=== PATIENT | female | born 1940 | race Caucasian/White ===

== ENCOUNTER → 2017-06-04 09:38 | Outpatient (CLI) | payer MEDICARE, OTHER, SELFPAY ==
--- NOTE | 2017-06-04 09:40 | VDLE_ITS ---
Reason For Study: LEG PAIN AND SWELLING RIGHT LEFT CFV is compressible, spontaneous, phasic, CFV is compressible, spontaneous, phasic, competent and demonstrates normal competent, and demonstrates normal augmentation. augmentation. FV is compressible, spontaneous, phasic, FV is compressible, small, contracted with competent and demonstrates normal diminshed blood flow signal augmentation. POP V is compressible, spontaneous, phasic POP V is compressible, spontaneous, phasic, and demonstrates INCOMPETENCY with competent and demonstrates normal augmentation. augmentation. T/P trunk is compressible T/P Trunk is compressible. PTV is compressible PTV is compressible. PER V is compressible RT PerV is compressible. SFJ is competent SFJ is competent GSV is competent GSV is competent above knee SSV is INCOMPETENT with reflux greater GSV is INCOMPETENT below knee with reflux than .5 sec and diameter of .44 x .41 cm. greater than .5 sec and diameter of .55 Procedure x .55 cm Exam performed in department. SSV is competent. Interpretation Summary Deep veins of the right lower extremity are patent and compressible segmentally. There is no evidence of right lower extremity deep vein thrombosis. Valvular competence appears intact within the proximal deep venous system on the right . Chronic venous changes are noted in the left femoral vein, which is contracted and demonstrates diminished flow. The remainder of the left lower extremity deep venous system is patent and compressible. The left popliteal vein is incompetent. The greater saphenous veins appear bilaterally patent and compressible segmentally. Sapheno-femoral junctions are bilaterally competent . The right greater saphenous vein appears segmentally competent. The left greater saphenous vein appears competent above the knee. The left greater saphenous vein appears incompetent below the knee. The right small saphenous vein is patent and incompetent. The left small saphenous vein is patent and competent. Ordering Physician: Theron Hurtado Performed By: Robyn Lees RVT
== END ==
PROVIDERS: Family Provider Family Medicine; PCP Family Medicine; Visit Provider Surgery
DX: M79.89 Other specified soft tissue disorders (principal); I87.029 Postthrombotic syndrome with inflammation of unspecified lower extremity; Z86.718 Personal history of other venous thrombosis and embolism
CPT/HCPCS: 93970

== ENCOUNTER → 2018-07-21 05:00 | Outpatient (REF) | payer MEDICARE, OTHER, SELFPAY ==
[2018-07-21 08:22] LABS: International Normalized Ratio 1.6; Prothrombin Time (Protime)PT. 18.5 SECONDS (11.7-14.9)
== END ==
LOC: OLS.ACH 05:00
DX: I48.0 Paroxysmal atrial fibrillation (principal)
CPT/HCPCS: 36415; 85610

== ENCOUNTER → 2018-07-29 05:00 | Outpatient (REF) | payer MEDICARE, OTHER, SELFPAY ==
[2018-07-29 08:11] LABS: Prothrombin Time Fingerstick 16.8 SEC (11.9-14.4)
== END ==
LOC: OLS.ACH 05:00
DX: I48.0 Paroxysmal atrial fibrillation (principal)
CPT/HCPCS: 36416; 85610

== ENCOUNTER → 2018-08-05 05:00 | Outpatient (REF) | payer MEDICARE, SELFPAY ==
[2018-08-05 10:09] LABS: International Normalized Ratio 1.8; Prothrombin Time (Protime)PT. 20.5 SECONDS (11.7-14.9)
== END ==
LOC: OLS.ACH 05:00
DX: I48.0 Paroxysmal atrial fibrillation (principal)
CPT/HCPCS: 36415; 85610

== ENCOUNTER → 2018-08-19 04:00 | Outpatient (REF) | payer MEDICARE, OTHER, SELFPAY ==
[2018-08-19 07:06] LABS: Prothrombin Time Fingerstick 20.9 SEC (11.9-14.4)
== END ==
LOC: OLS.ACH 04:00
DX: I48.0 Paroxysmal atrial fibrillation (principal)
CPT/HCPCS: 36416; 85610

== ENCOUNTER → 2018-08-26 05:00 | Outpatient (REF) | payer MEDICARE, OTHER, SELFPAY ==
[2018-08-26 08:31] LABS: Prothrombin Time Fingerstick 20.3 SEC (11.9-14.4)
== END ==
LOC: OLS.ACH 05:00
DX: I48.0 Paroxysmal atrial fibrillation (principal)
CPT/HCPCS: 36416; 85610

== ENCOUNTER → 2018-09-02 05:00 | Outpatient (REF) | payer MEDICARE, SELFPAY ==
[2018-09-02 09:06] LABS: Prothrombin Time Fingerstick 27.2 SEC (11.9-14.4)
== END ==
LOC: OLS.ACH 05:00
DX: I48.0 Paroxysmal atrial fibrillation (principal)
CPT/HCPCS: 36416; 85610

== ENCOUNTER → 2018-09-16 05:00 | Outpatient (REF) | payer MEDICARE, OTHER, SELFPAY ==
[2018-09-16 08:05] LABS: Prothrombin Time Fingerstick 29.2 SEC (11.9-14.4)
== END ==
LOC: OLS.ACH 05:00
DX: I48.0 Paroxysmal atrial fibrillation (principal)
CPT/HCPCS: 36416; 85610

== ENCOUNTER → 2018-09-30 05:00 | Outpatient (REF) | payer MEDICARE, OTHER, SELFPAY ==
[2018-09-30 08:25] LABS: Prothrombin Time Fingerstick 21.4 SEC (11.9-14.4)
== END ==
LOC: OLS.ACH 05:00
DX: I48.0 Paroxysmal atrial fibrillation (principal)
CPT/HCPCS: 36416; 85610

== ENCOUNTER → 2018-10-14 | Outpatient (REF) | payer MEDICARE, OTHER, SELFPAY ==
[2018-10-14 07:35] LABS: Prothrombin Time Fingerstick 22.3 SEC (11.9-14.4)
== END | disposition home or self-care (01) ==
LOC: OLS.ACH 05:00
DX: I48.0 Paroxysmal atrial fibrillation (principal)
CPT/HCPCS: 36416; 85610

== ENCOUNTER → 2018-10-28 | Outpatient (REF) | payer MEDICARE, OTHER, SELFPAY ==
[2018-10-28 07:01] LABS: Prothrombin Time Fingerstick 25.1 SEC (11.9-14.4)
== END | disposition home or self-care (01) ==
LOC: OLS.ACH 05:00
DX: I48.0 Paroxysmal atrial fibrillation (principal)
CPT/HCPCS: 36416; 85610

== ENCOUNTER → 2018-11-09 05:00 | Outpatient (REF) | payer MEDICARE, OTHER, SELFPAY ==
[2018-11-09 08:20] LABS: Hematocrit 43.4 % (37-47); Hemoglobin 14.8 g/dl (12.0-15.0); Mean Corp Hgb Conc 34.1 g/gl (32-36); Mean Corpuscular Hgb 30.8 pg (27.0-32.0); Mean Corpuscular Volume 90.4 fL (81-99); Mean Platelet Vol. 9.2 fl (6.2-12.0); Platelet Count 305 K/mm3 (150-450); RBC Distribution Width CV 12.7 % (11.6-14.6); RBC Distribution Width SD 41.6 fl (35.1-43.9); White Blood Count 4.5 K/mm3 (4.4-11.0)
[2018-11-09 08:24] LABS: Scan Indicated on CBC? Y/N NO
[2018-11-09 08:34] LABS: AST(SGOT) 21 U/L (15-37); Alanine Aminotransfer ALT/SGPT 20 U/L (13-56); Alkaline Phosphatase 91 U/L (45-117); Anion Gap 6 (5-15); BUN 22 mg/dL (7-18); BUN/Creat Ratio 24.4 RATIO (10-20); Calcium,Total 9.2 mg/dL (8.5-10.1); Chloride 96 mmol/L (98-107); Cholesterol 352 mg/dL (200); EST Glomerular Filtration Rate 64 mL/min (>60); Est Glom Filt Rate - Afr Amer 78 mL/min (>60); Globulin 3.9 g/dL (2.2-4.2); Glucose 83 mg/dL (74-106); High Density Lipoprotein 76 mg/dL; Potassium 3.9 mmol/L (3.5-5.1); Protein, Total 7.9 g/dL (6.4-8.2); Sodium Level 131 mmol/L (136-145); Triglycerides 96 mg/dL; Very Low Density Lipoprotein 19 mg/dL (5-40)
== END ==
LOC: OLS.ACH 05:00
DX: E87.6 Hypokalemia (principal); E87.5 Hyperkalemia
CPT/HCPCS: 36415; 80053; 80061; 85027

== ENCOUNTER → 2018-11-18 05:00 | Outpatient (REF) | payer MEDICARE, OTHER, SELFPAY ==
[2018-11-18 07:06] LABS: Prothrombin Time Fingerstick 22.9 SEC (11.9-14.4)
== END ==
LOC: OLS.ACH 05:00
DX: I48.0 Paroxysmal atrial fibrillation (principal)
CPT/HCPCS: 36416; 85610

== ENCOUNTER → 2018-11-25 | Outpatient (REF) | payer MEDICARE, OTHER, SELFPAY ==
[2018-11-25 07:16] LABS: Prothrombin Time Fingerstick 23.4 SEC (11.9-14.4)
== END | disposition home or self-care (01) ==
LOC: OLS.ACH 05:00
DX: I48.0 Paroxysmal atrial fibrillation (principal)
CPT/HCPCS: 36416; 85610

== ENCOUNTER → 2018-12-23 05:00 | Outpatient (REF) | payer MEDICARE, OTHER, SELFPAY ==
[2018-12-23 08:42] LABS: International Normalized Ratio 2.5; Prothrombin Time (Protime)PT. 27.3 SECONDS (11.7-14.9)
== END ==
LOC: OLS.ACH 05:00
DX: I48.0 Paroxysmal atrial fibrillation (principal)
CPT/HCPCS: 36415; 85610

== ENCOUNTER → 2019-01-08 07:00 | Outpatient (REF) | payer MEDICARE, OTHER, SELFPAY | LOC: OLS.ACH 07:00 | DX: I48.0 Paroxysmal atrial fibrillation (principal) | CPT/HCPCS: 36416; 85610 ==

== ENCOUNTER → 2019-01-10 04:30 | Outpatient (REF) | payer MEDICARE, OTHER, SELFPAY ==
[2019-01-10 08:59] LABS: Prothrombin Time Fingerstick 14.4 SEC (11.9-14.4)
== END ==
LOC: OLS.ACH 04:30
DX: I48.0 Paroxysmal atrial fibrillation (principal)
CPT/HCPCS: 36416; 85610

== ENCOUNTER → 2019-01-12 05:00 | Outpatient (REF) | payer MEDICARE, OTHER, SELFPAY ==
[2019-01-12 09:49] LABS: Prothrombin Time Fingerstick 15.3 SEC (11.9-14.4)
== END ==
LOC: OLS.ACH 05:00
DX: I48.0 Paroxysmal atrial fibrillation (principal)
CPT/HCPCS: 36416; 85610

== ENCOUNTER → 2019-01-14 06:05 | Outpatient (REF) | payer MEDICARE, OTHER, SELFPAY ==
[2019-01-14 07:12] LABS: International Normalized Ratio 1.5; Prothrombin Time (Protime)PT. 17.9 SECONDS (11.7-14.9)
== END ==
LOC: OLS.ACH 06:05
DX: I48.0 Paroxysmal atrial fibrillation (principal)
CPT/HCPCS: 36415; 85610

== ENCOUNTER → 2019-01-16 04:00 | Outpatient (REF) | payer MEDICARE, OTHER, SELFPAY ==
[2019-01-16 08:25] LABS: Prothrombin Time Fingerstick 24.7 SEC (11.9-14.4)
== END ==
LOC: OLS.ACH 04:00
DX: I48.0 Paroxysmal atrial fibrillation (principal)
CPT/HCPCS: 36416; 85610

== ENCOUNTER → 2019-01-18 05:00 | Outpatient (REF) | payer MEDICARE, OTHER, SELFPAY ==
[2019-01-18 09:19] LABS: Prothrombin Time Fingerstick 30.4 SEC (11.9-14.4)
== END ==
LOC: OLS.ACH 05:00
DX: I48.0 Paroxysmal atrial fibrillation (principal)
CPT/HCPCS: 36416; 85610

== ENCOUNTER → 2019-01-20 05:00 | Outpatient (REF) | payer MEDICARE, OTHER, SELFPAY ==
[2019-01-20 10:01] LABS: Prothrombin Time Fingerstick 22.9 SEC (11.9-14.4)
== END ==
LOC: OLS.ACH 05:00
DX: I48.0 Paroxysmal atrial fibrillation (principal)
CPT/HCPCS: 36416; 85610

== ENCOUNTER → 2019-01-27 05:00 | Outpatient (REF) | payer MEDICARE, OTHER, SELFPAY ==
[2019-01-27 09:30] LABS: Prothrombin Time Fingerstick 26.8 SEC (11.9-14.4)
== END ==
LOC: OLS.ACH 05:00
DX: I48.0 Paroxysmal atrial fibrillation (principal)
CPT/HCPCS: 36416; 85610

== ENCOUNTER → 2019-02-03 05:00 | Outpatient (REF) | payer MEDICARE, OTHER, SELFPAY ==
[2019-02-03 10:54] LABS: Prothrombin Time Fingerstick 25.4 SEC (11.9-14.4)
== END ==
LOC: OLS.ACH 05:00
DX: R69 Illness, unspecified (principal)
CPT/HCPCS: 36416; 85610

== ENCOUNTER → 2019-02-17 05:00 | Outpatient (REF) | payer MEDICARE, OTHER, SELFPAY ==
[2019-02-17 07:45] LABS: Prothrombin Time Fingerstick 33.8 SEC (11.9-14.4)
== END ==
LOC: OLS.ACH 05:00
DX: I48.0 Paroxysmal atrial fibrillation (principal)
CPT/HCPCS: 36416; 85610

== ENCOUNTER → 2019-02-22 06:00 | Outpatient (REF) | payer MEDICARE, OTHER, SELFPAY ==
[2019-02-22 08:23] LABS: Absolute Lymphocyte Count 1.38 X10^3/uL (0.83-4.51); Absolute Neutrophil Count 1.5 X10^3/uL (2.0-7.7); Basophil# 0.03 X10^3/uL; Basophil% 0.9 % (0-1); Eosinophils% 2.9 % (0-5); Hematocrit 39.9 % (37-47); Hemoglobin 13.3 g/dL (12.0-15.0); Lymphocyte # 1.38 X10^3/ul (4.0); Lymphocyte % 39.4 % (19-41); Mean Corp Hgb Conc 33.3 g/dL (32-36); Mean Platelet Vol. 8.7 fl (6.2-12.0); Monocyte# 0.44 X10^3/uL; Monocyte% 12.6 % (0-10); NRBC Flagged by Analyzer 0 % (0-5); Neutrophil # 1.54 X10^3/uL (2.7-7.7); Neutrophil % 43.9 % (47-70); Platelet Count 282 K/mm3 (150-450); RBC Distribution Width CV 11.9 % (11.6-14.6); RBC Distribution Width SD 40.6 fl (35.1-43.9); Red Blood Count 4.29 M/mm3 (4.2-5.4); White Blood Count 3.5 K/mm3 (4.4-11.0)
[2019-02-22 08:31] LABS: AST(SGOT) 19 U/L (15-37); Alanine Aminotransfer ALT/SGPT 22 U/L (13-56); Albumin, Serum 3.5 g/dL (3.2-5.0); Alkaline Phosphatase 80 U/L (45-117); Anion Gap 9 (5-15); BUN 18 mg/dL (7-18); BUN/Creat Ratio 20.4 RATIO (10-20); Chloride 93 mmol/L (98-107); Creatinine, Serum 0.88 mg/dL (0.55-1.02); EST Glomerular Filtration Rate 66 mL/min (>60); Est Glom Filt Rate - Afr Amer 80 mL/min (>60); Globulin 3.6 g/dL (2.2-4.2); Glucose 83 mg/dL (74-106); Potassium 4.3 mmol/L (3.5-5.1); Protein, Total 7.1 g/dL (6.4-8.2); Sodium Level 131 mmol/L (136-145)
== END ==
LOC: OLS.ACH 06:00
DX: I10 Essential (primary) hypertension (principal)
CPT/HCPCS: 36415; 80053; 85025

== ENCOUNTER → 2019-03-03 05:00 | Outpatient (REF) | payer MEDICARE, OTHER, SELFPAY ==
[2019-03-03 08:25] LABS: Prothrombin Time Fingerstick 36.6 SEC (11.9-14.4)
== END ==
LOC: OLS.ACH 05:00
DX: I48.0 Paroxysmal atrial fibrillation (principal)
CPT/HCPCS: 36416; 85610

== ENCOUNTER → 2019-03-10 05:00 | Outpatient (REF) | payer MEDICARE, OTHER, SELFPAY ==
[2019-03-10 09:07] LABS: International Normalized Ratio 3.4; Prothrombin Time (Protime)PT. 34.6 SECONDS (11.7-14.9)
[2019-03-10 10:56] LABS: Prothrombin Time Fingerstick 39.4 SEC (11.9-14.4)
== END ==
LOC: OLS.ACH 05:00
DX: I48.0 Paroxysmal atrial fibrillation (principal)
CPT/HCPCS: 36416; 85610

== ENCOUNTER → 2019-03-17 05:00 | Outpatient (REF) | payer MEDICARE, OTHER, SELFPAY ==
[2019-03-17 08:45] LABS: Prothrombin Time Fingerstick 24.8 SEC (11.9-14.4)
== END ==
LOC: OLS.ACH 05:00
DX: I48.0 Paroxysmal atrial fibrillation (principal)
CPT/HCPCS: 36416; 85610

== ENCOUNTER → 2019-04-13 05:00 | Outpatient (REF) | payer MEDICARE, OTHER, SELFPAY ==
[2019-04-13 07:15] LABS: Prothrombin Time Fingerstick 29.2 SEC (11.9-14.4)
== END ==
LOC: OLS.ACH 05:00
DX: I48.0 Paroxysmal atrial fibrillation (principal)
CPT/HCPCS: 36416; 85610

== ENCOUNTER → 2019-04-18 05:00 | Outpatient (REF) | payer MEDICARE, OTHER, SELFPAY ==
[2019-04-18 07:39] LABS: Hematocrit 39.3 % (37-47); Hemoglobin 13.6 g/dL (12.0-15.0); Mean Corp Hgb Conc 34.6 g/dL (32-36); Mean Corpuscular Hgb 31.1 pg (27.0-32.0); Mean Corpuscular Volume 89.9 fL (81-99); Mean Platelet Vol. 8.7 fl (6.2-12.0); Platelet Count 248 K/mm3 (150-450); RBC Distribution Width CV 11.9 % (11.6-14.6); RBC Distribution Width SD 39.7 fl (35.1-43.9); Red Blood Count 4.37 M/mm3 (4.2-5.4); White Blood Count 3.1 K/mm3 (4.4-11.0)
[2019-04-18 07:53] LABS: ALB/GLOB Ratio 1.1 RATIO (0.9-2.4); AST(SGOT) 18 U/L (15-37); Alanine Aminotransfer ALT/SGPT 19 U/L (13-56); Albumin, Serum 3.5 g/dL (3.2-5.0); Alkaline Phosphatase 84 U/L (45-117); Anion Gap 5 (5-15); BUN 17 mg/dL (7-18); Calcium,Total 8.9 mg/dL (8.5-10.1); Chloride 93 mmol/L (98-107); Creatinine, Serum 0.85 mg/dL (0.55-1.02); EST Glomerular Filtration Rate 69 mL/min (>60); Est Glom Filt Rate - Afr Amer 83 mL/min (>60); Globulin 3.3 g/dL (2.2-4.2); Glucose 87 mg/dL (74-106); Potassium 4.1 mmol/L (3.5-5.1); Protein, Total 6.8 g/dL (6.4-8.2); Sodium Level 127 mmol/L (136-145)
== END ==
LOC: OLS.ACH 05:00
PROVIDERS: Visit Provider Family Medicine
DX: I48.0 Paroxysmal atrial fibrillation (principal)
CPT/HCPCS: 36415; 80053; 85027

== ENCOUNTER → 2019-05-11 05:00 | Outpatient (REF) | payer MEDICARE, OTHER, SELFPAY ==
[2019-05-11 09:35] LABS: Prothrombin Time Fingerstick 33.7 SEC (11.9-14.4)
== END ==
LOC: OLS.ACH 05:00
PROVIDERS: Family Provider Family Medicine; PCP Family Medicine
DX: I48.0 Paroxysmal atrial fibrillation (principal)
CPT/HCPCS: 36416; 85610

== ENCOUNTER → 2019-05-18 05:00 | Outpatient (REF) | payer MEDICARE, OTHER, SELFPAY ==
[2019-05-18 07:54] LABS: Hematocrit 40.2 % (37-47); Hemoglobin 13.3 g/dL (12.0-15.0); Mean Corp Hgb Conc 33.1 g/dL (32-36); Mean Corpuscular Hgb 30.6 pg (27.0-32.0); Mean Corpuscular Volume 92.4 fL (81-99); Mean Platelet Vol. 8.7 fl (6.2-12.0); Platelet Count 269 K/mm3 (150-450); RBC Distribution Width CV 12.1 % (11.6-14.6); RBC Distribution Width SD 41.2 fl (35.1-43.9); Red Blood Count 4.35 M/mm3 (4.2-5.4)
[2019-05-18 08:10] LABS: AST(SGOT) 18 U/L (15-37); Alanine Aminotransfer ALT/SGPT 19 U/L (13-56); Albumin, Serum 3.5 g/dL (3.2-5.0); Alkaline Phosphatase 79 U/L (45-117); Anion Gap 5 (5-15); BUN 18 mg/dL (7-18); Chloride 99 mmol/L (98-107); EST Glomerular Filtration Rate 57 mL/min (>60); Est Glom Filt Rate - Afr Amer 69 mL/min (>60); Globulin 3.4 g/dL (2.2-4.2); Glucose 102 mg/dL (74-106); Potassium 3.8 mmol/L (3.5-5.1); Protein, Total 6.9 g/dL (6.4-8.2); Sodium Level 133 mmol/L (136-145)
== END ==
LOC: OLS.ACH 05:00
PROVIDERS: Family Provider Family Medicine; PCP Family Medicine; Visit Provider Family Medicine
DX: I10 Essential (primary) hypertension (principal); K64.8 Other hemorrhoids
CPT/HCPCS: 36415; 80053; 85027

== ENCOUNTER 2020-09-02 09:23 | Emergency (ER) | payer MEDICARE, OTHER, SELFPAY ==
[2020-09-02 09:25] VITALS: BP 163/62; PULSE 57; RESP 14; TEMP 36.5; O2SAT 99; BMI 28.5
--- NOTE | 2020-09-02 10:44 | ED.VIS.GEN ---
History of Present Illness Chief Complaint: Back Informant: Patient Narrative: 80-year-old female presenting with lower back pain. She states that she was moving furniture for her yesterday to try to make room for a bed because he has advanced Parkinson's. She states she tried to move a dresser and a nightstand. She did not feel a pop or crack. She states today she has trouble ambulating. She states when she lays or sits her back is fine but when she tries to stand and walk she gets a spasm. Patient denies any direct trauma. No loss of bladder or bowel control. She took 2 ibuprofen prior to coming. She is on Coumadin Past Medical History - Allergies and Home Meds Allergies/Adverse Reactions: Allergies Sulfa (Sulfonamide Antibiotics) Allergy (Verified 09/02/20 09:27) [place] Primary Care Physician: Dwain Roberson DO [Primary Care Provider] - Prior records reviewed: Yes Surgical History: noncontributory [facility] Smoking Status: Never smoker Review of Systems General: Denies: Chills, Fever, Sweats Eyes: Denies: Visual changes - bilaterally, Diplopia ENT: Denies: Rhinorrhea, Sore throat Cardiovascular: Denies: Chest pain, Palpitations Respiratory: Denies: Dyspnea, Cough, Dyspnea on exertion Gastrointestinal: Denies: Abdominal pain, Nausea, Vomiting, Diarrhea, Melena, Hematochezia Genitourinary: Denies: Dysuria, Hematuria, Frequency Musculoskeletal: Reports: Back pain. Denies: Arthralgias, Neck pain Skin: Denies: Rash, Wounds Neurological: Denies: Headache, Weakness, Numbness Psych: Denies: Depression, Anxiety Physical Exam Vital Signs/Narrative: Vital Signs Temp Pulse Resp BP Pulse Ox 09/02/20 09:25 97.7 F L 57 L 14 163/62 H 99 Inital Vital Signs reviewed: Yes General: Well nourished, No Acute Distress Head: Normocephalic, Atraumatic Eyes: Perrl, EOMI ENT: Moist mucous membranes, Sinus tenderness Neck: Supple, Nontender Cardiovascular: Regular rate, Regular rhythm Respiratory: No distress, CTA bilaterally Abdomen: Soft, Nontender, Nondistended Back: - - No midline spinal tenderness, deformity, step-off. Generalized lower back pain to the right and left of the lumbar spine. No rash, ecchymosis. Neurological: Alert, Oriented x3, Cranial nerves II-XII grossly intact Psychological: Normal affect, Normal Mood Diagnostic/Tx/Re-eval Clinical Impression(s) from Imaging Studies Lumbar Spine X-Ray 09/02/20 11:20 IMPRESSION: Degenerative changes of the spine, as detailed above. Electronically Signed: Miki Ramirez MD at 11:55 EDT , Service support , - Medical Decision Making 80-year-old female presenting with lower back pain. This was nontraumatic in nature. It started to ache after she started moving dressers and a nightstand. She has no signs of cauda equina syndrome. Patient had x-ray of the lumbar spine as interpreted by myself that shows mild degenerative changes. Radiology does agree. Patient was given a Lidoderm patch due to fear that she gets a little confused when she is on narcotic pain medication. Patient felt somewhat improved and was able to ambulate with stable gait. She did have some pain here. She is given a prescription for Lidoderm patches. She is discharged home in stable condition. Impression: 1. Lumbar strain ED Disposition - Plan for ED Patient: Disposition: Home or Assisted Living Instructions: ED Back Sprain/Strain Prescriptions: Lidocaine [Lidoderm Patch] 1 patch TOPICAL DAILY #10 patch Prescription Printed Referrals: Dwain Roberson DO [Primary Care Provider] -
[2020-09-02] MEDS: Lidocaine 5% Patch 1 PATCH TOPICAL (11:09)
[2020-09-02 11:10] VITALS: PULSE 69; RESP 18; O2SAT 95
--- NOTE | 2020-09-02 11:20 | RAD_ITS ---
STUDY: X-RAY - LUMBAR SPINE REASON FOR EXAM: Female, 80 years old. Back pain following injury. TECHNIQUE: 3 view(s) of the lumbar spine were obtained. COMPARISON: None FINDINGS: Normal lumbar lordosis. There is a minimal dextroscoliosis of the lumbar spine. There is a normal alignment of the vertebrae. There is multilevel endplate spondylosis of the lumbar vertebrae. There is multi-level degenerative disc disease with multi-level disc space narrowing. There is no demonstrated fracture. Facet joint osteoarthritis. Minimal anterior listhesis of L4 on L5. Status post left hip replacement. There is atherosclerotic calcification of the abdominal aorta without a demonstrated aneurysm. RAD/Lumbar Spine 2 or 3 Views IMPRESSION: Degenerative changes of the spine, as detailed above. Electronically Signed: Miki Ramirez MD at 11:55 EDT , Service support ,
[2020-09-02 13:23] VITALS: BP 161/65; PULSE 58; RESP 18; O2SAT 98
== END 2020-09-02 13:24 | disposition home or self-care (01) ==
PROVIDERS: Emergency Provider Student in an Organized Health Care Education/Training Program; PCP Family Medicine
DX: S39.012A Strain of muscle, fascia and tendon of lower back, initial encounter (principal); X58.XXXA Exposure to other specified factors, initial encounter; Z79.01 Long term (current) use of anticoagulants
CPT/HCPCS: 72100; 99285

== ENCOUNTER → 2020-12-11 05:00 | Outpatient (REF) | payer MEDICARE, OTHER, SELFPAY ==
[2020-12-11 09:07] LABS: Absolute Neutrophil Count 1.7 X10^3/uL (2.0-7.7); Basophil# 0.02 X10^3/uL; Basophil% 0.5 % (0-1); Eosinophil# 0.02 X10^3/uL; Eosinophils% 0.5 % (0-5); Hematocrit 44.3 % (37-47); Mean Corp Hgb Conc 33.9 g/dL (32-36); Mean Corpuscular Hgb 30.3 pg (27.0-32.0); Mean Corpuscular Volume 89.5 fL (81-99); Mean Platelet Vol. 8.7 fl (6.2-12.0); Monocyte# 0.42 X10^3/uL; Monocyte% 11.5 % (0-10); NRBC Flagged by Analyzer 0 % (0-5); Neutrophil # 1.69 X10^3/uL (2.7-7.7); Neutrophil % 46.2 % (47-70); Platelet Count 288 K/mm3 (150-450); RBC Distribution Width CV 11.9 % (11.6-14.6); RBC Distribution Width SD 38.6 fl (35.1-43.9); Red Blood Count 4.95 M/mm3 (4.2-5.4); White Blood Count 3.7 K/mm3 (4.4-11.0)
[2020-12-11 09:35] LABS: ALB/GLOB Ratio 0.9 RATIO (0.9-2.4); AST(SGOT) 26 U/L (15-37); Alanine Aminotransfer ALT/SGPT 25 U/L (13-56); Albumin, Serum 4.1 g/dL (3.2-5.0); Alkaline Phosphatase 113 U/L (45-117); Anion Gap 5 (5-15); BUN 15 mg/dL (7-18); BUN/Creat Ratio 18.3 RATIO (10-20); Calcium,Total 9.3 mg/dL (8.5-10.1); Chloride 88 mmol/L (98-107); Creatinine, Serum 0.82 mg/dL (0.55-1.02); EST Glomerular Filtration Rate 72 mL/min (>60); Est Glom Filt Rate - Afr Amer 87 mL/min (>60); Globulin 4.4 g/dL (2.2-4.2); Glucose 76 mg/dL (74-106); Potassium 3.8 mmol/L (3.5-5.1); Protein, Total 8.5 g/dL (6.4-8.2); Sodium Level 122 mmol/L (136-145)
== END ==
LOC: OLS.SWAL 05:00
PROVIDERS: PCP Family Medicine; Referring Provider Family Medicine; Visit Provider Family Medicine
DX: I10 Essential (primary) hypertension (principal); I48.91 Unspecified atrial fibrillation
CPT/HCPCS: 36415; 80053; 85025

== ENCOUNTER 2021-02-22 17:46 | Observation (INO) | payer MEDICARE, OTHER, SELFPAY ==
[2021-02-22] VITALS (7 sets, daily range): BP systolic 108–170; BP diastolic 52–79; PULSE 56–77; RESP 15–20; TEMP 36.4–36.8; O2SAT 94–99; BMI 27.5; BMI 25.8
--- NOTE | 2021-02-22 18:22 | EKG12_ITS ---
Test Reason : ALT LOC Blood Pressure : / mmHG Vent. Rate : 077 BPM Atrial Rate : 077 BPM P-R Int : 218 ms QRS Dur : 092 ms QT Int : 390 ms P-R-T Axes : 072 038 071 degrees QTc Int : 441 ms Sinus rhythm with 1st degree A-V block Otherwise normal ECG Confirmed by SILVANO HERNANDEZ, JUSTO ([id number]), state editor RENETTA RUSHING ([id number]) on 02/25/2021 8:52:24 AM Referred By: Valerio Parrish Confirmed By:JUSTO SCHAEFER MD
--- NOTE | 2021-02-22 18:26 | EDS_ITS ---
HPI History of Present Illness Chief Complaint: Alt LOC Informant: patient Narrative Narrative: 80-year-old female presenting after near syncopal episode. Patient states she was sitting down and started to feel flushed and dizzy. She states she had an overwhelming feeling of nausea. She felt generally weak. She felt as though she may pass out. She did not completely pass out. She denies chest pain or chest pressure. She is vaccinated for Covid. Prior similar symptoms: No Recent Illness/Hospitalization: No PFSH PFSH Medical History (Updated 02/22/21 @ 20:[address] Gladis Mckoy MD) Afib Asthma DVT (deep venous thrombosis) HTN (hypertension) Restless leg syndrome Sleep apnea Home Medications acetaminophen 650 mg PO Q4H PRN PRN 09/02/20 [History Last Taken Unknown] amlodipine 5 mg PO DAILY 09/02/20 [History Last Taken Unknown] flecainide 50 mg PO BID 09/02/20 [History Last Taken Unknown] fluticasone propionate 1 spray NS DAILY 09/02/20 [History Last Taken Unknown] hydrochlorothiazide 12.5 mg PO DAILY 09/02/20 [History Last Taken Unknown] lidocaine 1 patch TOPICAL DAILY #10 patch 09/02/20 [Rx Last Taken Unknown] montelukast 10 mg PO DAILY 09/02/20 [History Last Taken Unknown] sodium chloride 3 spray NS Q8H PRN PRN 09/02/20 [History Last Taken Unknown] spironolactone 100 mg PO DAILY 09/02/20 [History Last Taken Unknown] warfarin 7.5 mg PO QHS 09/02/20 [History Last Taken Unknown] Allergy/AdvReac Type Severity Reaction Status Date / Time Sulfa (Sulfonamide Allergy Hives Verified 02/22/21 17:46 Antibiotics) Social History Smoking Status: Never smoker ROS [facility] ED Constitutional Constitutional ED: Denies fever(s) Eyes Eyes: Denies change in vision ENT ENT ED: Denies rhinorrhea or sore throat Cardiovascular Cardiovascular: Denies chest pain or palpitations Respiratory/Chest Respiratory/Chest: Denies cough or dyspnea Gastrointestinal Gastrointestinal: Reports nausea; Denies abdominal pain, diarrhea or vomiting Genitourinary Genitourinary ED: Denies dysuria Musculoskeletal Musculoskeletal: Denies myalgias Integumentary Denies rash Neurologic Neurologic: Denies headache(s) Psychiatric Psychiatric: Denies suicidal thoughts EXAM Physical Exam Const Vital Signs: 02/22/21 17:47 02/22/21 18:46 Temperature 97.5 F L Temperature Source Oral Pulse Rate 77 68 Respiratory Rate 20 H 17 Blood Pressure 170/79 H 145/58 H Blood Pressure Mean 109 87 Pulse Ox 98 99 Oxygen Delivery Method Room Air Room Air Positive well nourished and well developed General Appearance ED: well developed HEENT Reports normocephalic and head/scalp atraumatic Eyes PERRL and EOMs intact bilaterally Neck supple General: Negative for tenderness Chest Wall inspection of chest normal Resp normal respiratory effort and clear to auscultation bilaterally Cardio regular rate and regular rhythm GI non-tender and non-distended Palpation: soft; Negative for guarding or rebound tenderness present no CVA tenderness Extremity normal to inspection Neuro oriented x3, CN's II-XII intact bilaterally and no sensory deficits noted Sensorium / Orientation: alert Motor Exam: strength 5/5 throughout Psych mental status grossly normal Skin no rashes or lesions noted MDM MDM MDM Narrative Medical decision making narrative: Patient was bradycardic in the 40s and was given atropine per EMS prior to arrival. Patient was given IV fluids, Zofran. CBC, chemistries are unremarkable other than sodium of 127. Troponin is negative. Chest x-ray read by myself and radiology shows no acute process. CT head shows mild atrophy and periventricular white matter ischemic change. No acute bleed. On reevaluation, patient remains hemodynamically stable. Discussed with hospitalist for observation. Lab Data Attestation: I reviewed the patient's lab results. Labs: Laboratory Results - last 24 hr 02/22/21 02/22/21 17:50 17:50 WBC 4.0 L RBC 4.28 Hgb 13.5 Hct 39.4 MCV 92.1 MCH 31.5 MCHC 34.3 RDW Std Deviation 41.9 RDW Coeff of Stephanie 12.4 Plt Count 348 MPV 8.5 Immature Gran % (Auto) 0.300 Neut % (Auto) 51.4 Lymph % (Auto) 34.5 [place] % (Auto) 13.0 H Eos % (Auto) 0.3 Baso % (Auto) 0.5 Absolute Neuts (auto) 2.1 Absolute Lymphs (auto) 1.38 Nucleated RBC % 0 Sodium 127 L Potassium 3.8 Chloride 91 L Carbon Dioxide 28.0 Anion Gap 8 BUN 19 H Creatinine 0.71 Estim Creat Clear Calc 36.08 Est GFR (MDRD) Af Amer 101 Est GFR (MDRD) Non-Af 84 BUN/Creatinine Ratio 26.6 H Glucose 107 H Calcium 9.0 Troponin I High Sens 6 Radiography Diagnostic Testing: Clinical Impression(s) from Imaging Studies Brain CT 02/22/21 18:38 IMPRESSION: Mild atrophy and periventricular white matter ischemic change. No acute bleed.. If concern for acute infarct MRI recommended Electronically Signed: Steven London MD at 19:28 EDT , Service support , Chest X-Ray 02/22/21 18:40 IMPRESSION: No acute cardiopulmonary pathology Electronically Signed: Steven London MD at 19:30 EDT , Service support , Discharge Plan Triage Chief Complaint: Alt LOC ED Provider: Gladis Mckoy Dx/Rx/DC Orders Clinical Impression: Near syncope, Bradycardia Prescriptions: No Action warfarin 7.5 MG tablet 7.5 mg PO QHS RF: 0 spironolactone 100 MG tablet 100 mg PO DAILY RF: 0 amlodipine 5 MG tablet 5 mg PO DAILY RF: 0 flecainide 50 MG tablet 50 mg PO BID RF: 0 hydrochlorothiazide 12.5 MG capsule 12.5 mg PO DAILY RF: 0 montelukast 10 MG tablet 10 mg PO DAILY RF: 0 fluticasone propionate 9.9 ML spray,suspension 1 spray NS DAILY RF: 0 sodium chloride 30 ML aerosol,spray 3 spray NS Q8H PRN PRN (Reason: Congestion) RF: 0 acetaminophen 325 MG capsule 650 mg PO Q4H PRN PRN (Reason: pain/fever) RF: 0 lidocaine 1 PATCH patch 1 patch TOPICAL DAILY Qty: 10 RF: 0 Primary Care Provider: Dwain Roberson Referrals: Dwain Roberson, [Primary Care Provider] - Disposition Disposition: Acute Care [facility]
[2021-02-22 18:31] LABS: Absolute Lymphocyte Count 1.38 X10^3/uL (0.83-4.51); Absolute Neutrophil Count 2.1 X10^3/uL (2.0-7.7); Basophil# 0.02 X10^3/uL; Basophil% 0.5 % (0-1); Eosinophil# 0.01 X10^3/uL; Eosinophils% 0.3 % (0-5); Hematocrit 39.4 % (37-47); Hemoglobin 13.5 g/dL (12.0-15.0); Lymphocyte # 1.38 X10^3/ul (0.83-4.51); Lymphocyte % 34.5 % (19-41); Mean Corp Hgb Conc 34.3 g/dL (32-36); Mean Corpuscular Hgb 31.5 pg (27.0-32.0); Mean Corpuscular Volume 92.1 fL (81-99); Mean Platelet Vol. 8.5 fl (6.2-12.0); Monocyte# 0.52 X10^3/uL; NRBC Flagged by Analyzer 0 % (0-5); Neutrophil # 2.06 X10^3/uL (2.7-7.7); Neutrophil % 51.4 % (47-70); Platelet Count 348 K/mm3 (150-450); RBC Distribution Width CV 12.4 % (11.6-14.6); RBC Distribution Width SD 41.9 fl (35.1-43.9); Red Blood Count 4.28 M/mm3 (4.2-5.4)
--- NOTE | 2021-02-22 18:38 | CT_ITS ---
STUDY: CT BRAIN WITHOUT CONTRAST REASON FOR EXAM: Female, 80 years old. dizziness RADIATION DOSAGE (If Supplied By Facility): CTDIvol = ( 44.99 ) mGy, DLP = ( 796.11 ) mGycm TECHNIQUE: Transaxial CT imaging of the brain was performed without administration of intravenous contrast material. Individualized dose optimization techniques were used for this CT. COMPARISON: No relevant priors. FINDINGS: Normal soft tissue structures. Normal calvarium. Mild atrophy and periventricular white matter ischemic changes.. Normal basal ganglia and thalami. Normal brainstem. Normal cerebellum. There is no intracranial hemorrhage. There are no findings of an acute ischemic infarction. Postsurgical changes of the orbits Normal visualized paranasal sinuses. CT/Brain/Head without Contrast IMPRESSION: Mild atrophy and periventricular white matter ischemic change. No acute bleed.. If concern for acute infarct MRI recommended Electronically Signed: Steven London MD at 19:28 EDT , Service support ,
--- NOTE | 2021-02-22 18:40 | RAD_ITS ---
STUDY: X-RAY CHEST REASON FOR EXAM: Female, 80 years old. sob TECHNIQUE: AP portable COMPARISON: None. FINDINGS: The lungs are clear and expanded. There is no demonstrated pleural abnormality. Normal size heart. Normal mediastinum and ana. Normal visualized pulmonary arteries. Normal visualized aortic arch and descending thoracic aorta. Dorsal spine demonstrates mild scoliosis and degenerative change. Normal visualized ribs, clavicles, and shoulders. Postsurgical changes status post cervical fusion There is no demonstrated abnormality of the visualized soft tissue structures of the upper abdomen. RAD/Chest 1 View (Portable) IMPRESSION: No acute cardiopulmonary pathology Electronically Signed: Steven London MD at 19:30 EDT , Service support ,
[2021-02-22] MEDS: Ondansetron 4 MG/2 ML Vial IV (18:49)
[2021-02-22 18:51] LABS: Anion Gap 8 (5-15); BUN 19 mg/dL (7-18); BUN/Creat Ratio 26.6 RATIO (10-20); Chloride 91 mmol/L (98-107); Creatinine, Serum 0.71 mg/dL (0.55-1.02); EST Glomerular Filtration Rate 84 mL/min (>60); Est Glom Filt Rate - Afr Amer 101 mL/min (>60); Estimated Creatinine Clearance 36.08 ml/min; Glucose 107 mg/dL (74-106); Potassium 3.8 mmol/L (3.5-5.1); Sodium Level 127 mmol/L (136-145); Troponin-I HS 6 pg/mL (3.0-54.0)
--- NOTE | 2021-02-22 20:49 | PCM.HP.STD ---
HPI - General General Date of Admission: 02/22/21 HPI Narrative RUBINA YANEZ, is a 80 F who lives at an assisted nursing facility and with a significant history of DVT; CVA; A. fib on flecainide presents to the emergency department with presyncope that occurred while sitting in her couch. Her symptoms occurred a few hours before presentation. Associated with her symptom is nausea; and diaphoresis. Paramedics realized that patient had bradycardia with heart rate of 40 and so she was given atropine. Also she was given IV fluids enroute at the emergency department. She received IV fluids and Zofran at the emergency department. Patient received the flu vaccination about a week ago and Covid booster vaccination a few days thereafter. She is wondering whether her symptoms may be from these vaccinations. She has been on flecainide for 5 years without any symptoms. She reports that with flecainide she has not had any breakthrough A. fib. [facility] Medical History Afib Asthma DVT (deep venous thrombosis) HTN (hypertension) Restless leg syndrome Sleep apnea Home Medications acetaminophen 650 mg PO Q4H PRN PRN 09/02/20 [History Last Taken Unknown] amlodipine 5 mg PO DAILY 09/02/20 [History Last Taken Unknown] flecainide 50 mg PO BID 09/02/20 [History Last Taken Unknown] fluticasone propionate 1 spray NS DAILY 09/02/20 [History Last Taken Unknown] hydrochlorothiazide 12.5 mg PO DAILY 09/02/20 [History Last Taken Unknown] lidocaine 1 patch TOPICAL DAILY #10 patch 09/02/20 [Rx Last Taken Unknown] montelukast 10 mg PO DAILY 09/02/20 [History Last Taken Unknown] sodium chloride 3 spray NS Q8H PRN PRN 09/02/20 [History Last Taken Unknown] spironolactone 100 mg PO DAILY 09/02/20 [History Last Taken Unknown] warfarin 7.5 mg PO QHS 09/02/20 [History Last Taken Unknown] Allergy/AdvReac Type Severity Reaction Status Date / Time Sulfa (Sulfonamide Allergy Hives Verified 02/22/21 17:46 Antibiotics) Family History (Updated 02/22/21 @ 21:[address] Valerio Parrish MD) Other Alzheimer's dementia Surgical History (Updated 02/22/21 @ 21:[address] Valerio Parrish MD) History of hip surgery History of nephrectomy Previous back surgery Social History Smoking Status: Never smoker ROS ROS Narrative Constitutional: Denies fever, chills, fatigue, anorexia and change in weight Eyes: Denies blurry vision, change in eye color, change in vision, discharge from eye(s), double vision, erythema, eye pain, loss of vision or other HEENT: Denies abnormal hearing, dysphagia, ear pain, epistaxis, headache(s), hearing loss, nasal congestion, nasal discharge, post nasal drip, sinus pressure, sore throat or other Cardiovascular: Denies chest pain or palpitations. Denies dyspnea on exertion, orthopnea and paroxysmal nocturnal dyspnea Respiratory/Chest: Denies cough, excessive phlegm production, shortness of breath with exertion and wheezing Gastrointestinal: Reports nausea. Denies abdominal pain, coffee ground emesis, constipation, diarrhea, dyspepsia, hematemesis, hematochezia, loose stools, melena, vomiting or other Genitourinary: Denies burning urination, difficulty urinating, dysuria, hematuria, nocturia, urinary frequency, urinary hesitancy, urinary incontinence, urinary urgency or other Musculoskeletal: Denies arthralgias, back pain, joint pain, joint stiffness, joint swelling, myalgias, neck pain or other Neurologic: Denies abnormal gait, abnormal speech, confusion, disequilibrium, dizziness, focal weakness, headache(s), numbness, paresthesias, seizure-like activity, seizures, tingling, tremor(s) or other Psychiatric: Denies anxiety, depression, homicidal ideation, suicidal ideation or other Endocrinology: Denies change in body appearance, cold intolerance, excessive sweating, heat intolerance, polydipsia, polyuria or other Hematologic/Lymphatic: Denies anemia, easy bleeding, easy bruising, lymphadenopathy or other Integumentary: Denies rashes Allergic/Immunologic: Denies rhinitis, hives, eczema, asthma or other Vital Signs Vital Signs Vital Signs: 02/22/21 17:47 02/22/21 18:46 Temperature 97.5 F L Temperature Source Oral Pulse Rate 77 68 Respiratory Rate 20 H 17 Blood Pressure 170/79 H 145/58 H Blood Pressure Mean 109 87 Pulse Ox 98 99 Oxygen Delivery Method Room Air Room Air Weight Weight: 68.2 kg Body Mass Index (BMI) 27.5 Physical Exam Narrative Physical exam: General: Well-nourished, well-developed. Head: Normocephalic, atraumatic, no tenderness Eyes: PERRLA, EOMI ENT, no trauma, moist mucous membranes, no rhinorrhea Neck: Nontender, full range of motion, no spinal tenderness, deformities, step-off CVS: Regular rate and rhythm. S1-S2 present. No murmur, gallop or rub. Respiratory : clear to auscultation bilaterally, chest wall nontender, no wheezing Abdomen: Soft, nontender, nondistended, normal bowel sounds, no masses : Deferred Back: Nontender, no CVA tenderness, no midline spinal tenderness, deformities, step-offs Extremities: Nontender full range of motion, no trauma Skin: Normal color, no trauma, abrasions Neuro: Alert, oriented, cranial nerves II through XII grossly intact. Psychiatry: Normal mood. Normal affect. Not depressed. Not anxious. Results Lab / Micro Data Result Diagrams: 02/22/21 17:50 02/22/21 17:50 Labs: Laboratory Results - last 24 hr 02/22/21 17:50: WBC 4.0 L, RBC 4.28, Hgb 13.5, Hct 39.4, MCV 92.1, MCH 31.5, MCHC 34.3, RDW Std Deviation 41.9, RDW Coeff of Stephanie 12.4, Plt Count 348, MPV 8.5, Immature Gran % (Auto) 0.300, Neut % (Auto) 51.4, Lymph % (Auto) 34.5, [place] % (Auto) 13.0 H, Eos % (Auto) 0.3, Baso % (Auto) 0.5, Absolute Neuts (auto) 2.1, Absolute Lymphs (auto) 1.38, Nucleated RBC % 0 02/22/21 17:50: Sodium 127 L, Potassium 3.8, Chloride 91 L, Carbon Dioxide 28.0, Anion Gap 8, BUN 19 H, Creatinine 0.71, Estim Creat Clear Calc 36.08, Est GFR (MDRD) Af Amer 101, Est GFR (MDRD) Non-Af 84, BUN/Creatinine Ratio 26.6 H, Glucose 107 H, Calcium 9.0, Troponin I High Sens [address] 02/22/21 18:38 IMPRESSION: Mild atrophy and periventricular white matter ischemic change. No acute bleed.. If concern for acute infarct MRI recommended Electronically Signed: Steven London MD at 19:28 EDT , Service support , Chest X-Ray 02/22/21 18:40 IMPRESSION: No acute cardiopulmonary pathology Electronically Signed: Steven Londno MD at 19:30 EDT , Service support , Assessment & Plan Assessment/Plan (1) Near syncope: (2) Bradycardia: PLAN: Near syncope and bradycardia Brain CT and chest x-ray was independently interpreted and I agree with radiologist interpretation above. EKG reviewed showed first-degree AV block with rate of 77. Rate on telemetry was in the 60s. Cannot rule out Covid vaccination causing the symptoms. Cannot say 100% that is also Covid vaccination causing symptoms. We will observe patient on telemetry. Since she has been on flecainide for about 5 years without any symptoms flecainide will be continued. Potassium is 3.8. Give 20 mEq of potassium chloride. Check magnesium. Check echocardiogram. History of atrial fibrillation Now in sinus degree with first-degree AV block with rates of 77 on EKG. Flecainide continued. Coumadin continued. Trend PT/INR. Hypertension Blood pressure is not within goal Amlodipine; hydrochlorothiazide and Aldactone continued. Trend blood pressure and adjust blood pressure medications. Chronic leukopenia Review of labs showed white count of 4.0 Stable. DVT prophylaxis: On Coumadin will be continued. Charges/Coding Visit Charges OBSV E&M: [id number] Initial observation care L3
--- NOTE | 2021-02-22 21:51 | PCS.PANDOC ---
PANDEMIC DOCUMENTATION INITIATED: Date: 12/23/2020 Time: 190
--- NOTE | 2021-02-22 21:55 | NURSING ---
Per patient report she received both doses of the Pfizer vaccine as well as a booster. Unsure of dates.
[2021-02-22 22:45] LABS: Magnesium 1.9 mg/dL (1.6-2.6)
[2021-02-22] MEDS: Flecainide 100 MG Tablet 50 MG PO (22:49)
[2021-02-22] MEDS: Potassium Chloride Oral Tablet 20 MEQ PO (23:02)
[2021-02-23 03:50] VITALS: PULSE 52
[2021-02-23 03:52] VITALS: BP 111/50; PULSE 51; RESP 16; TEMP 36.8; O2SAT 96
[2021-02-23 06:41] LABS: International Normalized Ratio 1.6; Prothrombin Time (Protime)PT. 18.5 SECONDS (11.7-14.9)
[2021-02-23 06:56] LABS: Anion Gap 6 (5-15); BUN 15 mg/dL (7-18); BUN/Creat Ratio 19.5 RATIO (10-20); Calcium,Total 8.7 mg/dL (8.5-10.1); Chloride 93 mmol/L (98-107); Creatinine, Serum 0.77 mg/dL (0.55-1.02); EST Glomerular Filtration Rate 77 mL/min (>60); Est Glom Filt Rate - Afr Amer 93 mL/min (>60); Estimated Creatinine Clearance 36.08 ml/min; Glucose 85 mg/dL (74-106); Potassium 4.5 mmol/L (3.5-5.1); Sodium Level 127 mmol/L (136-145)
[2021-02-23 07:13] VITALS: PULSE 63
[2021-02-23 07:55] VITALS: O2SAT 98
[2021-02-23 08:26] VITALS: BP 132/54; PULSE 52; RESP 16; TEMP 36.9; O2SAT 98
[2021-02-23] MEDS: Montelukast 10 MG Tablet PO (08:34)
[2021-02-23] MEDS: Fluticasone 0.05% 1 SPRAY NASAL.SRY NASAL (08:36)
[2021-02-23] MEDS: hydroCHLOROthiazide 12.5mg 12.5 MG PO (08:36)
[2021-02-23] MEDS: Spironolactone 50 MG Tablet 100 MG PO (08:37)
[2021-02-23] MEDS: Flecainide 100 MG Tablet 50 MG PO (08:41)
--- NOTE | 2021-02-23 12:01 | PCM.PN.HOSP ---
Documented by User: Crystal Boyd NP-C 02/23/21 12:39 Subjective Subjective Patient seen and examined. Patient sitting in chair no distress noted. Patient states that she is feeling much better than yesterday patient denies syncopal episodes overnight, no lightheadedness reported. Objective Data Objective Data Vital Signs: Vital Signs Temp Pulse Resp BP Pulse Ox 98.4 F 52 L 16 132/54 H 98 02/23/21 08:26 02/23/21 08:26 02/23/21 08:26 02/23/21 08:26 02/23/21 08:26 Oxygen Delivery Method Room Air Weight: 141 lb 1.533 oz Body Mass Index (BMI) 25.8 Intake & Output: Intake and Output for Last 24 Hours 02/21/21 02/22/21 02/23/21 23:59 23:59 23:59 Intake Total 500 / 980 600 / 600 Balance 500 / 980 600 / 600 Lab / Micro Data Result Diagrams: 02/22/21 17:50 02/23/21 05:45 Labs: Laboratory Results - last 24 hr 02/22/21 17:50: WBC 4.0 L, RBC 4.28, Hgb 13.5, Hct 39.4, MCV 92.1, MCH 31.5, MCHC 34.3, RDW Std Deviation 41.9, RDW Coeff of Stephanie 12.4, Plt Count 348, MPV 8.5, Immature Gran % (Auto) 0.300, Neut % (Auto) 51.4, Lymph % (Auto) 34.5, [place] % (Auto) 13.0 H, Eos % (Auto) 0.3, Baso % (Auto) 0.5, Absolute Neuts (auto) 2.1, Absolute Lymphs (auto) 1.38, Nucleated RBC % 0 02/22/21 17:50: Sodium 127 L, Potassium 3.8, Chloride 91 L, Carbon Dioxide 28.0, Anion Gap 8, BUN 19 H, Creatinine 0.71, Estim Creat Clear Calc 36.08, Est GFR (MDRD) Af Amer 101, Est GFR (MDRD) Non-Af 84, BUN/Creatinine Ratio 26.6 H, Glucose 107 H, Calcium 9.0, Troponin I High Sens 6 02/22/21 17:50: Magnesium 1.9 02/23/21 05:45: PT 18.5 H, INR 1.6 02/23/21 05:45: Sodium 127 L, Potassium 4.5, Chloride 93 L, Carbon Dioxide 28.0, Anion Gap 6, BUN 15, Creatinine 0.77, Estim Creat Clear Calc 36.08, Est GFR (MDRD) Af Amer 93, Est GFR (MDRD) Non-Af 77, BUN/Creatinine Ratio 19.5, Glucose 85, Calcium 8.7 Radiography Diagnostic Testing: Radiology Impression Brain CT 02/22/21 18:38 IMPRESSION: Mild atrophy and periventricular white matter ischemic change. No acute bleed.. If concern for acute infarct MRI recommended Electronically Signed: Steven London MD at 19:28 EDT , Service support , Chest X-Ray 02/22/21 18:40 IMPRESSION: No acute cardiopulmonary pathology Electronically Signed: Steven London MD at 19:30 EDT , Service support , Physical Exam Const alert, oriented x3 and no apparent distress HEENT head/scalp atraumatic Head and Scalp: normocephalic Eyes conjunctivae normal and no scleral icterus Neck full ROM and supple General: trachea midline Resp normal respiratory effort, normal air movement, no use of accessory muscles and clear to auscultation bilaterally Cardio regular rate, regular rhythm, S1 normal heart sound, S2 normal heart sound and peripheral pulses 2+ throughout Rate: bradycardia GI normal to inspection, nondistended, normoactive bowel sounds, soft to palpation and non-tender Extremity normal to inspection, full ROM and no clubbing, cyanosis or edema Peripheral Pulses: Yes pulses 2+ throughout Skin no rashes or lesions noted, no wounds and skin turgor normal Neuro oriented x3, moves all extremities, no focal motor deficits and no sensory deficits noted Sensorium / Orientation: awake Speech: speech normal Psych affect normal Assessment & Plan Assessment/Plan (1) Bradycardia: (2) Near syncope: PLAN: 1. Near syncope -Unknown etiology however patient reports receiving flu vaccination 3 days after Covid booster -Patient denies any near-syncope or syncopal episodes overnight -Echocardiogram pending in a.m. -Orthostatic vital signs negative 2. Bradycardia -Patient continues to be bradycardic in the 50s, no ectopy noted -Telemetry shows sinus bradycardia with first-degree AV block. 3. History of atrial fibrillation -Continue Coumadin and flecainide -Daily PT/INR 4. Hyponatremia -Chronic secondary to hydrochlorothiazide and spironolactone use -Patient currently at baseline -Daily BMP ordered DVT prophylaxis-chronically anticoagulated This patient was seen by ROM Cavanaugh under the supervision of [] Documented by User: Dr. Haim Craven MD 02/23/21 13:44 Objective Data Lab / Micro Data Result Diagrams: 02/22/21 17:50 02/23/21 05:45
--- NOTE | 2021-02-23 12:39 | PCM.DC ---
Discharge Instructions Diet Discharge Diet: Low fat / Low cholesterol Activity Discharge Activity: Return to Normal Activity Dressing / Incision Call your doctor if you observe: Shortness of breath, Dizziness, Fainting spells and Chest pain Follow Up Care Test Results: Test results from this visit will be discussed in further detail at your follow-up appointment, if applicable. Discharge Plan Admission Admit Date/Time: 02/22/21 20:41 Primary Reason for Your Visit: Near Syncope Attending Provider: Haim Craven Primary Care Provider: Dwain Roberson Instructions Additional Instructions / Restrictions: Please follow up with your videotape sales representative in 1 week. Discharge Orders/Prescriptions Prescriptions: Continued warfarin 7.5 MG tablet 7 mg PO QHS RF: 0 spironolactone 100 MG tablet 100 mg PO DAILY RF: 0 flecainide 50 MG tablet 50 mg PO BID RF: 0 hydrochlorothiazide 12.5 MG capsule 12.5 mg PO DAILY RF: 0 montelukast 10 MG tablet 10 mg PO DAILY RF: 0 fluticasone propionate 9.9 ML spray,suspension 1 spray NS DAILY RF: 0 sodium chloride 30 ML aerosol,spray 3 spray NS Q8H PRN PRN (Reason: Congestion) RF: 0 acetaminophen 325 MG capsule 650 mg PO Q4H PRN PRN (Reason: pain/fever) RF: 0 lidocaine 1 PATCH patch 1 patch TOPICAL DAILY Qty: 10 RF: 0 Referrals / Follow Up: Dwain Roberson DO [Primary Care Provider] - Disposition Disposition (needs filled in before D/C Order can be placed): Home, Self Care
--- NOTE | 2021-02-23 12:43 | PCM.DC.SUM ---
Documented by User: ROM Cavanaugh 02/23/21 12:45 Providers Date of Admission: 02/22/21 Primary Care Physician: Dr. Dwain Roberson DO Reason For Visit: PRESYNCOPE Diagnosis Discharge Diagnosis (1) Bradycardia: Status: Acute Code(s): R00.1 - Bradycardia, unspecified (2) Near syncope: Status: Acute Code(s): R55 - Syncope and collapse Medications at Discharge Home Medications acetaminophen 650 mg PO Q4H PRN PRN 09/02/20 flecainide 50 mg PO BID 09/02/20 fluticasone propionate 1 spray NS DAILY 09/02/20 hydrochlorothiazide 12.5 mg PO DAILY 09/02/20 lidocaine 1 patch TOPICAL DAILY #10 patch 09/02/20 montelukast 10 mg PO DAILY 09/02/20 sodium chloride 3 spray NS Q8H PRN PRN 09/02/20 spironolactone 100 mg PO DAILY 09/02/20 warfarin 7 mg PO QHS 09/02/20 Hospital Course Operations None Procedures EKG Summary of Care Provided Minutes Spent on Discharge: 30 Hospital Course: Patient is a 80-year-old female who came in on 02/22/2021 with complaints of lightheadedness and near syncope. Orthostatic vital signs negative, vital signs stable. Labs reviewed and within normal limits for patient. Patient asymptomatic throughout hospitalization. Patient will follow up with cardiology outpatient for further work-up. Physical Exam Const alert, oriented x3 and no apparent distress HEENT head/scalp atraumatic Eyes conjunctivae normal and no scleral icterus Neck full ROM and supple General: trachea midline Resp normal respiratory effort, normal air movement, no use of accessory muscles and clear to auscultation bilaterally Cardio regular rate, regular rhythm, S1 normal heart sound, S2 normal heart sound and peripheral pulses 2+ throughout Rate: bradycardia GI normal to inspection, nondistended, normoactive bowel sounds, soft to palpation and non-tender Extremity normal to inspection, full ROM and no clubbing, cyanosis or edema Skin no rashes or lesions noted, no wounds and skin turgor normal Neuro oriented x3, moves all extremities, no focal motor deficits and no sensory deficits noted Sensorium / Orientation: awake Speech: speech normal Psych affect normal Weight / BMI Weight Weight: 141 lb 1.533 oz Body Mass Index (BMI) 25.8 ABG / Lab / Microbiology Data Result Diagrams: 02/22/21 17:50 02/23/21 05:45 Laboratory: Laboratory Results - last 24 hr 02/22/21 17:50: WBC 4.0 L, RBC 4.28, Hgb 13.5, Hct 39.4, MCV 92.1, MCH 31.5, MCHC 34.3, RDW Std Deviation 41.9, RDW Coeff of Stephanie 12.4, Plt Count 348, MPV 8.5, Immature Gran % (Auto) 0.300, Neut % (Auto) 51.4, Lymph % (Auto) 34.5, [place] % (Auto) 13.0 H, Eos % (Auto) 0.3, Baso % (Auto) 0.5, Absolute Neuts (auto) 2.1, Absolute Lymphs (auto) 1.38, Nucleated RBC % 0 02/22/21 17:50: Sodium 127 L, Potassium 3.8, Chloride 91 L, Carbon Dioxide 28.0, Anion Gap 8, BUN 19 H, Creatinine 0.71, Estim Creat Clear Calc 36.08, Est GFR (MDRD) Af Amer 101, Est GFR (MDRD) Non-Af 84, BUN/Creatinine Ratio 26.6 H, Glucose 107 H, Calcium 9.0, Troponin I High Sens 6 02/22/21 17:50: Magnesium 1.9 02/23/21 05:45: PT 18.5 H, INR 1.6 02/23/21 05:45: Sodium 127 L, Potassium 4.5, Chloride 93 L, Carbon Dioxide 28.0, Anion Gap 6, BUN 15, Creatinine 0.77, Estim Creat Clear Calc 36.08, Est GFR (MDRD) Af Amer 93, Est GFR (MDRD) Non-Af 77, BUN/Creatinine Ratio 19.5, Glucose 85, Calcium 8.7 Radiography Diagnostic Testing: Radiology Impression Brain CT 02/22/21 18:38 IMPRESSION: Mild atrophy and periventricular white matter ischemic change. No acute bleed.. If concern for acute infarct MRI recommended Electronically Signed: Steven London MD at 19:28 EDT , Service support , Chest X-Ray 02/22/21 18:40 IMPRESSION: No acute cardiopulmonary pathology Electronically Signed: Steven London MD at 19:30 EDT , Service support , D/C Instructions Discharge Diet: Low fat / Low cholesterol Call your doctor if you observe: Shortness of breath, Dizziness, Fainting spells and Chest pain Meaningful Use Info Meaningful Use Diagnoses (Choose all that apply): None applicable Discharge Plan Admission Admit Date/Time: 02/22/21 20:41 Primary Reason for Your Visit: Near Syncope Attending Provider: Haim Craven Primary Care Provider: Dwain Roberson Instructions Additional Instructions / Restrictions: Please follow up with your body maker machine setter in 1 week. Discharge Orders/Prescriptions Prescriptions: Continued warfarin 7.5 MG tablet 7 mg PO QHS RF: 0 spironolactone 100 MG tablet 100 mg PO DAILY RF: 0 flecainide 50 MG tablet 50 mg PO BID RF: 0 hydrochlorothiazide 12.5 MG capsule 12.5 mg PO DAILY RF: 0 montelukast 10 MG tablet 10 mg PO DAILY RF: 0 fluticasone propionate 9.9 ML spray,suspension 1 spray NS DAILY RF: 0 sodium chloride 30 ML aerosol,spray 3 spray NS Q8H PRN PRN (Reason: Congestion) RF: 0 acetaminophen 325 MG capsule 650 mg PO Q4H PRN PRN (Reason: pain/fever) RF: 0 lidocaine 1 PATCH patch 1 patch TOPICAL DAILY Qty: 10 RF: 0 Referrals / Follow Up: Dwain Roberson DO [Primary Care Provider] - Disposition Disposition (needs filled in before D/C Order can be placed): Home, Self Care Documented by User: Dr. Haim Craven MD 02/23/21 13:47 Providers Date of Admission: 02/22/21 Reason For Visit: PRESYNCOPE Medications at Discharge Home Medications acetaminophen 650 mg PO Q4H PRN PRN 09/02/20 flecainide 50 mg PO BID 09/02/20 fluticasone propionate 1 spray NS DAILY 09/02/20 hydrochlorothiazide 12.5 mg PO DAILY 09/02/20 lidocaine 1 patch TOPICAL DAILY #10 patch 09/02/20 montelukast 10 mg PO DAILY 09/02/20 sodium chloride 3 spray NS Q8H PRN PRN 09/02/20 spironolactone 100 mg PO DAILY 09/02/20 warfarin 7 mg PO QHS 09/02/20 ABG / Lab / Microbiology Data Result Diagrams: 02/22/21 17:50 02/23/21 05:45 Discharge Plan Admission Admit Date/Time: 02/22/21 20:41 Primary Reason for Your Visit: Near Syncope Attending Provider: Haim Craven Primary Care Provider: Dwain Roberson Instructions Additional Instructions / Restrictions: Please follow up with your body maker machine setter in 1 week. Discharge Orders/Prescriptions Prescriptions: Continued warfarin 7.5 MG tablet 7 mg PO QHS RF: 0 spironolactone 100 MG tablet 100 mg PO DAILY RF: 0 flecainide 50 MG tablet 50 mg PO BID RF: 0 hydrochlorothiazide 12.5 MG capsule 12.5 mg PO DAILY RF: 0 montelukast 10 MG tablet 10 mg PO DAILY RF: 0 fluticasone propionate 9.9 ML spray,suspension 1 spray NS DAILY RF: 0 sodium chloride 30 ML aerosol,spray 3 spray NS Q8H PRN PRN (Reason: Congestion) RF: 0 acetaminophen 325 MG capsule 650 mg PO Q4H PRN PRN (Reason: pain/fever) RF: 0 lidocaine 1 PATCH patch 1 patch TOPICAL DAILY Qty: 10 RF: 0 Referrals / Follow Up: Dwain Roberson DO [Primary Care Provider] - Disposition Disposition (needs filled in before D/C Order can be placed): Home, Self Care Charges/Coding Addendum Addendum: Dr. Craven: I personally reviewed the chart and examined the patient, and agree with the above findings. 80-year-old female presents from the assisted living with a presyncopal episode. She states that she was out to eat with her son and had a fairly big lunch and then about an hour later while she was sitting in her recliner she got diaphoretic and dizzy. She was able to get up and walk to the door to call for help and never passed out. She denies any palpitations or chest pain with this episode and has never had an episode like this before. She does have a history of A. fib but she states that she did not notice any palpitations and she is currently on flecainide by [facility] cardiology in [place]. She also has a known slight heart murmur and she is being managed by her body maker machine setter for this as well as for the A. fib. She feels much better today, she has not had any arrhythmia on telemetry overnight, and has not had any further episodes. Given the fact that this is presyncope and not an actual syncopal episode we will plan for discharge today with outpatient follow-up to her body maker machine setter and her PCP. I discussed this plan with her and she expressed understanding of the risk benefits of going home and would like to go home today. Of note her INR was 1.6, will need to follow-up and have her Coumadin adjusted as an outpatient. Visit Charges OBSV E&M: 23207 Observation care discharge
[2021-02-23 13:28] VITALS: BP 121/53; PULSE 57; RESP 16; TEMP 36.9; O2SAT 97
== END 2021-02-23 12:42 | disposition home or self-care (01) ==
LOC: ED 20:46 → PCU 21:05
PROVIDERS: Admitting Provider Hospitalist; Emergency Provider Emergency Medicine; PCP Family Medicine; Referring Provider Hospitalist; Visit Provider Family Medicine
DX: R55 Syncope and collapse (principal); R00.1 Bradycardia, unspecified; I48.91 Unspecified atrial fibrillation; J45.909 Unspecified asthma, uncomplicated; I10 Essential (primary) hypertension; G47.30 Sleep apnea, unspecified; I44.0 Atrioventricular block, first degree; E87.1 Hypo-osmolality and hyponatremia; Z86.718 Personal history of other venous thrombosis and embolism; Z79.899 Other long term (current) drug therapy; Z79.01 Long term (current) use of anticoagulants; Z79.51 Long term (current) use of inhaled steroids
CPT/HCPCS: 36415; 70450; 71045; 80048; 83735; 84484; 85025; 85610; 93005; 96374; 99218; 99285; J7030; G0378; J2405

== ENCOUNTER → 2021-09-22 | Outpatient (CLI) | payer MEDICARE, OTHER, SELFPAY ==
[2021-09-22 16:12] LABS: International Normalized Ratio 1.4; Prothrombin Time (Protime)PT. 16.5 SECONDS (11.7-14.9)
== END | disposition home or self-care (01) ==
LOC: MTLAB 12:01
PROVIDERS: PCP Family Medicine; Referring Provider Specialist; Visit Provider Specialist
DX: I10 Essential (primary) hypertension (principal); Z79.01 Long term (current) use of anticoagulants
CPT/HCPCS: 36415; 85610

== ENCOUNTER → 2022-01-08 | Outpatient (REF) | payer MEDICARE, SELFPAY ==
[2022-01-08 08:55] LABS: Hematocrit 38.8 % (37-47); Mean Corp Hgb Conc 33.5 g/dL (32-36); Mean Corpuscular Hgb 31.3 pg (27.0-32.0); Mean Corpuscular Volume 93.3 fL (81-99); Mean Platelet Vol. 8.6 fl (6.2-12.0); Platelet Count 297 K/mm3 (150-450); RBC Distribution Width CV 12.1 % (11.6-14.6); Red Blood Count 4.16 M/mm3 (4.2-5.4); White Blood Count 3.2 K/mm3 (4.4-11.0)
[2022-01-08 09:07] LABS: AST(SGOT) 17 U/L (15-37); Alanine Aminotransfer ALT/SGPT 22 U/L (13-56); Albumin, Serum 3.8 g/dL (3.2-5.0); Alkaline Phosphatase 90 U/L (45-117); Anion Gap 10 (5-15); BUN 12 mg/dL (7-18); BUN/Creat Ratio 17.1 RATIO (10-20); Calcium,Total 9.3 mg/dL (8.5-10.1); Chloride 92 mmol/L (98-107); EST Glomerular Filtration Rate 85 mL/min (>60); Est Glom Filt Rate - Afr Amer 103 mL/min (>60); Globulin 3.7 g/dL (2.2-4.2); Glucose 95 mg/dL (74-106); Potassium 3.6 mmol/L (3.5-5.1); Protein, Total 7.5 g/dL (6.4-8.2); Sodium Level 129 mmol/L (136-145)
== END ==
LOC: OLS.SWAL 05:00
DX: I10 Essential (primary) hypertension (principal); I48.0 Paroxysmal atrial fibrillation
CPT/HCPCS: 36415; 80053; 85027

== ENCOUNTER 2022-02-06 12:49 | Emergency (ER) | payer MEDICARE, OTHER, SELFPAY ==
[2022-02-06 12:57] VITALS: BP 140/55; PULSE 59; RESP 18; TEMP 36.3; O2SAT 97; BMI 24.7
--- NOTE | 2022-02-06 13:19 | ED.RN ---
Daughter in law called and would like a call when she is seen by Dr. Pollard [phone]
--- NOTE | 2022-02-06 14:11 | EKG12_ITS ---
Test Reason : Blood Pressure : / mmHG Vent. Rate : 063 BPM Atrial Rate : 063 BPM P-R Int : 216 ms QRS Dur : 096 ms QT Int : 412 ms P-R-T Axes : 070 027 072 degrees QTc Int : 421 ms Sinus rhythm with 1st degree A-V block Otherwise normal ECG Confirmed by SILVANO HERNANDEZ, JUSTO ([id number]), editor managing director RENETTA RUSHING ([id number]) on 02/09/2022 10:07:20 AM Referred By: Confirmed By:JUSTO SCHAEFER MD
--- NOTE | 2022-02-06 14:11 | CT_ITS ---
STUDY: CT BRAIN WITHOUT CONTRAST REASON FOR EXAM: Female, 81 years old. Head injury due to a fall. Loss of consciousness. RADIATION DOSAGE (If Supplied By Facility): CTDIvol = ( 44.99 ) mGy, DLP = ( 846.73 ) mGycm TECHNIQUE: Transaxial CT imaging of the brain was performed without administration of intravenous contrast material. Individualized dose optimization techniques were used for this CT. COMPARISON: Comparison is made with prior examination dated 02/22/2021. FINDINGS: Normal soft tissue structures. Normal calvarium. There is mild cerebral atrophy with widening of the extra-axial spaces and ventricular dilatation. There are areas of decreased attenuation within the white matter tracts of the supratentorial brain, consistent with microvascular disease changes. Normal basal ganglia and thalami. Normal brainstem. Normal cerebellum. There is no intracranial hemorrhage. There are no findings of an acute ischemic infarction. Atherosclerotic calcification of the cavernous portions of the internal carotid arteries bilaterally. Normal visualized paranasal sinuses. CT/Brain/Head without Contrast IMPRESSION: Chronic involutional changes of the brain. Electronically Signed: Miki Ramirez MD at 14:54 EDT ,
--- NOTE | 2022-02-06 14:11 | RAD_ITS ---
STUDY: X-RAY - RIGHT KNEE REASON FOR EXAM: Female, 81 years old. Trauma TECHNIQUE: 4 view(s) of the knee. COMPARISON: None. FINDINGS: Normal visualized distal femur. Normal visualized proximal tibia and fibula. Normal proximal tibiofibular articulation. There is mild degenerative arthrosis of the medial femorotibial compartment. There is severe degenerative arthrosis of the lateral femorotibial compartment with severe joint space narrowing. There is severe degenerative arthrosis of the patellofemoral articulation. The soft tissue structures are unremarkable. RAD/Knee 4 or More Views IMPRESSION: Degenerative arthrosis. Electronically Signed: Miki Ramirez MD at 15:23 EDT ,
--- NOTE | 2022-02-06 14:11 | RAD_ITS ---
STUDY: X-RAY - PELVIS AND RIGHT HIP REASON FOR EXAM: Female, 81 years old. Pain following injury. TECHNIQUE: 3 views of the pelvis and hip. COMPARISON: None. FINDINGS: Moderate amount of fecal material is seen in the colon. Normal visualized soft tissue structures. There is narrowing with cortical sclerosis and osteophyte formation of the sacroiliac joint consistent with degenerative osteoarthritic changes. Normal bilateral superior and inferior pubic rami. There is narrowing with sclerosis of the pubic symphysis. Normal bilateral ischial tuberosities. Normal visualized femoral head. There is osteoarthritic spur formation of the acetabular rim. is severe articular joint space narrowing of the hip. The patient is status post left total hip preplacement. Degenerative changes of the lower lumbar spine. RAD/HIP, UNI W/ Pelvis 2-3 Views IMPRESSION: Marked degree of joint space narrowing of the right hip joint. No fracture or dislocation is seen. Electronically Signed: Miki Ramirez MD at 15:22 EDT ,
--- NOTE | 2022-02-06 14:16 | EDS_ITS ---
HPI History of Present Illness Chief Complaint: Lower Extremity Injury Informant: patient and EMS Narrative Narrative: 81-year-old female from assisted living at [facility] presented to the emergency room post trauma day 2 from a fall. She states that in the [place] 2 nights ago she got up to use the bathroom and when she was washing her hands the next thing she remembers she was on the floor. She does not recall any prodrome such as lightheadedness chest pain palpitations etc. She states that she did not remember hitting the ground. She does remember having pain in her right hip and right knee. This is progressively gotten slightly worse. She also notes a bruise on her head today that has appeared. She has been able to ambulate with a walker though painfully. She notes that she is on Coumadin for atrial fibrillation. She states that her primary care provider wrote her for Ultram and she took 1 dose but it did not help her pain. She denies any neck or back pain. She notes skin tearing to the left forearm and right buttock. [facility] Medical History Afib Asthma DVT (deep venous thrombosis) HTN (hypertension) Restless leg syndrome Sleep apnea Stroke/cerebrovascular accident Home Medications acetaminophen 325 mg capsule 650 mg PO Q4H PRN PRN pain/fever 09/02/20 [History Last Taken Unknown] flecainide 50 mg tablet 50 mg PO BID 09/02/20 [History Last Taken Unknown] fluticasone propionate 50 mcg/actuation nasal spray,suspension 1 spray NS DAILY 09/02/20 [History Last Taken Unknown] hydrochlorothiazide 12.5 mg capsule 12.5 mg PO DAILY 09/02/20 [History Last Taken Unknown] lidocaine 5 % topical patch 1 patch topical DAILY #10 patches 09/02/20 [Rx Last Taken Unknown] montelukast 10 mg tablet 10 mg PO DAILY 09/02/20 [History Last Taken Unknown] sodium chloride 0.65 % nasal spray aerosol 3 spray NS Q8H PRN PRN Congestion 09/02/20 [History Last Taken Unknown] spironolactone 100 mg tablet 100 mg PO DAILY 09/02/20 [History Last Taken Unknown] warfarin 7.5 mg tablet 7 mg PO QHS 09/02/20 [History Last Taken Unknown] oxycodone 5 mg capsule 5 mg PO TID PRN pain 3 days #12 caps 02/06/22 [Rx Last Taken Unknown] Allergy/AdvReac Type Severity Reaction Status Date / Time adhesive tape Allergy Rash Verified 02/06/22 12:57 carvedilol [From Coreg] Allergy Shortness Verified 02/06/22 12:56 of breath celecoxib [From Celebrex] Allergy Shortness Verified 02/06/22 12:56 of breath clonidine [From Catapres] Allergy Shortness Verified 02/06/22 12:56 of breath enalaprilat [From Vasotec] Allergy Shortness Verified 02/06/22 12:56 of breath erythromycin base Allergy DIFFICULTY Verified 02/06/22 12:56 BREATHING hydrochlorothiazide Allergy Shortness Verified 02/06/22 12:56 [From Hyzaar] of breath lisinopril Allergy Shortness Verified 02/06/22 12:56 of breath losartan [From Hyzaar] Allergy Shortness Verified 02/06/22 12:56 of breath metoprolol [From Lopressor] Allergy Shortness Verified 02/06/22 12:56 of breath rofecoxib [From Vioxx] Allergy Shortness Verified 02/06/22 12:56 of breath rosuvastatin [From Crestor] Allergy Shortness Verified 02/06/22 12:56 of breath simvastatin [From Zocor] Allergy Shortness Verified 02/06/22 12:56 of breath Sulfa (Sulfonamide Allergy difficulty Verified 02/06/22 12:56 Antibiotics) breathing sulfamethoxazole Allergy Shortness Verified 02/06/22 12:56 of breath warfarin [From Jantoven] Allergy Shortness Verified 02/06/22 12:56 of breath Family History Other Alzheimer's dementia Surgical History History of hip surgery History of nephrectomy Previous back surgery Social History (Updated 02/06/22 @ 14:[address] Luis Bob DO) Smoking Status: Never smoker substance use type: does not use ROS ROS ED Constitutional Constitutional ED: Denies chills or weight loss Eyes Eyes: Denies change in vision or diplopia ENT ENT ED: Denies ear pain, rhinorrhea or sore throat Cardiovascular Cardiovascular: Denies chest pain, orthopnea, palpitations or racing heartbeat Respiratory/Chest Respiratory/Chest: Denies cough, dyspnea or orthopnea Gastrointestinal Gastrointestinal: Denies abdominal pain, diarrhea, nausea or vomiting Genitourinary Genitourinary ED: Denies dysuria, hematuria or urinary frequency Musculoskeletal Musculoskeletal: Reports other Details: See history of present illness ; Denies arthralgias, back pain, myalgias or neck pain Integumentary Reports Abrasions; Denies abscess or rash Neurologic Neurologic: Denies headache(s) or weakness Psychiatric Psychiatric: Denies anxiety, depression, suicidal ideation or suicidal thoughts Endocrine Endocrinology: Denies polydipsia, polyphagia or polyuria Allergic/Immunologic Allergic/Immunologic ED: Denies mouth swelling, tongue swelling or urticaria EXAM Physical Exam Const Vital Signs: 02/06/22 12:57 Temperature 97.4 F L Temperature Source Temporal Pulse Rate 59 L Respiratory Rate 18 Blood Pressure 140/55 H Blood Pressure Mean 83 Pulse Ox 97 Oxygen Delivery Method Room Air Positive well nourished and well developed General Appearance ED: well developed HEENT Reports normocephalic and moist mucous membranes HEENT Narrative: There is a small area of ecchymosis just lateral to the right periorbital region. Nose no bony step-offs. Midface is stable. No malocclusion. No dental trauma noted. Eyes PERRL and EOMs intact bilaterally Neck full ROM, no lymphadenopathy, supple and no JVD Neck Narrative: Painless range of motion Resp normal respiratory effort and clear to auscultation bilaterally Cardio regular rate, regular rhythm and no murmurs GI normal to inspection, nondistended, normoactive bowel sounds and non-tender Palpation: soft Back/Spine no CVA tenderness and normal ROM Extremity Extremity Narrative: Patient reports tenderness over the greater trochanter on the right side as well as tenderness over the inferior lateral knee on the right side. General Extremety ED: Negative for edema General Extremity: Negative for edema Neuro oriented x3 and CN's II-XII intact bilaterally Sensorium / Orientation: alert Motor Exam: strength 5/5 throughout Psych mental status grossly normal Mood & Affect: Negative for depressed or tearful Skin no rashes or lesions noted Skin Narrative: There are superficial skin tears to the left forearm and the right buttock. These do not need suturing or show signs of infection MDM MDM MDM Narrative Medical decision making narrative: CT of the brain was obtained which was negative for hemorrhage or fracture. My interpretation of the plain films of the left hip and the left knee is no acute fracture. Basic blood work was obtained showed a troponin of 9. Supratherapeutic INR at 4.2. Patient was given some oxycodone. I will write for same at home. She is to hold her Coumadin for the next 3 evenings and have it rechecked on Wednesday morning. Lab Data Labs: Laboratory Results - last 24 hr 02/06/22 02/06/22 02/06/22 14:32 14:32 14:32 WBC 4.8 RBC 4.43 Hgb 14.1 Hct 40.9 MCV 92.3 MCH 31.8 MCHC 34.5 RDW Std Deviation 41.5 RDW Coeff of Stephanie 12.1 Plt Count 275 MPV 8.3 Immature Gran % (Auto) 0.200 Neut % (Auto) 76.9 H Lymph % (Auto) 13.0 L Long % (Auto) 9.7 Eos % (Auto) 0.0 Baso % (Auto) 0.2 Absolute Neuts (auto) 3.7 Absolute Lymphs (auto) 0.63 L Nucleated RBC % 0 PT 40.2 H INR 4.2 H* Sodium 129 L Potassium 4.3 Chloride 90 L Carbon Dioxide 29.0 Anion Gap 10 BUN 17 Creatinine 0.71 Estim Creat Clear Calc 37.12 Est GFR (MDRD) Af Amer 101 Est GFR (MDRD) Non-Af 84 BUN/Creatinine Ratio 23.9 H Glucose 99 Calcium 9.4 Total Bilirubin 0.60 AST 35 ALT 28 Alkaline Phosphatase 92 Troponin I High Sens 9 Total Protein 7.9 Albumin 3.7 Globulin 4.2 Albumin/Globulin Ratio 0.9 Radiography Diagnostic Testing: Clinical Impression(s) from Imaging Studies Brain CT 02/06/22 14:11 IMPRESSION: Chronic involutional changes of the brain. Electronically Signed: Miki Ramirez MD at 14:54 EDT , Hip/Pelvis X-Ray 02/06/22 14:11 IMPRESSION: Marked degree of joint space narrowing of the right hip joint. No fracture or dislocation is seen. Electronically Signed: Miki Ramirez MD at 15:22 EDT , Knee X-Ray 02/06/22 14:11 IMPRESSION: Degenerative arthrosis. Electronically Signed: Miki Ramirez MD at 15:23 EDT , Chest X-Ray 02/06/22 14:50 IMPRESSION: No acute abnormality is seen. Stable examination. Electronically Signed: Miki Ramirez MD at 15:20 EDT , EKG Initial EKG: Attestation: I personally reviewed and interpreted this EKG as follows: Comments: Sinus rhythm with first-degree AV block ventricular rate of 63 bpm. Discharge Plan Triage Chief Complaint: Lower Extremity Injury Other Complaint: Fall ED Provider: Luis Bob Dx/Rx/DC Orders Clinical Impression: Contusion of face, Syncope and collapse, Contusion of hip, right, Contusion of knee, right, Multiple skin tears, Supratherapeutic INR Instructions: Causes of Syncope, Bruises (Contusions) Prescriptions: New oxycodone 5 mg capsule 5 mg PO TID PRN (Reason: pain) 3 Days Qty: 12 0RF No Action warfarin 7.5 MG tablet 7 mg PO QHS spironolactone 100 MG tablet 100 mg PO DAILY flecainide 50 MG tablet 50 mg PO BID hydrochlorothiazide 12.5 MG capsule 12.5 mg PO DAILY montelukast 10 MG tablet 10 mg PO DAILY fluticasone propionate 9.9 ML spray,suspension 1 spray NS DAILY sodium chloride 30 ML aerosol,spray 3 spray NS Q8H PRN PRN (Reason: Congestion) acetaminophen 325 MG capsule 650 mg PO Q4H PRN PRN (Reason: pain/fever) lidocaine 1 PATCH patch 1 patch TOPICAL DAILY Qty: 10 0RF Rx Instructions: On 12 hours off 12 hours Primary Care Provider: Dwain Roberson Referrals: Dwain Roberson, DO [Primary Care Provider] - 1 Week Activity Restrictions/Additional Instructions: Your INR today is 4.2. Is recommended that you hold your Coumadin dose Wednesday and Wednesday and have it rechecked on Wednesday. No fractures were identified but you will most likely be sore due to bruising which is exacerbated by your Coumadin use. Disposition Disposition: Home, Self Care
[2022-02-06] MEDS: oxyCODONE 5 MG Tablet PO (14:31)
[2022-02-06 14:39] LABS: Absolute Lymphocyte Count 0.63 X10^3/uL (0.83-4.51); Absolute Neutrophil Count 3.7 X10^3/uL (2.0-7.7); Basophil# 0.01 X10^3/uL; Basophil% 0.2 % (0-1); Hematocrit 40.9 % (37-47); Hemoglobin 14.1 g/dL (12.0-15.0); Lymphocyte # 0.63 X10^3/ul (0.83-4.51); Mean Corp Hgb Conc 34.5 g/dL (32-36); Mean Corpuscular Hgb 31.8 pg (27.0-32.0); Mean Corpuscular Volume 92.3 fL (81-99); Mean Platelet Vol. 8.3 fl (6.2-12.0); Monocyte# 0.47 X10^3/uL; Monocyte% 9.7 % (0-10); NRBC Flagged by Analyzer 0 % (0-5); Neutrophil # 3.72 X10^3/uL (2.7-7.7); Neutrophil % 76.9 % (47-70); Platelet Count 275 K/mm3 (150-450); RBC Distribution Width CV 12.1 % (11.6-14.6); RBC Distribution Width SD 41.5 fl (35.1-43.9); Red Blood Count 4.43 M/mm3 (4.2-5.4); White Blood Count 4.8 K/mm3 (4.4-11.0)
--- NOTE | 2022-02-06 14:50 | RAD_ITS ---
STUDY: X-RAY CHEST REASON FOR EXAM: Female, 81 years old. Fall due to syncopal episode. TECHNIQUE: Single AP portable view of the chest. COMPARISON: Comparison is made with prior study dated 02/22/2021. FINDINGS: EKG electrodes are seen. The lungs are clear and expanded. There is no demonstrated pleural abnormality. Normal size heart. Normal mediastinum and naa. Normal visualized pulmonary arteries. There is atherosclerotic calcification of the aortic arch with tortuosity. There are diffuse degenerative changes of the visualized thoracic spine. Normal visualized ribs, clavicles, and shoulders. There is no demonstrated abnormality of the visualized soft tissue structures of the upper abdomen. RAD/Chest 1 View (Portable) IMPRESSION: No acute abnormality is seen. Stable examination. Electronically Signed: Miki Ramirez MD at 15:20 EDT ,
[2022-02-06 14:52] LABS: International Normalized Ratio 4.2; Prothrombin Time (Protime)PT. 40.2 SECONDS (11.7-14.9)
[2022-02-06 14:59] LABS: ALB/GLOB Ratio 0.9 RATIO (0.9-2.4); AST(SGOT) 35 U/L (15-37); Alanine Aminotransfer ALT/SGPT 28 U/L (13-56); Albumin, Serum 3.7 g/dL (3.2-5.0); Alkaline Phosphatase 92 U/L (45-117); Anion Gap 10 (5-15); BUN 17 mg/dL (7-18); BUN/Creat Ratio 23.9 RATIO (10-20); Calcium,Total 9.4 mg/dL (8.5-10.1); Chloride 90 mmol/L (98-107); Creatinine, Serum 0.71 mg/dL (0.55-1.02); EST Glomerular Filtration Rate 84 mL/min (>60); Est Glom Filt Rate - Afr Amer 101 mL/min (>60); Estimated Creatinine Clearance 37.12 ml/min; Globulin 4.2 g/dL (2.2-4.2); Glucose 99 mg/dL (74-106); Potassium 4.3 mmol/L (3.5-5.1); Protein, Total 7.9 g/dL (6.4-8.2); Sodium Level 129 mmol/L (136-145); Troponin-I HS 9 pg/mL (3.0-54.0)
[2022-02-06 16:17] VITALS: BP 161/60; PULSE 66; RESP 15
== END 2022-02-06 16:18 | disposition home or self-care (01) ==
PROVIDERS: Emergency Provider Emergency Medicine; PCP Family Medicine; Visit Provider Emergency Medicine
DX: S00.83XA Contusion of other part of head, initial encounter (principal); I48.91 Unspecified atrial fibrillation; R55 Syncope and collapse; S70.01XA Contusion of right hip, initial encounter; S80.01XA Contusion of right knee, initial encounter; R79.1 Abnormal coagulation profile; G47.30 Sleep apnea, unspecified; Z79.01 Long term (current) use of anticoagulants; Z86.718 Personal history of other venous thrombosis and embolism; W19.XXXA Unspecified fall, initial encounter
CPT/HCPCS: 70450; 71045; 73502; 73564; 80053; 84484; 85025; 85610; 93005; 99285; A4216

== ENCOUNTER → 2022-02-11 | Outpatient (REF) | payer MEDICARE, OTHER, SELFPAY ==
[2022-02-11 07:20] LABS: INR Fingerstick 1.2; Prothrombin Time Fingerstick 14.8 SEC (11.7-14.9)
== END ==
LOC: OLS.SWAL 05:00
PROVIDERS: PCP Family Medicine
DX: Z79.01 Long term (current) use of anticoagulants (principal)
CPT/HCPCS: 36416; 85610

== ENCOUNTER → 2022-02-13 | Outpatient (REF) | payer MEDICARE, OTHER, SELFPAY ==
[2022-02-13 07:35] LABS: INR Fingerstick 1.7; Prothrombin Time Fingerstick 20.9 SEC (11.7-14.9)
== END ==
LOC: OLS.SWAL 05:00
PROVIDERS: PCP Family Medicine; Visit Provider Family Medicine
DX: I48.91 Unspecified atrial fibrillation (principal)
CPT/HCPCS: 36416; 85610

== ENCOUNTER → 2022-02-23 | Outpatient (REF) | payer MEDICARE, OTHER, SELFPAY ==
[2022-02-23 08:32] LABS: Anion Gap 10 (5-15); BUN 12 mg/dL (7-18); BUN/Creat Ratio 18.8 RATIO (10-20); Calcium,Total 9.1 mg/dL (8.5-10.1); Chloride 92 mmol/L (98-107); Creatinine, Serum 0.64 mg/dL (0.55-1.02); EST Glomerular Filtration Rate 95 mL/min (>60); Est Glom Filt Rate - Afr Amer 115 mL/min (>60); Glucose 85 mg/dL (74-106); Magnesium 1.9 mg/dL (1.6-2.6); Potassium 3.7 mmol/L (3.5-5.1); Sodium Level 129 mmol/L (136-145); Thyroid Stim Hormone (TSH) 0.37 uIU/mL (0.358-3.74)
[2022-02-23 08:39] LABS: Vitamin B12 279 pg/mL (211-911)
[2022-02-23 08:55] LABS: International Normalized Ratio 3.4
== END ==
LOC: OLS.SWAL 05:00
PROVIDERS: Visit Provider Internal Medicine
DX: I10 Essential (primary) hypertension (principal); E55.9 Vitamin D deficiency, unspecified; Z86.718 Personal history of other venous thrombosis and embolism
CPT/HCPCS: 36415; 80048; 82306; 82607; 83735; 84443; 85610

== ENCOUNTER → 2022-02-24 | Outpatient (REF) | payer MEDICARE, OTHER, SELFPAY ==
[2022-02-24 08:40] LABS: INR Fingerstick 2.4; Prothrombin Time Fingerstick 28.3 SEC (11.7-14.9)
== END ==
LOC: OLS.SWAL 05:00
PROVIDERS: PCP Family Medicine; Visit Provider Internal Medicine
DX: I48.91 Unspecified atrial fibrillation (principal)
CPT/HCPCS: 36416; 85610

== ENCOUNTER → 2022-02-27 | Outpatient (REF) | payer MEDICARE, OTHER, SELFPAY ==
[2022-02-27 07:36] LABS: INR Fingerstick 1.5; Prothrombin Time Fingerstick 18.5 SEC (11.7-14.9)
== END ==
LOC: OLS.SWAL 05:00
PROVIDERS: PCP Family Medicine; Visit Provider Internal Medicine
DX: I82.409 Acute embolism and thrombosis of unspecified deep veins of unspecified lower extremity (principal)
CPT/HCPCS: 36416; 85610

== ENCOUNTER → 2022-05-18 | Outpatient (REF) | payer MEDICARE, OTHER, SELFPAY ==
[2022-05-18 10:25] LABS: Absolute Lymphocyte Count 1.28 X10^3/uL (0.83-4.51); Basophil# 0.02 X10^3/uL; Basophil% 0.5 % (0-1); Eosinophil# 0.01 X10^3/uL; Eosinophils% 0.3 % (0-5); Hematocrit 38.1 % (37-47); Hemoglobin 13.6 g/dL (12.0-15.0); Lymphocyte # 1.28 X10^3/ul (0.83-4.51); Lymphocyte % 33.5 % (19-41); Mean Corp Hgb Conc 35.7 g/dL (32-36); Mean Corpuscular Hgb 32.7 pg (27.0-32.0); Mean Corpuscular Volume 91.6 fL (81-99); Mean Platelet Vol. 9.4 fl (6.2-12.0); Monocyte# 0.45 X10^3/uL; Monocyte% 11.8 % (0-10); NRBC Flagged by Analyzer 0 % (0-5); Neutrophil # 1.98 X10^3/uL (2.7-7.7); Neutrophil % 51.8 % (47-70); Platelet Count 246 K/mm3 (150-450); RBC Distribution Width CV 11.9 % (11.6-14.6); RBC Distribution Width SD 40.5 fl (35.1-43.9); Red Blood Count 4.16 M/mm3 (4.2-5.4); White Blood Count 3.8 K/mm3 (4.4-11.0)
[2022-05-18 10:42] LABS: Anion Gap 12 (5-15); BUN 9 mg/dL (7-18); BUN/Creat Ratio 12.4 RATIO (10-20); Calcium,Total 9.3 mg/dL (8.5-10.1); Chloride 91 mmol/L (98-107); Creatinine, Serum 0.73 mg/dL (0.55-1.02); EST Glomerular Filtration Rate 82 mL/min (>60); Est Glom Filt Rate - Afr Amer 99 mL/min (>60); Glucose 96 mg/dL (74-106); Potassium 4.1 mmol/L (3.5-5.1); Sodium Level 125 mmol/L (136-145)
[2022-05-19 11:38] LABS: CRP < 2.90 mg/L (0.0-3.0)
== END ==
LOC: OLS.SWAL 08:55
PROVIDERS: PCP Family Medicine; Visit Provider Internal Medicine
DX: I48.91 Unspecified atrial fibrillation (principal); I10 Essential (primary) hypertension
CPT/HCPCS: 36415; 80048; 85025; 86140

== ENCOUNTER → 2022-05-27 | Outpatient (REF) | payer MEDICARE, OTHER, SELFPAY ==
[2022-05-27 09:13] LABS: Anion Gap 10 (5-15); BUN 18 mg/dL (7-18); BUN/Creat Ratio 22.4 RATIO (10-20); Calcium,Total 9.4 mg/dL (8.5-10.1); Chloride 89 mmol/L (98-107); EST Glomerular Filtration Rate 73 mL/min (>60); Est Glom Filt Rate - Afr Amer 88 mL/min (>60); Glucose 90 mg/dL (74-106); Potassium 4.4 mmol/L (3.5-5.1); Sodium Level 124 mmol/L (136-145)
== END ==
LOC: OLS.SWAL 07:05
PROVIDERS: PCP Family Medicine; Visit Provider Internal Medicine
DX: I10 Essential (primary) hypertension (principal)
CPT/HCPCS: 36415; 80048

== ENCOUNTER → 2022-06-12 | Outpatient (REF) | payer MEDICARE, OTHER, SELFPAY ==
[2022-06-12 09:24] LABS: Anion Gap 6 (5-15); BUN 16 mg/dL (7-18); BUN/Creat Ratio 23.1 RATIO (10-20); Calcium,Total 8.7 mg/dL (8.5-10.1); Chloride 97 mmol/L (98-107); Creatinine, Serum 0.69 mg/dL (0.55-1.02); EST Glomerular Filtration Rate 86 mL/min (>60); Est Glom Filt Rate - Afr Amer 104 mL/min (>60); Glucose 93 mg/dL (74-106); Potassium 4.4 mmol/L (3.5-5.1); Sodium Level 131 mmol/L (136-145)
== END ==
LOC: OLS.SWAL 05:00
PROVIDERS: PCP Family Medicine; Visit Provider Internal Medicine
DX: E87.1 Hypo-osmolality and hyponatremia (principal)
CPT/HCPCS: 36415; 80048

== ENCOUNTER → 2022-07-03 | Outpatient (REF) | payer MEDICARE, OTHER, SELFPAY ==
[2022-07-03 08:52] LABS: Anion Gap 8 (5-15); BUN 16 mg/dL (7-18); BUN/Creat Ratio 22.3 RATIO (10-20); Calcium,Total 9.3 mg/dL (8.5-10.1); Chloride 97 mmol/L (98-107); Creatinine, Serum 0.72 mg/dL (0.55-1.02); EST Glomerular Filtration Rate 83 mL/min (>60); Est Glom Filt Rate - Afr Amer 101 mL/min (>60); Glucose 93 mg/dL (74-106); Potassium 3.9 mmol/L (3.5-5.1); Sodium Level 131 mmol/L (136-145)
== END ==
LOC: OLS.SWAL 05:00
PROVIDERS: PCP Family Medicine; Visit Provider Internal Medicine
DX: I10 Essential (primary) hypertension (principal); E87.1 Hypo-osmolality and hyponatremia
CPT/HCPCS: 36415; 80048

== ENCOUNTER → 2022-07-23 | Outpatient (CLI) | payer MEDICARE, OTHER, SELFPAY ==
--- NOTE | 2022-07-23 12:28 | MRI_ITS ---
EXAM: MR RIGHT UPPER EXTREMITY WITHOUT INTRAVENOUS CONTRAST, WRIST CLINICAL INDICATION: cyst TECHNIQUE: Multiplanar and multisequence MR images of the right wrist without intravenous contrast. This report was created using [employer] report [employer] technology. COMPARISON: 06/15/22 radiography FINDINGS: LIGAMENTS: SCAPHOLUNATE: Abnormal signal involving the volar band of the scapholunate interosseous ligament is concerning for tearing of this portion of the ligament. LUNOTRIQUETRAL: Unremarkable. Intact. TENDONS: FLEXOR COMPARTMENTS: Unremarkable. Intact. No tenosynovitis. EXTENSOR COMPARTMENTS: Mild tenosynovitis involving the second extensor compartment of the wrist. NERVES: MEDIAN: Unremarkable. Median nerve is normal in size and signal intensity. ULNAR: Unremarkable. Ulnar nerve is normal in size and signal intensity. MUSCLES: Unremarkable. FLUID: Unremarkable. No joint effusion. CARTILAGE: Unremarkable. The articular cartilage is preserved. TRIANGULAR FIBROCARTILAGE COMPLEX: Unremarkable. Intact without communicating defect. BONES/JOINTS: Bone marrow edema involving the distal lunate and the proximal capitate at the ulnar aspect. Consider microtrauma or repetitive impaction injury. Moderate osteoarthrosis of the first carpometacarpal joint and triscaphe joint. OTHER SOFT TISSUES: Edema involving the abductor pollicis brevis. Consider low-grade strain injury. Multiple ganglion cysts are identified along the ulnar and radial aspect of the wrist, largest measuring up to 1.4 cm along the volar aspect of the radial styloid and adjacent proximal carpal. OTHER FINDINGS: Neurovascular structures are unremarkable. MRI/Upper Ext Joint Only(Routine) IMPRESSION: 1. Abnormal signal involving the volar band of the scapholunate interosseous ligament is concerning for tearing of this portion of the ligament but not the other portions of the scapholunate interosseous ligament. 2. Bone marrow edema involving the distal lunate and the proximal capitate at the ulnar aspect. Consider microtrauma, impingement or repetitive impaction injury. 3. Edema involving the abductor pollicis brevis. Consider low-grade strain injury. 4. Mild tenosynovitis involving the second extensor compartment of the wrist. 5. Multiple ganglion cysts are identified along the ulnar and radial aspect of the wrist, largest measuring up to 1.4 cm along the volar aspect of the radial styloid and adjacent proximal carpal. Electronically Signed: Sami Mtz MD at 2:06 EDT ,
== END | disposition home or self-care (01) ==
PROVIDERS: PCP Internal Medicine; Referring Provider Orthopaedic Surgery Sports Medicine; Visit Provider Orthopaedic Surgery Sports Medicine
DX: M67.431 Ganglion, right wrist (principal)
CPT/HCPCS: 73221

== ENCOUNTER → 2022-08-03 | Outpatient (REF) | payer MEDICARE, OTHER, SELFPAY ==
[2022-08-03 08:58] LABS: Hematocrit 36.5 % (37-47); Hemoglobin 12.1 g/dL (12.0-15.0); Mean Corp Hgb Conc 33.2 g/dL (32-36); Mean Corpuscular Hgb 31.9 pg (27.0-32.0); Mean Corpuscular Volume 96.3 fL (81-99); Mean Platelet Vol. 8.8 fl (6.2-12.0); Platelet Count 263 K/mm3 (150-450); RBC Distribution Width CV 12.4 % (11.6-14.6); RBC Distribution Width SD 43.3 fl (35.1-43.9); Red Blood Count 3.79 M/mm3 (4.2-5.4)
[2022-08-03 09:29] LABS: Anion Gap 5 (5-15); BUN 14 mg/dL (7-18); BUN/Creat Ratio 17.8 RATIO (10-20); Chloride 98 mmol/L (98-107); Creatinine, Serum 0.78 mg/dL (0.55-1.02); EST Glomerular Filtration Rate 75 mL/min (>60); Est Glom Filt Rate - Afr Amer 90 mL/min (>60); Glucose 86 mg/dL (74-106); Sodium Level 129 mmol/L (136-145)
[2022-08-03 09:46] LABS: AST(SGOT) 18 U/L (15-37); Alanine Aminotransfer ALT/SGPT 17 U/L (13-56); Albumin, Serum 3.2 g/dL (3.2-5.0); Alkaline Phosphatase 83 U/L (45-117); Cholesterol 299 mg/dL (200); Globulin 3.5 g/dL (2.2-4.2); High Density Lipoprotein 67 mg/dL; Protein, Total 6.7 g/dL (6.4-8.2); Triglycerides 48 mg/dL; Very Low Density Lipoprotein 10 mg/dL (5-40)
== END ==
LOC: OLS.SWAL 05:00
PROVIDERS: PCP Internal Medicine; Visit Provider Internal Medicine
DX: E78.2 Mixed hyperlipidemia (principal); I48.0 Paroxysmal atrial fibrillation; I35.0 Nonrheumatic aortic (valve) stenosis; E87.1 Hypo-osmolality and hyponatremia
CPT/HCPCS: 36415; 80048; 80061; 80076; 85027

== ENCOUNTER → 2022-11-02 | Outpatient (REF) | payer MEDICARE, OTHER, SELFPAY ==
[2022-11-02 09:07] LABS: Absolute Lymphocyte Count 1.35 X10^3/uL (0.83-4.51); Absolute Neutrophil Count 1.3 X10^3/uL (2.0-7.7); Basophil# 0.02 X10^3/uL; Basophil% 0.6 % (0-1); Eosinophil# 0.03 X10^3/uL; Hematocrit 36.6 % (37-47); Hemoglobin 12.2 g/dL (12.0-15.0); Lymphocyte # 1.35 X10^3/ul (0.83-4.51); Lymphocyte % 43.7 % (19-41); Mean Corp Hgb Conc 33.3 g/dL (32-36); Mean Corpuscular Hgb 31.9 pg (27.0-32.0); Mean Corpuscular Volume 95.8 fL (81-99); Mean Platelet Vol. 8.6 fl (6.2-12.0); Monocyte# 0.42 X10^3/uL; Monocyte% 13.6 % (0-10); NRBC Flagged by Analyzer 0 % (0-5); Neutrophil # 1.26 X10^3/uL (2.7-7.7); Neutrophil % 40.8 % (47-70); Platelet Count 278 K/mm3 (150-450); RBC Distribution Width CV 12.1 % (11.6-14.6); RBC Distribution Width SD 42.3 fl (35.1-43.9); Red Blood Count 3.82 M/mm3 (4.2-5.4); White Blood Count 3.1 K/mm3 (4.4-11.0)
[2022-11-02 09:09] LABS: Anion Gap 5 (5-15); BUN 18 mg/dL (7-18); BUN/Creat Ratio 21.9 RATIO (10-20); Calcium,Total 8.9 mg/dL (8.5-10.1); Chloride 98 mmol/L (98-107); Creatinine, Serum 0.82 mg/dL (0.55-1.02); EST Glomerular Filtration Rate 71 mL/min (>60); Est Glom Filt Rate - Afr Amer 86 mL/min (>60); Glucose 90 mg/dL (74-106); Potassium 4.2 mmol/L (3.5-5.1); Sodium Level 131 mmol/L (136-145)
== END ==
LOC: OLS.SWAL 05:00
PROVIDERS: PCP Internal Medicine; Visit Provider Internal Medicine
DX: I10 Essential (primary) hypertension (principal)
CPT/HCPCS: 36415; 80048; 85025

== ENCOUNTER → 2022-11-05 | Outpatient (REF) | payer MEDICARE, OTHER, SELFPAY ==
[2022-11-05 10:25] LABS: Anion Gap 4 (5-15); BUN 15 mg/dL (7-18); BUN/Creat Ratio 19.2 RATIO (10-20); Calcium,Total 9.1 mg/dL (8.5-10.1); Chloride 98 mmol/L (98-107); Creatinine, Serum 0.78 mg/dL (0.55-1.02); EST Glomerular Filtration Rate 75 mL/min (>60); Est Glom Filt Rate - Afr Amer 91 mL/min (>60); Glucose 83 mg/dL (74-106); Potassium 4.2 mmol/L (3.5-5.1); Sodium Level 131 mmol/L (136-145)
== END ==
LOC: OLS.SWAL 05:00
PROVIDERS: PCP Internal Medicine; Visit Provider Internal Medicine
DX: I10 Essential (primary) hypertension (principal); E87.1 Hypo-osmolality and hyponatremia
CPT/HCPCS: 36415; 80048

== ENCOUNTER → 2022-11-12 | Outpatient (REF) | payer MEDICARE, OTHER, SELFPAY ==
[2022-11-12 10:10] LABS: Anion Gap 7 (5-15); BUN 28 mg/dL (7-18); BUN/Creat Ratio 34.3 RATIO (10-20); Calcium,Total 8.6 mg/dL (8.5-10.1); Chloride 100 mmol/L (98-107); Creatinine, Serum 0.82 mg/dL (0.55-1.02); EST Glomerular Filtration Rate 71 mL/min (>60); Est Glom Filt Rate - Afr Amer 86 mL/min (>60); Glucose 90 mg/dL (74-106); Potassium 3.8 mmol/L (3.5-5.1); Sodium Level 134 mmol/L (136-145)
== END ==
LOC: OLS.SWAL 05:00
PROVIDERS: Visit Provider Internal Medicine
DX: I10 Essential (primary) hypertension (principal)
CPT/HCPCS: 36415; 80048

== ENCOUNTER → 2023-04-05 | Outpatient (REF) | payer MEDICARE, OTHER, SELFPAY ==
[2023-04-05 09:05] LABS: Hematocrit 35.9 % (37-47); Hemoglobin 11.5 g/dL (12.0-15.0); Mean Corpuscular Hgb 30.4 pg (27.0-32.0); Platelet Count 250 K/mm3 (150-450); RBC Distribution Width CV 12.5 % (11.6-14.6); RBC Distribution Width SD 43.3 fl (35.1-43.9); Red Blood Count 3.78 M/mm3 (4.2-5.4); White Blood Count 3.6 K/mm3 (4.4-11.0)
[2023-04-05 09:41] LABS: AST(SGOT) 14 U/L (15-37); Alanine Aminotransfer ALT/SGPT 14 U/L (13-56); Albumin, Serum 3.2 g/dL (3.2-5.0); Alkaline Phosphatase 89 U/L (45-117); Anion Gap 5 (5-15); BUN 26 mg/dL (7-18); BUN/Creat Ratio 32.1 RATIO (10-20); Calcium,Total 8.6 mg/dL (8.5-10.1); Chloride 101 mmol/L (98-107); Cholesterol 198 mg/dL (200); Creatinine, Serum 0.81 mg/dL (0.55-1.02); EST Glomerular Filtration Rate 72 mL/min (>60); Est Glom Filt Rate - Afr Amer 87 mL/min (>60); Globulin 3.3 g/dL (2.2-4.2); Glucose 83 mg/dL (74-106); High Density Lipoprotein 64 mg/dL; Potassium 4.3 mmol/L (3.5-5.1); Protein, Total 6.5 g/dL (6.4-8.2); Sodium Level 132 mmol/L (136-145); Thyroid Stim Hormone (TSH) 1.75 uIU/mL (0.358-3.74); Triglycerides 58 mg/dL; Very Low Density Lipoprotein 12 mg/dL (5-40)
[2023-04-05 09:48] LABS: Vitamin B12 500 pg/mL (211-911)
== END ==
LOC: OLS.SWAL 05:00
PROVIDERS: PCP Internal Medicine; Visit Provider Internal Medicine
DX: I48.91 Unspecified atrial fibrillation (principal); I10 Essential (primary) hypertension
CPT/HCPCS: 36415; 80053; 80061; 82607; 84443; 85027

== ENCOUNTER → 2023-04-09 | Outpatient (REF) | payer MEDICARE, OTHER, SELFPAY ==
[2023-04-09 09:52] LABS: Anion Gap 5 (5-15); BUN 17 mg/dL (7-18); BUN/Creat Ratio 20.6 RATIO (10-20); Chloride 100 mmol/L (98-107); Creatinine, Serum 0.82 mg/dL (0.55-1.02); EST Glomerular Filtration Rate 71 mL/min (>60); Est Glom Filt Rate - Afr Amer 85 mL/min (>60); Glucose 79 mg/dL (74-106); Potassium 4.1 mmol/L (3.5-5.1); Sodium Level 134 mmol/L (136-145)
== END ==
LOC: OLS.SWAL 05:00
PROVIDERS: PCP Internal Medicine; Visit Provider Internal Medicine
DX: I10 Essential (primary) hypertension (principal)
CPT/HCPCS: 36415; 80048

== ENCOUNTER → 2023-07-09 | Outpatient (REF) | payer MEDICARE, OTHER, SELFPAY ==
--- OUTSIDE RECORDS SUMMARY | 2023-07-09 04:57 | XMS RPT_ITS | CCD ---
Author Name Unknown Address [address] [place] [address] Organization [facility] Care Team Providers Care Machine Deburrer Name Role Phone Marcia Doherty Unavailable Unavailable PROVIDER, UNKNOWN Unavailable Unavailable Karol, Dwain Unavailable Unavailable HASAN, CRESCENCIO Unavailable Unavailable Karol DO, Dwain Primary Care Provider Arnav Fuenetsyothi Primary Care Provider [phone] Gugradya Lisa Primary Care Provider [phone] GUDLA, LISA Primary Care Unavailable MARCIA DOHERTY Attending Unavailable MARCIA ODHERTY Attending Unavailable GUDLA, LISA Primary Care Unavailable GUDLA, LISA Primary Care Unavailable MARCIA DOHERTY Attending Unavailable MARCIA DOHERTY Referring Unavailable GUDLA, LISA Primary Care Unavailable MARCIA DOHERTY Attending Unavailable Allergies Allergy Classification Reported Allergen(s) Allergy Type Date of Onset Reaction(s) Facility (1 source) Adhesive Tape; Translations: [ADHESIVE TAPE (ROSINS)] Propensity to adverse reactions (disorder) 4 [facility] Repository (17 sources) Angiotensin Converting Enzyme (Lenny) Inhibitors; Translations: [LENNY INHIBITORS] Propensity to adverse reactions to drug (disorder) 5 Other [facility] Repository (1 source) mold extract; Translations: [MOLD] Drug Allergy 5 [facility] Repository (1 source) Sulfonamides (Antibiotic); Translations: [SULFA (SULFONAMIDE ANTIBIOTICS)] Propensity to adverse reactions to drug (disorder) 4 [facility] Repository (1 source) OTHER; Translations: [OTHER] Propensity to adverse reactions (disorder) 5 [facility] Repository (1 source) TETANUS TOXOID ADSORBED; Translations: [TETANUS TOXOID ADSORBED] Propensity to adverse reactions to drug (disorder) 5 [facility]OF [facility] Rep[facility] (16 sources) Sulfonamides (Antibiotic) Propensity to adverse reactions to drug 4 Itching, Rash [facility] Work Phone: (16 sources) Tetanus vaccine Propensity to adverse reactions to drug 5 Swelling [facility] Work Phone: Medications Current Medications Medication Drug Class(es) Dates Sig (Normalized) Sig (Original) acetaminophen 325 mg / HYDROcodone bitartrate 5 mg oral tablet (9 sources) Opioid Agonist take 1 tablet by mouth every six hours as needed for pain HYDROcodone-aceta minophen ([place]) 5-325 MG tablet 1 tablet every 6 hours as needed for severe pain (7-10). 0 Active [id number] 200 actuat albuterol 0.09 mg/actuat metered dose inhaler (16 sources) beta2-Adrenergic Agonist take 2 puff(s) by inhalation every six hours as needed albuterol 108 (90 Base) MCG/ACT inhaler Inhale 2 puffs every 6 hours as needed. 0 Active amLODIPine 5 mg oral tablet (16 sources) Dihydropyridine Calcium Channel Alfredo take 1 tablet by mouth once daily amLODIPine (Norvasc) 5 MG tablet Take 5 mg by mouth daily. 0 Active apixaban 5 mg oral tablet (17 sources) Factor Xa Inhibitor Start: 07-20-2022 End: 04-15-2023 take 1 tablet by mouth twice daily apixaban (Eliquis) 5 MG tablet Take 1 tablet (5 mg) by mouth 2 times daily. 180 tablet 3 04/15/2023 Active 1 ml evolocumab 140 mg/ml auto-injector (8 sources) PCSK9 Inhibitor Start: 11-30-2022 End: 11-09-2023 inject 1 mL by subcutaneous injection once evolocumab (Repatha SureClick) 140 MG/ML injection Inject 1 mL (140 mg) under the skin every 14 (fourteen) days. 6 mL 1 05/13/2023 11/09/2023 Active flecainide acetate 50 mg oral tablet (17 sources) Antiarrhythmic Start: 12-01-2023 take 1 tablet by mouth twice daily flecainide (Tambocor) 50 MG tablet Indications: Paroxysmal atrial fibrillation (HCC) Take 1 tablet (50 mg) by mouth 2 times daily. 180 tablet 1 04/09/2023 Active Completed/Discontinued Medications Medication Drug Class(es) Dates Sig (Normalized) Sig (Original) 1 ml alirocumab 75 mg/ml auto-injector (12 sources) PCSK9 Inhibitor Start: 08-06-19 End: 09-30-19 inject 1 mL by subcutaneous injection once alirocumab (Praluent) 75 MG/ML injection Indications: Pure hypercholesterolemia Inject 1 mL (75 mg) under the skin every 14 (fourteen) days. 2 mL 5 11/26/2022 11/30/2022 Discontinued (Alternate therapy) betamethasone 3 mg/ml / betamethasone acetate 3 mg/ml injectable suspension (2 sources) Corticosteroid Start: 07-07-19 End: 07-07-19 betamethasone acetate-betamethasone sodium phosphate (Celestone) injection 12 mg hydroCHLOROthiazide 12.5 mg oral tablet (8 sources) Thiazide Diuretic End: 11-25-19 take 1 tablet by mouth in the morning hydroCHLOROthiazide (HYDRODiuril) 12.5 MG tablet Take 12.5 mg by mouth in the morning. 0 11/24/2022 Discontinued (Discontinued by another clinician) Problems Active Problems Problem Classification Problem Date Documented Da te Episodic/Chronic Acute cerebrovascular disease (17 sources) Occlusion of cerebral artery with stroke; Translations: [Cerebral infarction due to unspecified occlusion or stenosis of unspecified cerebral artery] Onset: 05-10-2009 Chronic Cardiac dysrhythmias (20 sources) Paroxysmal atrial fibrillation; Translations: [Paroxysmal atrial fibrillation] Onset: 02-18-2016 Chronic Disorders of lipid metabolism (20 sources) Hyperlipidemia; Translations: [Hyperlipidemia, unspecified] Onset: 02-18-2016 02-18-2016 Chronic Essential hypertension (20 sources) Hypertensive disorder; Translations: [Essential (primary) hypertension] Onset: 02-18-2016 02-18-2016 Chronic Heart valve disorders (20 sources) Aortic stenosis, non-rheumatic ; Translations: [Nonrheumatic aortic (valve) stenosis] Onset: 03-11-2022 03-11-2022 Chronic Heart valve disorders (1 source) Heart murmur; Translations: [Cardiac murmur, unspecified] Episodic Occlusion or stenosis of precerebral arteries (2 sources) Occlusion and stenosis of bilateral carotid arteries; Translations: [Occlusion and stenosis of bilateral carotid arteries] Onset: 05-25-2017 Chronic Osteoarthritis (1 source) Primary gonarthrosis, bilateral; Translations: [Bilateral primary osteoarthritis of knee] 07-07-2023 Chronic Other and ill-defined heart disease (2 sources) Cardiomegaly; Translations: [Cardiomegaly] Onset: 05-25-2017 Chronic Other non-traumatic joint disorders (1 source) Pain in right knee; Translations: [Pain in joint, lower leg] 07-01-2023 Episodic Residual codes; unclassified (16 sources) Sleep apnea; Translations: [Sleep apnea, unspecified] Onset: 02-18-2016 02-18-2016 Chronic Residual codes; unclassified (2 sources) Obstructive sleep apnea syndrome; Translations: [Obstructive sleep apnea (adult) (pediatric)] 11-17-2022 Chronic Residual codes; unclassified (2 sources) Obstructive sleep apnea (adult) (pediatric); Translations: [Obstructive sleep apnea (adult) (pediatric)] Onset: 02-21-2022 Chronic Transient cerebral ischemia (20 sources) Transient cerebral ischemia; Translations: [Transient cerebral ischemic attack, unspecified] Onset: 02-18-2016 02-18-2016 Chronic Past or Other Problems Problem Classification Problem Date Documented Da te Episodic/Chronic Syncope (20 sources) Near syncope; Translations: [Syncope and collapse] Onset: 02-18-2016 Episodic Results Test Name Value Interpretation Reference Range Facil ity Vital Signs Date Time Vital Sign Value Performing Clinician Faci lity 07-07-2023 10:47-0500 Body height 162.6 cm Pee Garcia MD Work Phone: [employer] 07-07-2023 10:47-0500 Body mass index (BMI) [Ratio] 25.23 kg/m2 Pee Garcia MD Work Phone: [employer] 07-07-2023 10:47-0500 Body weight 66.68 kg Pee Garcia MD Work Phone: [employer] 06-15-2023 09:49-0500 Body height 162.6 cm Marcia Doherty MD Work Phone: [employer] 06-15-2023 09:49-0500 Body mass index (BMI) [Ratio] 25.23 kg/m2 Marcia Doherty MD Work Phone: [facility] [employer] 06-15-2023 09:49-0500 Body weight 66.68 kg Marcia Doherty MD Work Phone: [facility] [employer] 06-15-2023 09:49-0500 Diastolic blood pressure 70 mm[Hg] Marcia Doherty MD Work Phone: [facility] [employer] 06-15-2023 09:49-0500 Heart rate 60 /min Marcia Doehrty MD Work Phone: [facility] [employer] 06-15-2023 09:49-0500 SaO2% (BldA) [Mass fraction] 97 % Marcia Doherty MD Work Phone: [facility] [employer] 06-15-2023 09:49-0500 Systolic blood pressure 136 mm[Hg] Marcia Doherty MD Work Phone: [facility] [employer] 11-24-2022 09:02-0400 Body mass index (BMI) [Ratio] 24.37 kg/m2 Marcia Doherty MD Work Phone: [facility] [employer] 11-24-2022 09:02-0400 Body weight 64.41 kg Marcia Doherty MD Work Phone: [facility] [employer] 11-24-2022 09:02-0400 Diastolic blood pressure 80 mm[Hg] Marcia Doherty MD Work Phone: [facility] [employer] 11-24-2022 09:02-0400 Heart rate 56 /min Marcia Doherty MD Work Phone: [facility] [employer] 11-24-2022 09:02-0400 SaO2% (BldA) [Mass fraction] 97 % Marcia Doherty MD Work Phone: [facility] [employer] 11-24-2022 09:02-0400 Systolic blood pressure 160 mm[Hg] Marcia Doherty MD Work Phone: [facility] [employer] 09-08-2022 10:0400 Body height 162.6 cm Marcia Doherty MD Work Phone: [facility] [employer] 09-08-2022 10:-0400 Body mass index (BMI) [Ratio] 23.69 kg/m2 Marcia Doherty MD Work Phone: [facility] [employer] 09-08-2022 10:040 Body weight 62.6 kg Marcia Doherty MD Work Phone: [facility] [employer] Encounters Encounter Date Encounter Type Care Provider Facility Start: 07-07-2023 End: 07-07-2023 Office outpatient new 30 minutes Pee Garcia MD Work Phone: [facility] Procedures Date Procedure Procedure Detail Performing Clinician Start: 06-15-2023 Ecg routine ecg w/le ast 12 lds w/i&r Marcia Doherty MD Work Phone: Start: 11-24-2022 Ecg routine ecg w/le ast 12 lds w/i&r Marcia Doherty MD Work Phone: Start: 09-08-2022 Echo tthrc r-t 2d w/wom-mode compl spec&colr d Marcia Doherty MD Work Phone: Start: 08-03-2022 Lipid 1996 panel - S terrance or Plasma Marcia Doherty MD Work Phone: Start: 03-28-2021 Echo tthrc r-t 2d w/wom-mode compl spec&colr d Marcia Doherty MD Work Phone: Plan of Treatment Date Care Activity Detail Author Start: 08-04-2027 Lipid panel Lipid Panel [facility] Start: 12-14-2023 End: 12-14-2023 Patient encounter procedure 12/14/2023 9:15 AM EDT Office Visit [facility] [address] [place] [address] Marcia Doherty MD [address] [place] [address] [facility] Start: 11-24-2023 End: 06-15-2025 US Heart Transthoracic Transthoracic echocardiogram (TTE) complete with contrast, bubble, strain, and 3D PRN CV Echocardiography Routine Paroxysmal atrial fibrillation (CMS/HCC) (HCC) Nonrheumatic aortic valve stenosis Obstructive sleep apnea syndrome TIA (transient ischemic attack) Primary hypertension Expected: 11/24/2023 (Approximate), Expires: 06/15/2025 [facility] [employer] Work Phone: Immunizations Immunization Date Immunization Notes Care Provider Fa cility 02-14-2021 influenza virus vacc ine, unspecified formulation Marcia Doherty MD Work Phone: [facility] [employer] 06-11-2020 Pfizer SARS-CoV-2 Vaccination Marcia Doherty MD Work Phone: [facility] [employer] 05-21-2020 Pfizer SARS-CoV-2 Vaccination Marcia Doherty MD Work Phone: [facility] [employer] Payers Date Payer Category Payer Private Health Insurance [facility] [id number] 2021-Present [address] [place] [address] Commercial [id number] 2014 Private Health Insurance [id number] 2001 Medicare 2001 Medicare [id number] Social History Date Type Detail Facility Start: 02-18-2016 Tobacco smoking stat [facility] Never smoked tobacco [facility] Work Phone: Start: 02-18-2016 Tobacco use and exposure Smokeless tobacco non-user [facility] Work Phone: Start: 12-11-2020 End: 07-07-2023 Alcohol intake Current non-drinker of alcohol (finding) [facility] Work Phone: Start: 1940 Sex Assigned At Not on file [facility] Work Phone: Start: 07-18-2022 End: 11-24-2022 Exposure to SARS-CoV-2 (event) Not sure [facility] Start: 07-28-2022 End: 07-07-2023 History of Social function [facility] Start: 07-28-2022 End: 07-07-2023 Tobacco use panel [facility] Clinical Notes 08-04-2022 to 07-07-2023 Pee Garcia MD - 07/07/2023 11:00 AM Jazmyn Dohrety MD - 06/15/2023 10:00 AM ESTTelephone Encounter - Shannan Aquino RN - 05/13/2023 12:17 PM EST Note Date & Type Note Facility 07-07-2023 History of Presen t illness Narrative Images from the original note were not included. 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 female who presents for evaluation of the bilateral knee. Right worse Symptoms began gradually several years ago. She describes the symptoms as aching. The pain is anterior. Symptoms improve with rest, medication: [place] used but not effective. The symptoms are exacerbated by activity. The knee has given out or felt unstable. The patient can bend and straighten the knee fully and does not have mechanical symptoms (catching, locking). Able to walk 0 blocks and is not able to use stairs. Overall, the patient feels as if this condition is severely impacting their quality of life and ability to do activities of daily living. No associated radicular pain contributing nor any radiating hip pain. AFIB and hx of blood clot to LLE Dr Salazar ,Not diabetic, Hx of Left MERY at [facility] about 15 years ago. Previous Surgery: No Non-operative treatment to date has consisted of: NSAIDS: No Narcotics: Yes Therapy: Formal physical therapy for 4-6 weeks. Made pain worse Cortisone injections: No Viscosupplementation: No Assistive Devices: Walker Bracing: No Attempted Weight Loss: No Medications reviewed. Review of Systems Constitutional: Negative for activity change. HENT: Negative for congestion. Cardiovascular: Negative for leg swelling. Musculoskeletal: Positive for arthralgias, gait problem and joint swelling. Skin: Negative for wound. Neurological: Negative for weakness. Past Medical History: Diagnosis Date Asthma Atrial fibrillation (HCC) Cerebral artery occlusion with cerebral infarction (HCC) 2010 after hip replacement DVT of leg (deep venous thrombosis) (HCC) Hyperlipidemia Hypertension Sleep apnea Syncope and collapse TIA (transient ischemic attack) Past Surgical History: Procedure Laterality Date CATARACT EXTRACTION Right CERVICAL FUSION Left SECTION (HISTORICAL) CHOLECYSTECTOMY HYSTERECTOMY PARTIAL NEPHRECTOMY Left tumor TOTAL HIP ARTHROPLASTY Left Social History Socioeconomic History Marital status: Spouse name: Not on file Number of children: Not on file Years of education: Not on file Highest education level: Not on file Occupational History Not on file Tobacco Use Smoking status: Never Smokeless tobacco: Never Substance and Sexual Activity Alcohol use: No Drug use: Never Sexual activity: Not on file Other Topics Concern Not on file Social History Narrative Not on file Social Determinants of Health Financial Resource Strain: Not on file Food Insecurity: Not on file Transportation Needs: Not on file Physical Activity: Not on file Stress: Not on file Social Connections: Not on file Intimate Partner Violence: Not on file Housing Stability: Not on file Family History Problem Relation Name Age of Onset Mental illness Mother Cancer Sister Diabetes Father Allergies Allergen Reactions Lenny Inhibitors Other Tetanus Toxoids Swelling Sulfa Antibiotics Itching and Rash Objective: Ht 5' 4 (1.626 m) Wt 147 lb (66.7 kg) BMI 25.23 kg/m Pt is a WD/WN female in no acute distress. She appears her stated age. Mood and affect are normal. She is A&O x 3. Gait: antalgic. RIGHT KNEE: Inspection shows skin is warm, dry and intact. There are no obvious scars or previous incisions.. Alignment is significant valgus. ROM shows extension is 0, flexion 115-120. The knee is stable to varus/valgus stress (<6 degrees) and is correctable. Additional findings include medial joint line tenderness and lateral joint line tenderness, no effusion and no erythema. Anterior, posterior drawer negative. +PF/DF/EHL. SILT distally. DP/PT palpable. Straight leg raise negative for inciting radicular symptoms. LEFT KNEE: Inspection shows skin is warm, dry and intact. There are no obvious scars or previous incisions.. Alignment is significant varus. ROM shows extension is 0, flexion 120. The knee is stable to varus/valgus stress (<6 degrees) and is correctable. Additional findings include medial joint line tenderness, no effusion and no erythema. Anterior, posterior drawer negative. +PF/DF/EHL. SILT distally. DP/PT palpable. Straight leg raise negative for inciting radicular symptoms. Bilateral hip range of motion is not painful. Lab Results: RELEVANT LABS: NONE Radiology Findings: 07/07/23 images obtained by outside radiology department independently reviewed by myself today in office. XRAYS: Indication: Bilateral knee pain. Exam Ordered: Radiographs of the knee include a standing anteroposterior view, a standing posteroanterior view, a lateral view in flexion, and a sunrise view. Details of Examination: Exam shows evidence of significant joint space narrowing (bone on bone) particularly in the medial compartment, significant peripheral osteophyte formation, and subchondral sclerosis; all consistent with end-stage degenerative arthritis of the knee. No other significant findings are noted. Impression: Degenerative Arthritis, bilateral knee. Assessment 1. Primary osteoarthritis of both knees Plan The above findings were discussed with patient length. We discussed the options of conservative versus possible surgical management of their knee. At this point considering the patient's level of activity, pain, and radiographic findings, I recommended continued conservative management. This treatment will consist of... ~ Activity modification ~ NSAID's (OTC preferred) - The risks and benefits of NSAID medications were discussed. NSAID's can have potential renal/cardiac/gastric side effects. ~ Tylenol ~ Corticosteroid injection - Procedure(s) Note: After risks and benefits of intra-articular injection were reviewed with the patient, they elected to proceed. After a triple alcohol sterile preparation, a mixture of 2 mL Celestone and 8cc of 1% lidocaine was given through a anterolateral portal of the right knee. The patient tolerated the injection(s) well. A band-aid was placed. Post-injection instructions were reviewed. ~ Right knee hinged knee brace in office today The risks, benefits, and alternatives to all of the treatment options were thoroughly explained. Patient will call us with any questions or concerns regarding this plan or if any significant issues arise. Right Total Knee Arthroplasty. Planning for end of September, will have her come back in August to discuss surgery in detail. BOOKING INSTRUCTIONS Procedure: Right Total Knee Arthroplasty - [id number] Time: 1 hour(s) Diagnosis: 1. Primary osteoarthritis of both knees Blood: Not anticipated to be given Important Labs to Obtain: Routine PAT protocol Anesthesia: Spinal and ambIT Adductor Pump DVT Prophylaxis: ASA Return to Office: No Repeat Xrays: Bennett CT Anticipated Discharge To: [facility] Facility Implants: Meghan Triathlon with Bennett, with patellar resurfacing Equipment: MatchGrade leg carmona, CarboJet, regular table Other: TXA, No Baer, OpSite The patient is not a candidate for same day joint replacement. Electronically signed by Pee Garcia M.D. 07/07/2023 at 11:24 AM. documented in this encounter [facility] 06-15-2023 History of Presen t illness Narrative [facility] [place] Cardiology/Electrophysiology Follow Up Clinic Note Chief Complaint: Chief Complaint Patient presents with Atrial Fibrillation PAF Hyperlipidemia Hypertension Sleep Apnea Cardiac Valve Problem AV stenosis Syncope Hypotensive events Transient Ischemic Attack History of Present Illness: Ileana Seay is a 83 y.o. female with HTN and GEORGIE who I met in Mar 2014 for palpitation. She had had a prior TIA. In 2007 she c/o frequent palpitation and was told by her PCP that she was in Afib, but an ECG was not done. She was sent to the ED and by then she was back in NSR. As far as she knows, AFib was never documented by an EKG. Over time, she had more frequent paroxysms of tachy palpitation and in Mar 2014 we started flecainide. She has had no palpitation since. In Feb 2021 she was taken to [facility] for an episode of diaphoresis and fatigue while sleeping. She was told that her BP was low and HRs were in the 40s. We ordered an echo and an event recorder (see below). In Jan 2022 she had syncope in the middle of the night. She woke up to go to the bathroom felt dizzy and fell to the ground and had LOC. She thought she was out for a couple of hours before she crawled to the panic button and called the staff in the assisted living facility. When she got to the ED she was in sinus rhythm at 63 bpm. Over the years, she also has developed moderate aortic stenosis. Today she returns feeling at her baseline. She denies palpitation, syncope, shortness of breath, or chest pain. She has had no orthostatic dizziness. She is not very active on account of DJD, especially in her knees, for which she takes [place]. She walks with a walker. An EKG today shows normal sinus rhythm. An echo in Mar 2021 shows a normal LVEF and mod to severe with a mean gradient of 33 (ENID 0.8). The repeat echo in September 2022 shows an EF of 71% with moderately severe and a mean gradient of 38 (ENID 0.9). The event monitor showed no AFib, but 3-5 sec pauses in the middle of the night c/w sleep apnea. Prior EMs never documented atrial tachyarrhythmias. Carotid ultrasound in May 2017 showed less than 50% stenosis on both sides. Assessment and Plan: 1. Paroxysmal atrial fibrillation: This has never been documented by EKG but it is almost surely what she felt. She has had no episodes of palpitation in quite sometime. I have asked her to go to an urgent care center to get an EKG if she feels an episode. As far as OAC, her CHADS-Vasc score is high, especially if we consider her TIA. She will continue on that indefinitely. 2. Aortic stenosis: This has progressed from mild to moderately severe. The echo from September 2022 is really no different than the one in Mar 2021. She has no symptoms. I will get an echo in November, and see her in December. 3. Episode of low BP/Bradycardia in Feb 2021. Not sure what that was, but it sounded like a vagal event. The echo and EM are OK. In Jan 2022 she had another syncopal event in the middle of the night that sounds hypotensive. If this recurs, we may need to consider a loop recorder. 4. Hypertension: Her BP is well controlled today. She does not check it at home. She is on amlodipine and Aldactone. 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 5. Bilateral Bruits. Results of the U/S from May 2017 are noted above. This is more likely related to her aortic stenosis murmur. 6. HL Her cholesterol in 2017 was 368 and her LDL was 275 when she was taking her Crestor once a week. Her LDL was 228 and her TC was 314 in Apr 2017. I had started Lipitor but this was eventually stopped by her PCP as she complained of some muscle aches. In July 2022, after her LDL was measured at 229, she agreed to taking Praluent. Her LDL is now 122 (March 2023) 7. Hyponatremia: She was told by the MD in the assisted living facility that she was hyponatremic and she should take salt supplements. I discouraged her from doing this because of her history of hypertension. 8. Bilateral knee DJD: She is in fairly severe pain. She walks with a walker she thought she may not be a candidate for surgery. I encouraged her to see Dr. Garcia to discuss possible surgical options. Past Medical History: Past Medical History: Diagnosis Date Asthma Atrial fibrillation (HCC) Cerebral artery occlusion with cerebral infarction (HCC) 2009 after hip replacement DVT of leg (deep venous thrombosis) (HCC) Hyperlipidemia Hypertension Sleep apnea Syncope and collapse TIA (transient ischemic attack) Past Surgical History Past Surgical History: Procedure Laterality Date CATARACT EXTRACTION Right CERVICAL FUSION Left SECTION (HISTORICAL) CHOLECYSTECTOMY HYSTERECTOMY PARTIAL NEPHRECTOMY Left tumor TOTAL HIP ARTHROPLASTY Left Family History Family History Problem Relation Name Age of Onset Mental illness Mother Cancer Sister Diabetes Father Social History Social History Tobacco Use Smoking status: Never Smokeless tobacco: Never Substance Use Topics Alcohol use: No Drug use: Never Medications: Reviewed Allergies: Reviewed Review of Systems: All other systems were reviewed and are negative other than as noted in the HPI. Physical Examination: Vitals: Blood pressure 136/70, pulse 60, height 5' 4 (1.626 m), weight 147 lb (66.7 kg), SpO2 97%. Constitutional: Appears well kept and looks stated age; in NAD Psychiatric: A &O x3 Mood is normal; Affect is appropriate Musculoskeletal: Normocephalic; no joint swelling; gait steady ; 5/5 muscle strength bilaterally in upper and lower extremities; no clubbing or cyanosis HEENT: Pupils are equal and round; Conjunctiva are not injected; Sclera are non-icteric; Airway and Nares are patent; Ears without external abnormalities. Mucosa is pink; Dentition is normal Neck: Supple; No JVD or Bruits; No thyromegaly; No lymphadenopathy Respiratory: Lungs are clear with no rales or wheezes. Respiratory effort is normal and symmetrical bilaterally; Good air movement bilaterally Heart: RRR without ectopy; Nl S1 and barely audible S2 2/6 systolic aortic murmur. No crg Abdomen: NABS soft, non-tender, non-distended; no organomegaly; no obvious masses Extremities/Skin: Trace LE edema; Skin warm to touch and well perfused; skin discoloration is absent; Peripheral Pulses intact Neuro: sensation and motor function are grossly normal. Cranial Nerves are grossly intact Laboratory Tests: Lab Results Component Value Date WBC 3.2 (A) 01/08/2022 WBC 4.3 07/04/2021 WBC 4.0 02/26/2021 HGB 13.0 01/08/2022 HGB 13.9 07/04/2021 HGB 13.5 02/26/2021 HCT 38.8 01/08/2022 HCT 40.5 07/04/2021 MCV 93.3 01/08/2022 MCV 92.9 07/04/2021 MCV 92.1 02/26/2021 PLT 297 01/08/2022 PLT 304 07/04/2021 Lab Results Component Value Date NA 129 (A) 01/08/2022 NA 130 (A) 07/04/2021 NA 8.7 02/26/2021 NA 127 02/26/2021 K 3.6 01/08/2022 K 3.6 07/04/2021 K 4.5 02/26/2021 K 3.8 02/26/2021 CL 92 (A) 01/08/2022 CL 92 (A) 07/04/2021 CL 93 02/26/2021 CL 91 02/26/2021 CO2 27 01/08/2022 CO2 25 07/04/2021 CO2 28 02/26/2021 CO2 28.0 02/26/2021 BUN 102 01/08/2022 BUN 14.1 07/04/2021 BUN 15 02/26/2021 BUN 19 02/26/2021 CREATININE 0.70 01/08/2022 CREATININE 0.80 07/04/2021 CREATININE 0.77 02/26/2021 CREATININE 0.71 02/26/2021 GLU 95 01/08/2022 GLU 92 07/04/2021 Lab Results Component Value Date CHOL 299 (A) 08/03/2022 Lab Results Component Value Date HDL 67 (A) 08/03/2022 Lab Results Component Value Date TRIG 48 08/03/2022 Radiology: Reviewed Marcia Doherty MD DATE of SERVICE: 06/15/2023 documented in this encounter [facility] 05-13-2023 Telephone encounter Note Form atting of this note might be different from the original. VAMSHI 11-24-22 05-25-23 04-05-23 Lipid/LFT in CE under [facility]IP [facility] 05-13-2023 Miscellaneous Notes Formattin g of this note might be different from the original. [facility] 11-24-22 05-25-23 04-05-23 Lipid/LFT in CE under [facility]IP documented in this encounter [facility] 04-15-2023 Telephone encounter Note Form atting of this note might be different from the original. [facility] 11-24-22 05-25-23 11-02-22 CBC CMP/creat 0.78 in CE [facility] 04-15-2023 Miscellaneous Notes Formattin g of this note might be different from the original. [facility] 11-24-22 05-25-23 11-02-22 CBC CMP/creat 0.78 in CE Last seen 11/24/22, next appt 05/25/23 documented in this encounter [facility] 04-15-2023 Telephone encounter Note Form atting of this note might be different from the original. Last seen 11/24/22, next appt 05/25/23 [facility] 01-06-2023 Telephone encounter Note Form atting of this note might be different from the original. [facility]I 11-24-22 05-25-2023 11-02-22 CBC,BMP/Creat 0,78 labs are in Care Everywhere [facility] 01-06-2023 Miscellaneous Notes Formattin g of this note might be different from the original. VAMSHI 11-24-22 NOV 05-25-2023 11-02-22 CBC,BMP/Creat 0,78 labs are in Care Everywhere Pt requesting eliquis Last seen 11/24/22, OC fu 05/25/22 Pharmacy confirmed documented in this encounter [facility] 01-06-2023 Telephone encounter Note Form atting of this note might be different from the original. Pt requesting eliquis Last seen 11/24/22, OC fu 05/25/22 Pharmacy confirmed [facility] 11-30-2022 Telephone encounter Note Form atting of this note might be different from the original. VAMSHI-11/29 oc LIPID-3 has active order [facility] 11-30-2022 Miscellaneous Notes Formattin g of this note might be different from the original. VAMSHI-11/29 oc LIPID-3 has active order Patient's insurance is requiring them to switch from Praluent to Repatha due to formulary change. If appropriate, please send script to [facility] and we will reach out to the pt to inform her of the change. Canceled Praluent script and pended Repatha for review. Thank you! documented in this encounter [facility] 11-30-2022 Telephone encounter Note Form atting of this note might be different from the original. Patient's insurance is requiring them to switch from Praluent to Repatha due to formulary change. If appropriate, please send script to [facility] and we will reach out to the pt to inform her of the change. Canceled Praluent script and pended Repatha for review. Thank you! [facility] 11-26-2022 Telephone encounter Note Form atting of this note might be different from the original. Last OV with OC 7-18-23 3-27-23 Lipids /LFTs not done needs recheck in 3-4 months per OC order put in Epic [facility] 11-26-2022 Miscellaneous Notes Formattin g of this note might be different from the original. Last OV with OC 7-18-23 3-27-23 Lipids /LFTs not done needs recheck in 3-4 months per OC order put in Epic documented in this encounter [facility] 11-24-2022 History of Presen t illness Narrative [facility] [place] Cardiology/Electrophysiology Follow Up Clinic Note Chief Complaint: Chief Complaint Patient presents with Atrial Fibrillation PAF Hypertension Hyperlipidemia Sleep Apnea Cardiac Valve Problem AV stenosis History of Present Illness: Ileana Seay is a 82 y.o. female with HTN and GEORGIE who I met in Mar 2014 for palpitation. She had a TIA in the past and had episodes of irregular tachyarrhythmias in 2007 in her PCP's office and was told that she was in AFib then but an ECG was not done. She was sent to the ED and by then she was back in NSR. As far as she knows, AFib was never documented by an EKG. She had more frequent episodes and in Mar 2014 we added flecainide and she has had no palpitation since. In Feb 2021 she was taken to [facility] for an episode of diaphoresis and fatigue while sleeping. She was told that her BP was low and HRs were in the 40s. We ordered an echo and an event recorder (see below). In Jan 2022 she had syncope in the middle of the night. She woke up to go to the bathroom felt dizzy and fell to the ground and had LOC. She thought she was out for a couple of hours before she crawled to the panic button and called the staff in the assisted living facility. When she got to the ED she was in sinus rhythm at 63 bpm. Today she returns feeling at her baseline. She denies palpitation, syncope, shortness of breath, or chest pain. She has had no orthostatic dizziness. She is not very active on account of some arthritic pain especially in her right hip. An EKG today shows normal sinus rhythm. An echo in Mar 2021 shows a normal LVEF and moderate to severe with a mean gradient of 33 (ENID 0.8). The repeat echo in September 2022 shows an EF of 71% with moderately severe and a mean gradient of 38 (ENID 0.9). The event monitor showed no AFib, but 3-5 sec pauses in the middle of the night c/w sleep apnea. Prior EMs never documented atrial tachyarrhythmias. Carotid ultrasound in May 2017 showed less than 50% stenosis on both sides. Assessment and Plan: 1. Paroxysmal atrial fibrillation: This has never been documented by EKG but it is almost surely what she felt. She has had no episodes of palpitation in quite sometime. I have asked her to go to an urgent care center to get an EKG if she feels an episode. As far as OAC, her CHADS-Vasc score is fairly high, especially if we consider the TIA that she had a few years ago. She will continue on that indefinitely. 2. Aortic stenosis: This has progressed from mild to moderately severe. The echo from September 2022 is really no different than the one in March 2021. She has no symptoms. We will continue to observe. 3. Episode of low BP/Bradycardia in Feb 2021. Not sure what that was, but it sounded like a vagal event. The echo and EM are OK. In Jan 2022 she had another syncopal event in the middle of the night that sounds hypotensive. If this recurs, we may need to consider a loop recorder. 4. Hypertension: Her BP is well controlled today. She does not check it at home. Her PCP has prescribed Aldactone at 100 mgdaily. 5. Bilateral Bruits. Results of the U/S from May 2017 are noted above. 6. HL Her cholesterol in 2016 was 368 and her LDL was 275 when she was taking her Crestor once a week. Her LDL was 228 and her TC was 314 in Apr 2017. I had started Lipitor but this was eventually stopped by her PCP as she complained of some muscle aches. In July 2022, after her LDL was measured at 229, she agreed to taking Praluent. Her LDL should be rechecked in 3 to 4 months. 7. Hyponatremia: She was told by the MD in the assisted living facility that she was hyponatremic and she should take salt supplements. I discouraged her from doing this because of her history of hypertension. When I saw her in July I ordered some blood work that she never got done. I will leave this up to her PCP. 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 DVT of leg (deep venous thrombosis) (HCC) Hyperlipidemia Hypertension Sleep apnea Syncope and collapse TIA (transient ischemic attack) Past Surgical History Past Surgical History: Procedure Laterality Date CATARACT EXTRACTION Right CERVICAL FUSION Left SECTION (HISTORICAL) CHOLECYSTECTOMY HYSTERECTOMY PARTIAL NEPHRECTOMY Left tumor TOTAL HIP ARTHROPLASTY Left Family History Family History Problem Relation Name Age of Onset Mental illness Mother Cancer Sister Diabetes Father Social History Social History Tobacco Use Smoking status: Never Smokeless tobacco: Never Substance Use Topics Alcohol use: No Drug use: Never Medications: Reviewed Allergies: Reviewed Review of Systems: All other systems were reviewed and are negative other than as noted in the HPI. Physical Examination: Vitals: Blood pressure (!) 160/80, pulse 56, weight 142 lb (64.4 kg), SpO2 97 %. Constitutional: Appears well kept and looks stated age; in NAD Psychiatric: A &O x3 Mood is normal; Affect is appropriate Musculoskeletal: Normocephalic; no joint swelling; gait steady ; 5/5 muscle strength bilaterally in upper and lower extremities; no clubbing or cyanosis HEENT: Pupils are equal and round; Conjunctiva are not injected; Sclera are non-icteric; Airway and Nares are patent; Ears without external abnormalities. Mucosa is pink; Dentition is normal Neck: Supple; No JVD or Bruits; No thyromegaly; No lymphadenopathy Respiratory: Lungs are clear with no rales or wheezes. Respiratory effort is normal and symmetrical bilaterally; Good air movement bilaterally Heart: RRR without ectopy; Nl S1 and barely audible S2 2/6 systolic aortic murmur. No crg Abdomen: NABS soft, non-tender, non-distended; no organomegaly; no obvious masses Extremities/Skin: Trace LE edema; Skin warm to touch and well perfused; skin discoloration is absent; Peripheral Pulses intact Neuro: sensation and motor function are grossly normal. Cranial Nerves are grossly intact Laboratory Tests: Lab Results Component Value Date WBC 3.2 (A) 01/08/2022 WBC 4.3 07/04/2021 WBC 4.0 02/26/2021 HGB 13.0 01/08/2022 HGB 13.9 07/04/2021 HGB 13.5 02/26/2021 HCT 38.8 01/08/2022 HCT 40.5 07/04/2021 MCV 93.3 01/08/2022 MCV 92.9 07/04/2021 MCV 92.1 02/26/2021 PLT 297 01/08/2022 PLT 304 07/04/2021 Lab Results Component Value Date NA 129 (A) 01/08/2022 NA 130 (A) 07/04/2021 NA 8.7 02/26/2021 NA 127 02/26/2021 K 3.6 01/08/2022 K 3.6 07/04/2021 K 4.5 02/26/2021 K 3.8 02/26/2021 CL 92 (A) 01/08/2022 CL 92 (A) 07/04/2021 CL 93 02/26/2021 CL 91 02/26/2021 CO2 27 01/08/2022 CO2 25 07/04/2021 CO2 28 02/26/2021 CO2 28.0 02/26/2021 BUN 102 01/08/2022 BUN 14.1 07/04/2021 BUN 15 02/26/2021 BUN 19 02/26/2021 CREATININE 0.70 01/08/2022 CREATININE 0.80 07/04/2021 CREATININE 0.77 02/26/2021 CREATININE 0.71 02/26/2021 GLU 95 01/08/2022 GLU 92 07/04/2021 Lab Results Component Value Date CHOL 299 (A) 08/03/2022 Lab Results Component Value Date HDL 67 (A) 08/03/2022 Lab Results Component Value Date TRIG 48 08/03/2022 Radiology: Reviewed Marcia Doherty MD DATE of SERVICE: 11/24/2022 documented in this encounter [facility] 11-05-2022 Telephone encounter Note Form atting of this note might be different from the original. CBC And BMP resulted 11/02/2022 acceptable (found in the Care Everywhere encounter Dr. Lisa Fuentes 11/02/2022) [facility] 11-05-2022 Miscellaneous Notes Formattin g of this note might be different from the original. CBC And BMP resulted 11/02/2022 acceptable (found in the Care Everywhere encounter Dr. Lisa Fuentes 11/02/2022) Pt requesting flecainide Last seen 07/28/22, OC fu 11/24/22. Pharmacy confirmed documented in this encounter [facility] 11-05-2022 Telephone encounter Note Form atting of this note might be different from the original. Pt requesting flecainide Last seen 07/28/22, OC fu 11/24/22. Pharmacy confirmed [facility] 09-11-2022 Telephone encounter Note Form atting of this note might be different from the original. Notified patient that Dr Doherty reviewed Echo and said AoV little bit more sclerotic ,does not need intervention at this time [facility] 09-11-2022 Miscellaneous Notes Formattin g of this note might be different from the original. Notified patient that Dr Dohrety reviewed Echo and said AoV little bit more sclerotic ,does not need intervention at this time Pt requesting a call with results of ECHO done 09/08/22 OC fu 11/24/22 documented in this encounter [facility] 09-10-2022 Telephone encounter Note Form atting of this note might be different from the original. Pt requesting a call with results of ECHO done 09/08/22 OC fu 11/24/22 [facility] 08-06-2022 Telephone encounter Note Form atting of this note is different from the original. SUBJECTIVE Ileana Seay is a 82 year old Female who was referred to [facility] for clinical management services for Praluent 75 MG/ML. Diagnosis Mixed hyperlipidemia E78.2 OBJECTIVE Medications: Albuterol Sulfate HFA 108 (90 Base) MCG/ACT AERS IN AmLODIPine Besylate 5 MG TABS PO Eliquis 5 MG TABS PO Flecainide Acetate 50 MG TABS PO HydroCHLOROthiazide 12.5 MG CAPS PO Praluent 75 MG/ML SOPN SC Spironolactone 50 MG TABS PO Allergies: Sulfa (Sulfonamide Antibiotics) LENNY Inhibitors Tetanus Vaccines and Toxoid Medical History & Comorbidities: Problem list has been reviewed in the EHR ASSESSMENT / PLAN Expectations and Goals of therapy Achieve and maintain LDL at patient specific goal to reduce risk of future heart attacks and strokes. Disease state education Counseled on general disease state management strategies. Emphasized that hyperlipidemia is a chronic medical condition that requires consistent adherence to prescribed medication in order to achieve treatment goals. Administration Instructed patient to follow the dosing regimen of 75 mg under the skin once every 2 weeks OR 150 mg under the skin once every 2 weeks OR 300 mg under the skin once every 4 weeks. If a dose is missed, take as soon as possible, and adjust the dosing regimen, as necessary. Counseled on administration directions, Inject appropriate dose under the skin at appropriate dosing schedule ; remove dose from refrigerator 30-60 minutes prior to injection and allow to warm to room temperature, rotate injection sites - best sites for a subcutaneous injection is top of the thighs or abdomen/abdominal region at least 2 inches away from the belly button, may apply ice or heat the spot prior to and after injection, and can treat with OTC agents for irritation including hydrocortisone or diphenhydramine. Patient is comfortable with self-administration of medication. She verbalized understanding to inject into abdominal region, or thigh every 14 days. Rotate injection site. Cost barrier resolved. Storage/Disposal Informed patient to store prefilled syringes between 36-46 degrees F. Prefilled syringes in original carton can be stored at room temperature for a maximum of 30 days. Do not expose to temperatures above 77 degrees F. Do not freeze. Side effects Counseled patient of potential side effects including nasopharyngitis, sinusitis, bronchitis, influenza, injection site reactions, urinary tract infection, diarrhea, myalgia, or muscle spasm. Informed that if patient has intolerable or serious side effects to call the clinic before discontinuation of medication. Contact Advised patient when to contact pharmacy or provider. Provided with direct number to clinical pharmacist for questions or concerns prior to scheduled follow up. The patient was oriented to the pharmacy s services upon their initial fill and it was communicated that they can participate in this plan of care by speaking with a Pharmacist which is offered during each reassessment. Adherence Since this is a preventative therapy, the patient needs to take medication routinely as prescribed regardless of their symptoms. If a dose is missed, the patient should take it as soon as they remember. If it is within 7 days of the missed dose, continue the original schedule. If it has been more than 7 days, reset the schedule. Monitoring and follow up Reviewed therapy monitoring parameters and importance to maintain follow-up lab and provider visits. Emphasized that it is absolutely essential that lab work is completed in a timely manner in order to ensure that the medication is working as desired and to monitor for safety Pharmacy Recommendations/Education/Other -Start Praluent once you receive medication -Repeat labs after 8 weeks of consistent therapy Time Spent: 10 minutes Nanette Jamison PharmD [facility] 08-06-2022 Miscellaneous Notes Formattin g of this note is different from the original. PILY Seay is a 82 year old Female who was referred to [facility] for clinical management services for Praluent 75 MG/ML. Diagnosis Mixed hyperlipidemia E78.2 OBJECTIVE Medications: Albuterol Sulfate HFA 108 (90 Base) MCG/ACT AERS IN AmLODIPine Besylate 5 MG TABS PO Eliquis 5 MG TABS PO Flecainide Acetate 50 MG TABS PO HydroCHLOROthiazide 12.5 MG CAPS PO Praluent 75 MG/ML SOPN SC Spironolactone 50 MG TABS PO Allergies: Sulfa (Sulfonamide Antibiotics) LENNY Inhibitors Tetanus Vaccines and Toxoid Medical History & Comorbidities: Problem list has been reviewed in the EHR ASSESSMENT / PLAN Expectations and Goals of therapy Achieve and maintain LDL at patient specific goal to reduce risk of future heart attacks and strokes. Disease state education Counseled on general disease state management strategies. Emphasized that hyperlipidemia is a chronic medical condition that requires consistent adherence to prescribed medication in order to achieve treatment goals. Administration Instructed patient to follow the dosing regimen of 75 mg under the skin once every 2 weeks OR 150 mg under the skin once every 2 weeks OR 300 mg under the skin once every 4 weeks. If a dose is missed, take as soon as possible, and adjust the dosing regimen, as necessary. Counseled on administration directions, Inject appropriate dose under the skin at appropriate dosing schedule ; remove dose from refrigerator 30-60 minutes prior to injection and allow to warm to room temperature, rotate injection sites - best sites for a subcutaneous injection is top of the thighs or abdomen/abdominal region at least 2 inches away from the belly button, may apply ice or heat the spot prior to and after injection, and can treat with OTC agents for irritation including hydrocortisone or diphenhydramine. Patient is comfortable with self-administration of medication. She verbalized understanding to inject into abdominal region, or thigh every 14 days. Rotate injection site. Cost barrier resolved. Storage/Disposal Informed patient to store prefilled syringes between 36-46 degrees F. Prefilled syringes in original carton can be stored at room temperature for a maximum of 30 days. Do not expose to temperatures above 77 degrees F. Do not freeze. Side effects Counseled patient of potential side effects including nasopharyngitis, sinusitis, bronchitis, influenza, injection site reactions, urinary tract infection, diarrhea, myalgia, or muscle spasm. Informed that if patient has intolerable or serious side effects to call the clinic before discontinuation of medication. Contact Advised patient when to contact pharmacy or provider. Provided with direct number to clinical pharmacist for questions or concerns prior to scheduled follow up. The patient was oriented to the pharmacy s services upon their initial fill and it was communicated that they can participate in this plan of care by speaking with a Pharmacist which is offered during each reassessment. Adherence Since this is a preventative therapy, the patient needs to take medication routinely as prescribed regardless of their symptoms. If a dose is missed, the patient should take it as soon as they remember. If it is within 7 days of the missed dose, continue the original schedule. If it has been more than 7 days, reset the schedule. Monitoring and follow up Reviewed therapy monitoring parameters and importance to maintain follow-up lab and provider visits. Emphasized that it is absolutely essential that lab work is completed in a timely manner in order to ensure that the medication is working as desired and to monitor for safety Pharmacy Recommendations/Education/Other -Start Praluent once you receive medication -Repeat labs after 8 weeks of consistent therapy Time Spent: 10 minutes Nanette Jamison PharmD [facility] documented in this encounter [facility] 08-05-2022 Telephone encounter Note Form atting of this note might be different from the original. Thank you let us know if you need prescription sent [facility] 08-05-2022 Miscellaneous Notes Formattin g of this note might be different from the original. Thank you let us know if you need prescription sent Praluent is preferred through the pt's insurance plan. PA submitted and approved through 08/05/2023. Pt is also eligible for a copay card that will bring the cost of the medication down to $35 per month. We will reach out to the patient to discuss filling. Thank you! Dr Doherty reviewed Lipids done 08-03-22 LDL 222 and would like to start patient on a PCSK9 ,patient is agreeable to this plan also will [facility] to give best becerra for Repatha or Praluent documented in this encounter [facility] 08-05-2022 Telephone encounter Note Form atting of this note might be different from the original. Praluent is preferred through the pt's insurance plan. PA submitted and approved through 08/05/2023. Pt is also eligible for a copay card that will bring the cost of the medication down to $35 per month. We will reach out to the patient to discuss filling. Thank you! [facility] 08-04-2022 Telephone encounter Note Form atting of this note might be different from the original. Dr Doherty reviewed Lipids done 08-03-22 LDL 222 and would like to start patient on a PCSK9 ,patient is agreeable to this plan also [facility] give best becerra for Repatha or Praluent [facility] documented in this encounter [employer] Phone: Evaluation note* Diagnosis Paroxysmal atrial fibrillation (CMS/HCC) (HCC) Atrial fibrillation Nonrheumatic aortic valve stenosis Mixed hyperlipidemia [facility] Paroxysmal atrial fibrillation (CMS/HCC) (HCC) Atrial fibrillation [facility] Diagnosis Paroxysmal atrial fibrillation (CMS/HCC) (HCC)- Primary Atrial fibrillation Nonrheumatic aortic valve stenosis Mixed hyperlipidemia Obstructive sleep apnea syndrome Obstructive sleep apnea (adult) (pediatric) TIA (transient ischemic attack) Unspecified transient cerebral ischemia Primary hypertension Unspecified essential hypertension [facility] Pure hypercholesterolemia [facility] Diagnosis Paroxysmal atrial fibrillation (HCC)- Primary Atrial fibrillation Nonrheumatic aortic valve stenosis Obstructive sleep apnea syndrome Obstructive sleep apnea (adult) (pediatric) TIA (transient ischemic attack) Unspecified transient cerebral ischemia Primary hypertension Unspecified essential hypertension Mixed hyperlipidemia Syncope and collapse [facility] Diagnosis Chronic pain of both knees- Primary [facility] Primary osteoarthritis of both knees documented in this encounter [facility] Summary Purpose Family History No Family History Records FoundNo Family History Records FoundNo Family History Records FoundNo Family History Records FoundNo Family History Records Found Advance Directives Documents on File Type Date Recorded 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 ACP-Advance Directive ACP-Power of Assistant Chief Of Police Reason for Referral Specialty Diagnoses / Procedures Referred By Contac t Referred To Contact Cardiology Diagnoses Near syncope Cardiac murmur Paroxysmal atrial fibrillation (HCC) Cerebral artery occlusion with cerebral infarction (HCC) Procedures Echo 2D Doppler Color Marcia Doherty MD [facility] [phone] Referral ID Status Reason Start Date Expiration Date Visits Re quested Visits Authorized [id number] Closed 02/26/2021 08/24/2021 1 1 Specialty Diagnoses / Procedures Referred By Contact Referred To Contact Cardiac Electrophysiology Diagnoses Near syncope Cardiac murmur Paroxysmal atrial fibrillation (HCC) Cerebral artery occlusion with cerebral infarction (HCC) Procedures Mobile Cardiac Telemetry Marcia Doherty MD [facility] [address] [place] [id number] Referral ID Status Reason Start Date Expiration Date Visits Re quested Visits Authorized [id number] Closed 02/26/2021 02/26/2022 1 1 Specialty Diagnoses / Procedures Referred By Contac t Referred To Contact Cardiology Diagnoses Paroxysmal atrial fibrillation (CMS/HCC) (HCC) Nonrheumatic aortic valve stenosis Mixed hyperlipidemia Procedures Transthoracic echocardiogram (TTE) complete with contrast, bubble, strain, and 3D PRN AR ECHO TTHRC R-T 2D W/WOM-MODE COMPL SPEC&COLR D AR TTE W OR WO VIRIDIANA TOLENTINO Ottorino, MD [address] [place] [address] Referral ID Status Reason Start Date Expiration Date V isits Requested Visits Authorized [id number] Closed Perform Procedure 07/28/2022 01/24/2023 1 1 Specialty Diagnoses / Procedures Referred By Contac t Referred To Contact Cardiology Diagnoses Paroxysmal atrial fibrillation (HCC) Nonrheumatic aortic valve stenosis Obstructive sleep apnea syndrome TIA (transient ischemic attack) Primary hypertension Procedures Transthoracic echocardiogram (TTE) complete with contrast, bubble, strain, and 3D PRN AR ECHO TTHRC R-T 2D W/WOM-MODE COMPL SPEC&COLR D AR TTE W OR WO VIRIDIANA TOLENTINO Ottorino, MD [facility] [place] [address] Referral ID Status Reason Start Date Expiration Date V isits Requested Visits Authorized [id number] Pending Review 06/15/2023 06/14/2024 1 1 Additional Source Comments INFORMATION SOURCE (unrecogn ized section and content) DATE CREATED AUTHOR AUTHOR'S ORGANIZ ATION 11/02/2017 [facility] [employer] [facility] DATE CREATED AUTHOR AUTHOR'S ORGANIZ ATION 11/04/2017 [facility] DATE CREATED AUTHOR AUTHOR'S ORGANIZ ATION 04/01/2021 [facility] [employer] [facility] DATE CREATED AUTHOR AUTHOR'S ORGANIZ ATION 06/18/2023 [facility] [employer] [facility] Care Teams (unrecognized sec tion and content) Machine Deburrer Relationship Specialty Start Date End Date Lisa Fuentes [address] [place] [address] PCP - General Geriatric Medicine 07/28/22 Machine Deburrer Relationship Specialty Start Date End Date Lisa Fuentes [address] [place] [address] PCP - General Geriatric Medicine 07/28/22 Machine Deburrer Relationship Specialty Start Date End Date Lisa Fuentes [address] [place] [address] PCP - General Geriatric Medicine 07/28/22 Machine Deburrer Relationship Specialty Start Date End Date Lisa Fuentes [address] [place] [address] PCP - General Geriatric Medicine 07/28/22 Machine Deburrer Relationship Specialty Start Date End Date Lisa Fuentes [address] [place] [address] PCP - General Geriatric Medicine 07/28/22 Machine Deburrer Relationship Specialty Start Date End Date Lisa Fuentes [address] [place] [address] PCP - General Geriatric Medicine 07/28/22 Machine Deburrer Relationship Specialty Start Date End Date Lisa Fuentes [address] [place] [address] PCP - General Geriatric Medicine 07/28/22 Machine Deburrer Relationship Specialty Start Date End Date Lisa Fuentes [address] [place] [address] PCP - General Geriatric Medicine 07/28/22 Machine Deburrer Relationship Specialty Start Date End Date Lisa Fuentes [address] [place] [address] PCP - General Geriatric Medicine 07/28/22 Machine Deburrer Relationship Specialty Start Date End Date Lisa Fuentes [address] [place] [address] PCP - General Geriatric Medicine 07/28/22 Machine Deburrer Relationship Specialty Start Date End Date Lisa Fuentes [address] [place] [address] PCP - General Geriatric Medicine 07/28/22 Reason for Visit (unrecogniz ed section and content) Specialty Diagnoses / Procedures Referred By Contac t Referred To Contact Diagnoses Paroxysmal atrial fibrillation (HCC) Procedures AR ECHO TTHRC R-T 2D W/WOM-MODE COMPL SPEC&COLR D [facility] Non-Invasive Cardiology [address] [place] [address] Referral ID Status Reason Start Date Expiration Date Visits Re quested Visits Authorized [id number] 1 1 Reason Onset Date Comments Results 09/10/2022 Reason Onset Date Comments Med Refill 11/05/2022 Reason Comments Atrial Fibrillation PAF Hypertension Hyperlipidemia Sleep Apnea Cardiac Valve Problem AV stenosis Reason Onset Date Comments Med Refill 11/30/2022 Reason Onset Date Comments Med Refill 01/06/2023 Reason Comments Med Refill Reason Onset Date Comments Med Refill 04/15/2023 Reason Comments Atrial Fibrillation PAF Hyperlipidemia Hypertension Sleep Apnea Cardiac Valve Problem AV stenosis Syncope Hypotensive events Transient Ischemic Attack Reason Comments 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 This clinical summary was aggregated from multiple sources. Caution should be exercised in using it in the provision of clinical care. This summary normalizes information from multiple sources, and as a consequence, information in this document may materially change the coding, format and clinical context of patient data. In addition, data may be omitted in some cases. CLINICAL DECISIONS SHOULD BE BASED ON THE PRIMARY CLINICAL RECORDS. [facility] [employer] [facility] provides no warranty or guarantee of the accuracy or completeness of information in this document.
[2023-07-09 08:20] LABS: Absolute Lymphocyte Count 1.28 X10^3/uL (0.83-4.51); Absolute Neutrophil Count 6.3 X10^3/uL (2.0-7.7); Basophil# 0.01 X10^3/uL; Basophil% 0.1 % (0-1); Hematocrit 40.1 % (37-47); Hemoglobin 13.3 g/dL (12.0-15.0); Lymphocyte # 1.28 X10^3/ul (0.83-4.51); Lymphocyte % 15.4 % (19-41); Mean Corp Hgb Conc 33.2 g/dL (32-36); Mean Corpuscular Volume 93.5 fL (81-99); Monocyte# 0.66 X10^3/uL; NRBC Flagged by Analyzer 0 % (0-5); Neutrophil # 6.31 X10^3/uL (2.7-7.7); Platelet Count 282 K/mm3 (150-450); RBC Distribution Width CV 12.6 % (11.6-14.6); RBC Distribution Width SD 43.1 fl (35.1-43.9); Red Blood Count 4.29 M/mm3 (4.2-5.4); White Blood Count 8.3 K/mm3 (4.4-11.0)
[2023-07-09 08:33] LABS: Anion Gap 5 (5-15); BUN 25 mg/dL (7-18); BUN/Creat Ratio 28.8 RATIO (10-20); Calcium,Total 9.6 mg/dL (8.5-10.1); Chloride 101 mmol/L (98-107); Creatinine, Serum 0.87 mg/dL (0.55-1.02); EST Glomerular Filtration Rate 66 mL/min (>60); Est Glom Filt Rate - Afr Amer 80 mL/min (>60); Glucose 81 mg/dL (74-106); Magnesium 1.9 mg/dL (1.6-2.6); Potassium 3.9 mmol/L (3.5-5.1); Sodium Level 133 mmol/L (136-145)
== END ==
LOC: OLS.SWAL 05:00
PROVIDERS: PCP Internal Medicine; Visit Provider Internal Medicine
DX: I10 Essential (primary) hypertension (principal); I48.91 Unspecified atrial fibrillation
CPT/HCPCS: 36415; 80048; 83735; 85025

== ENCOUNTER → 2023-09-06 | Outpatient (REF) | payer MEDICARE, OTHER, SELFPAY ==
[2023-09-06 08:33] LABS: ALB/GLOB Ratio 1.1 RATIO (0.9-2.4); AST(SGOT) 18 U/L (15-37); Alanine Aminotransfer ALT/SGPT 16 U/L (13-56); Albumin, Serum 3.6 g/dL (3.2-5.0); Alkaline Phosphatase 82 U/L (45-117); Anion Gap 7 (5-15); BUN 10 mg/dL (7-18); BUN/Creat Ratio 12.5 RATIO (10-20); Chloride 97 mmol/L (98-107); Cholesterol 236 mg/dL (200); EST Glomerular Filtration Rate 73 mL/min (>60); Est Glom Filt Rate - Afr Amer 89 mL/min (>60); Globulin 3.3 g/dL (2.2-4.2); Glucose 90 mg/dL (74-106); High Density Lipoprotein 81 mg/dL; Protein, Total 6.9 g/dL (6.4-8.2); Sodium Level 131 mmol/L (136-145); Triglycerides 68 mg/dL; Very Low Density Lipoprotein 14 mg/dL (5-40)
== END ==
LOC: OLS.SWAL 05:00
PROVIDERS: PCP Internal Medicine; Visit Provider Internal Medicine
DX: I10 Essential (primary) hypertension (principal)
CPT/HCPCS: 36415; 80053; 80061

== ENCOUNTER → 2023-09-20 | Outpatient (REF) | payer MEDICARE, OTHER, SELFPAY ==
[2023-09-20 10:29] LABS: Anion Gap 7 (5-15); BUN 14 mg/dL (7-18); BUN/Creat Ratio 15.1 RATIO (10-20); Calcium,Total 9.5 mg/dL (8.5-10.1); Chloride 98 mmol/L (98-107); Cholesterol 254 mg/dL (200); Creatinine, Serum 0.93 mg/dL (0.55-1.02); EST Glomerular Filtration Rate 61 mL/min (>60); Est Glom Filt Rate - Afr Amer 74 mL/min (>60); Glucose 101 mg/dL (74-106); High Density Lipoprotein 87 mg/dL; Potassium 3.7 mmol/L (3.5-5.1); Sodium Level 129 mmol/L (136-145); Triglycerides 71 mg/dL; Very Low Density Lipoprotein 14 mg/dL (5-40)
== END ==
LOC: OLS.SWAL 05:00
PROVIDERS: PCP Internal Medicine; Visit Provider Internal Medicine
DX: I10 Essential (primary) hypertension (principal)
CPT/HCPCS: 36415; 80048; 80061

== ENCOUNTER → 2023-09-30 | Outpatient (REF) | payer MEDICARE, OTHER, SELFPAY ==
[2023-10-01 09:19] LABS: Bacteria 0 SEEN /hpf (None Seen); Mucous, Urine 0 SEEN /hpf (<or=2+)
[2023-10-01 09:30] LABS: Color, Urine Yellow (Yellow); Glucose, Dipstick Normal (Normal); Ketone-Dipstick Negative (Negative); Leukocyte Esterase-Dipstick 100 /ul (Negative); Nitrite-Dipstick Negative (Negative); Occult Blood-Urine 10 /ul (Negative); Protein-Dipstick Negative (Negative); Urine Bilirubin Dipstick Negative (Negative); Urine Clarity Sl. Cloudy (Clear); Urine Urobilinogen Normal (Normal)
[2023-10-01 09:39] LABS: Red Blood Cells-Urine 0-5 SEEN /hpf (0-5); Squamous Epithelial Cells - UA 0-5 SEEN /hpf (5-10); White Blood Cells 10-25 SEEN /hpf (0-5)
== END ==
LOC: OLS.SWAL 16:00
PROVIDERS: PCP Internal Medicine; Visit Provider Internal Medicine
DX: N39.0 Urinary tract infection, site not specified (principal)
CPT/HCPCS: 81001; 87077; 87086; 87088; 87186

== ENCOUNTER 2023-10-08 17:55 | Inpatient (IN) | payer MEDICARE, OTHER, SELFPAY ==
[2023-10-08 17:56] VITALS: BP 141/57; PULSE 71; RESP 18; TEMP 36.6; O2SAT 100
--- NOTE | 2023-10-08 18:10 | EKG12_ITS ---
Test Reason : CONFUSION Blood Pressure : / mmHG Vent. Rate : 072 BPM Atrial Rate : 072 BPM P-R Int : 242 ms QRS Dur : 082 ms QT Int : 392 ms P-R-T Axes : 075 004 074 degrees QTc Int : 429 ms Sinus rhythm with 1st degree A-V block Otherwise normal ECG Confirmed by SILVANO HERNANDEZ, JUSTO ([id number]), senior technical editor VASILIY FAJARDO ([id number]) on 10/11/2023 6:50:47 AM Referred By: KATERINA Confirmed By:JUSTO SCHAEFER MD
--- NOTE | 2023-10-08 18:12 | EDS_ITS ---
HPI History of Present Illness Chief Complaint: Confusion Narrative Narrative: 83-year-old female presents with her beqfoegb-rg-oey from assisted living at [facility] at the direction of Dr. Fuentes. Over the last 2 weeks, patient has appeared more confused. She denies any fevers or chills, no cough. Her mtnnioav-mc-abo relates history that they were reportedly seen in the emergency department 7 days ago, and had a workup for UTI, but nothing was found regarding the patient's confusion. She was seen by the [facility] physician today and concern is for low sodium or UTI because the patient states that she is not quite the same as she used to be. She has had problems with hyponatremia in the past according to her zehedrym-cc-kqd. Additionally, she states that she has problems with an aortic valve, and was supposed to have an appointment with a physician regarding this, but she had canceled it and does not have an appointment until October 25. She was sent in mainly to see if there is anything treatable that is causing the patient's increased confusion. [facility] Medical History (Updated 10/08/23 @ 20:48 by Saulo Mulligan MD) History of venous thromboembolism CKD (chronic kidney disease) HLD (hyperlipidemia) Ganglion cyst of volar aspect of right wrist Stroke/cerebrovascular accident DVT (deep venous thrombosis) Asthma Restless leg syndrome Sleep apnea Afib HTN (hypertension) Home Medications ?Medication ?Instructions ?Recorded ?Last Taken ?Type acetaminophen 325 mg capsule 650 mg PO Q4H PRN PRN pain/fever 09/02/20 Unknown History flecainide 50 mg tablet 50 mg PO BID 09/02/20 Unknown History fluticasone propionate 50 1 spray NS DAILY 09/02/20 Unknown History mcg/actuation nasal spray,suspension hydrochlorothiazide 12.5 mg capsule 12.5 mg PO DAILY 09/02/20 Unknown History lidocaine 5 % topical patch 1 patch topical DAILY #10 patches 09/02/20 Unknown Rx montelukast 10 mg tablet 10 mg PO DAILY 09/02/20 Unknown History sodium chloride 0.65 % nasal spray 3 spray NS Q8H PRN PRN Congestion 09/02/20 Unknown History aerosol spironolactone 100 mg tablet 100 mg PO DAILY 09/02/20 Unknown History warfarin 7.5 mg tablet 7 mg PO QHS 09/02/20 Unknown History apixaban 5 mg tablet (Eliquis) 5 mg PO BID 06/15/22 Unknown History tramadol 50 mg tablet 50 mg PO .PRN 06/15/22 Unknown History alirocumab 75 mg/mL subcutaneous 75 mg subcut 08/11/22 Unknown History pen injector (Praluent Pen) Allergy/AdvReac Type Severity Reaction Status Date / Time adhesive tape Allergy Rash Verified 10/08/23 17:55 carvedilol (From Coreg) Allergy Shortness Verified 10/08/23 17:55 of breath celecoxib (From Celebrex) Allergy Shortness Verified 10/08/23 17:55 of breath clonidine (From Catapres) Allergy Shortness Verified 10/08/23 17:55 of breath enalaprilat (From Vasotec) Allergy Shortness Verified 10/08/23 17:55 of breath erythromycin base Allergy DIFFICULTY Verified 10/08/23 17:55 BREATHING hydrochlorothiazide (From Allergy Shortness Verified 10/08/23 17:55 Hyzaar) of breath lisinopril Allergy Shortness Verified 10/08/23 17:55 of breath losartan (From Hyzaar) Allergy Shortness Verified 10/08/23 17:55 of breath metoprolol (From Lopressor) Allergy Shortness Verified 10/08/23 17:55 of breath rofecoxib (From Vioxx) Allergy Shortness Verified 10/08/23 17:55 of breath rosuvastatin (From Crestor) Allergy Shortness Verified 10/08/23 17:55 of breath simvastatin (From Zocor) Allergy Shortness Verified 10/08/23 17:55 of breath Sulfa (Sulfonamide Allergy difficulty Verified 10/08/23 17:55 Antibiotics) breathing sulfamethoxazole Allergy Shortness Verified 10/08/23 17:55 of breath warfarin (From Jantoven) Allergy Shortness Verified 10/08/23 17:55 of breath Family History Other Alzheimer's dementia Surgical History History of nephrectomy History of hip surgery Previous back surgery Social History (Updated 10/08/23 @ 20:[address] Brigitte Van MD) household members: none housing: assisted living facility Smoking Status: Never smoker alcohol intake: never substance use type: does not use ROS ROS ED ROS Narrative Constitutional: No fever, no chills. HEENT: No sore throat. No neck pain. No loss of vision. No rhinorrhea. Cardiovascular: No chest pain. No palpitations. No pedal edema. Respiratory: No cough, occasional shortness of breath with dyspnea on exertion. Abdominal: No abdominal pain. No nausea. No vomiting. Genitourinary: No dysuria. No hematuria. Musculoskeletal: No myalgias. No arthralgias. Neurologic: No headaches. No dizziness. No lightheadedness. Increased confusion. Skin: No rash. No change in color. Psychiatric: No depression. No anxiety. EXAM Physical Exam Narrative Exam Narrative: Afebrile. Vital signs noted. Nontoxic-appearing. Regular rate and rhythm. Lungs clear to auscultation bilaterally. Abdomen soft nontender with normal active bowel sounds. Neurological examination is nonfocal and nonlateralizing. Patient is awake, and alert. Oriented to person place. Const Vital Signs: 10/08/23 17:56 10/08/23 19:55 Temperature 97.8 F Temperature Source Temporal Pulse Rate 71 70 Respiratory Rate 18 16 Blood Pressure 141/57 H 162/67 H Blood Pressure Mean 85 98 Pulse Ox 100 98 Oxygen Delivery Method Room Air MDM MDM MDM Narrative Medical decision making narrative: In the differential diagnosis is hyponatremia versus other electrolyte imbalance versus UTI versus pneumonia. I have low clinical suspicion for pneumonia as she does not have fever or cough and history and physical does not support this. Her pulse ox is 100% on room air without evidence of hypoxia. Comprehensive workup was pursued. She will be bolused 500 mL of normal saline in the event that this is dehydration or hyponatremia. I reviewed her laboratory work and she has normal white count of 5.6, hemoglobin normal at 14.2, hematocrit 41.2, platelet count normal at 275. She is hyponatremic with a sodium of 128, approximately 7 to 8 days ago it was 129, chloride also low at 93 consistent with mild dehydration. She was bolused 500 mL of normal saline because she states she has a history of heart failure. BNP is only 41.3 however, troponin is slightly elevated at 56. Her EKG was obtained and interpreted by myself independently as normal sinus rhythm with first-degree AV block at 72 bpm without ectopy or acute ST changes. No STEMI. Urinalysis was obtained and there are only 5-10 WBCs with 1+ bacteria. Urine will be sent for culture, given her confusion and hyponatremia along with UTI findings, she was started on Rocephin intravenously. Chest x-ray 1 view interpreted by myself independently shows no evidence of pneumonia or pneumothorax, no acute process. I reviewed the radiology report which confirms my independent interpretation. Her son and shdwbiza-sy-ako are at the bedside. They are concerned regarding the hyponatremia, and it was not felt that she could return to assisted living. They agree that she may need a higher level of care given her increasing confusion. I will discuss patient with the hospitalist, Dr. Brigitte Van, for admission. Patient is in stable condition. History & Record Review Discussion w/independent historian: Family Lab Data Attestation: I reviewed the patient's lab results. Labs: Laboratory Results - last 24 hr 10/08/23 10/08/23 18:25 19:24 WBC 5.6 RBC 4.59 Hgb 14.2 Hct 41.2 MCV 89.8 MCH 30.9 MCHC 34.5 RDW Std Deviation 40.2 RDW Coeff of Stephanie 12.4 Plt Count 275 MPV 8.7 Immature Gran % (Auto) 0.400 Neut % (Auto) 66.3 Lymph % (Auto) 20.7 Rock % (Auto) 11.9 H Eos % (Auto) 0.2 Baso % (Auto) 0.5 Absolute Neuts (auto) 3.7 Absolute Lymphs (auto) 1.15 Nucleated RBC % 0 Sodium 128 L Potassium 3.9 Chloride 93 L Carbon Dioxide 26.0 Anion Gap 9 BUN 17 Creatinine 0.87 Est GFR (MDRD) Af Amer 81 Est GFR (MDRD) Non-Af 67 BUN/Creatinine Ratio 19.6 Glucose 115 H Calcium 9.5 Total Bilirubin 0.50 AST 17 ALT 19 Alkaline Phosphatase 100 Troponin I High Sens 56 H B-Natriuretic Peptide 41.3 Total Protein 7.8 Albumin 3.9 Globulin 3.9 Albumin/Globulin Ratio 1.0 Urine Color Yellow Urine Clarity Clear Urine pH 7.0 Ur Specific Bush 1.010 Urine Protein Negative Urine Glucose (UA) Normal Urine Ketones Negative Urine Occult Blood 10 H Urine Nitrite Negative Urine Bilirubin Negative Urine Urobilinogen Normal Ur Leukocyte Esterase 500 H Urine RBC 0 SEEN Urine WBC 5-10 SEEN Ur Squamous Epith Cells 0-5 SEEN Urine Bacteria 1+ Urine Mucus 0 SEEN Radiography Diagnostic Testing: Clinical Impression(s) from Imaging Studies Chest X-Ray 10/08/23 18:25 IMPRESSION: There are findings consistent with COPD. There is no evidence of acute chest disease. Electronically Signed: Jamie Deleon MD at 18:53 EDT , Discharge Plan Dx/Rx/DC Orders Clinical Impression: Hyponatremia, Dehydration, Elevated troponin, Confusion, UTI (urinary tract infection) Disposition Disposition: Acute Care Hospital [facility]
--- NOTE | 2023-10-08 18:25 | RAD_ITS ---
STUDY: X-RAY CHEST REASON FOR EXAM: Female, 83 years old. Shortness of breath TECHNIQUE: Single AP portable view of the chest. COMPARISON: 10/02/2023. FINDINGS: There is hyperinflation of the lungs consistent with chronic obstructive lung disease (COPD). No infiltrates or effusions. There is no demonstrated pleural abnormality. Normal size heart. Normal mediastinum and ana. Normal visualized pulmonary arteries. There is atherosclerotic calcification of the aortic arch with tortuosity. There are diffuse degenerative changes of the visualized thoracic spine. Normal visualized ribs, clavicles, and shoulders. There is no demonstrated abnormality of the visualized soft tissue structures of the upper abdomen. RAD/Chest 1 View (Portable) IMPRESSION: There are findings consistent with COPD. There is no evidence of acute chest disease. Electronically Signed: Jamie Deleon MD at 18:53 EDT ,
[2023-10-08 18:35] LABS: Absolute Lymphocyte Count 1.15 X10^3/uL (0.83-4.51); Absolute Neutrophil Count 3.7 X10^3/uL (2.0-7.7); Basophil# 0.03 X10^3/uL; Basophil% 0.5 % (0-1); Eosinophil# 0.01 X10^3/uL; Eosinophils% 0.2 % (0-5); Hematocrit 41.2 % (37-47); Hemoglobin 14.2 g/dL (12.0-15.0); Lymphocyte # 1.15 X10^3/ul (0.83-4.51); Lymphocyte % 20.7 % (19-41); Mean Corp Hgb Conc 34.5 g/dL (32-36); Mean Corpuscular Hgb 30.9 pg (27.0-32.0); Mean Corpuscular Volume 89.8 fL (81-99); Mean Platelet Vol. 8.7 fl (6.2-12.0); Monocyte# 0.66 X10^3/uL; Monocyte% 11.9 % (0-10); NRBC Flagged by Analyzer 0 % (0-5); Neutrophil # 3.69 X10^3/uL (2.7-7.7); Neutrophil % 66.3 % (47-70); Platelet Count 275 K/mm3 (150-450); RBC Distribution Width CV 12.4 % (11.6-14.6); RBC Distribution Width SD 40.2 fl (35.1-43.9); Red Blood Count 4.59 M/mm3 (4.2-5.4); White Blood Count 5.6 K/mm3 (4.4-11.0)
[2023-10-08 18:54] LABS: AST(SGOT) 17 U/L (15-37); Alanine Aminotransfer ALT/SGPT 19 U/L (13-56); Albumin, Serum 3.9 g/dL (3.2-5.0); Alkaline Phosphatase 100 U/L (45-117); Anion Gap 9 (5-15); BNP,B-Type NATRIURETIC PEPTIDE 41.3 pg/mL (0-100); BUN 17 mg/dL (7-18); BUN/Creat Ratio 19.6 RATIO (10-20); Calcium,Total 9.5 mg/dL (8.5-10.1); Chloride 93 mmol/L (98-107); Creatinine, Serum 0.87 mg/dL (0.55-1.02); EST Glomerular Filtration Rate 67 mL/min (>60); Est Glom Filt Rate - Afr Amer 81 mL/min (>60); Globulin 3.9 g/dL (2.2-4.2); Glucose 115 mg/dL (74-106); Potassium 3.9 mmol/L (3.5-5.1); Protein, Total 7.8 g/dL (6.4-8.2); Sodium Level 128 mmol/L (136-145); Troponin-I HS 56 pg/mL (3.0-54.0)
[2023-10-08] MEDS: 0.9% Normal Saline (500mL Bag) 500 ML 1000 ML IV (18:57)
[2023-10-08 19:31] LABS: Mucous, Urine 0 SEEN /hpf (<or=2+); Red Blood Cells-Urine 0 SEEN /hpf (0-5)
[2023-10-08 19:55] VITALS: BP 162/67; PULSE 70; RESP 16; O2SAT 98
[2023-10-08] MEDS: traMADol 50 MG Tablet PO (19:57)
[2023-10-08 19:58] LABS: Color, Urine Yellow (Yellow); Glucose, Dipstick Normal (Normal); Ketone-Dipstick Negative (Negative); Leukocyte Esterase-Dipstick 500 /ul (Negative); Nitrite-Dipstick Negative (Negative); Occult Blood-Urine 10 /ul (Negative); Protein-Dipstick Negative (Negative); Urine Bilirubin Dipstick Negative (Negative); Urine Clarity Clear (Clear); Urine Urobilinogen Normal (Normal)
[2023-10-08 20:13] LABS: Bacteria 1+ /hpf (None Seen); Squamous Epithelial Cells - UA 0-5 SEEN /hpf (5-10); White Blood Cells 5-10 SEEN /hpf (0-5)
--- NOTE | 2023-10-08 20:55 | HP.PCM.HOS_ITS ---
HPI - General General Date of Admission: 10/08/23 Date of Service: 10/08/23 Chief Complaint: Altered mental status. HPI Narrative The patient is an 83 y/o F w/ PMHx: Chronic Hyponatremia, Hx CVA, HTN, HLD, Asthma, RLS, GEORGIE, PAF, Hx VTE (DVT), CKD stage II per GFR trending who presents to the [facility] ED on 10/08/23 with history of residing in assisted living with increased confusion over the last 2 weeks with ED evaluation 7 days prior with urinary tract evaluation at that time but no concerning findings however she continues to be confused and does have a history of UTIs as well as low sodium prompting return to assure this is not the case. Patient denies any recent fevers or chills nor any URI type symptoms. She does have ongoing dyspepsia and dyspnea complaints with her aortic disease but this is unchanged. From discussion with patient she has not settled well into assisted living and [facility]. From lengthy discussions also it appears she may have some conflict with some of the residents at her current assisted living that is causing her great unhappiness. It is over the last week that a very low-dose of BuSpar has been started. In the ED discussed patient's current hobbies and during these discussions she is very tearful and flat of affect reporting that she has no hobbies. Discussed if she likes to read and family notes that normally she would but she has not been since assisted transition. Workup in the ED included T97.8, heart rate 71, BP 141/57, respiratory rate 18, 100% on room air, CBC with WBC 5.6, human 14.2, MCV 89.8, platelet 275 without marked shift, CMP with sodium 128, chloride 93, glucose 115, BNP 41.3, troponin 56, urinalysis with occult blood 10, negative nitrite, leukocyte Estrace 500, urine WBCs 5-10 with 1 plus urine bacteria, urine culture pending per ED, chest x-ray with COPD type changes, EKG SR without acute evidence of ischemia. In the ED patient ministered tramadol 50 mg p.o. x 1 as well as IV rocephin [address] of the head ordered per ED physician following discussions and pending upon evaluation of patient. [facility] Medical History (Updated 10/08/23 @ 20:48 by Saulo Mulligan MD) History of venous thromboembolism CKD (chronic kidney disease) HLD (hyperlipidemia) Ganglion cyst of volar aspect of right wrist Stroke/cerebrovascular accident DVT (deep venous thrombosis) Asthma Restless leg syndrome Sleep apnea Afib HTN (hypertension) Home Medications ?Medication ?Instructions ?Recorded ?Last Taken ?Type acetaminophen 325 mg capsule 650 mg PO Q4H PRN PRN pain/fever 09/02/20 Unknown History flecainide 50 mg tablet 50 mg PO BID 09/02/20 Unknown History fluticasone propionate 50 1 spray NS DAILY 09/02/20 Unknown History mcg/actuation nasal spray,suspension hydrochlorothiazide 12.5 mg capsule 12.5 mg PO DAILY 09/02/20 Unknown History lidocaine 5 % topical patch 1 patch topical DAILY #10 patches 09/02/20 Unknown Rx montelukast 10 mg tablet 10 mg PO DAILY 09/02/20 Unknown History sodium chloride 0.65 % nasal spray 3 spray NS Q8H PRN PRN Congestion 09/02/20 Unknown History aerosol spironolactone 100 mg tablet 100 mg PO DAILY 09/02/20 Unknown History warfarin 7.5 mg tablet 7 mg PO QHS 09/02/20 Unknown History apixaban 5 mg tablet (Eliquis) 5 mg PO BID 06/15/22 Unknown History tramadol 50 mg tablet 50 mg PO .PRN 06/15/22 Unknown History alirocumab 75 mg/mL subcutaneous 75 mg subcut 08/11/22 Unknown History pen injector (Praluent Pen) Allergy/AdvReac Type Severity Reaction Status Date / Time adhesive tape Allergy Rash Verified 10/08/23 17:55 carvedilol (From Coreg) Allergy Shortness Verified 10/08/23 17:55 of breath celecoxib (From Celebrex) Allergy Shortness Verified 10/08/23 17:55 of breath clonidine (From Catapres) Allergy Shortness Verified 10/08/23 17:55 of breath enalaprilat (From Vasotec) Allergy Shortness Verified 10/08/23 17:55 of breath erythromycin base Allergy DIFFICULTY Verified 10/08/23 17:55 BREATHING hydrochlorothiazide (From Allergy Shortness Verified 10/08/23 17:55 Hyzaar) of breath lisinopril Allergy Shortness Verified 10/08/23 17:55 of breath losartan (From Hyzaar) Allergy Shortness Verified 10/08/23 17:55 of breath metoprolol (From Lopressor) Allergy Shortness Verified 10/08/23 17:55 of breath rofecoxib (From Vioxx) Allergy Shortness Verified 10/08/23 17:55 of breath rosuvastatin (From Crestor) Allergy Shortness Verified 10/08/23 17:55 of breath simvastatin (From Zocor) Allergy Shortness Verified 10/08/23 17:55 of breath Sulfa (Sulfonamide Allergy difficulty Verified 10/08/23 17:55 Antibiotics) breathing sulfamethoxazole Allergy Shortness Verified 10/08/23 17:55 of breath warfarin (From Jantoven) Allergy Shortness Verified 10/08/23 17:55 of breath Family History (Updated 10/08/23 @ 21:[address] Brigitte Van MD) Mother Alzheimer's dementia Father No problems noted. Surgical History History of nephrectomy History of hip surgery Previous back surgery Social History household members: none housing: assisted living facility Smoking Status: Never smoker alcohol intake: never substance use type: does not use ROS ROS Narrative Admission Review of Systems: CONSTITUTIONAL: No weight loss, fever, chills, + weakness or fatigue. HEENT: Eyes: No visual loss, blurred vision, double vision or yellow sclerae. Ears, Nose, Throat: No hearing loss, sneezing, congestion, runny nose or sore throat. SKIN: No rash or itching, lesions, wounds. CARDIOVASCULAR: No chest pain, chest pressure or chest discomfort, palpitations, edema, orthopnea, syncopal events. RESPIRATORY: No shortness of breath, cough or sputum, wheezing, hemoptysis. GASTROINTESTINAL: No anorexia, nausea, vomiting or diarrhea, abdominal pain, melena, BRBPR. GENITOURINARY: + Urinary frequency. No dysuria, urgency or retention. NEUROLOGICAL: + Concern for altered mentation/mild confusion, difficulty being as eloquent as she had been previously. No headache, dizziness, syncope, paralysis, ataxia, numbness or tingling in the extremities, focal weakness, change in bowel or bladder control, seizure. MUSCULOSKELETAL: + muscle, back pain, joint pain or stiffness. HEMATOLOGIC: No anemia. + Easy bleeding/bruising. LYMPHATICS: No enlarged nodes. No history of splenectomy. PSYCHIATRIC: + From lengthy discussions underlying anxiety and depression. ENDOCRINOLOGIC: No reports of sweating, cold or heat intolerance. No polyuria or polydipsia. ALLERGIES: No history of asthma, hives, eczema or rhinitis. Vital Signs Vital Signs Vital Signs: 10/08/23 17:56 10/08/23 19:55 Temperature 97.8 F Temperature Source Temporal Pulse Rate 71 70 Respiratory Rate 18 16 Blood Pressure 141/57 H 162/67 H Blood Pressure Mean 85 98 Pulse Ox 100 98 Oxygen Delivery Method Room Air Physical Exam Narrative Physical Examination: General: Awake, alert, oriented to self, place, her son and [id number] in the room, month, year but she does not know the president which is baseline for her as she is not into politics, remains cooperative, seated upright in the ED bed, lengthy discussions with intermittent tearfulness and appearance of distress and flat affect very consistent with underlying depression. Skin: Normal color, normal turgor, no icterus, no cyanosis except occasional staged ecchymoses. HEENT: AT/NC, EOMI, PERRLA, MMM, no carotid bruits or JVD noted. Lungs: CTA bilaterally, moderate effort, mild decrease BL bases, no rales, ronchi or wheezing. Heart: Regular rate and rhythm; no gallop, rub audible. Abdomen: Soft, NTTP, ND, normal BS, no appreciated HSM. Extremities: No cyanosis, clubbing, or edema. Neurological: Patient awake, alert, oriented as noted, cognitive function despite concerns per family for altered mental status seems intact but do suspect likely depression is a component but cannot rule out other etiology as noted workup and assessment and plan section; pupils equally reactive to light and accommodation, cranial nerves grossly normal, moving all 4 extremities, no focal deficits, strength moderately global decreased likely secondary to age and underlying comorbidities. Psychiatric: Affect appears flat, intermittently tearful, underlying anxiety and depression evident. Results Lab / Micro Data 10/08/23 18:25 10/08/23 18:25 Labs: Laboratory Results - last 24 hr 10/08/23 18:25: WBC 5.6, RBC 4.59, Hgb 14.2, Hct 41.2, MCV 89.8, MCH 30.9, MCHC 34.5, RDW Std Deviation 40.2, RDW Coeff of Stephanie 12.4, Plt Count 275, MPV 8.7, Immature Gran % (Auto) 0.400, Neut % (Auto) 66.3, Lymph % (Auto) 20.7, Bacon % (Auto) 11.9 H, Eos % (Auto) 0.2, Baso % (Auto) 0.5, Absolute Neuts (auto) 3.7, Absolute Lymphs (auto) 1.15, Nucleated RBC % 0, Sodium 128 L, Potassium 3.9, C hloride 93 L, Carbon Dioxide 26.0, Anion Gap 9, BUN 17, Creatinine 0.87, Est GFR (MDRD) Af Amer 81, Est GFR (MDRD) Non-Af 67, BUN/Creatinine Ratio 19.6, Glucose 115 H, Calcium 9.5, Total Bilirubin 0.50, AST 17, ALT 19, Alkaline Phosphatase 100, Troponin I High Sens 56 H, B-Natriuretic Peptide 41.3, Total Protein 7.8, Albumin 3.9, Globulin 3.9, Albumin/Globulin Ratio 1.0 10/08/23 19:24: Urine Color Yellow, Urine Clarity Clear, Urine pH 7.0, Ur Specific Tribune 1.010, Urine Protein Negative, Urine Glucose (UA) Normal, Urine Ketones Negative, Urine Occult Blood 10 H, Urine Nitrite Negative, Urine Bilirubin Negative, Urine Urobilinogen Normal, Ur Leukocyte Esterase 500 H, Urine RBC 0 SEEN, Urine WBC 5-10 SEEN, Ur Squamous Epith Cells 0-5 SEEN, Urine Bacteria 1+, Urine Mucus 0 SEEN Imaging Radiology Impression Chest X-Ray 10/08/23 18:25 IMPRESSION: There are findings consistent with COPD. There is no evidence of acute chest disease. Electronically Signed: Jamie Deleon MD at 18:53 EDT , Assessment & Plan Assessment/Plan (1) UTI (urinary tract infection): PLAN: Plan The patient is an 83 y/o F w/ PMHx: Chronic Hyponatremia, Hx CVA, HTN, HLD, Asthma, RLS, GEORGIE, PAF, Hx VTE (DVT), CKD stage II per GFR trending who presents to the [facility] ED on 10/08/23 with history of residing in assisted living with increased confusion over the last 2 weeks with ED evaluation 7 days prior with urinary tract evaluation at that time but no concerning findings however she continues to be confused and does have a history of UTIs as well as low sodium prompting return to assure this is not the case. #1. Altered mental status, increased confusion over the last 2 weeks, unclear etiology, potentially related with #2, #3 but also suspect underlying depression and anxiety with recently initiated BuSpar certainly could be highly contributory: Will admit to PCU, maintain on telemetry monitoring, continue to evaluate and treat for low acute on chronic hyponatremia as well as questionable UTI as noted in addition to indeterminate cardiac enzyme, given timeline of 2 weeks of symptoms will plan to obtain CT head to be cautious although no documented fall but in assisted living so not always monitored and if there are no acute findings on CT then there would be low suspicion for any type of stroke as there would certainly by now be subclinical findings, ABG as well as ammonia level requested to be cautious given unclear etiology, PT/OT/case management consulted for discharge planning. From discussion with patient she has not settled well into assisted living and has been planning to transition [facility] when a bed is open. From lengthy discussions also it appears she may have some conflict with some of the residents at her current assisted living that is causing her great unhappiness. It is over the last week that a very low-dose of BuSpar has been started so certainly this medication could be contributing to her altered status. Will avoid starting any immediate new medication but high suspicion for depression being related to her current status. Patient may require transition from [place] at this point to SNF status. #2. Acute on chronic hyponatremia, mild: Admission sodium 128, previous baseline appears 129-134 maximum, very minimally altered from previous, unclear exact etiology, some concern for possibly hypovolemic component, will obtain FeNa, Nell, UOsm, TSH, magnesium level to further assist in elucidating. Will continue to trend CMP. Will judiciously hydrate and monitor but again given unclear etiology may actually eventually require restriction. #3. Questionable Acute Urinary Tract Infection: UA upon ED evaluation very mildly remarkable, pending UCx, as noted above continue IVFs, monitor I/Os, given recent concern of increased confusion although urine is not severe appearing does have notable leukocyte Estrace, 5-10 urine WBCs and 1+ urine bacteria therefore until further evaluated will initiate and maintain on IV Rocephin as certainly could be etiology. If urine cultures unremarkable de- escalate off antibiotic therapy. #4. Indeterminate cardiac enzyme: Admission troponin 56, EKG [], chest x-ray with COPD type changes. To be cautious will maintain on telemetry monitoring and continue to cycle cardiac enzymes. Magnesium level requested. if cardiac enzymes rise further may necessitate cardiac stress testing and potentially echocardiogram but for now we will monitor and if remains similar we will medically manage. #5. Chronic Kidney Disease Stage II per GFR trending: Admission BUN/Cr 17/0.87, GFR 67, baseline renal function primarily 0.7-0.9 with GFR primarily in the stage II range, repeat BMP in AM. #6. Valvular heart disease: Family reporting patient to have aortic valvular disease, no echocardiogram noted in the system. #7. Chronic asthma with allergic rhinitis: Will maintain on ATC budesonide therapy, PRN albuterol, HOB, IS parameters, continue patient home fluticasone and montelukast regimen. #8. Hypertension: Continue home regimen including amlodipine, PRN hydralazine. Prior prescription of spironolactone does not appear to have been recently filled, clarifying if still taking. #9. Hyperlipidemia: Patient not on any statin therapy, appears to receive alirocumab injections outpatient. #10. History of CVA: Will continue patient home apixaban regimen, hypertensive regimen as noted, not on statin therapy. #11. PAF: We will continue patient home Eliquis and flecainide regimen. #12. History VTE: Chart reported history of previous DVT, we will continue patient home Eliquis regimen. #13. Restless leg syndrome: Noted in chart history, not on any current medication, if necessary may add Requip. #14. GEORGIE: CPAP nightly. #15. DVT prophylaxis: Will continue patient on Eliquis regimen. #16. CODE status: Patient MONICA is her son who is present as her has passed and living will is currently in place. Discussed CODE status at length including difference between FULL code, DNR-CCA and DNR-CC status. Following discussions about the differences in these status, requested DNR-CCA, no intubation, no aggressive measures. Advanced Care Planning Face to Face Time: 16 minutes. Charges/Coding Visit Charges Inpatient E&M: 31951 Init Hosp L3 Procedures Hospitalists Procedures: 49498 Advncd Care Plan 30 Min
[2023-10-08 21:00] VITALS: BP 169/72; PULSE 67; RESP 16; O2SAT 97
[2023-10-08] MEDS: Ceftriaxone 1 GM/50 ML BAG IV (21:16)
[2023-10-08 21:24] LABS: Troponin-I HS 62 pg/mL (3.0-54.0)
[2023-10-08 21:25] LABS: Magnesium 1.8 mg/dL (1.6-2.6)
[2023-10-08 21:40] VITALS: BP 159/76; PULSE 68; RESP 15; TEMP 36.6; O2SAT 98
[2023-10-08 21:42] VITALS: BP 128/77; PULSE 86; RESP 16; TEMP 36.7; O2SAT 98
--- NOTE | 2023-10-08 22:06 | CT_ITS ---
EXAM: CT HEAD WITHOUT INTRAVENOUS CONTRAST CLINICAL INDICATION: confusion TECHNIQUE: Multiple axial images were obtained of the head without intravenous contrast. CTDIvol = ( 44.99 ) mGy, DLP = ( 796.11 ) mGycm This CT exam was performed using one or more of the following dose reduction techniques: automated exposure control, adjustment of the mA and/or kV according to patient size, and/or use of iterative reconstruction technique. COMPARISON: No relevant prior studies available. FINDINGS: BRAIN AND EXTRA-AXIAL SPACES: Periventricular small vessel ischemic change. No midline shift or hydrocephalus. Diffuse parenchymal atrophy. Posterior fossa structures are unremarkable. Basal cisterns are patent. No acute intracranial hemorrhage, mass effect or edema. No evidence of acute cortical stroke. BONES/JOINTS: Unremarkable. No discrete lytic or blastic abnormalities. VASCULATURE: Atherosclerotic calcifications of the carotid siphons and vertebrobasilar arteries. SINUSES: Unremarkable as visualized. Clear. MASTOID AIR CELLS: Visualized sinuses and mastoid air cells are clear. ORBITS: Visualized globes, extraocular muscles, optic nerves and retrobulbar fat appear unremarkable. CT/Brain/Head without Contrast IMPRESSION: 1. No evidence of acute intracranial pathology. 2. Diffuse involutional changes and chronic ischemic small vessel white matter disease. AIDOC was utilized to assist in identifying pertinent positive findings. Electronically Signed: Sami Mtz MD at 23:55 EDT ,
[2023-10-08 22:50] VITALS: BMI 30.6
[2023-10-08] MEDS: 0.9% Normal Saline (1000mL) 1,000 ML 100 ML IV (23:06)
[2023-10-08] MEDS: 0.9% Saline Lock 10 ML Syringe IV (23:07)
[2023-10-08] MEDS: Menthol/Lanolin/Calamine/Znox 113 GM Tube 1 APPLIC TOPICAL (23:07)
[2023-10-08] MEDS: APIXABAN 5 MG TABLET PO (23:08)
[2023-10-08 23:17] VITALS: O2SAT 97
[2023-10-09] VITALS (8 sets, daily range): BP systolic 105–150; BP diastolic 46–66; PULSE 56–62; RESP 12–18; TEMP 35.9–36.9; O2SAT 94–98; BMI 30.6; BMI 30.8; BMI 23.9
[2023-10-09 00:46] LABS: Troponin-I HS 58 pg/mL (3.0-54.0)
[2023-10-09 01:19] LABS: Osmolality, Urine 407 mOsm/KG
[2023-10-09 01:56] LABS: Urine Sodium 121 mmol/L (Not Establ.)
[2023-10-09] MEDS: Acetaminophen 325 MG Tablet 650 MG PO ×3 (04:03→19:54)
[2023-10-09] MEDS: Budesonide Respules 0.5 MG/2 ML AMPUL.NEB. INHALATION ×2 (06:53→19:33)
[2023-10-09 07:42] LABS: Absolute Lymphocyte Count 1.16 X10^3/uL (0.83-4.51); Absolute Neutrophil Count 1.8 X10^3/uL (2.0-7.7); Basophil# 0.01 X10^3/uL; Basophil% 0.3 % (0-1); Eosinophil# 0.01 X10^3/uL; Eosinophils% 0.3 % (0-5); Hematocrit 40.1 % (37-47); Hemoglobin 13.7 g/dL (12.0-15.0); Lymphocyte # 1.16 X10^3/ul (0.83-4.51); Lymphocyte % 32.4 % (19-41); Mean Corp Hgb Conc 34.2 g/dL (32-36); Mean Corpuscular Hgb 31.1 pg (27.0-32.0); Mean Corpuscular Volume 90.9 fL (81-99); Mean Platelet Vol. 8.7 fl (6.2-12.0); Monocyte# 0.56 X10^3/uL; Monocyte% 15.6 % (0-10); NRBC Flagged by Analyzer 0 % (0-5); Neutrophil # 1.83 X10^3/uL (2.7-7.7); Neutrophil % 51.1 % (47-70); Platelet Count 247 K/mm3 (150-450); RBC Distribution Width CV 12.3 % (11.6-14.6); Red Blood Count 4.41 M/mm3 (4.2-5.4); White Blood Count 3.6 K/mm3 (4.4-11.0)
[2023-10-09] MEDS: Meropenem 1 GM in 0.9% Normal Saline (100mL MB+) 100 ML IV ×2 (08:10→22:13)
[2023-10-09 08:16] LABS: ALB/GLOB Ratio 0.9 RATIO (0.9-2.4); AST(SGOT) 13 U/L (15-37); Alanine Aminotransfer ALT/SGPT 15 U/L (13-56); Albumin, Serum 3.1 g/dL (3.2-5.0); Alkaline Phosphatase 83 U/L (45-117); Anion Gap 7 (5-15); BUN 12 mg/dL (7-18); BUN/Creat Ratio 20.4 RATIO (10-20); Calcium,Total 8.6 mg/dL (8.5-10.1); Chloride 97 mmol/L (98-107); Cholesterol 215 mg/dL (200); Creatinine, Serum 0.59 mg/dL (0.55-1.02); EST Glomerular Filtration Rate 104 mL/min (>60); Est Glom Filt Rate - Afr Amer 126 mL/min (>60); Estimated Creatinine Clearance 53.75 ml/min; Globulin 3.5 g/dL (2.2-4.2); Glucose 81 mg/dL (74-106); High Density Lipoprotein 84 mg/dL; Potassium 3.6 mmol/L (3.5-5.1); Protein, Total 6.6 g/dL (6.4-8.2); Sodium Level 129 mmol/L (136-145); Triglycerides 54 mg/dL; Very Low Density Lipoprotein 11 mg/dL (5-40)
[2023-10-09] MEDS: Fluticasone 0.05% 1 SPRAY NASAL.SRY NASAL (08:16)
[2023-10-09] MEDS: Lidocaine 5% Patch 1 PATCH TOPICAL (08:16)
[2023-10-09] MEDS: APIXABAN 5 MG TABLET PO ×2 (08:20→22:09)
[2023-10-09] MEDS: Flecainide 100 MG Tablet 50 MG PO ×2 (08:21→22:10)
[2023-10-09] MEDS: Cyanocobalamin 500 MCG Tablet PO (08:21)
[2023-10-09] MEDS: Montelukast 10 MG Tablet PO (08:21)
[2023-10-09] MEDS: Menthol/Lanolin/Calamine/Znox 113 GM Tube 1 APPLIC TOPICAL ×3 (08:22→17:08)
--- NOTE | 2023-10-09 08:48 | CASEMGMT ---
SW reviewed patient's chart and noted she is from [facility] [place]. SW also noted patient may not be happy at [facility] and was on waiting list for [facility]. SW met with patient. Introduced self and role at [facility]. SW confirmed with patient she is from [facility]. SW asked patient how she likes it at [facility]. Patient stated, It is safe. SW asked patient if she had any problems or other things she would like to talk about concerning [facility]. Patient declined. SW mentioned that SW saw she is waiting on a half-way bed at [facility] ([facility]). Patient said that is accurate. Patient also said that her daughter in law mentioned respite at [facility], but she does not know if she qualifies. Patient stated she does not know the plan at discharge. Patient also stated her son and daughter in law are out of state for a graduation constitution party and she is not sure when they will be back. SW let patient know SW will follow up with her Wednesday. Plan: CHICO Reyes [employer]IN[employer] LIVEST[employer] INSPECTORZakiya MAR
--- NOTE | 2023-10-09 09:56 | PN.HOSP_ITS ---
Reason for Visit Reason for Visit: Diagnoses Urinary tract infection, site not specified (10/08/23) Subjective Subjective Patient admitted yesterday evening from her assisted living facility for reported confusion with known recent UTI and possible acute on chronic hyponatremia. No acute events overnight. Saw patient at bedside this morning. Patient was sitting up comfortably in bedside chair, conversing normally, in no acute distress. Stated she felt better this morning than yesterday evening. She was able to tell me that she felt a bit more confused yesterday than her normal and feels back to her baseline today. She denies any UTI type symptoms. She does feel a bit weaker than her baseline at this time. Otherwise denies any fevers or chills or any other pain or discomfort. No other acute concerns. Objective Data Objective Data Vital Signs: Vital Signs Temp Pulse Resp BP Pulse Ox O2 Del Method O2 Flow Rate 98.1 F 56 L 16 148/51 H 94 Room Air 98 10/09/23 08:20 10/09/23 08:38 10/09/23 08:20 10/09/23 08:20 10/09/23 08:38 10/09/23 08:38 10/09/23 03:51 Oxygen Flow Rate (L/min) 98 Oxygen Delivery Method Room Air Weight: 78.97 kg Body Mass Index (BMI) 30.8 Intake & Output: Intake and Output for Last 24 Hours 10/07/23 10/08/23 10/09/23 23:59 23:59 23:59 Intake Total 650 / 650 1008.33 / 1008.33 Output Total 380 / 380 320 / 320 Balance 270 / 270 688.33 / 688.33 Lab / Micro Data 10/09/23 06:18 10/09/23 06:18 Labs: Laboratory Results - last 24 hr 10/08/23 18:25: WBC 5.6, RBC 4.59, Hgb 14.2, Hct 41.2, MCV 89.8, MCH 30.9, MCHC 34.5, RDW Std Deviation 40.2, RDW Coeff of Stephanie 12.4, Plt Count 275, MPV 8.7, Immature Gran % (Auto) 0.400, Neut % (Auto) 66.3, Lymph % (Auto) 20.7, Spalding % (Auto) 11.9 H, Eos % (Auto) 0.2, Baso % (Auto) 0.5, Absolute Neuts (auto) 3.7, Absolute Lymphs (auto) 1.15, Nucleated RBC % 0, Sodium 128 L, Potassium 3.9, C hloride 93 L, Carbon Dioxide 26.0, Anion Gap 9, BUN 17, Creatinine 0.87, Est GFR (MDRD) Af Amer 81, Est GFR (MDRD) Non-Af 67, BUN/Creatinine Ratio 19.6, Glucose 115 H, Calcium 9.5, Total Bilirubin 0.50, AST 17, ALT 19, Alkaline Phosphatase 100, Troponin I High Sens 56 H, B-Natriuretic Peptide 41.3, Total Protein 7.8, Albumin 3.9, Globulin 3.9, Albumin/Globulin Ratio 1.0 10/08/23 19:24: Urine Color Yellow, Urine Clarity Clear, Urine pH 7.0, Ur Specific [place] 1.010, Urine Protein Negative, Urine Glucose (UA) Normal, Urine Ketones Negative, Urine Occult Blood 10 H, Urine Nitrite Negative, Urine Bilirubin Negative, Urine Urobilinogen Normal, Ur Leukocyte Esterase 500 H, Urine RBC 0 SEEN, Urine WBC 5-10 SEEN, Ur Squamous Epith Cells 0-5 SEEN, Urine Bacteria 1+, Urine Mucus 0 SEEN 10/08/23 20:43: Magnesium 1.8, Troponin I High Sens 62 H 10/08/23 22:30: Ammonia 12.0 10/09/23 00:15: Troponin I High Sens 58 H 10/09/23 00:40: Urine Osmolality 407, Ur Random Sodium 121, Urine Creatinine 27.80 10/09/23 06:18: WBC 3.6 L, RBC 4.41, Hgb 13.7, Hct 40.1, MCV 90.9, MCH 31.1, MCHC 34.2, RDW Std Deviation 41.0, RDW Coeff of Stephanie 12.3, Plt Count 247, MPV 8.7, Immature Gran % (Auto) 0.300, Neut % (Auto) 51.1, Lymph % (Auto) 32.4, Spalding % (Auto) 15.6 H, Eos % (Auto) 0.3, Baso % (Auto) 0.3, Absolute Neuts (auto) 1.8 L, Absolute Lymphs (auto) 1.16, Nucleated RBC % 0, Sodium 129 L, Potassium 3.6, Chloride 97 L, Carbon Dioxide 25.0, Anion Gap 7, BUN 12, Creatinine 0.59, Estim Creat Clear Calc 53.75, Est GFR (MDRD) Af Amer 126, Est GFR (MDRD) Non-Af 104, B UN/Creatinine Ratio 20.4 H, Glucose 81, Calcium 8.6, Total Bilirubin 0.50, AST 13 L, ALT 15, Alkaline Phosphatase 83, Total Protein 6.6, Albumin 3.1 L, Globulin 3.5, Albumin/Globulin Ratio 0.9, Triglycerides 54, Cholesterol 215 H, LDL Cholesterol 120, VLDL Cholesterol 11, HDL Cholesterol 84, TSH 1.20, Free T4 1.20 Radiography Diagnostic Testing: Radiology Impression Chest X-Ray 10/08/23 18:25 IMPRESSION: There are findings consistent with COPD. There is no evidence of acute chest disease. Electronically Signed: Jamie Deleon MD at 18:53 EDT , Brain CT 10/08/23 22:06 IMPRESSION: 1. No evidence of acute intracranial pathology. 2. Diffuse involutional changes and chronic ischemic small vessel white matter disease. AIDOC was utilized to assist in identifying pertinent positive findings. Electronically Signed: Sami Mtz MD at 23:55 EDT , Physical Exam Const alert, oriented x3 and no apparent distress Constitutional Narrative: Pleasant elderly female, obese, sitting up comfortably in bed, conversing normally, no acute distress. General Appearance: cooperative and comfortable HEENT normocephalic, head/scalp atraumatic, hearing grossly normal bilaterally, nasal mucous membranes and turbinates normal and moist oral mucous membranes Eyes PERRL, EOMs intact bilaterally and conjunctivae normal Neck full ROM Chest inspection of chest normal Resp normal respiratory effort, normal air movement, no use of accessory muscles and clear to auscultation bilaterally Cardio regular rate, regular rhythm, no murmurs and peripheral pulses 2+ throughout GI normal to inspection, nondistended, normoactive bowel sounds, soft to palpation, non-tender and non-distended Back/Spine normal ROM Extremity normal to inspection, full ROM and no pedal edema Skin no rashes or lesions noted Neuro moves all extremities and no focal motor deficits Speech: speech normal Psych mental status grossly normal Assessment & Plan Assessment/Plan (1) UTI (urinary tract infection): (2) Confusion: (3) Dehydration: (4) Hyponatremia: PLAN: Plan Patient is an 83-year-old female who presented to [facility] ED on 10/08/2023 with altered mentation. 1. Acute metabolic encephalopathy, improved ? Mild, suspected secondary to acute cystitis. Had some concern that home Percocet and newly started low-dose BuSpar could be contributing so these were discontinued. Seems less likely that hyponatremia is contributing as sodium appears to be at baseline. Improved back to baseline mental status on hospital day 2. Continue treatment of UTI as noted below. Avoid sedating medications. 2. Concern for acute cystitis with multidrug-resistant organism ? UTI symptoms initially started on 09/29. UA at that time with 100 leukocyte esterase but negative nitrites and 0 bacteria seen, so was not prescribed any antibiotics. Urine culture from 09/29 grew 11-25K Pseudomonas with multidrug resistance. Repeat UA on 10/07 with 500 leukocyte esterase, still negative nitrites but 1+ bacteria seen. Given altered mentation on admission, reasonable to treat UTI with 5-day course of antibiotics. Initially started on ceftriaxone on admit, transitioned to meropenem on 10/08 due to the multidrug resistance. Okay to continue IV antibiotics while inpatient but may need to consider ID consultation for recommendations on discharge given apparent limited p.o. options to treat this UTI. 3. Chronic hyponatremia; mild dehydration, improved ? Sodium 128 on admit. Appears that her baseline sodium is around 129-134 dating back to 2019. Chloride mildly low on admit, was thought patient may be somewhat dehydrated. Sodium 129 and chloride mildly improved after IV fluids. Urine osmolality and urine sodium were obtained and both were fairly high; will order 8 AM cortisol level for tomorrow morning to assess for adrenal insufficiency. 4. Acute on chronic debility ? PT/OT/case management following. Lives in assisted living but apparently has had some concerns with her facility and would like to go to the [facility] if possible. Therapy scores borderline on 10/08, will likely qualify for SNF stay on discharge. 5. Elevated troponins, NSTEMI ruled out ? Troponin trend 56 > 62 > 58 on admit. No chest pain or shortness of breath. EKG with no ischemic findings. Suspected due to mild dehydration on admission. No need for further workup at this time. Chronic medical conditions: ? Obesity: BMI 30 on admit. Complicates hospital course, care and prognosis. ? GEORGIE: Continue CPAP at night. ? Hypertension: Continue home amlodipine, holding home spironolactone ? Hyperlipidemia: Intolerant to statins. Continue Repatha injections on discharge. ? Paroxysmal A-fib: Normal sinus rhythm on admit. Continue home Eliquis and flecainide. ? Chronic pain: Treating with tramadol and lidocaine patch as noted above. ? Chronic asthma with allergic rhinitis: Continue home fluticasone and albuterol as needed. DVT prophylaxis: Eliquis CODE STATUS: DNR CCA, DNI Expected disposition: SNF, 1 to 2 days Total clinical time spent by myself addressing the patient's medical issues, reviewing all the data, and collaborating with patient's care team: 35 minutes. Charges/Coding Visit Charges Inpatient E&M: 73862 Subs Hosp L2
[2023-10-09] MEDS: traMADol 50 MG Tablet PO (12:47)
[2023-10-09] MEDS: Albuterol 2.5 MG/3 ML VIAL.NEB. INHALATION (19:33)
[2023-10-09] MEDS: Erythromycin Base 1 OPTH.TUBE 1 APPLIC OPHTHALMIC (22:09)
[2023-10-09] MEDS: 0.9% Saline Lock 10 ML Syringe IV (22:13)
[2023-10-10] VITALS (8 sets, daily range): BP systolic 124–140; BP diastolic 47–53; PULSE 57–64; RESP 12–18; TEMP 36–36.4; O2SAT 94–99; BMI 24.0
[2023-10-10] MEDS: traMADol 50 MG Tablet PO ×2 (04:35→14:26)
[2023-10-10] MEDS: Senna/Docusate Sodium 1 Tablet 2 TABLET PO ×2 (04:36→08:07)
[2023-10-10] MEDS: Fluticasone 0.05% 1 SPRAY NASAL.SRY NASAL (08:07)
[2023-10-10] MEDS: Montelukast 10 MG Tablet PO (08:08)
[2023-10-10] MEDS: Flecainide 100 MG Tablet 50 MG PO ×2 (08:08→22:37)
[2023-10-10] MEDS: APIXABAN 5 MG TABLET PO ×2 (08:08→22:37)
[2023-10-10] MEDS: Cyanocobalamin 500 MCG Tablet PO (08:08)
[2023-10-10] MEDS: Lidocaine 5% Patch 1 PATCH TOPICAL (08:08)
[2023-10-10] MEDS: Budesonide Respules 0.5 MG/2 ML AMPUL.NEB. INHALATION ×2 (08:12→19:00)
[2023-10-10] MEDS: Menthol/Lanolin/Calamine/Znox 113 GM Tube 1 APPLIC TOPICAL ×2 (08:13→22:44)
[2023-10-10] MEDS: 0.9% Saline Lock 10 ML Syringe IV ×2 (08:13→22:37)
[2023-10-10] MEDS: Meropenem 1 GM in 0.9% Normal Saline (100mL MB+) 100 ML IV ×2 (09:13→22:42)
--- NOTE | 2023-10-10 11:11 | PCM.PN.HOSP ---
Reason for Visit Reason for Visit: Diagnoses Dehydration (10/08/23) Hypo-osmolality and hyponatremia (10/08/23) Urinary tract infection, site not specified (10/08/23) Disorientation, unspecified (10/08/23) Subjective Subjective No acute events overnight. Patient seen at bedside this morning. Sitting up comfortably in bed, in no acute distress. Patient reported feeling somewhat frustrated this morning primarily about plans for discharge. She was still hoping to go to the [facility] on discharge but was concerned about being able to work with therapy consistently if she went [facility]. Stated she generally feels somewhat tired and weak and had some difficulty work with therapy. She otherwise denies any new concerns morning. Objective Data Objective Data Vital Signs: Vital Signs Temp Pulse Resp BP Pulse Ox O2 Del Method O2 Flow Rate 97.1 F L 61 16 124/51 H 97 Room Air 98 10/10/23 09:10 10/10/23 09:10 10/10/23 09:10 10/10/23 09:10 10/10/23 09:10 10/10/23 09:10 10/09/23 03:51 Oxygen Flow Rate (L/min) 98 Oxygen Delivery Method Room Air Weight: 61.4 kg Body Mass Index (BMI) 24.0 Intake & Output: Intake and Output for Last 24 Hours 10/08/23 10/09/23 10/10/23 23:59 23:59 23:59 Intake Total 650 / 650 270 / 270 Output Total 380 / 380 970 / 970 Balance 270 / 270 1045.00 / 1045.00 260 / 260 Lab / Micro Data 10/09/23 06:18 10/09/23 06:18 Micro: Microbiology 10/09/23 00:40 Urine, Clean Catch Urine Culture - Preliminary GNR Poss Pseudomonas sp Physical Exam Const alert, oriented x3 and no apparent distress Constitutional Narrative: Pleasant elderly female, obese, sitting up comfortably in bed, conversing normally, no acute distress. General Appearance: cooperative and comfortable HEENT normocephalic, head/scalp atraumatic, hearing grossly normal bilaterally, nasal mucous membranes and turbinates normal and moist oral mucous membranes Eyes PERRL, EOMs intact bilaterally and conjunctivae normal Neck full ROM Chest inspection of chest normal Resp normal respiratory effort, normal air movement, no use of accessory muscles and clear to auscultation bilaterally Cardio regular rate, regular rhythm, no murmurs and peripheral pulses 2+ throughout GI normal to inspection, nondistended, normoactive bowel sounds, soft to palpation, non-tender and non-distended Back/Spine normal ROM Extremity normal to inspection, full ROM and no pedal edema Skin no rashes or lesions noted Neuro moves all extremities and no focal motor deficits Speech: speech normal Psych mental status grossly normal Assessment & Plan Assessment/Plan (1) UTI (urinary tract infection): (2) Confusion: (3) Dehydration: (4) Hyponatremia: PLAN: Plan Patient is an 83-year-old female who presented to [facility] ED on 10/08/2023 with altered mentation. 1. Acute metabolic encephalopathy, resolved ? Mild, suspected secondary to acute cystitis. Had some concern that home Percocet and newly started low-dose BuSpar could be contributing so these were discontinued. Seems less likely that hyponatremia is contributing as sodium appears to be at baseline. Improved back to baseline mental status on hospital day 2. Continue treatment of UTI as noted below. Avoid sedating medications. 2. Concern for acute cystitis with multidrug-resistant organism ? UTI symptoms initially started on 09/29. UA at that time with 100 leukocyte esterase but negative nitrites and 0 bacteria seen, so was not prescribed any antibiotics. Urine culture from 09/29 grew 11-25K Pseudomonas with multidrug resistance. Repeat UA on 10/07 with 500 leukocyte esterase, still negative nitrites but 1+ bacteria seen. Given altered mentation on admission, reasonable to treat UTI with 5-day course of antibiotics. Initially started on ceftriaxone on admit, transitioned to meropenem on 10/08 due to the multidrug resistance. Okay to continue IV antibiotics while inpatient but may need to consider ID consultation for recommendations on discharge given apparent limited p.o. options to treat this UTI. 3. Chronic hyponatremia; mild dehydration, improved ? Sodium 128 on admit. Appears that her baseline sodium is around 129-134 dating back to 2019. Chloride mildly low on admit, was thought patient may be somewhat dehydrated. Sodium 129 and chloride mildly improved after IV fluids. Urine osmolality and urine sodium were obtained and both were fairly high; 8 AM cortisol level drawn on morning of 10/09, result pending. Continue to monitor daily BMP. 4. Acute on chronic debility ? PT/OT/case management following. Lives in assisted living but apparently has had some concerns with her facility and would like to go to the [facility] if possible. Therapy scores borderline on 10/08, will likely qualify for SNF stay on discharge. 5. Elevated troponins, NSTEMI ruled out ? Troponin trend 56 > 62 > 58 on admit. No chest pain or shortness of breath. EKG with no ischemic findings. Suspected due to mild dehydration on admission. No need for further workup at this time. Chronic medical conditions: ? Obesity: BMI 30 on admit. Complicates hospital course, care and prognosis. ? GEORGIE: Continue CPAP at night. ? Hypertension: Continue home amlodipine, holding home spironolactone ? Hyperlipidemia: Intolerant to statins. Continue Repatha injections on discharge. ? Paroxysmal A-fib: Normal sinus rhythm on admit. Continue home Eliquis and flecainide. ? Chronic pain: Treating with tramadol and lidocaine patch as noted above. ? Chronic asthma with allergic rhinitis: Continue home fluticasone and albuterol as needed. DVT prophylaxis: Eliquis CODE STATUS: DNR CCA, DNI Expected disposition: SNF, 1 to 2 days Total clinical time spent by myself addressing the patient's medical issues, reviewing all the data, and collaborating with patient's care team: 35 minutes. Charges/Coding Visit Charges Inpatient E&M: 47564 Subs Hosp L2
[2023-10-10] MEDS: Erythromycin Base 1 OPTH.TUBE 1 APPLIC OPHTHALMIC (22:37)
[2023-10-11 01:15] VITALS: BP 155/54; PULSE 58; RESP 18; TEMP 35.7; O2SAT 99
[2023-10-11 06:00] VITALS: BMI 23.9
[2023-10-11 06:37] VITALS: BP 147/54; PULSE 59; RESP 18; TEMP 36; O2SAT 97
[2023-10-11] MEDS: 0.9% Saline Lock 10 ML Syringe IV (06:44)
[2023-10-11 07:28] LABS: Hematocrit 40.6 % (37-47); Hemoglobin 13.4 g/dL (12.0-15.0); Mean Corpuscular Hgb 30.5 pg (27.0-32.0); Mean Corpuscular Volume 92.5 fL (81-99); Mean Platelet Vol. 8.4 fl (6.2-12.0); Platelet Count 233 K/mm3 (150-450); RBC Distribution Width CV 12.3 % (11.6-14.6); RBC Distribution Width SD 42.1 fl (35.1-43.9); Red Blood Count 4.39 M/mm3 (4.2-5.4); White Blood Count 4.2 K/mm3 (4.4-11.0)
[2023-10-11] MEDS: Budesonide Respules 0.5 MG/2 ML AMPUL.NEB. INHALATION (07:41)
[2023-10-11 07:48] LABS: Anion Gap 6 (5-15); BUN 10 mg/dL (7-18); BUN/Creat Ratio 15.6 RATIO (10-20); Calcium,Total 9.1 mg/dL (8.5-10.1); Chloride 98 mmol/L (98-107); Creatinine, Serum 0.64 mg/dL (0.55-1.02); EST Glomerular Filtration Rate 94 mL/min (>60); Est Glom Filt Rate - Afr Amer 114 mL/min (>60); Estimated Creatinine Clearance 44.85 ml/min; Glucose 90 mg/dL (74-106); Potassium 3.7 mmol/L (3.5-5.1); Sodium Level 134 mmol/L (136-145)
[2023-10-11 08:58] VITALS: BP 161/61; PULSE 58; RESP 12; TEMP 36.4; O2SAT 96
--- NOTE | 2023-10-11 09:12 | MRI_ITS ---
HISTORY: confusion, UTI. TECHNIQUE: Multiplanar and multisequence MR images of the brain were obtained before and after the intravenous administration of 13 cc Clariscan. 355 images. COMPARISON: CT 10/08/2023. FINDINGS: BRAIN PARENCHYMA: Faint small focus of restricted diffusion in the right cerebellum. Multiple foci and small zones of increased T2 FLAIR signal in the bilateral cerebral white matter. Enhancing lesion in the brain parenchyma. No acute intracranial hemorrhage identified. CSF SPACES: Chronic mild volume loss. No significant midline shift or other mass effect.No extra-axial fluid collection. VASCULAR SYSTEM: Major intracranial flow voids are maintained. PARANASAL SINUSES AND MASTOID AIR CELLS: No significant air fluid levels. ORBITS: Bilateral lens resections. MRI/Brain W/WO Contrast IMPRESSION: Faint focus of restricted diffusion in the right cerebellum from small subacute infarct or artifact. Chronic involutional and white matter changes. No evidence for enhancing intracranial mass. Electronically Signed: Elba Gasca MD at 11:08 EDT ,
--- NOTE | 2023-10-11 09:16 | CASEMGMT ---
Discharge Planning Referral sent via [facility] to [facility]. Neena Silva DC Planning Asst.
--- NOTE | 2023-10-11 09:21 | PCM.PN.HOSP ---
Reason for Visit Reason for Visit: Diagnoses Dehydration (10/08/23) Hypo-osmolality and hyponatremia (10/08/23) Urinary tract infection, site not specified (10/08/23) Disorientation, unspecified (10/08/23) Subjective Subjective Patient is an 83-year-old female who presented to [facility] ED on 10/08/2023 with altered mentation. Objective Data Objective Data Vital Signs: Vital Signs Temp Pulse Resp BP Pulse Ox O2 Del Method O2 Flow Rate 97.6 F L 58 L 12 161/61 H 96 Room Air 98 10/11/23 08:58 10/11/23 08:58 10/11/23 08:58 10/11/23 08:58 10/11/23 08:58 10/11/23 08:58 10/09/23 03:51 Oxygen Flow Rate (L/min) 98 Oxygen Delivery Method Room Air Weight: 61.3 kg Body Mass Index (BMI) 23.9 Intake & Output: Intake and Output for Last 24 Hours 10/09/23 10/10/23 10/11/23 23:59 23:59 23:59 Intake Total 1070 / 1070 120 / 120 Output Total 970 / 970 Balance 1045.00 / 1045.00 1060 / 1060 120 / 120 Lab / Micro Data 10/11/23 06:55 10/11/23 06:55 Labs: Laboratory Results - last 24 hr 10/10/23 08:02: Cortisol 15.10 10/11/23 04:25: WBC Cancelled, Corrected WBC Cancelled, RBC Cancelled, Hgb Cancelled, Hct Cancelled, MCV Cancelled, MCH Cancelled, MCHC Cancelled, RDW Std Deviation Cancelled, RDW Coeff of Stephanie Cancelled, Plt Count Cancelled, MPV Cancelled, Diff Path Review Cancelled, Sodium Cancelled, Potassium Cancelled, Chloride Cancelled, Carbon Dioxide Cancelled, Anion Gap Cancelled, BUN Cancelled, Creatinine Cancelled, Estim Creat Clear Calc Cancelled, Est GFR (MDRD) Af Amer Cancelled, Est GFR (MDRD) Non-Af Cancelled, BUN/Creatinine Ratio Cancelled, Glucose Cancelled, Calcium Cancelled 10/11/23 06:55: WBC 4.2 L, RBC 4.39, Hgb 13.4, Hct 40.6, MCV 92.5, MCH 30.5, MCHC 33.0, RDW Std Deviation 42.1, RDW Coeff of Stephanie 12.3, Plt Count 233, MPV 8.4, Sodium 134 L, Potassium 3.7, Chloride 98, Carbon Dioxide 30.0, Anion Gap 6, BUN 10, Creatinine 0.64, Estim Creat Clear Calc 44.85, Est GFR (MDRD) Af Amer 114, Est GFR (MDRD) Non-Af 94, BUN/Creatinine Ratio 15.6, Glucose 90, Calcium 9.1 Micro: Microbiology 10/09/23 00:40 Urine, Clean Catch Urine Culture - Preliminary GNR Poss Pseudomonas sp Physical Exam Narrative GENERAL: cooperative HEENT: Atraumatic; normocephalic EYES; Anicteric, Normal Conjunctiva NECK; supple, normal thyroid, RESPIRATORY: Diminished to auscultation CARDIOVASCULAR: Irregularly irregular, tachycardic GI: soft, normoactive bowel sounds, : No Renal angle tenderness; EXTREMITIES: No edema, no clubbing, MUSCULOSKELETAL: no muscle wasting NEURO: Awake; no lateralizing signs. SKIN: No Rash PSYCH; Flat affect Assessment & Plan Assessment/Plan (1) UTI (urinary tract infection): (2) Confusion: (3) Dehydration: (4) Hyponatremia: PLAN: Plan Patient is an 83-year-old female who presented to [facility] ED on 10/08/2023 with altered mentation. 1. Acute metabolic encephalopathy, ? Secondary to suspected cystitis as well as possible underlying dementia patient continues to experience episodes of delirium despite optimal treatment of her UTI. Subsequent evaluation with MRI ordered 2. Acute cystitis ? Patient grew multidrug-resistant Pseudomonas.Patient is on meropenem 3. Hyponatremia ? There appears to be some chronicity to patient low sodium levels. Sodium level on admission was 128 up to 124 continuous monitoring with daily BMP ordered 4. Mildly elevated troponin ? NSTEMI ruled out 5. Dyslipidemia -Patient is on statin therapy, continued at home dose 6. Paroxysmal A-fib ? Patient presented with rapid ventricular response heart rate has since improved. She is on Flecainide. Patient is on systemic anticoagulation with apixaban 7. Hypertension - Blood pressure controlled, home medications continued with dose adjustment as needed 8. Chronic pain syndrome ?Treated with lidocaine patch 9. Chronic asthma with allergic rhinitis - Continue home fluticasone and albuterol as needed. 10. DVT prophylaxis ? On apixaban Time spent in the patient's overall evaluation,decision-making process, review of diagnostic data, adjustment of management, discussion with other providers, nursing nursing and ancillary staff involved in patient's care documentation, 50 Minutes Charges/Coding Visit Charges Inpatient E&M: [address] [facility] Hosp L3
--- NOTE | 2023-10-11 09:30 | NURSING ---
One silver and one gold ring with heather given to daughter in law, Latrice at bedside, prior to MRI.
[2023-10-11 09:57] VITALS: PULSE 66; RESP 16
--- NOTE | 2023-10-11 09:58 | CASEMGMT ---
Addendum entered by Carla Reyes 10/11/23 15:11: Patient and her daughter in law declined a list of SNF's as [facility] is the only facility patient will go to. Carla MAR Original Note: EVERARDO met with patient's daughter in law Latrice per her request. Latrice stated she and her will be going to [place] for their son's graduation tomorrow and will be gone for a week. They were originally thinking respite for patient at [facility] ([facility]). EVERARDO explained as long as patient participates in therapy her stay at [facility] could be paid for by her Medicare. However, if patient would stop participating in therapy it would become private pay. Latrice verbalized understanding. EVERARDO let Latrice know a referral was made to [facility] and we are just waiting on [facility] to let us know if they can take patient. EVERARDO will let Latrice know. Plan: Possible d/c to [facility] pending their acceptance. Carla MAR
[2023-10-11] MEDS: Meropenem 1 GM in 0.9% Normal Saline (100mL MB+) 100 ML IV ×2 (10:50→23:00)
[2023-10-11] MEDS: Cyanocobalamin 500 MCG Tablet PO (10:51)
[2023-10-11] MEDS: Flecainide 100 MG Tablet 50 MG PO ×2 (10:51→23:05)
[2023-10-11] MEDS: Montelukast 10 MG Tablet PO (10:51)
[2023-10-11] MEDS: APIXABAN 5 MG TABLET PO ×2 (10:52→23:05)
[2023-10-11] MEDS: Fluticasone 0.05% 1 SPRAY NASAL.SRY NASAL (10:52)
[2023-10-11] MEDS: Lidocaine 5% Patch 1 PATCH TOPICAL (10:52)
--- NOTE | 2023-10-11 11:46 | CASEMGMT ---
[facility] ([facility]) can accept patient. SW notified patient and her daughter in law Latrice. SW also let them know that per physician if patient's MRI is okay patient could possibly discharge today. Plan: d/c to [facility] under skilled level of care on a convalescent stay. Carla Reyes ACCREDITATION MANAGER ISABELA
[2023-10-11 14:36] VITALS: BP 138/54; PULSE 69; RESP 12; TEMP 36.6; O2SAT 98
--- NOTE | 2023-10-11 18:26 | CPS ---
pt does not take anything like it at home, says she doesn't need it.
[2023-10-11 22:00] VITALS: BP 150/65; PULSE 64; RESP 16; TEMP 36.8; O2SAT 98
[2023-10-11] MEDS: Erythromycin Base 1 OPTH.TUBE 1 APPLIC OPHTHALMIC (23:05)
[2023-10-11] MEDS: Menthol/Lanolin/Calamine/Znox 113 GM Tube 1 APPLIC TOPICAL (23:08)
[2023-10-12 03:14] VITALS: BMI 24.8
[2023-10-12 03:59] VITALS: BP 158/58; PULSE 59; RESP 18; TEMP 36.9; O2SAT 98
--- NOTE | 2023-10-12 10:12 | PCM.TXEXTCAR ---
Diet Diet Order/Speech Therapy: 10/08/23 21:57 Diet: Cardiac - Heart Healthy Food consistency:: Regular Liquid Consistency:: Regular/Thin Type of Dietary Supplement:: Ensure Clear Is pt able to select menu?: Yes Diet Comments: cranberry juice w/ meals tid and hale ensure clear Routine Orders/Code Status Code Status: DNRCC-A Therapies Physical Therapy: Eval and Treat Occupational Therapy: Eval and Treat Problem/Diagnosis (1) UTI (urinary tract infection): Status: Acute Code(s): N39.0 - Urinary tract infection, site not specified (2) Confusion: Status: Acute Code(s): R41.0 - Disorientation, unspecified (3) Dehydration: Status: Acute Code(s): E86.0 - Dehydration (4) Hyponatremia: Status: Acute Code(s): E87.1 - Hypo-osmolality and hyponatremia Plan Patient is an 83-year-old female who presented to [facility] ED on 10/08/2023 with altered mentation. 1. Acute metabolic encephalopathy, ? Secondary to suspected cystitis as well as possible underlying dementia patient continues to experience episodes of delirium despite optimal treatment of her UTI. Subsequent evaluation with MRI ordered 2. Acute cystitis ? Patient grew multidrug-resistant Pseudomonas.Patient is on meropenem 3. Hyponatremia ? There appears to be some chronicity to patient low sodium levels. Sodium level on admission was 128 up to 124 continuous monitoring with daily BMP ordered 4. Mildly elevated troponin ? NSTEMI ruled out 5. Dyslipidemia -Patient is on statin therapy, continued at home dose 6. Paroxysmal A-fib ? Patient presented with rapid ventricular response heart rate has since improved. She is on Flecainide. Patient is on systemic anticoagulation with apixaban 7. Hypertension - Blood pressure controlled, home medications continued with dose adjustment as needed 8. Chronic pain syndrome ?Treated with lidocaine patch 9. Chronic asthma with allergic rhinitis - Continue home fluticasone and albuterol as needed. 10. DVT prophylaxis ? On apixaban 11. Acute CVA ? MRI demonstrated faint focus of restricted diffusion in the right cerebellum from small subacute infarct or artifact.. Consult was placed to teleneuro teleneuro recommended addition of statin therapy patient however has allergy to statins to both simvastatin as well as rosuvastatin. Patient was however discharged on antiplatelet with aspirin Time spent in the patient's overall evaluation,decision-making process, review of diagnostic data, adjustment of management, discussion with other providers, nursing nursing and ancillary staff involved in patient's care documentation, 50 Minutes Allergies/Procedures Done in Hospital Allergies adhesive tape Allergy (Verified 10/08/23 17:55) Rash carvedilol (From Coreg) Allergy (Verified 10/08/23 17:55) Shortness of breath CERTAIN FILLERS IN MEDS, UNSURE OF WHAT EXACT MEDS celecoxib (From Celebrex) Allergy (Verified 10/08/23 17:55) Shortness of breath CERTAIN FILLERS IN MEDS, UNSURE OF WHAT EXACT MEDS clonidine (From Catapres) Allergy (Verified 10/08/23 17:55) Shortness of breath CERTAIN FILLERS IN MEDS, UNSURE OF WHAT EXACT MEDS enalaprilat (From Vasotec) Allergy (Verified 10/08/23 17:55) Shortness of breath CERTAIN FILLERS IN MEDS, UNSURE OF WHAT EXACT MEDS erythromycin base Allergy (Verified 10/08/23 17:55) DIFFICULTY BREATHING CERTAIN FILLERS IN MEDS, UNSURE OF WHAT EXACT MEDS hydrochlorothiazide (From Hyzaar) Allergy (Verified 10/08/23 17:55) Shortness of breath CERTAIN FILLERS IN MEDS, UNSURE OF WHAT EXACT MEDS lisinopril Allergy (Verified 10/08/23 17:55) Shortness of breath CERTAIN FILLERS IN MEDS, UNSURE OF WHAT EXACT MEDS losartan (From Hyzaar) Allergy (Verified 10/08/23 17:55) Shortness of breath CERTAIN FILLERS IN MEDS, UNSURE OF WHAT EXACT MEDS metoprolol (From Lopressor) Allergy (Verified 10/08/23 17:55) Shortness of breath CERTAIN FILLERS IN MEDS, UNSURE OF WHAT EXACT MEDS rofecoxib (From Vioxx) Allergy (Verified 10/08/23 17:55) Shortness of breath CERTAIN FILLERS IN MEDS, UNSURE OF WHAT EXACT MEDS rosuvastatin (From Crestor) Allergy (Verified 10/08/23 17:55) Shortness of breath CERTAIN FILLERS IN MEDS, UNSURE OF WHAT EXACT MEDS simvastatin (From Zocor) Allergy (Verified 10/08/23 17:55) Shortness of breath CERTAIN FILLERS IN MEDS, UNSURE OF WHAT EXACT MEDS Sulfa (Sulfonamide Antibiotics) Allergy (Verified 10/08/23 17:55) difficulty breathing CERTAIN FILLERS IN MEDS, UNSURE OF WHAT EXACT MEDS sulfamethoxazole Allergy (Verified 10/08/23 17:55) Shortness of breath CERTAIN FILLERS IN MEDS, UNSURE OF WHAT EXACT MEDS warfarin (From [facility]) Allergy (Verified 10/08/23 17:55) Shortness of breath CERTAIN FILLERS IN MEDS, UNSURE OF WHAT EXACT MEDS Type of Care/Length of Stay Estimated LOS: Convalescent Care Less Than 30 days Type of Care Needed: Skilled Rehab Potential: Good Prognosis: Good Additional Orders/Day of Discharge Day of Discharge: 10/12/23 Dietary and Speech Recommendations Dietitian Recommendations/Changes: Continue Cardiac diet - provide cranberry juice w/ meals per pt request Will change ensure compact to ensure clear - hale flavor- per pt preference Discharge Plan Admission Admit Date/Time: 10/08/23 20:48 Attending Provider: Mohinder Cunningham Primary Care Provider: Lisa Fuentes Consulting Providers: Brigitte Van; Cody Laird; Michael Campos; Flaco Ortiz; Corinna Brown; Brittany Balderrama; Elvia Staton; Remi Schofield; Oanh Pina; Bruce Llamas; Bertrand Fernaneds; Tianna Lemons; Mayo Alvarenga; Deanne Vizcaino; Ananth Baker; Thanh Cheatham; Jef Mcdonough; Jason Clemens; Raj Main; Vandana Rich; Ina Kumar Discharge Orders/Prescriptions Prescriptions: New melatonin 3 mg Tablet 3 mg PO QHS PRN PRN (Reason: Insomnia) Qty: 0 0RF lidocaine 5 % Adhesive Patch,Medicated 1 patch topical DAILY Qty: 0 0RF Protocol: *Topical Application Instructions APPLICATION INSTRUCTIONS: Hip alum-mag hydroxide-simeth [Mag-Al Plus Extra Strength] 400-400-40 mg/5 mL Suspension 30 ml PO Q6H PRN PRN (Reason: Gastric Burning) Qty: 0 0RF montelukast 10 mg Tablet 10 mg PO DAILY Qty: 0 0RF menthol-zinc oxide [Calmoseptine] 0.44-20.6 % Ointment 1 applic topical 4X/DAY Qty: 0 0RF Protocol: *Topical Application Instructions APPLICATION INSTRUCTIONS: apply to affected region aspirin 81 mg capsule 81 mg PO DAILY Qty: 1 0RF Continued Eliquis 5 mg tablet 2.5 mg PO BID flecainide 50 MG tablet 50 mg PO BID fluticasone propionate 9.9 ML spray,suspension 1 spray NS DAILY sodium chloride 30 ML aerosol,spray 3 spray NS Q8H PRN PRN (Reason: Congestion) acetaminophen 325 MG capsule 650 mg PO Q4H PRN PRN (Reason: pain/fever) amlodipine 5 mg tablet 5 mg PO DAILY buspirone 5 mg tablet 2.5 mg PO BID cyanocobalamin (vitamin B-12) [B-12 DOTS] 500 mcg tablet 500 mcg PO DAILY phenazopyridine 2 tab PO DAILY erythromycin 5 mg/gram (0.5 %) ointment 1 applic ophthalmic (eye) QHS Rx Instructions: apply small amount onto both eyelids and into eyelashes at HS Repatha SureClick 140 mg/mL pen injector 140 mg subcut .COMPLEX Rx Instructions: 140 mg subcutaneously every 14 days; subcutaneously Q14 days; Discontinued spironolactone 100 MG tablet 100 mg PO DAILY hydrocodone-acetaminophen 5-325 mg tablet 1 tab PO BID PRN (Reason: pain) Referrals / Follow Up: Lisa Fuentes MD [Primary Care Provider] - Within 1 Week Disposition Disposition (needs filled in before D/C Order can be placed): Detention Facility
--- NOTE | 2023-10-12 10:18 | PCM.DC.SUM ---
Providers Date of Admission: 10/08/23 Date of Discharge: 10/12/23 Primary Care Physician: Dr. Lisa Fuentes MD Consultations 10/11/23 14:15 Tele [Consult: Tele-Neurology] Routine Consulting Provider: [facility] Reason for Consult: Faint focus of restricted diffusion in the right cerebellum from small suba EMERGENT Consult: No MD Notified: Yes Date Notified: 10/11/23 Time Notified: 14:20 Method of Notification: Answering Service Nursing Unit Staff Notify [facility] of Tele-Neurology Consult: Yes Reason For Visit: AMS, ? UTI, INDETERM TROP, ACUTE ON CHRONIC Diagnosis Discharge Diagnosis (1) UTI (urinary tract infection): Status: Acute Code(s): N39.0 - Urinary tract infection, site not specified (2) Confusion: Status: Acute Code(s): R41.0 - Disorientation, unspecified (3) Dehydration: Status: Acute Code(s): E86.0 - Dehydration (4) Hyponatremia: Status: Acute Code(s): E87.1 - Hypo-osmolality and hyponatremia Plan Patient is an 83-year-old female who presented to [facility] ED on 10/08/2023 with altered mentation. 1. Acute metabolic encephalopathy, ? Secondary to suspected cystitis as well as possible underlying dementia patient continues to experience episodes of delirium despite optimal treatment of her UTI. Subsequent evaluation with MRI ordered 2. Acute cystitis ? Patient grew multidrug-resistant Pseudomonas.Patient is on meropenem 3. Hyponatremia ? There appears to be some chronicity to patient low sodium levels. Sodium level on admission was 128 up to 124 continuous monitoring with daily BMP ordered 4. Mildly elevated troponin ? NSTEMI ruled out 5. Dyslipidemia -Patient is on statin therapy, continued at home dose 6. Paroxysmal A-fib ? Patient presented with rapid ventricular response heart rate has since improved. She is on Flecainide. Patient is on systemic anticoagulation with apixaban 7. Hypertension - Blood pressure controlled, home medications continued with dose adjustment as needed 8. Chronic pain syndrome ?Treated with lidocaine patch 9. Chronic asthma with allergic rhinitis - Continue home fluticasone and albuterol as needed. 10. DVT prophylaxis ? On apixaban 11. Acute CVA ? MRI demonstrated faint focus of restricted diffusion in the right cerebellum from small subacute infarct or artifact.. Consult was placed to teleneuro teleneuro recommended addition of statin therapy patient however has allergy to statins to both simvastatin as well as rosuvastatin. Patient was however discharged on antiplatelet with aspirin Time spent in the patient's overall evaluation,decision-making process, review of diagnostic data, adjustment of management, discussion with other providers, nursing nursing and ancillary staff involved in patient's care documentation,35 Minutes Medications at Discharge Home Medications acetaminophen 325 mg capsule 650 mg PO Q4H PRN PRN pain/fever 09/02/20 flecainide 50 mg tablet 50 mg PO BID a fib 09/02/20 fluticasone propionate 50 mcg/actuation nasal spray,suspension 1 spray NS DAILY congestion 09/02/20 sodium chloride 0.65 % nasal spray aerosol 3 spray NS Q8H PRN PRN Congestion 09/02/20 apixaban 5 mg tablet (Eliquis) 2.5 mg PO BID blood thinner 06/15/22 amlodipine 5 mg tablet 5 mg PO DAILY hypertension 10/08/23 buspirone 5 mg tablet 2.5 mg PO BID depression 10/08/23 cyanocobalamin (vitamin B-12) 500 mcg tablet (B-12 DOTS) 500 mcg PO DAILY supplement 10/09/23 erythromycin 5 mg/gram (0.5 %) eye ointment 1 applic ophthalmic (eye) QHS blephritis 10/09/23 evolocumab 140 mg/mL subcutaneous pen injector (Repatha SureClick) 140 mg subcut .COMPLEX HLD 10/09/23 phenazopyridine 2 tab PO DAILY health maintenance 10/09/23 aluminum-mag hydroxide-simethicone 400 mg-400 mg-40 mg/5 mL oral susp (Mag-Al Plus Extra Strength) 30 ml PO Q6H PRN PRN Gastric Burning #0 mL 10/12/23 aspirin 81 mg capsule 81 mg PO DAILY #1 cap 10/12/23 lidocaine 5 % topical patch 1 patch topical DAILY #0 ea 10/12/23 melatonin 3 mg tablet 3 mg PO QHS PRN PRN Insomnia #0 tabs 10/12/23 menthol 0.44 %-zinc oxide 20.6 % topical ointment (Calmoseptine) 1 applic topical 4X/DAY #0 grams 10/12/23 montelukast 10 mg tablet 10 mg PO DAILY #0 tabs 10/12/23 Physical Exam Narrative GENERAL: cooperative HEENT: Atraumatic; normocephalic EYES; Anicteric, Normal Conjunctiva NECK; supple, normal thyroid, RESPIRATORY: Diminished to auscultation CARDIOVASCULAR: Irregularly irregular, tachycardic GI: soft, normoactive bowel sounds, : No Renal angle tenderness; EXTREMITIES: No edema, no clubbing, MUSCULOSKELETAL: no muscle wasting NEURO: Awake; no lateralizing signs. SKIN: No Rash PSYCH; Flat affect Weight / BMI Weight Weight: 63.7 kg Body Mass Index (BMI) 24.8 ABG / Lab / Microbiology Data 10/11/23 06:55 10/11/23 06:55 Microbiology: Microbiology 10/09/23 00:40 Urine, Clean Catch Urine Culture - Final GNR Poss Pseudomonas sp Radiography Diagnostic Testing: Radiology Impression Brain MRI 10/11/23 09:12 IMPRESSION: Faint focus of restricted diffusion in the right cerebellum from small subacute infarct or artifact. Chronic involutional and white matter changes. No evidence for enhancing intracranial mass. Electronically Signed: Elba Gasca MD at 11:08 EDT , D/C Instructions Discharge Diet: No restrictions Discharge Activity: Return to Normal Activity Call your doctor if you observe: Fever of 101 or Higher, Shortness of breath, Fainting spells and Chest pain Meaningful Use Info Meaningful Use Meaningful Use Diagnoses (Choose all that apply): Ischemic CVA CVA Therapy Assessed for PT,OT and/or ST?: Yes Ischemic Stroke Antithrombotic order at d/c?: Yes Dx of Atrial fib/flutter?: Yes Anticoagulant at discharge?: Yes Statin Dosing Therapy Reference: STATIN DOSE THERAPY REFERENCE: * Patients > 75 years receive moderate or high dose statin therapy. * Patients 75 years or YOUNGER should receive HIGH intensity statin dose unless contraindicated. You will be required to document reason for non-treatment if statin daily dose does not meet guidelines. HIGH DOSE STATIN THERAPY DAILY Atorvastatin > than or = to 40 mg Rosuvastatin > than or = to 20 mg Amlodipine + Atorvastatin > than or = to 2.5/40 mg Ezetimibe + Simvastatin 10/80 mg Simvastatin 80mg Statins at discharge?: No Reason Statin not ordered: Drug Allergy Primary Dx Acute Ischemic CVA?: Yes IV thrombolytic ordered during stay?: No Reason IV thrombolytic not ordered: Treatment not Indicated Discharge Plan Admission Admit Date/Time: 10/08/23 20:48 Attending Provider: Mohinder Cunningham Primary Care Provider: Lisa Fuentes Consulting Providers: Brigitte Van; Cody Laird; Michael Campos; Flaco Ortiz; Corinna Brown; Brittany Balderrama; Elvia Staton; Remi Schofield; Oanh Pina; Bruce Llamas; Bertrand Fernandes; Tianna Lemons; Mayo Alvarenga; Deanne Vizcaino; Ananth Baker; Thanh Cheatham; Jef Mcdonough; Jason Clemens; Raj Main; Vandana Rich; Ina Kumar Discharge Orders/Prescriptions Prescriptions: New melatonin 3 mg Tablet 3 mg PO QHS PRN PRN (Reason: Insomnia) Qty: 0 0RF lidocaine 5 % Adhesive Patch,Medicated 1 patch topical DAILY Qty: 0 0RF Protocol: *Topical Application Instructions APPLICATION INSTRUCTIONS: Hip alum-mag hydroxide-simeth [Mag-Al Plus Extra Strength] 400-400-40 mg/5 mL Suspension 30 ml PO Q6H PRN PRN (Reason: Gastric Burning) Qty: 0 0RF montelukast 10 mg Tablet 10 mg PO DAILY Qty: 0 0RF menthol-zinc oxide [Calmoseptine] 0.44-20.6 % Ointment 1 applic topical 4X/DAY Qty: 0 0RF Protocol: *Topical Application Instructions APPLICATION INSTRUCTIONS: apply to affected region aspirin 81 mg capsule 81 mg PO DAILY Qty: 1 0RF Continued Eliquis 5 mg tablet 2.5 mg PO BID flecainide 50 MG tablet 50 mg PO BID fluticasone propionate 9.9 ML spray,suspension 1 spray NS DAILY sodium chloride 30 ML aerosol,spray 3 spray NS Q8H PRN PRN (Reason: Congestion) acetaminophen 325 MG capsule 650 mg PO Q4H PRN PRN (Reason: pain/fever) amlodipine 5 mg tablet 5 mg PO DAILY buspirone 5 mg tablet 2.5 mg PO BID cyanocobalamin (vitamin B-12) [B-12 DOTS] 500 mcg tablet 500 mcg PO DAILY phenazopyridine 2 tab PO DAILY erythromycin 5 mg/gram (0.5 %) ointment 1 applic ophthalmic (eye) QHS Rx Instructions: apply small amount onto both eyelids and into eyelashes at HS Repatha SureClick 140 mg/mL pen injector 140 mg subcut .COMPLEX Rx Instructions: 140 mg subcutaneously every 14 days; subcutaneously Q14 days; Discontinued spironolactone 100 MG tablet 100 mg PO DAILY hydrocodone-acetaminophen 5-325 mg tablet 1 tab PO BID PRN (Reason: pain) Referrals / Follow Up: Lisa Fuentes MD [Primary Care Provider] - Within 1 Week Disposition Disposition (needs filled in before D/C Order can be placed): [facility] Charges/Coding Visit Charges Inpatient E&M: 94510 Disch Hosp >30min
[2023-10-12 10:26] VITALS: BP 126/54; PULSE 63; RESP 16; TEMP 36.3; O2SAT 97
[2023-10-12] MEDS: Menthol/Lanolin/Calamine/Znox 113 GM Tube 1 APPLIC TOPICAL (10:30)
[2023-10-12] MEDS: Fluticasone 0.05% 1 SPRAY NASAL.SRY NASAL (10:31)
[2023-10-12] MEDS: APIXABAN 5 MG TABLET PO (10:31)
[2023-10-12] MEDS: Flecainide 100 MG Tablet 50 MG PO (10:31)
[2023-10-12] MEDS: Montelukast 10 MG Tablet PO (10:31)
[2023-10-12] MEDS: Cyanocobalamin 500 MCG Tablet PO (10:31)
[2023-10-12] MEDS: Lidocaine 5% Patch 1 PATCH TOPICAL (11:27)
[2023-10-12] MEDS: Meropenem 1 GM in 0.9% Normal Saline (100mL MB+) 100 ML IV (12:03)
[2023-10-12] MEDS: 0.9% Saline Lock 10 ML Syringe IV ×2 (12:03→14:14)
--- NOTE | 2023-10-12 12:58 | CON.PCM.NE_ITS ---
Assessment and Plan: Stroke Assessment/Plan RUBINA YANEZ is a 83 F with a history of afib, CKD, HLD who presents for evaluation of AMS. Duringhospital stay was found to have UTI and hyponatremia but also slight stroke on MRI in the cerebellum and the R parietal region. Etiology likely cardioembolic from her afib. Based on history and memory issues, cannot rule out missed medications. Will obtain vessel imaging to rule out any severe athero. - Anti-thrombus medication: cont home eliquis - there is no evidence that changing NOAC if there is breakthrough stroke will improve stroke prevention. - Occupational/ Physical therapy consults - DVT prophylaxis with SCDs and heparin SQ - LDL 120 start atorvastatin 80mg (pt states she cannot remember being on statins in the past) - cta head.neck or carotid US to evaluate for any atherosclerotic disease - Vascular risk factor modification. 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 Weight Management: Goal for BMI is 18.5 -24.9 kg/m2 Alcohol: No more than 2 drinks/day for men or 1 drink/day for non- women - Promote lifestyle modification: weight control, physical activity, moderation of alcohol intake, moderate sodium intake. Followup with PCP in 1-2 weeks, and in Neurology clinic in 6-12 weeks HPI Consult Data Date of Consult: 10/12/23 HPI Narrative HPI Narrative: Patient is an 83-year-old female who presented to [facility] ED on 10/08/2023 with altered mentation. Pt was found to have UTI, hyponatremia which are being treated. Pt states not returned to baseline, states the finer issues of her life are not back to baseline but cannot further clarify. Her friend is at bedside and states that the pt has felt things are in the 1950s and agrees she is not returned to baseline. Believes she takes the eliquis twice a day, never had a stroke before. Pt states she does not think that she misses the medications but no one was helping her until this last week. Pt takes repatha at home but unclear how long. Denies ever being on a statin in past. FORMERLY [facility], [facility]–1983 Medical History History of venous thromboembolism CKD (chronic kidney disease) HLD (hyperlipidemia) Ganglion cyst of volar aspect of right wrist Stroke/cerebrovascular accident DVT (deep venous thrombosis) Asthma Restless leg syndrome Sleep apnea Afib HTN (hypertension) Home Medications ?Medication ?Instructions ?Recorded ?Last Taken ?Type acetaminophen 325 mg capsule 650 mg PO Q4H PRN PRN pain/fever 09/02/20 Unknown History flecainide 50 mg tablet 50 mg PO BID a fib 09/02/20 Unknown History fluticasone propionate 50 1 spray NS DAILY congestion 09/02/20 Unknown History mcg/actuation nasal spray,suspension sodium chloride 0.65 % nasal spray 3 spray NS Q8H PRN PRN Congestion 09/02/20 Unknown History aerosol apixaban 5 mg tablet (Eliquis) 2.5 mg PO BID blood thinner 06/15/22 Unknown History amlodipine 5 mg tablet 5 mg PO DAILY hypertension 10/08/23 Unknown History buspirone 5 mg tablet 2.5 mg PO BID depression 10/08/23 Unknown History cyanocobalamin (vitamin B-12) 500 500 mcg PO DAILY supplement 10/09/23 Unknown History mcg tablet (B-12 DOTS) erythromycin 5 mg/gram (0.5 %) eye 1 applic ophthalmic (eye) QHS 10/09/23 Unknown History ointment blephritis evolocumab 140 mg/mL subcutaneous 140 mg subcut .COMPLEX HLD 10/09/23 Unknown History pen injector (Esteban Roe) phenazopyridine 2 tab PO DAILY health maintenance 10/09/23 Unknown History aluminum-mag hydroxide-simethicone 30 ml PO Q6H PRN PRN Gastric 10/12/23 Unknown Rx 400 mg-400 mg-40 mg/5 mL oral susp Burning #0 mL (Mag-Al Plus Extra Strength) aspirin 81 mg capsule 81 mg PO DAILY #1 cap 10/12/23 Unknown Rx lidocaine 5 % topical patch 1 patch topical DAILY #0 ea 10/12/23 Unknown Rx melatonin 3 mg tablet 3 mg PO QHS PRN PRN Insomnia #0 10/12/23 Unknown Rx tabs menthol 0.44 %-zinc oxide 20.6 % 1 applic topical 4X/DAY #0 grams 10/12/23 Unknown Rx topical ointment (Calmoseptine) montelukast 10 mg tablet 10 mg PO DAILY #0 tabs 10/12/23 Unknown Rx Allergy/AdvReac Type Severity Reaction Status Date / Time adhesive tape Allergy Rash Verified 10/08/23 17:55 carvedilol (From Coreg) Allergy Shortness Verified 10/08/23 17:55 of breath celecoxib (From Celebrex) Allergy Shortness Verified 10/08/23 17:55 of breath clonidine (From Catapres) Allergy Shortness Verified 10/08/23 17:55 of breath enalaprilat (From Vasotec) Allergy Shortness Verified 10/08/23 17:55 of breath erythromycin base Allergy DIFFICULTY Verified 10/08/23 17:55 BREATHING hydrochlorothiazide (From Allergy Shortness Verified 10/08/23 17:55 Hyzaar) of breath lisinopril Allergy Shortness Verified 10/08/23 17:55 of breath losartan (From Hyzaar) Allergy Shortness Verified 10/08/23 17:55 of breath metoprolol (From Lopressor) Allergy Shortness Verified 10/08/23 17:55 of breath rofecoxib (From Vioxx) Allergy Shortness Verified 10/08/23 17:55 of breath rosuvastatin (From Crestor) Allergy Shortness Verified 10/08/23 17:55 of breath simvastatin (From Zocor) Allergy Shortness Verified 10/08/23 17:55 of breath Sulfa (Sulfonamide Allergy difficulty Verified 10/08/23 17:55 Antibiotics) breathing sulfamethoxazole Allergy Shortness Verified 10/08/23 17:55 of breath warfarin (From Jantoven) Allergy Shortness Verified 10/08/23 17:55 of breath Family History (Updated 10/08/23 @ 21:[address] Brigitte Van MD) Mother Alzheimer's dementia Father Diabetes Surgical History History of nephrectomy History of hip surgery Previous back surgery Social History household members: none housing: assisted living facility Smoking Status: Never smoker alcohol intake: never substance use type: does not use Vital Signs Vital Signs Vital Signs: 10/11/23 14:36 10/11/23 21:50 10/11/23 22:00 Temperature 97.8 F 98.3 F Temperature Source Oral Oral Pulse Rate 69 64 Pulse Strength Respiratory Rate 12 16 Respiratory Effort Normal Non-Labored Respiratory Depth Normal Respiratory Pattern Normal Blood Pressure 138/54 H 150/65 H Blood Pressure Mean 82 93 Blood Pressure Source Monitor Monitor Blood Pressure Position Sitting Semi-Fowlers Blood Pressure Location Right Arm Right Arm Pulse Ox 98 98 Oxygen Delivery Method Room Air Room Air Room Air 10/11/23 22:00 10/12/23 03:59 10/12/23 04:11 Temperature 98.4 F Temperature Source Oral Pulse Rate 59 L Pulse Strength Normal (2+) Respiratory Rate 18 Respiratory Effort Normal Non-Labored Respiratory Depth Normal Respiratory Pattern Normal Blood Pressure 158/58 H Blood Pressure Mean 91 Blood Pressure Source Monitor Blood Pressure Position Semi-Fowlers Blood Pressure Location Left Arm Pulse Ox 98 Oxygen Delivery Method Room Air Room Air 10/12/23 08:25 10/12/23 10:26 Temperature 97.3 F L Temperature Source Temporal Pulse Rate 63 Pulse Strength Respiratory Rate 16 Respiratory Effort Normal Non-Labored Respiratory Depth Normal Respiratory Pattern Normal Blood Pressure 126/54 H Blood Pressure Mean 78 Blood Pressure Source Monitor Blood Pressure Position Semi-Fowlers Blood Pressure Location Right Arm Pulse Ox 97 Oxygen Delivery Method Room Air Room Air Weight Weight: 63.7 kg Body Mass Index (BMI) 24.8 EEG Results Procedure Details EEG Procedure Details: RUBINA YANEZ is a 83 year old F with a past medical history of , who presents for evaluation of Electroencephalogram on DATE at TIME NIHSS NIHSS 1a. Level of Consciousness: Alert; keenly responsive 1b. LOC Questions: Answers BOTH questions correctly. 1c. LOC Commands: Performs both tasks correctly. 2. Best Gaze: Normal 3. Visual: No visual loss 4. Facial Palsy: Normal symmetrical movements 5a. Left Arm: No drift; arm holds 90 (or 45) degrees for full 10 seconds 5b. Right Arm: No drift; arm holds 90 (or 45) degrees for full 10 seconds 6a. Left Leg: No drift; leg holds 30-degree position for full 5 seconds 6b. Right Leg: No drift; leg holds 30-degree position for full 5 seconds 7. Limb Ataxia: Present in 1 limb 8. Sensory: Normal; no sensory loss 9. Best Language: No aphasia; normal 10. Dysarthria: Normal 11. Extinction and Inattention: No abnormality Total: 1 Physical Exam Narrative -? General: Laying comfortably in bed; in no acute distress. -? HENT: Normal oropharynx and mucosa. Normal external appearance of ears and nose. Exophthalmos. -? Neck: Supple, no pain or tenderness -? CV:? No peripheral edema. -? Pulmonary:? Normal respiratory effort. -? Ext: No cyanosis, edema, or deformity -? Skin: No rash. Normal palpation of skin.? -? Musculoskeletal: full range of motion; no joint tenderness. Normal digits and nails by inspection. No clubbing. -? NEURO: -? Mental Status: The patient was alert and oriented to time, place, and person. Normal recent/remote memory, concentration, and general fund of knowledge. -? Language: speech is clear.? Naming, repetition, fluency, and comprehension intact. -? Cranial Nerves: PERRL 2mm/brisk. EOMI, visual bautista full, no facial asymmetry, facial sensation intact, hearing intact, -? Motor: normal bulk, tone, and strength throughout. LUE with pronation -? Tone: is normal and bulk is normal -? Sensation- Intact to light touch bilaterally -? Coordination: LLE with ataxia. -? Gait- deferred Lab / Micro Data 10/11/23 06:55 10/11/23 06:55 Micro: Microbiology 10/09/23 00:40 Urine, Clean Catch Urine Culture - Final GNR Poss Pseudomonas sp Imaging Radiology Impression Brain MRI 10/11/23 09:12 IMPRESSION: Faint focus of restricted diffusion in the right cerebellum from small subacute infarct or artifact. Chronic involutional and white matter changes. No evidence for enhancing intracranial mass. Electronically Signed: Elba Gasca MD at 11:08 EDT , Active Medications Active Medications Active Medications: Current Medications Generic Name Dose Route Start Last Admin Trade Name Freq PRN Reason Stop Dose Admin Acetaminophen 650 mg 10/08/23 21:57 10/09/23 19:54 Acetaminophen 325 Mg Tablet PO 650 mg Q4H PRN PRN Administration Fever, pain -02/16 Al Hydroxide/Mg Hydroxide 30 ml 10/08/23 21:57 Mag Hydrox/Al Hydrox/Simeth 30 Ml Udc PO Q6H PRN PRN Gastric Burning Albuterol Sulfate 2.5 mg 10/08/23 21:57 10/09/23 19:33 Albuterol 2.5 Mg/3 Ml Vial.Neb. INHALATION 2.5 mg Q2H PRN PRN Administration Dyspnea, wheezing Apixaban 5 mg 10/08/23 22:00 10/12/23 10:31 Apixaban 5 Mg Tablet PO 5 mg BID SHARON Administration Budesonide 0.5 mg 10/08/23 21:57 10/11/23 07:41 Budesonide Respules 0.5 Mg/2 Ml Ampul.Neb. INHALATION 0.5 mg BID.RT SHARON Administration Calamine/Phenol 1 applic 10/08/23 22:00 10/12/23 10:30 Menthol/Lanolin/Calamine/Znox 113 Gm Tube TOPICAL 1 applic 4X/DAY SHARON Administration Protocol Cyanocobalamin 500 mcg 10/09/23 10:00 10/12/23 10:31 Cyanocobalamin 500 Mcg Tablet PO 500 mcg DAILY SHARON Administration Erythromycin 1 applic 10/09/23 22:00 10/11/23 23:05 Erythromycin Base 1 Opth.Tube OPHTHALMIC 1 applic QHS SHARON Administration Flecainide Acetate 50 mg 10/09/23 10:00 10/12/23 10:31 Flecainide 100 Mg Tablet PO 50 mg BID SHARON Administration Fluticasone Propionate 1 spray 10/09/23 10:00 10/12/23 10:31 Fluticasone 0.05% 1 [place] Nasal.Sry NASAL 1 spray DAILY SHARON Administration Guaifenesin 20 ml 10/08/23 21:57 Guaifenesin 10 Ml Udc (200mg/10ml) PO Q4H PRN PRN COUGH Hydralazine HCl 10 mg 10/08/23 21:57 Hydralazine 20 Mg/Ml Vial IV Q4H PRN PRN SBP > 160 Protocol Sodium Chloride 250 mls @ 15 mls/hr 10/08/23 21:46 IV .[id number] PRN Additional IVPB Infusion Sodium Chloride 250 mls @ 15 mls/hr 10/08/23 21:46 IV .[id number] PRN Saline Flush Meropenem 1 gm/ Sodium 120 mls @ 33 mls/hr 10/09/23 07:40 10/12/23 12:03 Chloride IV 33 mls/hr Q12 SHARON Administration Lidocaine 1 patch 10/09/23 10:00 10/12/23 11:27 Lidocaine 5% Patch TOPICAL 1 patch DAILY SHARON Administration Protocol Melatonin 3 mg 10/08/23 21:57 Melatonin 3 Mg Tablet PO QHS PRN PRN INSOMNIA Montelukast Sodium 10 mg 10/09/23 10:00 10/12/23 10:31 Montelukast 10 Mg Tablet PO 10 mg DAILY SHARON Administration Nitroglycerin 0.4 mg 10/08/23 21:57 Nitroglycerin (Inpatient Use) 0.4 Mg Tab.Subl SL Q5M PRN CARDIAC/CHEST PAIN Ondansetron HCl 4 mg 10/08/23 21:57 Ondansetron 4 Mg/2 Ml Vial IV Q8H PRN PRN NAUSEA/VOMITING Prochlorperazine Edisylate 5 mg 10/08/23 21:57 Prochlorperazine 10 Mg/2 Ml Vial IV Q4H PRN PRN Breakthrough Nausea/Vomiting Senna/Docusate Sodium 2 tablet 10/08/23 21:57 10/10/23 08:07 Senna/Docusate Sodium 1 Tablet PO 2 tablet BID PRN PRN Administration Constipation Sodium Chloride 10 - 40 ml 10/08/23 21:46 10/12/23 12:03 0.9% Saline Lock 10 Ml Syringe IV 10 ml UD PRN Administration SALINE FLUSH Sodium Chloride 3 spray 10/08/23 21:57 Sodium Chloride 0.65% 1 [place].Btl NASAL Q8H PRN PRN Congestion Throat Lozenges 1 lozenge 10/09/23 17:01 Benzocaine/Menthol 1 Lozenge MUCOUS MEM Q2H PRN PRN SORE THROAT Tramadol HCl 50 mg 10/08/23 21:57 10/10/23 14:26 Tramadol 50 Mg Tablet PO 50 mg Q8H PRN PRN Administration Pain Score 4-10
--- NOTE | 2023-10-12 13:40 | CT_ITS ---
INDICATION: CVA EXAMINATION: CT BRAIN WITHOUT CONTRAST, CTA HEAD, AND CTA NECK TECHNIQUE: Noncontrast axial images were obtained of the brain. Subsequently, routine carotid CT angiogram protocol was performed without and with IV contrast. In addition, images were obtained of the [facility] [place]. NASCET criteria using the distal ICAs for comparison were used for evaluation of stenoses. 3D reconstructions were reviewed. The protocol utilizes one or more of the following dose reduction techniques: automated exposure control, adjustment of mA and/or kV according to patient size,and/or use of iterative reconstruction technique. IV Contrast dosage and agent: 100 mL [id number] COMPARISON: Prior study dated: MRI 10/11/2023 FINDINGS: --CT BRAIN WITHOUT CONTRAST: BRAIN PARENCHYMA: No intra- or extra-axial hemorrhage. No evidence of acute infarct. No intracranial mass or mass effect. There is preservation of the coreas/white matter interface. Posterior fossa structures are unremarkable. Mild small vessel ischemic changes. CSF SPACES: Appropriate for age. No hydrocephalus. Basal cisterns are patent. CALVARIUM, SKULL BASE, PARANASAL SINUSES AND MASTOID AIR CELLS: Clear. No discrete lytic or blastic abnormalities. ASPECTS Score for Acute Strokes: 10 --CTA NECK: AORTIC ARCH AND BRANCHES: Normal anatomy, patent. RIGHT CCA: No occlusion, significant stenosis or dissection. RIGHT ICA: No occlusion, significant stenosis or dissection. LEFT CCA: No occlusion, significant stenosis or dissection. LEFT ICA: No occlusion, significant stenosis or dissection. RIGHT VERTEBRAL ARTERY: No occlusion, significant stenosis or dissection. LEFT VERTEBRAL ARTERY: No occlusion, significant stenosis or dissection. NECK SOFT TISSUES: The lung apices are clear. The thyroid gland is unremarkable. Anterior fusion hardware from C4 to C6. --CTA HEAD: --Anterior circulation: ICAs: No significant stenosis at the intracranial/visualized segments. ACAs: No significant stenosis at the visualized segments. ACOM: Present. MCAs: No significant stenosis at the visualized segments. --Posterior circulation: PCOMs: Patent on the right. Not seen on the left. qa test lead: No significant stenosis at the visualized segments. BASILAR ARTERY: No significant stenosis. VERTEBRAL ARTERIES: No significant stenosis at the intradural/visualized segments. No evidence of intracranial aneurysm or vascular malformation. CT/CTA Head AND Neck W/ Contrast IMPRESSION: No acute intracranial finding. No large vessel occlusion or flow-limiting stenosis. Electronically Signed: Nickolas Cota MD at 14:23 EDT ,
--- NOTE | 2023-10-12 15:31 | CASEMGMT ---
Patient is ready for discharge to [facility] ([facility]). EVERARDO completed a 7000 in [facility] system. Transport was set up for 8p. SW called patient's daughter in law Latrice and let her know this information. Latrice asked that Veronique, patient's friend, be updated as she will be meeting patient at [facility]. EVERARDO explained if transport gets pushed back past 9 then transport will be canceled and rescheduled for tomorrow am. EVERARDO spoke with Veronique in patient's room and let her know this information as well. EVERARDO notified hot car charger and city secretary regarding if transportation should be bumped later than 9 to reschedule for tomorrow am. EVERARDO also wrote this down and attached it to patient's SNF packet along with phone number for [facility] and Veronique. Plan: d/c to [facility] under skilled level of care on a convalescent stay. Physicians will transport patient via cot. Carla MAR
--- NOTE | 2023-10-12 15:36 | CASEMGMT ---
Discharge Planning Discharge orders, signed med list, and transport time sent to [facility] via [facility]. Physicians will transport patient by cot at 8p. Nursing, SW, patient, and her friend updated. Nursing to send covid results. Neena Silva DC Planning Asst.
[2023-10-12 17:50] VITALS: BP 148/59; PULSE 63; RESP 16; TEMP 36.2; O2SAT 97
[2023-10-12 20:00] VITALS: BP 163/66; PULSE 64; RESP 18; TEMP 36.7; O2SAT 98
--- NOTE | 2023-10-12 20:27 | NURSING ---
pt left with physicians and friend to go to [facility] at this time, all belongings with pt, IV taken out and tele taken off, Called family with update
== END 2023-10-12 20:03 | disposition skilled nursing facility (03) | DRG 689 ==
LOC: ED 20:54 → PCU 20:58
PROVIDERS: Hospitalist; Admitting Provider Family Medicine; Emergency Provider Emergency Medicine; PCP Internal Medicine; Visit Provider Internal Medicine
DX: N30.00 Acute cystitis without hematuria (principal); I63.441 Cerebral infarction due to embolism of right cerebellar artery; G93.41 Metabolic encephalopathy; F03.918 Unspecified dementia, unspecified severity, with other behavioral disturbance; E87.1 Hypo-osmolality and hyponatremia; I48.0 Paroxysmal atrial fibrillation; E86.0 Dehydration; J44.9 Chronic obstructive pulmonary disease, unspecified; I12.9 Hypertensive chronic kidney disease with stage 1 through stage 4 chronic kidney disease, or unspecified chronic kidney disease; E78.5 Hyperlipidemia, unspecified; N18.2 Chronic kidney disease, stage 2 (mild); G47.33 Obstructive sleep apnea (adult) (pediatric); E66.9 Obesity, unspecified; B96.5 Pseudomonas (aeruginosa) (mallei) (pseudomallei) as the cause of diseases classified elsewhere; R27.0 Ataxia, unspecified; R29.701 NIHSS score 1; G89.4 Chronic pain syndrome; Z66 Do not resuscitate; Z68.30 Body mass index [BMI] 30.0-30.9, adult; Z79.01 Long term (current) use of anticoagulants; Z79.899 Other long term (current) drug therapy; Z86.718 Personal history of other venous thrombosis and embolism; Z86.73 Personal history of transient ischemic attack (TIA), and cerebral infarction without residual deficits
CPT/HCPCS: 36415; 70450; 70496; 70498; 70553; 71045; 80048; 80053; 80061; 81001; 82140; 82533; 82570; 83735; 83880; 83935; 84300; 84439; 84443; 84484; 85025; 85027; 87086; 87088; 93005; 94640; 94668; 97162; 97166; 97530; 97802; 99284; A9575; J2185; J7030; Q9967; A4216

== ENCOUNTER → 2024-03-24 | Outpatient (REF) | payer MEDICARE, OTHER, SELFPAY ==
[2024-03-24 07:48] LABS: Hematocrit 33.8 % (37-47); Hemoglobin 10.9 g/dL (12.0-15.0); Mean Corp Hgb Conc 32.2 g/dL (32-36); Mean Corpuscular Hgb 29.9 pg (27.0-32.0); Mean Corpuscular Volume 92.6 fL (81-99); Mean Platelet Vol. 8.9 fl (6.2-12.0); Platelet Count 224 K/mm3 (150-450); Red Blood Count 3.65 M/mm3 (4.2-5.4); White Blood Count 5.1 K/mm3 (4.4-11.0)
[2024-03-24 07:54] LABS: Valproic Acid (Depakene) Level 33 ug/mL (50-100)
[2024-03-24 08:06] LABS: ALB/GLOB Ratio 0.9 RATIO (0.9-2.4); AST(SGOT) 12 U/L (15-37); Alanine Aminotransfer ALT/SGPT 17 U/L (13-56); Alkaline Phosphatase 76 U/L (45-117); Anion Gap 3 (5-15); BUN 24 mg/dL (7-18); BUN/Creat Ratio 43.6 RATIO (10-20); Calcium,Total 8.7 mg/dL (8.5-10.1); Chloride 107 mmol/L (98-107); Creatinine, Serum 0.55 mg/dL (0.55-1.02); EST Glomerular Filtration Rate 112 mL/min (>60); Est Glom Filt Rate - Afr Amer 136 mL/min (>60); Globulin 3.5 g/dL (2.2-4.2); Glucose 87 mg/dL (74-106); Potassium 3.8 mmol/L (3.5-5.1); Protein, Total 6.5 g/dL (6.4-8.2); Sodium Level 141 mmol/L (136-145)
== END ==
LOC: OLS.ACH 05:00
PROVIDERS: PCP Internal Medicine; Visit Provider Internal Medicine
DX: F33.9 Major depressive disorder, recurrent, unspecified (principal)
CPT/HCPCS: 36415; 80053; 80164; 85027

== ENCOUNTER → 2024-06-30 05:00 | Outpatient (REF) | payer MEDICARE, SELFPAY ==
[2024-06-30 08:21] LABS: Valproic Acid (Depakene) Level 46 ug/mL (50-100)
== END ==
LOC: OLS.ACH 05:00
PROVIDERS: PCP Internal Medicine; Visit Provider Internal Medicine
DX: F33.9 Major depressive disorder, recurrent, unspecified (principal)
CPT/HCPCS: 36415; 80164

== ENCOUNTER → 2024-07-20 | Outpatient (REF) | payer MEDICARE, SELFPAY ==
[2024-07-20 07:19] LABS: Bacteria 0 SEEN /hpf (None Seen); Mucous, Urine 0 SEEN /hpf (<or=2+)
[2024-07-20 07:48] LABS: Color, Urine Yellow (Yellow); Glucose, Dipstick Normal (Normal); Ketone-Dipstick Negative (Negative); Leukocyte Esterase-Dipstick 500 /ul (Negative); Nitrite-Dipstick Negative (Negative); Occult Blood-Urine 10 /ul (Negative); Protein-Dipstick 30 mg/dl (Negative); Specific Gravity, Urine 1.015 (1.002-1.030); Urine Bilirubin Dipstick Negative (Negative); Urine Clarity Sl. Cloudy (Clear); Urine Urobilinogen Normal (Normal)
[2024-07-20 08:01] LABS: Red Blood Cells-Urine 0 SEEN /hpf (0-5)
[2024-07-20 08:02] LABS: Renal Epithelial Cells 5-10 SEEN /hpf (0-5); Squamous Epithelial Cells - UA 0-5 SEEN /hpf (5-10); Transitional Epithelial - Ur 0 SEEN /hpf (0-5); White Blood Cells 5-10 SEEN /hpf (0-5)
[2024-07-20 08:03] LABS: Hematocrit 33.5 % (37-47); Hemoglobin 10.8 g/dL (12.0-15.0); Mean Corp Hgb Conc 32.2 g/dL (32-36); Mean Corpuscular Hgb 30.6 pg (27.0-32.0); Mean Corpuscular Volume 94.9 fL (81-99); Mean Platelet Vol. 9.2 fl (6.2-12.0); Platelet Count 182 K/mm3 (150-450); RBC Distribution Width CV 12.5 % (11.6-14.6); RBC Distribution Width SD 43.4 fl (35.1-43.9); Red Blood Count 3.53 M/mm3 (4.2-5.4); White Blood Count 3.1 K/mm3 (4.4-11.0)
[2024-07-20 09:07] LABS: ALB/GLOB Ratio 1.1 RATIO (0.9-2.4); AST(SGOT) 20 U/L (<=31); Alanine Aminotransfer ALT/SGPT 8 U/L (<=34); Albumin, Serum 3.3 g/dL (3.4-4.8); Alkaline Phosphatase 60 U/L (35-104); Anion Gap 11 (5-15); BUN 18 mg/dL (4-19); BUN/Creat Ratio 33.7 RATIO (10-20); Calcium,Total 8.9 mg/dL (7.6-11.0); Carbon Dioxide 27.2 mmol/L (21.0-32.0); Chloride 102 mmol/L (98-108); Creatinine, Serum 0.52 mg/dL (0.70-1.20); EST Glomerular Filtration Rate 92 (>60); Globulin 2.9 g/dL (2.2-4.2); Glucose 80 mg/dL (70-99); Potassium 3.7 mmol/L (3.3-5.1); Protein, Total 6.2 g/dL (5.9-8.4); Sodium Level 140 mmol/L (133-145); Total Bilirubin 0.17 mg/dL (0.00-1.30)
[2024-07-20 10:01] LABS: Ammonia 38.4 umol/L (11-51)
== END ==
LOC: OLS.ACH 04:00
PROVIDERS: PCP Internal Medicine; Referring Provider Internal Medicine; Visit Provider Internal Medicine
DX: F22 Delusional disorders (principal); F41.9 Anxiety disorder, unspecified; R53.1 Weakness; R39.9 Unspecified symptoms and signs involving the genitourinary system; N18.2 Chronic kidney disease, stage 2 (mild)
CPT/HCPCS: 36415; 80053; 81001; 82140; 85027; 87086; 87088

== ENCOUNTER → 2024-09-18 | Outpatient (REF) | payer MEDICARE, SELFPAY ==
[2024-09-18 10:01] LABS: Hematocrit 30.3 % (37-47); Hemoglobin 9.7 g/dL (12.0-15.0); Mean Corpuscular Hgb 31.1 pg (27.0-32.0); Mean Corpuscular Volume 97.1 fL (81-99); Mean Platelet Vol. 9.6 fl (6.2-12.0); Platelet Count 208 K/mm3 (150-450); RBC Distribution Width CV 13.2 % (11.6-14.6); RBC Distribution Width SD 47.2 fl (35.1-43.9); Red Blood Count 3.12 M/mm3 (4.2-5.4); White Blood Count 3.5 K/mm3 (4.4-11.0)
[2024-09-18 10:13] LABS: ALB/GLOB Ratio 1.2 RATIO (0.9-2.4); AST(SGOT) 15 U/L (<=31); Alanine Aminotransfer ALT/SGPT 5 U/L (<=34); Albumin, Serum 3.2 g/dL (3.4-4.8); Alkaline Phosphatase 53 U/L (35-104); Anion Gap 9 (5-15); BUN 20 mg/dL (4-19); BUN/Creat Ratio 34.6 RATIO (10-20); Calcium,Total 8.9 mg/dL (7.6-11.0); Carbon Dioxide 29.1 mmol/L (21.0-32.0); Chloride 104 mmol/L (98-108); Creatinine, Serum 0.58 mg/dL (0.70-1.20); EST Glomerular Filtration Rate 90 (>60); Globulin 2.7 g/dL (2.2-4.2); Glucose 83 mg/dL (70-99); Potassium 3.8 mmol/L (3.3-5.1); Protein, Total 5.9 g/dL (5.9-8.4); Sodium Level 143 mmol/L (133-145)
[2024-09-18 10:15] LABS: Valproic Acid (Depakene) Level 42 ug/mL (50-100)
== END ==
LOC: OLS.ACH 05:00
PROVIDERS: PCP Internal Medicine; Visit Provider Internal Medicine
DX: F33.9 Major depressive disorder, recurrent, unspecified (principal); N18.2 Chronic kidney disease, stage 2 (mild)
CPT/HCPCS: 36415; 80053; 80164; 85027

== ENCOUNTER → 2025-03-05 04:00 | Outpatient (REF) | payer MEDICARE, SELFPAY ==
[2025-03-05 09:08] LABS: Hematocrit 34.4 % (37-47); Hemoglobin 10.9 g/dL (12.0-15.0); Mean Corp Hgb Conc 31.7 g/dL (32-36); Mean Corpuscular Volume 94.8 fL (81-99); Mean Platelet Vol. 9.0 fl (6.2-12.0); Platelet Count 233 K/mm3 (150-450); RBC Distribution Width CV 13.3 % (11.6-14.6); RBC Distribution Width SD 45.8 fl (35.1-43.9); Red Blood Count 3.63 M/mm3 (4.2-5.4); White Blood Count 3.6 K/mm3 (4.4-11.0)
[2025-03-05 09:13] LABS: AST(SGOT) 16 U/L (<=31); Alanine Aminotransfer ALT/SGPT 6 U/L (<=34); Albumin, Serum 3.6 g/dL (3.4-4.8); Alkaline Phosphatase 75 U/L (35-104); Anion Gap 9 (5-15); BUN 24 mg/dL (4-19); BUN/Creat Ratio 40.2 RATIO (10-20); Calcium,Total 9.1 mg/dL (7.6-11.0); Carbon Dioxide 28.8 mmol/L (21.0-32.0); Chloride 102 mmol/L (98-108); Globulin 3.1 g/dL (2.2-4.2); Glucose 80 mg/dL (70-99); Potassium 4.0 mmol/L (3.3-5.1)
[2025-03-05 09:14] LABS: Valproic Acid (Depakene) Level 43 ug/mL (50-100)
== END ==
LOC: OLS.ACH 04:00
PROVIDERS: PCP Internal Medicine; Referring Provider Internal Medicine; Visit Provider Internal Medicine
DX: I13.10 Hypertensive heart and chronic kidney disease without heart failure, with stage 1 through stage 4 chronic kidney disease, or unspecified chronic kidney disease (principal)
CPT/HCPCS: 36415; 80053; 80164; 85027

== ENCOUNTER → 2025-04-02 05:00 | Outpatient (REF) | payer MEDICARE, SELFPAY ==
--- OUTSIDE RECORDS SUMMARY | 2025-04-02 04:14 | XMS RPT_ITS | CCD ---
Author Organization [facility] Inform ion Partnership [facility] Care Team Providers Care Cnc Service Engineer Name Role Phone John Doherty Unavailable Unavailable PROVIDER, OLEGARIO Unavailable Unavailable Dwain Roberson Unavailable Unavailable PREETI OLIVEROS Unavailable Unavailable Dwain Roberson DO Primary Care Provider Dr. Dwain Roberson Primary Care Provider Dr. Bhavin Mcqueen Attending Provider Dr. Dwain Roberson Primary Care Provider Dr. Bhavin Mcqueen Attending Provider Dr. Dwain Roberson Primary Care Provider Karol, Dr. Dwain Pinedo Referring Provider MD Jhon Grier Attending Provider [phone] Bhavin Mcqueen Attending Provider Dr. Dwain Roberson Primary Care Provider Dr. Dwain Roberson Referring Provider MD John Grier Attending Provider Dr. Bhavin Mcqueen Attending Provider Lisa Fuentes Primary Care Provider Dr. Lisa Fuentes Primary Care Provider UnavailDr. Lisa Mace Referring Provider Unavailable Lisa Fuentes Primary Care Provider CAMACHO MELENDEZ Attending Unavailable GUDLA, LISA Primary Care Unavailable JOHN DOHERTY Attending Unavailable GUDLA, LISA Primary Care Unavailable AURE DOHERTYO Attending Unavailable GUDLA, LISA Primary Care Unavailable IZZY HOLGUIN Attending Unavailable IZZY HOLGUIN Referring Unavailable GUDLA, LISA Primary Care Unavailable COSTANTINI, OTTORINO Referring Unavailable LIANGNTAURE CYRO Attending Unavailable GUDLA, LISA Primary Care Unavailable Karol DO Dwain Primary Care Provider [phone] Gina HERNANDEZ, Dr. JoséLisa Primary Care Provider Unava jonah Pires MD, Marcio Attending Provider Unavailable Lexis HERNANDEZ, Marcio Referring Provider Unavailable Gudla, Lisa Primary Care Unavailable Deperro OLS, Marcio Attending Unavailable Deperro OLS, Marcio Attending Unavailable Gudla, Lisa Primary Care Unavailable Deperro OLS, Marcio Referring Unavailable Gudla, Lisa Primary Care Unavailable Deperro OLS, Marcio Attending Unavailable Deperro OLS, Marcio Referring Unavailable Gudla, Lisa Primary Care Unavailable Deperro OLS, Marcio Attending Unavailable Gudla, Lisa Primary Care Unavailable Deperro OLS, Marcio Attending Unavailable Allergies Allergy Classification Reported Allergen(s) Allergy Type Date of Onset Reaction(s) Facility (1 source) Adhesive Tape; Translations: [ADHESIVE TAPE (ROSINS)] Propensity to adverse reactions (disorder) 04-25-20 04 [facility] Repository (20 sources) Angiotensin Converting Enzyme (Brianna) Inhibitors; Translations: [BRIANNA INHIBITORS] Propensity to adverse reactions to drug (disorder) 08-23-19 05 Other [facility] Repository (1 source) mold extract; Translations: [MOLD] Drug Allergy 07-04-19 05 [facility] Repository (16 sources) Sulfonamides (Antibiotic); Translations: [SULFA (SULFONAMIDE ANTIBIOTICS)] Propensity to adverse reactions to drug (disorder) 11-23-19 04 AOF, Hives, difficulty breathing [facility] Repository Comment on above: "CERTAIN FILLERS IN MEDS, UNSURE OF WHAT EXACT MEDS" (1 source) OTHER; Translations: [OTHER] Propensity to adverse reactions (disorder) 07-04-19 05 [facility] Repository (1 source) TETANUS TOXOID ADSORBED; Translations: [TETANUS TOXOID ADSORBED] Propensity to adverse reactions to drug (disorder) 08-23-19 05 AOF [facility] Repository (20 sources) Sulfonamides (Antibiotic) Propensity to adverse reactions to drug 11-23-19 04 Itching, Rash [facility] Work Phone: (20 sources) Tetanus vaccine Propensity to adverse reactions to drug 08-23-19 05 Swelling [facility] Work Phone: (14 sources) Adhesive Tape; Translations: [adhesive tape] Allergy to substance 02-07-20 22 Rash [facility] (13 sources) carvedilol Drug Allergy 02-07-20 22 Shortness of breath [facility] Comment on above: "CERTAIN FILLERS IN MEDS, UNSURE OF WHAT EXACT MEDS" (13 sources) celecoxib Drug Allergy 02-07-20 Shortness of breath [facility] Comment on above: "CERTAIN FILLERS IN MEDS, UNSURE OF WHAT EXACT MEDS" (13 sources) cloNIDine Drug Allergy 02-07-20 Shortness of breath [facility] Comment on above: "CERTAIN FILLERS IN MEDS, UNSURE OF WHAT EXACT MEDS" (13 sources) Enalaprilat Drug Allergy 02-07-20 22 Shortness of breath [facility] Comment on above: "CERTAIN FILLERS IN MEDS, UNSURE OF WHAT EXACT MEDS" (13 sources) Erythromycin Drug Allergy 02-07-20 22 DIFFICULTY BREATHING [facility] Comment on above: "CERTAIN FILLERS IN MEDS, UNSURE OF WHAT EXACT MEDS" (13 sources) hydroCHLOROthiazide Drug Allergy 02-07-20 22 Shortness of breath [facility] Comment on above: "CERTAIN FILLERS IN MEDS, UNSURE OF WHAT EXACT MEDS" (13 sources) Lisinopril Drug Allergy 02-07-20 22 Shortness of breath [facility] Comment on above: "CERTAIN FILLERS IN MEDS, UNSURE OF WHAT EXACT MEDS" (13 sources) Losartan Drug Allergy 02-07-20 Shortness of breath [facility] Comment on above: "CERTAIN FILLERS IN MEDS, UNSURE OF WHAT EXACT MEDS" (13 sources) Metoprolol Drug Allergy 02-07-20 22 Shortness of breath [facility] Comment on above: "CERTAIN FILLERS IN MEDS, UNSURE OF WHAT EXACT MEDS" (13 sources) rofecoxib Drug Allergy 02-07-20 22 Shortness of breath [facility] Comment on above: "CERTAIN FILLERS IN MEDS, UNSURE OF WHAT EXACT MEDS" (13 sources) rosuvastatin Drug Allergy 02-07-20 22 Shortness of breath [facility] Comment on above: "CERTAIN FILLERS IN MEDS, UNSURE OF WHAT EXACT MEDS" (13 sources) Simvastatin Drug Allergy 02-07-20 22 Shortness of breath [facility] Comment on above: "CERTAIN FILLERS IN MEDS, UNSURE OF WHAT EXACT MEDS" (13 sources) Sulfamethoxazole Drug Allergy 02-07-20 22 Shortness of breath [facility] Comment on above: "CERTAIN FILLERS IN MEDS, UNSURE OF WHAT EXACT MEDS" (13 sources) Warfarin Drug Allergy 02-07-20 22 Shortness of breath [facility] Comment on above: "CERTAIN FILLERS IN MEDS, UNSURE OF WHAT EXACT MEDS" (1 source) carvedilol Drug Allergy 10-13-19 [facility] Repository (1 source) celecoxib Drug Allergy 10-13-19 24 [facility] Rep[facility] (1 source) cloNIDine Drug Allergy 10-13-19 [facility] Rep[facility] (1 source) Enalaprilat Drug Allergy 10-13-19 [facility] Rep[facility] (1 source) Erythromycin Drug Allergy 10-13-19 [facility] (1 source) hydroCHLOROthiazide Drug Allergy 10-13-19 [facility] (1 source) Lisinopril Drug Allergy 10-13-19 [facility] (1 source) Losartan Drug Allergy 10-13-19 24 [facility] (1 source) Metoprolol Drug Allergy 10-13-19 24 [facility] (1 source) rofecoxib Drug Allergy 10-13-19 [facility] (1 source) rosuvastatin Drug Allergy 10-13-19 [facility] (1 source) Simvastatin Drug Allergy 10-13-19 [facility] (1 source) Sulfamethoxazole Drug Allergy 10-13-19 24 [facility] (1 source) Warfarin Drug Allergy 10-13-19 24 [facility] Rep[facility] Medications Current Medications Medication Drug Class(es) Dates Sig (Normalized) Sig (Original) acetaminophen 325 mg oral capsule (14 sources) Start: 09-02-2020 take 2 capsules by mouth every four hours as needed for pain Acetaminophen 325 MG capsule Active 650 mg PO EVERY 4 HOURS NEEDED as needed for pain/fever September 02, 2020 12:00am Start: 09-02-2020 take 650 mg by mouth every four hours as needed Acetaminophen Active 650 MG PO EVERY 4 HOURS NEEDED September 01, 2020 11:00pm [id number] 200 actuat albuterol 0.09 mg/actuat metered dose inhaler (20 sources) beta2-Adrenergic Agonist take 2 puff(s) by inhalation every six hours as needed albuterol 108 (90 Base) MCG/ACT inhaler Inhale 2 puffs every 6 hours as needed. Active Alum-Mag Hydroxide-Simeth (Mag-Al Plus Extra Strength) 400-400-40 mg/5 mL Suspension (2 sources) Start: 10-12-19 take 1 mL by mouth every six hours as needed Alum-Mag Hydroxide-Simeth (Mag-Al Plus Extra Strength) 400-400-40 mg/5 mL Suspension Active 30 mL PO EVERY 6 HOURS NEEDED as needed for Gastric Burning 0 October 12, 2023 12:00am amLODIPine 5 mg oral tablet (20 sources) Dihydropyridine Calcium Channel Alfredo Start: 10-02-19 take 1 tablet by mouth once daily Amlodipine 5 mg tablet Active 5 mg PO DAILY October 08, 2023 12:00am take 2.5 mg by mouth in the morn ing amLODIPine (Norvasc) 5 MG tablet Take 2.5 mg by mouth in the morning. 0 Active apixaban 5 mg oral tablet (20 sources) Factor Xa Inhibitor Start: 10-02-2023 take 1 tablet by mouth twice daily Apixaban (Apixaban 5 Mg Tablet) 5 mg tablet Active 5 mg PO TWICE A DAY October 02, 2023 12:00am Start: 06-15-2022 take 2.5 mg by mouth twice zane ly Apixaban (Eliquis) 5 mg tablet Active 2.5 mg PO TWICE A DAY June 15, 2022 1:00am Start: 03-11-2022 End: 04-15-2023 take 1 tablet by mouth twice daily apixaban (Eliquis) 5 MG tablet Take 1 tablet (5 mg) by mouth 2 times daily. 180 tablet 1 07/20/2022 Active aspirin 81 mg oral tablet (2 sources) Platelet Aggregation Inhibitor, Nonsteroidal Anti-inflammatory Drug Start: 10-12-2023 take 1 capsule by mouth once daily Aspirin 81 mg capsule Active 81 mg PO DAILY October 12, 2023 12:00am busPIRone hydrochloride 5 mg oral tablet (4 sources) Start: 10-02-2023 take 2.5 mg by mouth twice daily Buspirone 5 mg tablet Active 2.5 mg PO TWICE A DAY October 08, 2023 12:00am erythromycin 0.005 mg/mg ophthalmic ointment (4 sources) Macrolide, Macrolide Antimicrobial Start: 10-02-2023 Erythromycin 5 mg/gram (0.5 %) ointment Active 1 NMA OPHTHALMIC AT BEDTIME October 09, 2023 12:00am apply small amount onto both eyelids and into eyelashes at HS 1 ml evolocumab 140 mg/ml auto-injector (20 sources) PCSK9 Inhibitor Start: 10-09-2023 Evolocumab (Repatha Sureclick) 140 mg/mL pen injector Active 140 mg SC .COMPLEX October 09, 2023 12:00am 140 mg subcutaneously every 14 days; subcutaneously Q14 days; Start: 11-30-2022 End: 11-09-2023 Evolocumab (Repatha Sureclic k) 140 mg/mL pen injector Active 420 mg SC EVERY MONTH October 02, 2023 12:00am flecainide acetate 50 mg oral tablet (20 sources) Antiarrhythmic Start: 04-17-2014 End: 11-08-2023 take 1 tablet by mouth twice daily Flecainide 50 mg tablet Active 50 mg PO TWICE A DAY October 02, 2023 12:00am fluticasone propionate 0.05 mg/actuat metered dose nasal spray (16 sources) Corticosteroid Start: 10-02-2023 Fluticasone Propionate 50 mcg/actuation spray,suspension Active INTRANASAL October 02, 2023 12:00am Start: 09-02-2020 Fluticasone Pr opionate 9.9 ML spray,suspension Active 1 NMA NS DAILY September 02, 2020 12:00am Start: 09-02-2020 Fluticasone Pr opionate Active 1 SPRAY NS DAILY September 01, 2020 11:00pm lidocaine 0.05 mg/mg medicated patch (18 sources) Antiarrhythmic, Amide Local Anesthetic Start: 10-12-2023 Lidocaine 5 % Adhesi ve Patch,Medicated Active 1 NMA TOPICAL DAILY 0 October 12, 2023 12:00am Please contact the information source for Protocol details. Start: 07-07-2023 End: 07-07-2023 lidocaine (Xylocaine) 1 % in jection 8 mL Start: 09-02-2020 End: 10-08-2023 Lidocaine 1 PATCH patch Disc ontinued 1 NMA TOPICAL DAILY 10 September 02, 2020 12:00am October 08, 2023 9:35pm On 12 hours off 12 hours melatonin 3 mg oral tablet (2 sources) Start: 10-12-2023 take 1 tablet by mouth at bedtime as needed Melatonin 3 mg Tablet Active 3 mg PO AT BEDTIME NEEDED as needed for Insomnia 0 October 12, 2023 12:00am Menthol / Zinc Oxide (2 sources) Start: 10-12-2023 Menthol-Zinc O xide (Calmoseptine) 0.44-20.6 % Ointment Active 1 NMA TOPICAL 4 TIMES DAILY 0 October 12, 2023 12:00am Please contact the information source for Protocol details. montelukast 10 mg oral tablet (18 sources) Leukotriene Receptor Antagonist Start: 10-12-2023 take 1 tablet by mouth once daily Montelukast 10 mg Tablet Active 10 mg PO DAILY 0 October 12, 2023 12:00am Start: 09-02-2020 End: 10-08-2023 take 1 tablet by mouth once daily Montelukast (Singulair) 10 mg tablet Active 10 mg PO DAILY October 02, 2023 12:00am Phenazopyridine (2 sources) Start: 10-09-2023 phenazopyridin e Active 2 {tbl} PO DAILY October 09, 2023 12:00am sodium chloride 0.111 meq/ml nasal spray (14 sources) Start: 09-02-2020 Sodium Chlorid e 30 ML aerosol,spray Active 3 NMA NS EVERY 8 HOURS NEEDED as needed for Congestion September 02, 2020 12:00am Start: 09-02-2020 Sodium Chlorid e Active 3 SPRAY NS EVERY 8 HOURS NEEDED September 01, 2020 11:00pm vitamin B12 (4 sources) Vitamin B12 Start: 10-09-2023 take 1 tablet by mouth once daily Cyanocobalamin (Vitamin B-12) (B-12 Dots) 500 mcg tablet Active 500 ug PO DAILY October 09, 2023 12:00am Start: 10-02-2023 take 500 ug by mouth once daily Cyanocobalamin (Vitamin B-12) 500 mcg lozenge Active 500 ug PO DAILY October 02, 2023 12:00am Completed/Discontinued Medications Medication Drug Class(es) Dates Sig (Normalized) Sig (Original) acetaminophen 325 mg / HYDROcodone bitartrate 5 mg oral tablet (20 sources) Opioid Agonist Start: 10-08-2023 End: 10-12-2023 Hydrocodone-Acetami nophen 5-325 mg tablet Discontinued 1 {tbl} PO TWICE A DAY as needed for pain October 08, 2023 12:00am October 12, 2023 10:16am Start: 10-02-2023 Hydrocodone-Ac etaminophen 5-325 mg tablet Active 1 {tbl} PO Q12H October 02, 2023 12:00am take 1 tablet by mayte th every six hours as needed for pain HYDROcodone-acetaminophen ([place]) 5-325 MG tablet 1 tablet every 6 hours as needed for severe pain (7-10). Active 1 ml alirocumab 75 mg/ml auto-injector (18 sources) PCSK9 Inhibitor Start: 08-11-2022 End: 10-09-2023 Alirocumab (Praluent Pen) 75 mg/mL pen injector Discontinued 75 mg SC August 11, 2022 12:00am October 09, 2023 4:20am Start: 08-11-2022 Alirocumab (Pr aluent Pen) 75 mg/mL pen injector Active 75 MG SC August 10, 2022 11:00pm Start: 08-05-2022 End: 09-30-2023 inject 1 mL by subcutaneous injection once alirocumab (Praluent) 75 MG/ML injection Indications: Pure hypercholesterolemia Inject 1 mL (75 mg) under the skin every 14 (fourteen) days. 2 mL 5 11/26/2022 11/30/2022 Discontinued (Alternate therapy) betamethasone 3 mg/ml / betamethasone acetate 3 mg/ml injectable suspension (2 sources) Corticosteroid Start: 07-07-2023 End: 07-07-2023 betamethasone acetate-betamethasone sodium phosphate ([place]) injection 12 mg hydroCHLOROthiazide 12.5 mg oral capsule (20 sources) Thiazide Diuretic Start: 09-02-2020 End: 10-08-2023 take 1 capsule by mouth once daily Hydrochlorothiazide 12.5 MG capsule Discontinued 12.5 mg PO DAILY September 02, 2020 12:00am October 08, 2023 9:34pm End: 11-24-2022 take 1 tablet by mouth in the morning hydroCHLOROthiazide (HYDRODiuril) 12.5 MG tablet Take 12.5 mg by mouth in the morning. 0 11/24/2022 Discontinued (Discontinued by another clinician) hydrochlorothiaz kelvin (HYDRODIURIL) 25 MG tablet Take 12.5 mg by mouth daily 0 Active oxyCODONE hydrochloride 5 mg oral capsule (13 sources) Opioid Agonist Start: 02-06-2022 End: 08-11-2022 take 1 capsule by mouth three times daily as needed for pain Oxycodone 5 mg capsule Discontinued 5 mg PO THREE TIMES A DAY as needed for pain 12 3 February 06, 2022 August 11, 2022 10:06am spironolactone 100 mg oral tablet (20 sources) Aldosterone Antagonist Start: 12-03-2017 End: 10-12-2023 take 1 tablet by mouth once daily Spironolactone 100 MG tablet Discontinued 100 mg PO DAILY September 02, 2020 12:00am October 12, 2023 10:17am traMADol hydrochloride 50 mg oral tablet (20 sources) Opioid Agonist Start: 06-15-2022 End: 10-08-2023 Tramadol 50 mg tablet Discontinued 50 mg PO .PRN June 15, 2022 1:00am October 08, 2023 9:37pm warfarin sodium 7.5 mg oral tablet (15 sources) Vitamin K Antagonist Start: 09-02-2020 End: 10-08-2023 take 7 mg by mouth at bedtime Warfarin 7.5 MG tablet Discontinued 7 mg PO AT BEDTIME September 02, 2020 12:00am October 08, 2023 9:37pm Start: 09-02-2020 take 7 mg by mouth at bedtime Warfarin Active 7 MG PO AT BEDTIME September 01, 2020 11:00pm warfarin (COUMAD IN) 5 MG tablet Take 5 mg by mouth 0 Active Problems Active Problems Problem Classification Problem Date Documented Da te Episodic/Chronic Acute cerebrovascular disease (20 sources) Occlusion of cerebral artery with stroke; Translations: [Cerebral infarction due to unspecified occlusion or stenosis of unspecified cerebral artery] Onset: 05-10-2009 Chronic Anxiety disorders (1 source) Anxiety disorder, unspecified; Translations: [Anxiety disorder, unspecified] Onset: 08-10-2024 Chronic Cardiac dysrhythmias (20 sources) Paroxysmal atrial fibrillation; Translations: [Paroxysmal atrial fibrillation] Onset: 02-18-2016 Chronic Cardiac dysrhythmias (14 sources) Bradycardia; Translations: [Bradycardia, unspecified] 02-22-2021 Episodic Chronic kidney disease (1 source) Chronic kidney disease, stage 2 (mild); Translations: [Chronic kidney disease, stage 2 (mild)] Onset: 10-10-2024 Chronic Disorders of lipid metabolism (20 sources) Hyperlipidemia; Translations: [Hyperlipidemia, unspecified] Onset: 02-18-2016 02-18-2016 Chronic Essential hypertension (20 sources) Hypertensive disorder; Translations: [Essential (primary) hypertension] Onset: 02-18-2016 02-18-2016 Chronic Fluid and electrolyte disorders (6 sources) Hyponatremia; Translations: [Hypo-osmolality and hyponatremia] 10-20-2023 Episodic Heart valve disorders (20 sources) Aortic stenosis, non-rheumatic ; Translations: [Nonrheumatic aortic (valve) stenosis] Onset: 03-11-2022 03-11-2022 Chronic Heart valve disorders (1 source) Heart murmur; Translations: [Cardiac murmur, unspecified] Episodic Mood disorders (2 sources) Major depressive disorder, recurrent, unspecified; Translations: [Major depressive disorder, recurrent, unspecified] Onset: 07-12-2024 Chronic Occlusion or stenosis of precerebral arteries (2 sources) Occlusion and stenosis of bilateral carotid arteries; Translations: [Occlusion and stenosis of bilateral carotid arteries] Onset: 05-25-2017 Chronic Osteoarthritis (3 sources) Primary gonarthrosis, bilateral; Translations: [Bilateral primary osteoarthritis of knee] Onset: 07-07-2023 07-07-2023 Chronic Other and ill-defined heart disease (2 sources) Cardiomegaly; Translations: [Cardiomegaly] Onset: 05-25-2017 Chronic Other connective tissue disease (6 sources) Ganglion of wrist; Translations: [Ganglion, right wrist] 06-15-2022 Episodic Other connective tissue disease (4 sources) Ganglion, right wrist; Translations: [Ganglion of joint] 06-15-2022 Episodic Other connective tissue disease (2 sources) Ganglion cyst of the right volar wrist; Translations: [Ganglion, right wrist] 06-15-2022 Episodic Other injuries and conditions due to external causes (13 sources) Multiple lacerations; Translations: [Other injury of unspecified body region, initial encounter] 02-14-2022 Episodic Other nervous system disorders (2 sources) Other chronic pain; Translations: [Other chronic pain] Onset: 07-07-2023 Chronic Other screening for suspected conditions (not mental disorders or infectious disease) (15 sources) INR raised; Translations: [Abnormal coagulation profile] 02-14-2022 Episodic Residual codes; unclassified (20 sources) Sleep apnea; Translations: [Sleep apnea, unspecified] Onset: 02-18-2016 02-18-2016 Chronic Residual codes; unclassified (4 sources) Obstructive sleep apnea syndrome; Translations: [Obstructive sleep apnea (adult) (pediatric)] 11-17-2022 Chronic Residual codes; unclassified (2 sources) Obstructive sleep apnea (adult) (pediatric); Translations: [Obstructive sleep apnea (adult) (pediatric)] Onset: 02-21-2022 Chronic Residual codes; unclassified (2 sources) Confusional state; Translations: [Disorientation, unspecified] 10-20-2023 Episodic Residual codes; unclassified (2 sources) Altered mental status; Translations: [Altered mental status, unspecified] 10-13-2023 Episodic Schizophrenia and other psychotic disorders (1 source) Delusional disorders; Translations: [Delusional disorders] Onset: 08-10-2024 Chronic Superficial injury; contusion (20 sources) Contusion of face; Translations: [Contusion of other part of head, initial encounter] 02-14-2022 Episodic Syncope (20 sources) Near syncope; Translations: [Syncope and collapse] Onset: 02-18-2016 Episodic Transient cerebral ischemia (20 sources) Transient cerebral ischemia; Translations: [Transient cerebral ischemic attack, unspecified] Onset: 02-18-2016 02-18-2016 Chronic Urinary tract infections (2 sources) Urinary tract infectious disease; Translations: [Urinary tract infection, site not specified] 10-20-2023 Episodic Past or Other Problems Problem Classification Problem Date Documented Da te Episodic/Chronic Malaise and fatigue (1 source) Weakness; Translations: [Weakness] Onset: 08-10-2024 Episodic Other non-traumatic joint disorders (5 sources) Pain in right knee; Translations: [Pain in joint, lower leg] Onset: 07-07-2023 07-01-2023 Episodic Other non-traumatic joint disorders (2 sources) Pain in left knee; Translations: [Pain in left knee] Onset: 07-07-2023 Episodic Results Test Name Value Interpretation Reference Range Facility CBC-Complete Blood Cnt No Di ffon 03-05-2025 Erythrocyte distribution width (RBC) [Ratio] 13.3 % Normal 11.6-14.6 [facility] Comment on above: Order Comment: . Performed By: #### L [id number], L501.8100, L100.0500 #### [facility] [address] [place], [address] Hematocrit (Bld) [Volume fraction] 34.4 % Low 37-47 [facility] Comment on above: Order Comment: . Performed By: #### L [id number], [id number], [id number] #### [facility] [address] [place], [address] Hemoglobin (Bld) [Mass/Vol] 10.9 g/dL Low 12.0-15.0 [facility] Comment on above: Order Comment: 208.1 Performed By: #### L [id number], [id number], [id number] #### [facility] [address] [place], [address] MCH (RBC) [Entitic mass] 30.0 pg Normal 27.0-32.0 [facility] Comment on above: Order Comment: .1 Performed By: #### L [id number], [id number], [id number] #### [facility] [address] [place] [place], [address] MCHC (RBC) [Mass/Vol] 31.7 g/dL Low 32-36 [facility] Comment on above: Order Comment: 208.1 Performed By: #### L [id number], [id number], [id number] #### [facility] [address] [place], [address] MCV (RBC) [Entitic vol] 94.8 fL Normal 81-99 [facility] Comment on above: Order Comment: 208.1 Performed By: #### L [id number], [id number], [id number] #### [facility] [address] [place], [address] Platelet mean volume (Bld) [Entitic vol] 9.0 fL Normal 6.2-12.0 [facility] Comment on above: Order Comment: 208.1 Performed By: #### L [id number], [id number], [id number] #### [facility] [address] [place], [address] Platelets (Bld) [#/Vol] 233 10*3/uL Normal 150-450 [facility] Comment on above: Order Comment: 208.1 Performed By: #### L [id number], [id number], [id number] #### [facility] [address] [place], [address] RBC (Bld) [#/Vol] 3.63 10*6/uL Low 4.2-5.4 [facility] Comment on above: Order Comment: 208.1 Performed By: #### L [id number], [id number], [id number] #### [facility] [address] [place], [address] RDW SD 45.8 fl High 35.1-43.9 [facility] Comment on above: Order Comment: 208.1 Performed By: #### L [id number], [id number], [id number] #### [facility] [address] [place], [address] WBC (Bld) [#/Vol] 3.6 10*3/uL Low 4.4-11.0 [facility] Comment on above: Order Comment: 208.1 Performed By: #### L [id number], [id number], [id number] #### [facility] [address] [place], [address] Comprehensive Metabolic Prof [facility] 03-05-2025 Albumin [Mass/Vol] 3.6 g/dL Normal 3.4-4.8 [facility] Comment on above: Order Comment: 208.1 Performed By: #### L [id number], [id number], [id number] #### [facility] [address] [place], [address] Albumin/Globulin [Mass ratio] 1.2 {ratio} Normal 0.9-2.4 [facility] Comment on above: Order Comment: 208.1 Performed By: #### L 500.4050, L501.8100, L100.0500 #### [facility] [address] [place], [address] ALK PHOS 75 U/L Normal 35-104 [facility] Comment on above: Order Comment: 208.1 Performed By: #### L 500.4050, L501.8100, L100.0500 #### [facility] [address] [place], [address] ALT [Catalytic activity/Vol] 6 U/L Normal <=34 [facility] Comment on above: Order Comment: 208.1 Performed By: #### L 500.4050, L501.8100, L100.0500 #### [facility] [address] [place], [address] AST [Catalytic activity/Vol] 16 U/L Normal <=31 [facility] Comment on above: Order Comment: 208.1 Performed By: #### L 500.4050, L501.8100, L100.0500 #### [facility] [address] [place], [address] Bilirubin [Mass/Vol] 0.18 mg/dL Normal 0.00-1.30 [facility] Comment on above: Order Comment: 208.1 Performed By: #### L 500.4050, L501.8100, L100.0500 #### [facility] [address] [place], [address] BUN/CRE 40.2 RATIO High 10-20 [facility] Comment on above: Order Comment: 208.1 Performed By: #### L 500.4050, L501.8100, L100.0500 #### [facility] [address] [place], [address] Calcium [Mass/Vol] 9.1 mg/dL Normal 7.6-11.0 [facility] Comment on above: Order Comment: 208.1 Performed By: #### L 500.4050, L501.8100, L100.0500 #### [facility] [address] [place], [address] Chloride [Moles/Vol] 102 mmol/L Normal 98-108 [facility] Comment on above: Order Comment: 208.1 Performed By: #### L 500.4050, L501.8100, L100.0500 #### [facility] [address] [place], [address] CO2 [Moles/Vol] 28.8 mmol/L Normal 21.0-32.0 [facility] Comment on above: Order Comment: 208.1 Performed By: #### L 500.4050, L501.8100, L100.0500 #### [facility] [address] [place], [address] Creatinine [Mass/Vol] 0.60 mg/dL Low 0.70-1.20 [facility] Comment on above: Order Comment: .1 Performed By: #### L 500.4050, L501.8100, L100.0500 #### [facility] [address] [place], [address] GAP 9 Normal 5-15 [facility] Comment on above: Order Comment: . Performed By: #### L 500.4050, L501.8100, L100.0500 #### [facility] [address] [place], [address] GFR/1.73 sq M.predicted among non-blacks MDRD (S/P/Bld) [Vol rate/Area] 89 mL/min/{1.73_m2} Normal >60 [facility] Comment on above: Order Comment: . Result Comment: mL/m in/1.73m2 CKD-EPI Creatinine Equation (2020) Performed By: #### L 500.4050, L501.8100, L100.0500 #### [facility] [address] [place], [address] Globulin (S) [Mass/Vol] 3.1 g/dL Normal 2.2-4.2 [facility] Comment on above: Order Comment: . Performed By: #### L 500.4050, L501.8100, L100.0500 #### [facility] [address] [place], [address] Glucose [Mass/Vol] 80 mg/dL Normal 70-99 [facility] Comment on above: Order Comment: . Performed By: #### L 500.4050, L501.8100, L100.0500 #### [facility] [address] [place], [address] Potassium [Moles/Vol] 4.0 mmol/L Normal 3.3-5.1 [facility] Comment on above: Order Comment: 208.1 Performed By: #### L 500.4050, L501.8100, L100.0500 #### [facility] [address] [place], [address] Sodium [Moles/Vol] 140 mmol/L Normal 133-145 [facility] Comment on above: Order Comment: 208.1 Performed By: #### L 500.4050, L501.8100, L100.0500 #### [facility] [address] [place], [address] T PROT 6.7 g/dL Normal 5.9-8.4 [facility] Comment on above: Order Comment: 208.1 Performed By: #### L 500.4050, L501.8100, L100.0500 #### [facility] [address] [place], [address] Urea nitrogen [Mass/Vol] 24 mg/dL High 4-19 [facility] Comment on above: Order Comment: 208.1 Performed By: #### L 500.4050, L501.8100, L100.0500 #### [facility] [address] [place], [address] Valproic Acid (Depakene) Lev froilan 03-05-2025 VALPROIC ACID 43 ug/mL Low 50-100 [facility] Comment on above: Order Comment: 208.1 Result Comment: Valp roic Acid concentrations >100 ug/mL are potentially toxic. Performed By: #### L 500.4050, L501.8100, L100.0500 #### [facility] [address] [place], [address] Anion gap in Serum or Plasma Ordered By: Marcio Pires on 09-18-2024 Anion gap [Moles/Vol] 9 mmol/L 5-15 [facility] BUN/creatinine ratioOrdered By: Marcio Pires on 09-18-2024 Urea nitrogen/Creatinine [Mass ratio] 34.6 mg/mg High 10-20 [facility] Bilirubin, totalOrdered By: Marcio Pires on 09-18-2024 Bilirubin [Mass/Vol] 0.20 mg/dL 0.00-1.30 [facility] CBC-Complete Blood Cnt No Di ffon 09-18-2024 Erythrocyte distribution width (RBC) [Ratio] 13.2 % Normal 11.6-14.6 [facility] Comment on above: Order Comment: 208.1 Performed By: #### L 500.4050, L501.8100, L100.0500 #### [facility] [address] [place], [address] Hematocrit (Bld) [Volume fraction] 30.3 % Low 37-47 [facility] Comment on above: Order Comment: 208.1 Performed By: #### L 500.4050, L501.8100, L100.0500 #### [facility] [address] [place], [address] Hemoglobin (Bld) [Mass/Vol] 9.7 g/dL Low 12.0-15.0 [facility] Comment on above: Order Comment: 208.1 Performed By: #### L 500.4050, L501.8100, L100.0500 #### [facility] [address] [place], [address] MCH (RBC) [Entitic mass] 31.1 pg Normal 27.0-32.0 [facility] Comment on above: Order Comment: 208.1 Performed By: #### L 500.4050, L501.8100, L100.0500 #### [facility] [address] [place], [address] MCHC (RBC) [Mass/Vol] 32.0 g/dL Normal 32-36 [facility] Comment on above: Order Comment: 208.1 Performed By: #### L 500.4050, L501.8100, L100.0500 #### [facility] [address] [place], [address] MCV (RBC) [Entitic vol] 97.1 fL Normal 81-99 [facility] Comment on above: Order Comment: 208.1 Performed By: #### L 500.4050, L501.8100, L100.0500 #### [facility] [address] [place], [address] Platelet mean volume (Bld) [Entitic vol] 9.6 fL Normal 6.2-12.0 [facility] Comment on above: Order Comment: 208.1 Performed By: #### L 500.4050, L501.8100, L100.0500 #### [facility] [address] [place], [address] Platelets (Bld) [#/Vol] 208 10*3/uL Normal 150-450 [facility] Comment on above: Order Comment: 208.1 Performed By: #### L 500.4050, L501.8100, L100.0500 #### [facility] [address] [place], [address] RBC (Bld) [#/Vol] 3.12 10*6/uL Low 4.2-5.4 [facility] Comment on above: Order Comment: 208.1 Performed By: #### L 500.4050, L501.8100, L100.0500 #### [facility] [address] [place], [address] RDW SD 47.2 fl High 35.1-43.9 [facility] Comment on above: Order Comment: 208.1 Performed By: #### L 500.4050, L501.8100, L100.0500 #### [facility] [address] [place], [address] WBC (Bld) [#/Vol] 3.5 10*3/uL Low 4.4-11.0 [facility] Comment on above: Order Comment: .1 Performed By: #### L 500.4050, L501.8100, L100.0500 #### [facility] [address] [place], [address] Carbon dioxide, total [Moles /volume] in Central venous bloodOrdered By: Marcio Pires on 09-18-2024 CO2 [Moles/Vol] 29.1 mmol/L 21.0-32.0 [facility] Chloride assayOrdered By: Craig on 09-18-2024 Chloride [Moles/Vol] 104 mmol/L 98-108 [facility] Comprehensive Metabolic Prof ilon 09-18-2024 Albumin [Mass/Vol] 3.2 g/dL Low 3.4-4.8 [facility] Comment on above: Order Comment: .1 Performed By: #### L 500.4050, L501.8100, L100.0500 #### [facility] [address] [place], [address] Albumin/Globulin [Mass ratio] 1.2 {ratio} Normal 0.9-2.4 [facility] Comment on above: Order Comment: .1 Performed By: #### L 500.4050, L501.8100, L100.0500 #### [facility] [address] [place], [address] ALK PHOS 53 U/L Normal 35-104 [facility] Comment on above: Order Comment: 208.1 Performed By: #### L 500.4050, L501.8100, L100.0500 #### [facility] [address] [place], [address] ALT [Catalytic activity/Vol] 5 U/L Normal <=34 [facility] Comment on above: Order Comment: 208.1 Performed By: #### L 500.4050, L501.8100, L100.0500 #### [facility] [address] [place], [address] AST [Catalytic activity/Vol] 15 U/L Normal <=31 [facility] Comment on above: Order Comment: 208.1 Performed By: #### L 500.4050, L501.8100, L100.0500 #### [facility] [address] [place], [address] Bilirubin [Mass/Vol] 0.20 mg/dL Normal 0.00-1.30 [facility] Comment on above: Order Comment: 208.1 Performed By: #### L 500.4050, L501.8100, L100.0500 #### [facility] [address] [place], [address] BUN/CRE 34.6 RATIO High 10-20 [facility] Comment on above: Order Comment: 208.1 Performed By: #### L 500.4050, L501.8100, L100.0500 #### [facility] [address] [place], [address] Calcium [Mass/Vol] 8.9 mg/dL Normal 7.6-11.0 [facility] Comment on above: Order Comment: 208.1 Performed By: #### L 500.4050, L501.8100, L100.0500 #### [facility] [address] [place], [address] Chloride [Moles/Vol] 104 mmol/L Normal 98-108 [facility] Comment on above: Order Comment: 208.1 Performed By: #### L 500.4050, L501.8100, L100.0500 #### [facility] [address] [place], [address] CO2 [Moles/Vol] 29.1 mmol/L Normal 21.0-32.0 [facility] Comment on above: Order Comment: 208.1 Performed By: #### L 500.4050, L501.8100, L100.0500 #### [facility] [address] [place], [address] Creatinine [Mass/Vol] 0.58 mg/dL Low 0.70-1.20 [facility] Comment on above: Order Comment: 208.1 Performed By: #### L 500.4050, L501.8100, L100.0500 #### [facility] [address] [place], [address] GAP 9 Normal 5-15 [facility] Comment on above: Order Comment: 208.1 Performed By: #### L 500.4050, L501.8100, L100.0500 #### [facility] [address] [place], [address] GFR/1.73 sq M.predicted among non-blacks MDRD (S/P/Bld) [Vol rate/Area] 90 mL/min/{1.73_m2} Normal >60 [facility] Comment on above: Order Comment: .1 Result Comment: mL/m in/1.73m2 CKD-EPI Creatinine Equation (2020) Performed By: #### L 500.4050, L501.8100, L100.0500 #### [facility] [address] [place], [address] Globulin (S) [Mass/Vol] 2.7 g/dL Normal 2.2-4.2 [facility] Comment on above: Order Comment: 208.1 Performed By: #### L 500.4050, L501.8100, L100.0500 #### [facility] [address] [place], [address] Glucose [Mass/Vol] 83 mg/dL Normal 70-99 [facility] Comment on above: Order Comment: 208.1 Performed By: #### L 500.4050, L501.8100, L100.0500 #### [facility] [address] [place], [address] Potassium [Moles/Vol] 3.8 mmol/L Normal 3.3-5.1 [facility] Comment on above: Order Comment: 208.1 Performed By: #### L 500.4050, L501.8100, L100.0500 #### [facility] [address] [place], [address] Sodium [Moles/Vol] 143 mmol/L Normal 133-145 [facility] Comment on above: Order Comment: 208.1 Performed By: #### L 500.4050, L501.8100, L100.0500 #### [facility] [address] [place], [address] T PROT 5.9 g/dL Normal 5.9-8.4 [facility] Comment on above: Order Comment: 208.1 Performed By: #### L 500.4050, L501.8100, L100.0500 #### [facility] [address] [place], [address] Urea nitrogen [Mass/Vol] 20 mg/dL High 4-19 [facility] Comment on above: Order Comment: 208.1 Performed By: #### L 500.4050, L501.8100, L100.0500 #### [facility] [address] [place], [address] Erythrocyte distribution wid th ratioOrdered By: Marcio Pires on 09-18-2024 Erythrocyte distribution width (RBC) [Ratio] 13.2 % 11.6-14.6 [facility] Erythrocyte distribution wid th standard deviationOrdered By: Marcio Pires on 09-18-2024 Erythrocyte distribution width (RBC) [Ratio] 47.2 fl High 35.1-43.9 [facility] Glomerular filtration rate ( GFR) estimation/1.73 sq m using serum, plasma, or whole bOrdered By: Marcio Pires on 09-18-2024 GFR/1.73 sq M.predicted among non-blacks MDRD (S/P/Bld) [Vol rate/Area] 90 mL/min/{1.73_m2} >60 [facility] Comment on above: mL/min/1.73m2 CKD-EP I Creatinine Equation (2020) Hematocrit Auto (Bld) [Volum e fraction]Ordered By: Marcio Pires on 09-18-2024 Hematocrit (Bld) [Volume fraction] 30.3 % Low 37-47 [facility] Hemoglobin measurementOrdere d By: Marcio Pires on 09-18-2024 Hemoglobin (Bld) [Mass/Vol] 9.7 g/dL Low 12.0-15.0 [facility] - Chemistry and C hemistry - challengeOrdered By: Marcio Pires on 09-18-2024 AST [Catalytic activity/Vol] 15 U/L <32 [facility] MCV (mean corpuscular volume ) determinationOrdered By: Marcio Pires on 09-18-2024 MCV (RBC) [Entitic vol] 97.1 fL 81-99 [facility] Mean corpuscular hemoglobin (MCH) determinationOrdered By: Marcio Pires on 09-18-2024 MCH (RBC) [Entitic mass] 31.1 pg 27.0-32.0 [facility] Mean corpuscular hemoglobin concentration (MCHC) determinationOrdered By: Marcio Pires on 09-18-2024 MCHC (RBC) [Mass/Vol] 32.0 g/dL 32-36 [facility] Mean platelet volume determi nationOrdered By: Marcio Pires on 09-18-2024 Platelet mean volume (Bld) [Entitic vol] 9.6 fL 6.2-12.0 [facility] Platelet countOrdered By: Craig on 09-18-2024 Platelets (Bld) [#/Vol] 208 10*3/uL 150-450 [facility] Potassium measurement (mass/ volume)Ordered By: Marcio Pires on 09-18-2024 Potassium (Unsp spec) [Mass/Vol] 3.8 mmol/L 3.3-5.1 [facility] RBC Auto (Bld) [#/Vol]Ordere d By: Marcio Pires on 09-18-2024 RBC (Bld) [#/Vol] 3.12 10*6/uL Low 4.2-5.4 [facility] Serum creatinine measurement (mass/volume)Ordered By: Marcio Pires on 09-18-2024 Creatinine [Mass/Vol] 0.58 mg/dL Low 0.70-1.20 [facility] Serum globulin measurementOr dered By: Marcio Pires on 09-18-2024 Globulin (S) [Mass/Vol] 2.7 g/dL 2.2-4.2 [facility] Serum glucose measurement (m ass/volume)Ordered By: Marcio Pires on 09-18-2024 Glucose [Mass/Vol] 83 mg/dL 70-99 [facility] Serum or plasma alanine harrison otransferase (ALT) measurementOrdered By: Marcio Pires on 09-18-2024 ALT [Catalytic activity/Vol] 5 U/L <35 [facility] Serum or plasma albumin jim urement (mass/volume)Ordered By: Marcio Pires on 09-18-2024 Albumin [Mass/Vol] 3.2 g/dL Low 3.4-4.8 [facility] Serum or plasma albumin/glob ulin mass ratioOrdered By: Marcio Pires on 09-18-2024 Albumin/Globulin [Mass ratio] 1.2 {ratio} 0.9-2.4 [facility] Serum or plasma alkaline haven sphatase measurementOrdered By: Marcio Pires on 09-18-2024 ALP [Catalytic activity/Vol] 53 U/L 35-104 [facility] Serum or plasma calcium jim urement (mass/volume)Ordered By: Marcio Pires on 09-18-2024 Calcium [Mass/Vol] 8.9 mg/dL 7.6-11.0 [facility] Serum or plasma urea nitroge n measurement (mass/volume)Ordered By: Marcio Pires on 09-18-2024 Urea nitrogen [Mass/Vol] 20 mg/dL High 4-19 [facility] Serum or plasma valproate me asurement (mass/volume)Ordered By: Marcio Pires on 09-18-2024 Valproate [Mass/Vol] 42 ug/mL Low 50-100 [facility] Comment on above: Valproic Acid concen trations >100 ug/mL are potentially toxic. Sodium levelOrdered By: Marcio Pires on 09-18-2024 Sodium [Moles/Vol] 143 mmol/L 133-145 [facility] Total proteinOrdered By: Ana Luisa Pires on 09-18-2024 Protein [Mass/Vol] 5.9 g/dL 5.9-8.4 [facility] Valproic Acid (Depakene) Lev froilan 09-18-2024 VALPROIC ACID 42 ug/mL Low 50-100 [facility] Comment on above: Order Comment: 208.1 Result Comment: Valp roic Acid concentrations >100 ug/mL are potentially toxic. Performed By: #### L 500.4050, L501.8100, L100.0500 #### [facility] [address] [place], [address] White blood cell (WBC) count Ordered By: Marcio Pires on 09-18-2024 WBC (Bld) [#/Vol] 3.5 10*3/uL Low 4.4-11.0 [facility] Urine Cultureon 07-21-2024 [facility] Mixed Gram Positive Organisms [place] Count 11,000-25,000 [facility] Mixed contaminants. Submit a new specimen if indicated. Normal [facility] Comment on above: Performed By: #### L 500.4050, L501.8100, L100.0500 #### [facility] [address] [place], [address] Ammoniaon 07-20-2024 Ammonia (P) [Moles/Vol] 38.4 umol/L Normal 11- [facility] Comment on above: Order Comment: 208.1 Performed By: #### L 500.4050, L501.8100, L100.0500 #### [facility] [address] [place], [address] Anion gap in Serum or Plasma Ordered By: Marcio Pires on 07-20-2024 Anion gap [Moles/Vol] 11 mmol/L 5-15 [facility] BUN/creatinine ratioOrdered By: Marcio Pires on 07-20-2024 Urea nitrogen/Creatinine [Mass ratio] 33.7 mg/mg High 10-20 [facility] Bilirubin Test strip Ql (U)O rdered By: Marcio Pires on 07-20-2024 Bilirubin Ql (U) Negative Negative [facility] Bilirubin, totalOrdered By: Marcio Pires on 07-20-2024 Bilirubin [Mass/Vol] 0.17 mg/dL 0.00-1.30 [facility] CBC-Complete Blood Cnt No Di ffon 07-20-2024 Erythrocyte distribution width (RBC) [Ratio] 12.5 % Normal 11.6-14.6 [facility] Comment on above: Order Comment: 208.1 Performed By: #### L 400.0001, L503.5510, M100.2200, L500.4050, L100.0500 #### [facility] [address] [place], [address] Hematocrit (Bld) [Volume fraction] 33.5 % Low 37-47 [facility] Comment on above: Order Comment: 208.1 Performed By: #### L 400.0001, L503.5510, M100.2200, L500.4050, L100.0500 #### [facility] [address] [place], [address] Hemoglobin (Bld) [Mass/Vol] 10.8 g/dL Low 12.0-15.0 [facility] Comment on above: Order Comment: 208.1 Performed By: #### L 400.0001, L503.5510, M100.2200, L500.4050, L100.0500 #### [facility] [address] [place], [address] MCH (RBC) [Entitic mass] 30.6 pg Normal 27.0-32.0 [facility] Comment on above: Order Comment: 208.1 Performed By: #### L 400.0001, L503.5510, M100.2200, L500.4050, L100.0500 #### [facility] [address] [place], [address] MCHC (RBC) [Mass/Vol] 32.2 g/dL Normal 32-36 [facility] Comment on above: Order Comment: 208.1 Performed By: #### L 400.0001, L503.5510, M100.2200, L500.4050, L100.0500 #### [facility] [address] [place], [address] MCV (RBC) [Entitic vol] 94.9 fL Normal 81-99 [facility] Comment on above: Order Comment: .1 Performed By: #### L 400.0001, L503.5510, M100.2200, L500.4050, L100.0500 #### [facility] [address] [place], [address] Platelet mean volume (Bld) [Entitic vol] 9.2 fL Normal 6.2-12.0 [facility] Comment on above: Order Comment: .1 Performed By: #### L 400.0001, L503.5510, M100.2200, L500.4050, L100.0500 #### [facility] [address] [place], [address] Platelets (Bld) [#/Vol] 182 10*3/uL Normal 150-450 [facility] Comment on above: Order Comment: 208.1 Performed By: #### L 400.0001, L503.5510, M100.2200, L500.4050, L100.0500 #### [facility] [address] [place], [address] RBC (Bld) [#/Vol] 3.53 10*6/uL Low 4.2-5.4 [facility] Comment on above: Order Comment: 208.1 Performed By: #### L 400.0001, L503.5510, M100.2200, L500.4050, L100.0500 #### [facility] [address] [place], [address] RDW SD 43.4 fl Normal 35.1-43.9 [facility] Comment on above: Order Comment: .1 Performed By: #### L 400.0001, L503.5510, M100.2200, L500.4050, L100.0500 #### [facility] [address] [place], [address] WBC (Bld) [#/Vol] 3.1 10*3/uL Low 4.4-11.0 [facility] Comment on above: Order Comment: . Performed By: #### L 400.0001, L503.5510, M100.2200, L500.4050, L100.0500 #### [facility] [address] [place], [address] Carbon dioxide, total [Moles /volume] in Central venous bloodOrdered By: Marcio Pires on 07-20-2024 CO2 [Moles/Vol] 27.2 mmol/L 21.0-32.0 [facility] Chloride assayOrdered By: Craig on 07-20-2024 Chloride [Moles/Vol] 102 mmol/L 98-108 [facility] Comprehensive Metabolic Prof ilon 07-20-2024 Albumin [Mass/Vol] 3.3 g/dL Low 3.4-4.8 [facility] Comment on above: Order Comment: .1 Performed By: #### L 400.0001, L503.5510, M100.2200, L500.4050, L100.0500 #### [facility] [address] [place], [address] Albumin/Globulin [Mass ratio] 1.1 {ratio} Normal 0.9-2.4 [facility] Comment on above: Order Comment: 208.1 Performed By: #### L 400.0001, L503.5510, M100.2200, L500.4050, L100.0500 #### [facility] [address] [place], [address] ALK PHOS 60 U/L Normal 35-104 [facility] Comment on above: Order Comment: 208.1 Performed By: #### L 400.0001, L503.5510, M100.2200, L500.4050, L100.0500 #### [facility] [address] [place], [address] ALT [Catalytic activity/Vol] 8 U/L Normal <=34 [facility] Comment on above: Order Comment: 208.1 Performed By: #### L 400.0001, L503.5510, M100.2200, L500.4050, L100.0500 #### [facility] [address] [place], [address] AST [Catalytic activity/Vol] 20 U/L Normal <=31 [facility] Comment on above: Order Comment: 208.1 Performed By: #### L 400.0001, L503.5510, M100.2200, L500.4050, L100.0500 #### [facility] [address] [place], [address] Bilirubin [Mass/Vol] 0.17 mg/dL Normal 0.00-1.30 [facility] Comment on above: Order Comment: 208.1 Performed By: #### L 400.0001, L503.5510, M100.2200, L500.4050, L100.0500 #### [facility] [address] [place], [address] BUN/CRE 33.7 RATIO High 10-20 [facility] Comment on above: Order Comment: 208.1 Performed By: #### L 400.0001, L503.5510, M100.2200, L500.4050, L100.0500 #### [facility] [address] [place], [address] Calcium [Mass/Vol] 8.9 mg/dL Normal 7.6-11.0 [facility] Comment on above: Order Comment: 208.1 Performed By: #### L 400.0001, L503.5510, M100.2200, L500.4050, L100.0500 #### [facility] [address] [place], [address] Chloride [Moles/Vol] 102 mmol/L Normal 98-108 [facility] Comment on above: Order Comment: 208.1 Performed By: #### L 400.0001, L503.5510, M100.2200, L500.4050, L100.0500 #### [facility] [address] [place], [address] CO2 [Moles/Vol] 27.2 mmol/L Normal 21.0-32.0 [facility] Comment on above: Order Comment: 208.1 Performed By: #### L 400.0001, L503.5510, M100.2200, L500.4050, L100.0500 #### [facility] [address] [place], [address] Creatinine [Mass/Vol] 0.52 mg/dL Low 0.70-1.20 [facility] Comment on above: Order Comment: 208.1 Performed By: #### L 400.0001, L503.5510, M100.2200, L500.4050, L100.0500 #### [facility] [address] [place], [address] GAP 11 Normal 5-15 [facility] Comment on above: Order Comment: 208.1 Performed By: #### L 400.0001, L503.5510, M100.2200, L500.4050, L100.0500 #### [facility] [address] [place], [address] GFR/1.73 sq M.predicted among non-blacks MDRD (S/P/Bld) [Vol rate/Area] 92 mL/min/{1.73_m2} Normal >60 [facility] Comment on above: Order Comment: 208.1 Result Comment: mL/m in/1.73m2 CKD-EPI Creatinine Equation (2020) Performed By: #### L 400.0001, L503.5510, M100.2200, L500.4050, L100.0500 #### [facility] [address] [place], [address] Globulin (S) [Mass/Vol] 2.9 g/dL Normal 2.2-4.2 [facility] Comment on above: Order Comment: . Performed By: #### L 400.0001, L503.5510, M100.2200, L500.4050, L100.0500 #### [facility] [address] [place], [address] Glucose [Mass/Vol] 80 mg/dL Normal 70-99 [facility] Comment on above: Order Comment: . Performed By: #### L 400.0001, L503.5510, M100.2200, L500.4050, L100.0500 #### [facility] [address] [place], [address] Potassium [Moles/Vol] 3.7 mmol/L Normal 3.3-5.1 [facility] Comment on above: Order Comment: . Performed By: #### L 400.0001, L503.5510, M100.2200, L500.4050, L100.0500 #### [facility] [address] [place], [address] Sodium [Moles/Vol] 140 mmol/L Normal 133-145 [facility] Comment on above: Order Comment: 208.1 Performed By: #### L 400.0001, L503.5510, M100.2200, L500.4050, L100.0500 #### [facility] [address] [place], [address] T PROT 6.2 g/dL Normal 5.9-8.4 [facility] Comment on above: Order Comment: 208.1 Performed By: #### L 400.0001, L503.5510, M100.2200, L500.4050, L100.0500 #### [facility] [address] [place], [address] Urea nitrogen [Mass/Vol] 18 mg/dL Normal 4-19 [facility] Comment on above: Order Comment: 208.1 Performed By: #### L 400.0001, L503.5510, M100.2200, L500.4050, L100.0500 #### [facility] [address] [place], [address] Epithelial cells.renal LM.HP F (Urine sed) [#/Area]Ordered By: Marcio Pires on 07-20-2024 Urine Renal Epithelial Cells 5-10 SEEN /hpf 0-5 [facility] Epithelial cells.squamous LM Ql (Urine sed)Ordered By: Marcio Pires on 07-20-2024 Epithelial cells.squamous LM.HPF (Urine sed) [#/Area] 0 /[HPF] 5-10 [facility] Erythrocyte distribution wid th (RBC) [Ratio]Ordered By: Marcio Pires on 07-20-2024 Erythrocyte distribution width (RBC) [Entitic vol] 43.4 fL 35.1-43.9 [facility] Erythrocyte distribution wid th ratioOrdered By: Marcio Pires on 07-20-2024 Erythrocyte distribution width (RBC) [Ratio] 12.5 % 11.6-14.6 [facility] Erythrocyte distribution wid th standard deviationOrdered By: Marcio Pires on 07-20-2024 Erythrocyte distribution width (RBC) [Ratio] 43.4 fl 35.1-43.9 [facility] GFR/1.73 sq M.predicted lamar g non-blacks MDRD (S/P/Bld) [Vol rate/Area]Ordered By: Marcio Pires on 07-20-2024 Estimated GFR (MDRD) Non-Af Amer 92 >60 [facility] Comment on above: mL/min/1.73m2 CKD-EP I Creatinine Equation (2020) Glomerular filtration rate ( GFR) estimation/1.73 sq m using serum, plasma, or whole bOrdered By: Marcio Pires on 07-20-2024 GFR/1.73 sq M.predicted among non-blacks MDRD (S/P/Bld) [Vol rate/Area] 92 mL/min/{1.73_m2} >60 [facility] Comment on above: mL/min/1.73m2 CKD-EP I Creatinine Equation (2020) Glucose Ql (U)Ordered By: Craig on 07-20-2024 Urine Glucose (UA) Normal mg/dl Normal [facility] Hematocrit Auto (Bld) [Volum e fraction]Ordered By: Marcio Pires on 07-20-2024 Hematocrit (Bld) [Volume fraction] 33.5 % Low 37-47 [facility] Hemoglobin measurementOrdere d By: Marcio Pires on 07-20-2024 Hemoglobin (Bld) [Mass/Vol] 10.8 g/dL Low 12.0-15.0 [facility] Ketones Test strip Ql (U)Ord ered By: Marcio Pires on 07-20-2024 Ketones Ql (U) Negative Negative [facility] - Chemistry and C hemistry - challengeOrdered By: Marcio Pires on 07-20-2024 AST [Catalytic activity/Vol] 20 U/L <32 [facility] MCV (mean corpuscular volume ) determinationOrdered By: Marcio Pires on 07-20-2024 MCV (RBC) [Entitic vol] 94.9 fL 81-99 [facility] Mean corpuscular hemoglobin (MCH) determinationOrdered By: Marcio Pires on 07-20-2024 MCH (RBC) [Entitic mass] 30.6 pg 27.0-32.0 [facility] Mean corpuscular hemoglobin concentration (MCHC) determinationOrdered By: Marcio Pires on 07-20-2024 MCHC (RBC) [Mass/Vol] 32.2 g/dL 32-36 [facility] Mean platelet volume determi nationOrdered By: Marcio Pires on 07-20-2024 Platelet mean volume (Bld) [Entitic vol] 9.2 fL 6.2-12.0 [facility] Microscopic analysis of urin e for red blood cells (RBC)Ordered By: Marcio Pires on 07-20-2024 Microscopic analysis of urine for red blood cells (RBC) 0 SEEN /hpf 0-5 [facility] Urine RBC 0 SEEN /hpf 0-5 [facility] Mucus LM Ql (Urine sed)Order ed By: Marcio Pires on 07-20-2024 Mucus Ql (Urine sed) 0 SEEN /hpf [facility] Nitrite Test strip Ql (U)Ord ered By: Marcio Pires on 07-20-2024 Nitrite Ql (U) Negative Negative [facility] Platelet countOrdered By: Craig on 07-20-2024 Platelets (Bld) [#/Vol] 182 10*3/uL 150-450 [facility] Potassium (Unsp spec) [Mass/ Vol]Ordered By: Marcio Pires on 07-20-2024 Potassium [Moles/Vol] 3.7 mmol/L 3.3-5.1 [facility] Potassium measurement (mass/ volume)Ordered By: Marcio Pires on 07-20-2024 Potassium (Unsp spec) [Mass/Vol] 3.7 mmol/L 3.3-5.1 [facility] Protein Test strip Ql (U)Ord ered By: Marcio Pires on 07-20-2024 Protein Ql (U) 30 mg/dl High Negative [facility] RBC Auto (Bld) [#/Vol]Ordere d By: Marcio Pires on 07-20-2024 RBC (Bld) [#/Vol] 3.53 10*6/uL Low 4.2-5.4 [facility] Serum creatinine measurement (mass/volume)Ordered By: Marcio Pires on 07-20-2024 Creatinine [Mass/Vol] 0.52 mg/dL Low 0.70-1.20 [facility] Serum globulin measurementOr dered By: Marcio Pires on 07-20-2024 Globulin (S) [Mass/Vol] 2.9 g/dL 2.2-4.2 [facility] Serum glucose measurement (m ass/volume)Ordered By: Marcio Pires on 07-20-2024 Glucose [Mass/Vol] 80 mg/dL 70-99 [facility] Serum or plasma alanine harrison otransferase (ALT) measurementOrdered By: Marcio Pires on 07-20-2024 ALT [Catalytic activity/Vol] 8 U/L <35 [facility] Serum or plasma albumin jim urement (mass/volume)Ordered By: Marcio Pires on 07-20-2024 Albumin [Mass/Vol] 3.3 g/dL Low 3.4-4.8 [facility] Serum or plasma albumin/glob ulin mass ratioOrdered By: Marcio Pires on 07-20-2024 Albumin/Globulin [Mass ratio] 1.1 {ratio} 0.9-2.4 [facility] Serum or plasma alkaline haven sphatase measurementOrdered By: Marcio Pires on 07-20-2024 ALP [Catalytic activity/Vol] 60 U/L 35-104 [facility] Serum or plasma calcium jim urement (mass/volume)Ordered By: Marcio Pires on 07-20-2024 Calcium [Mass/Vol] 8.9 mg/dL 7.6-11.0 [facility] Serum or plasma urea nitroge n measurement (mass/volume)Ordered By: Marcio Pires on 07-20-2024 Urea nitrogen [Mass/Vol] 18 mg/dL 4-19 [facility] Sodium levelOrdered By: Marcio Pires on 07-20-2024 Sodium [Moles/Vol] 140 mmol/L 133-145 [facility] Squamous epithelial cells de tection in urine sediment by light microscopyOrdered By: Marcio Pires on 03-13-2025 Epithelial cells.squamous LM Ql (Urine sed) 0-5 SEEN /hpf 5-10 [facility] Total proteinOrdered By: Ana Luisa Pires on 07-20-2024 Protein [Mass/Vol] 6.2 g/dL 5.9-8.4 [facility] Transitional cells LM Ql (Ur ine sed)Ordered By: Marcio Pires on 07-20-2024 Urine Transitional Epithelial Cells 0 SEEN /hpf 0-5 [facility] Transitional cells detection in urine sediment by light microscopyOrdered By: Marcio Pires on 07-20-2024 Transitional cells LM Ql (Urine sed) 0 SEEN /hpf 0-5 [facility] Urinalysis, Completeon 07-20 EPI,RENAL 5-10 SEEN Normal 0-5 [facility] Comment on above: Order Comment: CLEAN CATCH Performed By: #### L 400.0001, L503.5510, M100.2200, L500.4050, L100.0500 #### [facility] [address] [place], [address] EPI,SQUAMOUS 0-5 SEEN Normal 5-10 [facility] Comment on above: Order Comment: CLEAN CATCH Performed By: #### L 400.0001, L503.5510, M100.2200, L500.4050, L100.0500 #### [facility] [address] [place], [address] EPI,TRANSITION 0 SEEN Normal 0-5 [facility] Comment on above: Order Comment: CLEAN CATCH Performed By: #### L 400.0001, L503.5510, M100.2200, L500.4050, L100.0500 #### [facility] [address] [place], [address] WBC 5-10 SEEN Normal 0-5 [facility] Comment on above: Order Comment: CLEAN CATCH Performed By: #### L 400.0001, L503.5510, M100.2200, L500.4050, L100.0500 #### [facility] [address] [place], [address] RBC 0 SEEN Normal 0-5 [facility] Comment on above: Order Comment: CLEAN CATCH Performed By: #### L 400.0001, L503.5510, M100.2200, L500.4050, L100.0500 #### [facility] [address] [place], [address] BACTERIA 0 SEEN Normal None Seen [facility] Comment on above: Order Comment: CLEAN CATCH Performed By: #### L 400.0001, L503.5510, M100.2200, L500.4050, L100.0500 #### [facility] [address] [place], [address] Mucus Ql (Urine sed) [address] [facility] Comment on above: Order Comment: CLEAN CATCH Performed By: #### L 400.0001, L503.5510, M100.2200, L500.4050, L100.0500 #### [facility] [address] [place], [address] Urine blood detectionOrdered By: Marcio Pires on 07-20-2024 Urine Occult Blood 10 /ul High Negative [facility] Urine clarityOrdered By: Ana Luisa Pires on 07-20-2024 Clarity (U) Sl. Cloudy Clear [facility] Urine color determinationOrd ered By: Marcio Pires on 07-20-2024 Color (U) Yellow Yellow [facility] Urine cultureOrdered By: Ana Luisa Pires on 07-20-2024 Bacteria identified Cx Nom (U) Positive Abnormal [facility] Urine glucose detectionOrder ed By: Marcio Pires on 07-20-2024 Glucose Ql (U) Normal mg/dl Normal [facility] Urine leukocyte esterase det ection by dipstickOrdered By: Marcio Pires on 07-20-2024 Leukocyte esterase Test strip Ql (U) 500 /ul High Negative [facility] Urine pHOrdered By: Marcio duncan on 07-20-2024 pH (U) 6.0 [pH] 5.0 - 8.0 [facility] Urine sediment bacteria coun t by microscopy (number/high power field)Ordered By: Marcio Pires on 07-20-2024 Bacteria LM.HPF (Urine sed) [#/Area] 0 /[HPF] None Seen [facility] Urine sediment renal epithel ial cell count by microscopy (number/high power field)Ordered By: Marcio Pires on 07-20-2024 Epithelial cells.renal LM.HPF (Urine sed) [#/Area] 5 /[HPF] 0-5 [facility] Urine specific gravity measu rementOrdered By: Marcio Pires on 07-20-2024 Specific gravity (U) [Rel density] 1.015 1.002-1.030 [facility] Urine urobilinogen measureme ntOrdered By: Marcio Pires on 07-20-2024 Urobilinogen Ql (U) Normal mg/dl Normal [facility] Urobilinogen Ql (U)Ordered B y: Marcio Pires on 07-20-2024 Urine Urobilinogen Normal mg/dl Normal [facility] Venous blood ammonia measure mentOrdered By: Marcio Pires on 07-20-2024 Ammonia (P) [Moles/Vol] 38.4 umol/L 11-51 [facility] White blood cell (WBC) count Ordered By: Marcio Pires on 07-20-2024 WBC (Bld) [#/Vol] 3.1 10*3/uL Low 4.4-11.0 [facility] White blood cell countOrdere d By: Marcio Pires on 07-20-2024 Urine WBC 5-10 SEEN /hpf 0-5 [facility] White blood cell count 5-10 SEEN /hpf 0-5 [facility] Valproate levelOrdered By: Khris Pires on 06-30-2024 Valproic Acid (Depakene) Level 46 ug/mL Low 50-100 [facility] Valproic Acid (Depakene) Lev froilan 06-30-2024 VALPROIC ACID 46 ug/mL Low 50-100 [facility] Comment on above: Order Comment: 208-1 Performed By: #### L 501.8100 #### [facility] [address] [place], [address] CBC-Complete Blood Cnt No Di ffon 03-24-2024 Erythrocyte distribution width (RBC) [Ratio] 13.0 % Normal 11.6-14.6 [facility] Comment on above: Order Comment: - Performed By: #### L 501.8100, L500.4050, L100.0500 #### [facility] [address] [place], [address] Hematocrit (Bld) [Volume fraction] 33.8 % Low 37-47 [facility] Comment on above: Order Comment: - Performed By: #### L 501.8100, L500.4050, L100.0500 #### [facility] [address] [place], [address] Hemoglobin (Bld) [Mass/Vol] 10.9 g/dL Low 12.0-15.0 [facility] Comment on above: Order Comment: Performed By: #### L 501.8100, L500.4050, L100.0500 #### [facility] [address] [place], [address] MCH (RBC) [Entitic mass] 29.9 pg Normal 27.0-32.0 [facility] Comment on above: Order Comment: - Performed By: #### L 501.8100, L500.4050, L100.0500 #### [facility] [address] [place], [address] MCHC (RBC) [Mass/Vol] 32.2 g/dL Normal 32-36 [facility] Comment on above: Order Comment: - Performed By: #### L 501.8100, L500.4050, L100.0500 #### [facility] [address] [place], [address] MCV (RBC) [Entitic vol] 92.6 fL Normal 81-99 [facility] Comment on above: Order Comment: 211-1 Performed By: #### L 501.8100, L500.4050, L100.0500 #### [facility] [address] [place], [address] Platelet mean volume (Bld) [Entitic vol] 8.9 fL Normal 6.2-12.0 [facility] Comment on above: Order Comment: -1 Performed By: #### L 501.8100, L500.4050, L100.0500 #### [facility] [address] [place], [address] Platelets (Bld) [#/Vol] 224 10*3/uL Normal 150-450 [facility] Comment on above: Order Comment: - Performed By: #### L 501.8100, L500.4050, L100.0500 #### [facility] [address] [place], [address] RBC (Bld) [#/Vol] 3.65 10*6/uL Low 4.2-5.4 [facility] Comment on above: Order Comment: - Performed By: #### L 501.8100, L500.4050, L100.0500 #### [facility] [address] [place], [address] RDW SD 44.0 fl High 35.1-43.9 [facility] Comment on above: Order Comment: -1 Performed By: #### L 501.8100, L500.4050, L100.0500 #### [facility] [address] [place], [address] WBC (Bld) [#/Vol] 5.1 10*3/uL Normal 4.4-11.0 [facility] Comment on above: Order Comment: 211-1 Performed By: #### L 501.8100, L500.4050, L100.0500 #### [facility] [address] [place], [address] Comprehensive Metabolic Prof ilon 03-24-2024 Albumin [Mass/Vol] 3.0 g/dL Low 3.2-5.0 [facility] Comment on above: Order Comment: - Performed By: #### L 501.8100, L500.4050, L100.0500 #### [facility] [address] [place], [address] Albumin/Globulin [Mass ratio] 0.9 {ratio} Normal 0.9-2.4 [facility] Comment on above: Order Comment: - Performed By: #### L 501.8100, L500.4050, L100.0500 #### [facility] [address] [place], [address] ALK P 76 U/L Normal 45-117 [facility] Comment on above: Order Comment: - Performed By: #### L 501.8100, L500.4050, L100.0500 #### [facility] [address] [place], [address] ALT [Catalytic activity/Vol] 17 U/L Normal 13-56 [facility] Comment on above: Order Comment: - Performed By: #### L 501.8100, L500.4050, L100.0500 #### [facility] [address] [place], [address] AST [Catalytic activity/Vol] 12 U/L Low 15-37 [facility] Comment on above: Order Comment: - Performed By: #### L 501.8100, L500.4050, L100.0500 #### [facility] [address] [place], [address] Bilirubin [Mass/Vol] 0.20 mg/dL Normal 0.20-1.00 [facility] Comment on above: Order Comment: Result Comment: For patients on eltrombopag therapy, use of Dimension Curtis TBIL is not recommended. Performed By: #### L 501.8100, L500.4050, L100.0500 #### [facility] [address] [place], [address] BUN/CRE 43.6 RATIO High 10-20 [facility] Comment on above: Order Comment: Performed By: #### L 501.8100, L500.4050, L100.0500 #### [facility] [address] [place], [address] CA,Total 8.7 mg/dL Normal 8.5-10.1 [facility] Comment on above: Order Comment: Performed By: #### L 501.8100, L500.4050, L100.0500 #### [facility] [address] [place], [address] Chloride [Moles/Vol] 107 mmol/L Normal 98-107 [facility] Comment on above: Order Comment: Performed By: #### L 501.8100, L500.4050, L100.0500 #### [facility] [address] [place], [address] CO2 [Moles/Vol] 31.0 mmol/L Normal 21.0-32.0 [facility] Comment on above: Order Comment: Performed By: #### L 501.8100, L500.4050, L100.0500 #### [facility] [address] [place], [address] Creatinine [Mass/Vol] 0.55 mg/dL Normal 0.55-1.02 [facility] Comment on above: Order Comment: Result Comment: The validity of the calculated GFR GFRAA in patients over 70 years has not been determined. Clinical correlation is essential. Performed By: #### L 501.8100, L500.4050, L100.0500 #### [facility] [address] [place], [address] EST GFR - AA 136 mL/min Normal >60 [facility] Comment on above: Order Comment: Result Comment: Afri can [place] GFR Calc Performed By: #### L 501.8100, L500.4050, L100.0500 #### [facility] [address] [place], [address] GAP 3 Low 5-15 [facility] Comment on above: Order Comment: Performed By: #### L 501.8100, L500.4050, L100.0500 #### [facility] [address] [place], [address] GFR/1.73 sq M.predicted among non-blacks MDRD (S/P/Bld) [Vol rate/Area] 112 mL/min/{1.73_m2} Normal >60 [facility] Comment on above: Order Comment: Result Comment: Non- GFR Calc Performed By: #### L 501.8100, L500.4050, L100.0500 #### [facility] [address] [place], [address] Globulin (S) [Mass/Vol] 3.5 g/dL Normal 2.2-4.2 [facility] Comment on above: Order Comment: Performed By: #### L 501.8100, L500.4050, L100.0500 #### [facility] [address] [place], [address] Glucose [Mass/Vol] 87 mg/dL Normal 74-106 [facility] Comment on above: Order Comment: Performed By: #### L 501.8100, L500.4050, L100.0500 #### [facility] [address] [place], [address] Potassium [Moles/Vol] 3.8 mmol/L Normal 3.5-5.1 [facility] Comment on above: Order Comment: 211-1 Performed By: #### L 501.8100, L500.4050, L100.0500 #### [facility] [address] [place], [address] Sodium [Moles/Vol] 141 mmol/L Normal 136-145 [facility] Comment on above: Order Comment: - Performed By: #### L 501.8100, L500.4050, L100.0500 #### [facility] [address] [place], [address] T PROT 6.5 g/dL Normal 6.4-8.2 [facility] Comment on above: Order Comment: - Performed By: #### L 501.8100, L500.4050, L100.0500 #### [facility] [address] [place], [address] Urea nitrogen [Mass/Vol] 24 mg/dL High 7-18 [facility] Comment on above: Order Comment: - Performed By: #### L 501.8100, L500.4050, L100.0500 #### [facility] [address] [place], [address] Valproic Acid (Depakene) Lev froilan 03-24-2024 VALPROIC ACID 33 ug/mL Low 50-100 [facility] Comment on above: Order Comment: 211- Performed By: #### L 501.8100, L500.4050, L100.0500 #### [facility] [address] [place], [address] 36on 11-08-2023 36 Flecainide removed f rom med list [facility] 36 Dr Doherty review ed and asked for Flecainide to be discontinued [facility] 36 Called [facility] patient had a CVA and is in Hospice Care [facility] 36 We have made several attempts to contact the patient to schedule refill delivery for Eliquis. We have left a total of 5 messages between 10/12 and today. At this time we will not make any further attempts to contact the patient. [facility] can be reached at . Thank you! [facility] 36 Shannan, can you call to see if she is still taking? This might have been discontinued since on hospice now [facility] 36on 11-04-2023 36 I will dc the medication. She does not need it. [place] [address] VAMSHI OC LIPID-07/[address] 10-26-2023 36 Received call from khris Pollard, pt w/ recent CVA, treated at [facility], records in [place]. Pt discharged to SNF under hospice care. Heart Valve Clinic appts cancelled. OV w/ Dr. Doherty in December cancelled. Dr. Doherty staff updated with pt status. [place] [address]on 09-28-2023 36 Patient called in to day and r/s appt. 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 [address] 09-20-2023 36 I called and spoke t o patient. She would like me to call her next week to r/s. She has a lot going on right now. [place] [address] Name of caller: Priya correa Contact phone number: [phone] Relationship to Patient: patient Provider: Dr. Panda Practice: [facility] Chief Complaint/Reason for Call: The patient states she lives in an assistance living facility and she had another health issues over the weekend and cannot leave the facility. Therefore, she needs to cancel her appointment on 09-21-2023 at 1:[address] Panda. The patient states she will call back to reschedule her appointment. If you have any questions, please call the patient. Note: The patient would not say what other issues she was having. Best time of day caller can be reached: anytime Patient advised that office/PCP has 24-48 business hours to return their call: Yes [facility] 36on 08-20-2023 36 Patient called puneet herrera how far out we are scheduling in the valve clinic as she has to set up transportation. I told her 09/14/23 and she will call back to schedule. [facility] 36 Called patient and explained that TAVR is thru the groin area but first she will meet with the valve team and discuss options address given and she will meet with Valve team but is hesitant to have Aortic Valve replaced [place] [address] RC to pt, pt has questions, where would the valve repair surgical site be (area of the body) pt is concerned that she has abdominal scar tissue from previous surgeries. [place] [address]on 08-13-2023 36 I spoke to the devone nt this afternoon after reviewing the echo images. Her aortic valve stenosis is clearly in the severe range now. She is minimally symptomatic if at all. She has some fatigue with exertion, but denies chest pain, dyspnea, dizziness, or syncope. She is however fairly inactive. All in all, I told her that the likelihood of having a cardiac issue during her knee replacement is on the high side. I told her I would cancel that procedure. I also told her that I would like her to see our valve clinic to assess the need for TAVR. She is unsure whether she wants to proceed. We discussed the implications of doing nothing. She promised that she would think about it over the weekend and call me back next week. [facility] 36 Pt lvm again this morning requesting results of echo [place] [id number] 08-10-2023 36 Notified patient mery t Dr Doherty will call her [facility] 36 Pt lvm requesting results of echo doen 08/03/23 [place] [id number] 08-06-2023 36 Notified patient mery t I will call with Dr Doherty response ,she is very apprehensive about knee surgery at her age [facility] 36 Pt lvm returning you r sandro [facility] 36 Rt TKA will potentia lly be scheduled by Dr Melendez end of September patient asking about Echo results [facility] 36 Pt requesting result s of echo results, pending knee sx Normal [facility] US Heart TransthoracicOrdere d By: Taylor Petersen on 08-03-2023 Aortic Sinus Valsalva 2.6 cm [facility] Work Phone: [phone] Aortic Sinus Valsalva Index 1.51 cm/m2 [facility] Work Phone: [phone] Ascending Aorta 2.7 cm [facility]a lth Work Phone: [phone] Ascending Aorta Index 1.57 cm/m2 [facility] Work Phone: [phone] AV Area by Peak Velocity 0.8 cm2 [facility] Work Phone: [phone] AV Area by VTI 0.8 cm2 [facility] th Work Phone: [phone] AV Mean Gradient 41 mmHg [facility] al[facility] Work Phone: [phone] AV Mean Velocity 3.1 m/s [facility] Work Phone: [phone] AV Peak Gradient 62 mmHg [facility] Work Phone: [phone] AV Peak Velocity 3.9 m/s [facility] Work Phone: [phone] AV Velocity Ratio 0.26 [facility] e[facility] Work Phone: [phone] AV VTI 115.4 cm [facility] Work Phone: [phone] ENID/BSA Peak Velocity 0.5 cm2/m2 [facility] Work Phone: [phone] ENID/BSA VTI 0.5 cm2/m2 [facility] Work Phone: [phone] E/E' Lateral 14.50 [facility] Work Phone: E/E' Ratio (Averaged) 15.95 [facility] Work Phone: E/E' Septal 17.40 [facility] Highlight Work Phone: [phone] EF BP 74 % 55 - 100 % [facility] Work Phone: [phone] Fractional Shortening 2D 40 % 28 - 44 % [facility] Highlight Work Phone: [phone] Interpretation and review of laboratory results Abnormal [facility] Work Phone: IVSd 1.1 cm Abnormal 0.6 - 0.9 cm [facility] Work Phone: LA Diameter 3.6 cm [facility] Work Phone: LA Size Index 2.09 cm/m2 [facility] Healt Work Phone: LA Volume 2C 44 mL 22 - 52 mL [facility] Work Phone: LA Volume 4C 40 mL 22 - 52 mL [facility] Work Phone: LA Volume A/L 44 mL [facility] Work Phone: LA Volume Index 2C 26 mL/m2 16 - 34 mL/m2 [facility] Work Phone: LA Volume Index 4C 23 mL/m2 16 - 34 mL/m2 [facility] Highlight Work Phone: LA Volume Index A/L 26 mL/m2 16 - 34 mL/m2 [facility] Work Phone: LV E' Lateral Velocity 6 cm/s [facility] Work Phone: LV E' Septal Velocity 5 cm/s [facility] Work Phone: LV EDV A2C 54 mL [facility] Work Phone: LV EDV A4C 59 mL [facility] Work Phone: LV EDV BP 58 mL 56 - 104 mL [facility] Work Phone: LV EDV Index A2C 31 mL/m2 [facility] Work Phone: LV EDV Index A4C 34 mL/m2 [facility] Work Phone: LV EDV Index BP 34 mL/m2 [facility] Work Phone: LV Ejection Fraction A2C 73 % [facility] Work Phone: LV Ejection Fraction A4C 77 % [facility] Highlight Work Phone: LV ESV A2C 15 mL [facility] Work Phone: LV ESV A4C 13 mL [facility] Work Phone: LV ESV BP 15 mL Abnormal 19 - 49 mL [facility] Work Phone: LV ESV Index A2C 9 mL/m2 [facility] al[facility] Work Phone: LV ESV Index A4C 8 mL/m2 [facility] al[facility] Work Phone: LV ESV Index BP 9 mL/m2 [facility] Work Phone: LV Mass 2D 157.1 g 67 - 162 g [facility] Work Phone: LV Mass 2D Index 91.3 g/m2 43 - 95 g/m2 [facility] Work Phone: LV RWT Ratio 0.52 [facility] Work Phone: LVIDd 4.2 cm 3.9 - 5.3 cm [facility] Work Phone: LVIDd Index 2.44 cm/m2 [facility] Work Phone: LVIDs 2.5 cm [facility] Work Phone: LVIDs Index 1.45 cm/m2 [facility] Work Phone: LVOT Area 3.1 cm2 [facility] Work Phone: LVOT Cardiac Output 5.4 liter/mi nut e [facility] Work Phone: LVOT Diameter 2.0 cm [facility] h Work Phone: LVOT Mean Gradient 2 mmHg [facility] Work Phone: LVOT Peak Gradient 4 mmHg [facility] Work Phone: LVOT Peak Velocity 1.0 m/s [facility] Work Phone: LVOT Stroke Volume Index 52.9 mL/m2 [facility] Work Phone: LVOT SV 91.1 ml [facility] Work Phone: LVOT VTI 29.0 cm [facility] Work Phone: LVOT:AV VTI Index 0.25 [facility] ealth Work Phone: LVPWd 1.1 cm Abnormal 0.6 - 0.9 cm [facility] Work Phone: MV A Velocity 1.28 m/s [facility]alt h Work Phone: MV Area by PHT 1.6 cm2 [facility] th Work Phone: MV Area by VTI 2.4 cm2 [facility] th Work Phone: MV E Velocity 0.87 m/s [facility]alt h Work Phone: MV E Wave Deceleration Time 323.6 ms [facility] Work Phone: MV E/A 0.68 [facility] Work Phone: MV Max Velocity 1.4 m/s [facility] l[facility] Work Phone: MV Mean Gradient 2 mmHg [facility] Work Phone: MV Mean Velocity 0.7 m/s [facility] Work Phone: MV Peak Gradient 7 mmHg [facility] Work Phone: MV PHT 136.4 ms [facility] Work Phone: MV VTI 37.7 cm [facility] Work Phone: MV:LVOT VTI Index 1.30 [facility] Work Phone: RV Mid Dimension 3.1 cm [facility] alth Work Phone: Sinotubular Junction 2.4 cm [facility] Work Phone: TR Max Velocity 2.58 m/s [facility] l[facility] Work Phone: TR Peak Gradient 27 mmHg [facility] al[facility] Work Phone: [facility] Work Phone: US Heart Transthoracicon Left Ventricle: Left ventricle size is normal. Mildly increased wall thickness. Normal left ventricular systolic function. Normal wall motion. Right Ventricle: Right ventricle size is normal. Normal systolic function. Aortic Valve: Trileaflet. Severely calcified cusps. Trace regurgitation. Severe stenosis of the aortic valve. AV mean gradient is 41 mmHg. AV peak gradient is 62 mmHg. LVOT:AV VTI Index is 0.25. AV area by continuity VTI is 0.8 cm2. Left Ventricle Left ventricle size is normal. Mildly increased wall thickness. Normal left ventricular systolic function. Normal wall motion. Right Ventricle Right ventricle size is normal. Normal systolic function. Left Atrium Left atrium size is normal. Right Atrium Right atrium size is normal. IVC/SVC IVC was not well visualized. Mitral Valve Mildly thickened leaflets. Mildly calcified leaflets. Moderate annular calcification. Trace regurgitation. No stenosis noted. Tricuspid Valve Valve structure is normal. Trace regurgitation. Aortic Valve Trileaflet. Severely calcified cusps. Trace regurgitation. Severe stenosis of the aortic valve. AV mean gradient is 41 mmHg. AV peak gradient is 62 mmHg. LVOT:AV VTI Index is 0.25. AV area by continuity VTI is 0.8 cm2. Pulmonic Valve The pulmonic valve visualization is suboptimal but appears to be functioning normally. Trace regurgitation. Ascending Aorta Normal sized sinuses of Valsalva and ascending aorta. Pericardium No pericardial effusion. Septum No interatrial shunt visualized on color Doppler. Study Details Image quality: good. Heart rate: 54 bpm. Blood pressure: 142/78 mmHg. The underlying ECG rhythm was sinus bradycardia. No contrast was given. CV CPACS Absolute lymphocyte countOrd ered By: Lisa Fuentes on 07-09-2023 Lymphocytes Auto (Unsp spec) [#/Vol] 1.28 10*3/uL 0.83-4.51 [facility] Automated lymphocyte count a s percentage of total leukocytesOrdered By: Lisa Fuentes on 07-09-2023 Lymphocytes/100 WBC Auto (Unsp spec) 15.4 % 19-41 [facility] Basophil percentageOrdered B y: Lisa Fuentes on 07-09-2023 Basophils/100 WBC (Bld) 0.1 % 0-1 [facility] Chloride [Moles/Vol] 101 mmol/L 98-107 [facility] Eosinophils/100 WBC (Bld) 0.0 % 0-5 [facility] Glucose [Mass/Vol] 81 mg/dL 74-106 [facility] Hemoglobin (Bld) [Mass/Vol] 13.3 g/dL 12.0-15.0 [facility] Monocytes/100 WBC (Bld) 8.0 % 0-10 [facility] Neutrophils (Bld) [#/Vol] 6.3 10*3/uL 2.0-7.7 [facility] Neutrophils/100 WBC (Bld) 76.0 % 47-70 [facility] Potassium [Moles/Vol] 3.9 mmol/L 3.5-5.1 [facility] Sodium [Moles/Vol] 133 mmol/L 136-145 [facility] WBC (Bld) [#/Vol] 8.3 10*3/uL 4.4-11.0 [facility] Determination of erythrocyte mean corpuscular volume (MCV)Ordered By: Lisa Fuentes on 07-09-2023 MCV (RBC) [Entitic vol] 93.5 fL 81-99 [facility] Erythrocyte distribution wid th ratioOrdered By: Lisa Fuentes on 07-09-2023 Erythrocyte distribution width (RBC) [Ratio] 12.6 % 11.6-14.6 [facility] Erythrocyte distribution wid th standard deviationOrdered By: Lisa Fuentes on 07-09-2023 Erythrocyte distribution width (RBC) [Entitic vol] 43.1 fL 35.1-43.9 [facility] Hematocrit Auto (Bld) [Volum e fraction]Ordered By: Lisa Fuentes on 07-09-2023 Hematocrit (Bld) [Volume fraction] 40.1 % 37-47 [facility] Immature granulocytes/100 WB C Auto (Bld)Ordered By: Lisa Fuentes on 07-09-2023 Immature granulocytes/100 WBC (Bld) 0.500 % 0.0-0.9 [facility] Comment on above: IG% - Immature Granu locytes (promyelocytes, myelocytes and metamyelocytes) > 1% indicates that a LEFT SHIFT is Present. Laboratory - Chemistry and C hemistry - challengeOrdered By: Lisa Fuentes on 07-09-2023 CO2 [Moles/Vol] 27.0 mmol/L 21.0-32.0 [facility] Magnesium [Mass/Vol] 1.9 mg/dL 1.6-2.6 [facility] Urea nitrogen/Creatinine [Mass ratio] 28.8 mg/mg 10-20 [facility] Laboratory - Hematology and Cell countsOrdered By: Lisa Fuentes on 07-09-2023 MCH (RBC) [Entitic mass] 31.0 pg 27.0-32.0 [facility] MCHC (RBC) [Mass/Vol] 33.2 g/dL 32-36 [facility] Nucleated RBC/100 WBC (Bld) [Ratio] 0 % 0-5 [facility] Platelet mean volume (Bld) [Entitic vol] 9.0 fL 6.2-12.0 [facility] Platelets (Bld) [#/Vol] 282 10*3/uL 150-450 [facility] No Panel InformationOrdered By: Lisa Fuentes on 07-09-2023 Estimated GFR (MDRD) Amer 80 mL/min >60 [facility] Comment on above: GFR Calc Estimated GFR (MDRD) Non-Af Amer 66 mL/min >60 [facility] Comment on above: Non- GFR Calc RBC Auto (Bld) [#/Vol]Ordere d By: Lisa Fuentes on 07-09-2023 RBC (Bld) [#/Vol] 4.29 10*6/uL 4.2-5.4 [facility] Serum or plasma calcium jim urement (mass/volume)Ordered By: Lisa Fuentes on 07-09-2023 Calcium [Mass/Vol] 9.6 mg/dL 8.5-10.1 [facility] Serum or plasma creatinine m easurement (mass/volume)Ordered By: Lisa Fuentes on 07-09-2023 Creatinine [Mass/Vol] 0.87 mg/dL 0.55-1.02 [facility] Comment on above: The validity of the calculated GFR & GFRAA in patients over 70 years has not been determined. Clinical correlation is essential. Serum or plasma urea nitroge n measurement (mass/volume)Ordered By: Lisa Fuentes on 07-09-2023 Urea nitrogen [Mass/Vol] 25 mg/dL 7-18 [facility] Thin prep Papanicolaou smear with manual screeningOrdered By: Lisa Fuentes on 07-09-2023 Thin prep Papanicolaou smear with manual screening 5 5-15 [facility] Office Visiton 07-07-2023 Follow-up visit [id number] Ciro Yanez 1940 F Date Provider Department Center 07/07/2023 [id number] CORCORAN [facility] ORT None Family History Problem Relation Age of Onset Mental illness Mother Cancer Sister Diabetes Father Family Status - Relation Status Age at Mother Sister Father Level of Service:37370 NM OFFICE/OUTPATIENT NEW LOW MDM 30 MINUTES Reason for Visit and Comments: 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 female who presents for evaluation of the bilateral knee. Right worse Symptoms began gradually several years ago. She describes the symptoms as aching. The pain is anterior. Symptoms improve with rest, medication: Stoughton used but not effective. The symptoms are [...] ,Not diabetic, Hx of Left MERY at [facility] about 15 years ago. Previous Surgery: No [...] Cancer Sister Diabetes Father Allergies Allergen Reactions Brianna Inhibitors Other Tetanus Toxoids Swelling Sulfa Antibiotics Itching and Rash Objective: Ht 5' 4" (1.626 m) Wt 147 lb (66.7 kg) BMI 25.23 kg/m? Pt is a WD/WN female in no [...] sunrise view. Details of Examination: Exam shows evidenc (more content not included)... Normal [facility] ECG 12 lead - CLINIC PERFORM EDon 06-15-2023 Sinus Rhythm NORMAL ECG [facility] Office Visiton 06-15-2023 Follow-up visit [id number] Ciro Yanez susana 1940 F Date Provider Department Center 06/15/2023 [id number] None Family History Problem Relation Age of Onset Mental illness Mother Cancer Sister Diabetes Father Family Status - Relation Status Age at Mother Sister Father Level of Service:66457 NM OFFICE/OUTPATIENT ESTABLISHED MOD MDM 30 MIN Reason for Visit and Comments: Atrial Fibrillation [80] - PAF Hyperlipidemia [182] Hypertension [380950] Sleep Apnea [348] Cardiac Valve Problem [1334] - AV stenosis Syncope [506] - Hypotensive events Transient Ischemic Attack [518968] Normal [facility] Progress Noteon 06-15-2023 Progress Note [facility] [place] [facility]/Electrophysio logy Follow Up Clinic Note Chief Complaint: Chief Complaint Patient presents with Atrial Fibrillation PAF Hyperlipidemia Hypertension Sleep Apnea Cardiac Valve Problem AV stenosis Syncope Hypotensive events Transient Ischemic Attack History of Present Illness: Ileana Yanez is a 83 y.o. female with HTN [...] In Feb 2021 she was taken to [facility] for an episode of diaphoresis and fatigue [...] in her knees, for which she takes Stoughton. She walks with a walker. 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 5. Bilateral Bruits. Results of the U/S from May 2017 are noted above. This is more likely related to her aortic stenosis murmur. 6. HL Her cholesterol in 2016 was [...] surgery. I encouraged her to see Dr. Melendez to discuss possible surgical options. Past Medical [...] Relation Name Age of Onset Mental illness Mothe (more content not included)... Normal [facility] 36on 05-13-2023 37 VAMSHI 11-24-22 05-25-23 04-05-23 Lipid/LFT in CE under OHIP Normal [facility] 36on 04-15-2023 37 VAMSHI 11-24-22 05-25-23 11-02-22 CBC CMP/creat 0.78 in CE [facility] 36 Last seen 11/24/22, next appt 05/25/23 [facility] 36on 04-09-2023 37 VAMSHI with OC 11-24-22 NOV 05-25-23 11-05-22 bmp/creat 0.78 in CE [facility] Basophil percentageOrdered B y: Lisa Fuentes on 04-09-2023 Chloride [Moles/Vol] 100 mmol/L 98-107 [facility] Glucose [Mass/Vol] 79 mg/dL 74-106 [facility] Potassium [Moles/Vol] 4.1 mmol/L 3.5-5.1 [facility] Sodium [Moles/Vol] 134 mmol/L 136-145 [facility] Laboratory - Chemistry and C hemistry - challengeOrdered By: Lisa Fuentes on 04-09-2023 CO2 [Moles/Vol] 29.0 mmol/L 21.0-32.0 [facility] Urea nitrogen/Creatinine [Mass ratio] 20.6 mg/mg 10-20 [facility] No Panel InformationOrdered By: Lisa Fuentes on 04-09-2023 Estimated GFR (MDRD) Amer 85 mL/min >60 [facility] Comment on above: GFR Calc Estimated GFR (MDRD) Non-Af Amer 71 mL/min >60 [facility] Comment on above: Non- GFR Calc Serum or plasma calcium jim urement (mass/volume)Ordered By: Lisa Fuentes on 04-09-2023 Calcium [Mass/Vol] 9.0 mg/dL 8.5-10.1 [facility] Serum or plasma creatinine m easurement (mass/volume)Ordered By: Lisa Fuentes on 04-09-2023 Creatinine [Mass/Vol] 0.82 mg/dL 0.55-1.02 [facility] Comment on above: The validity of the calculated GFR & GFRAA in patients over 70 years has not been determined. Clinical correlation is essential. Serum or plasma urea nitroge n measurement (mass/volume)Ordered By: Lisa Fuentes on 04-09-2023 Urea nitrogen [Mass/Vol] 17 mg/dL 7-18 [facility] Thin prep Papanicolaou smear with manual screeningOrdered By: Lisa Fuentes on 04-09-2023 Thin prep Papanicolaou smear with manual screening 5 5-15 [facility] Basophil percentageOrdered B y: Lisa Fuentes on 04-05-2023 Bilirubin [Mass/Vol] 0.30 mg/dL 0.20-1.00 [facility] Comment on above: For patients on eltr ombopag therapy, use of Dimension Curtis TBIL is not recommended. Chloride [Moles/Vol] 101 mmol/L 98-107 [facility] Cholesterol [Mass/Vol] 198 mg/dL <200 [facility] Comment on above: <200 mg/dL Desirable 200-240 mg/dL Borderline >240 mg/dL High Risk Glucose [Mass/Vol] 83 mg/dL 74-106 [facility] Potassium [Moles/Vol] 4.3 mmol/L 3.5-5.1 [facility] Protein [Mass/Vol] 6.5 g/dL 6.4-8.2 [facility] Sodium [Moles/Vol] 132 mmol/L 136-145 [facility] Triglyceride [Mass/Vol] 58 mg/dL <199 [facility] Comment on above: The drugs N-Acetylcy steine and Metamizole may falsely depress this assay.Serum Triglycerides Reference Interval Normal <150 mg/dL Borderline high 150 - 199 mg/dL High 200 - 499 mg/dL Very High > or = 500 mg/dL WBC (Bld) [#/Vol] 3.6 10*3/uL 4.4-11.0 [facility] Blood erythrocytes count (nu mber/volume)Ordered By: Lisa Fuentes on 04-05-2023 RBC (Bld) [#/Vol] 3.78 10*6/uL 4.2-5.4 [facility] Blood hemoglobin measurement (mass/volume)Ordered By: Lisa Fuentes on 04-05-2023 Hemoglobin (Bld) [Mass/Vol] 11.5 g/dL 12.0-15.0 [facility] Blood platelet mean volumeOr dered By: Lisa Fuentes on 04-05-2023 Platelet mean volume (Bld) [Entitic vol] 9.0 fL 6.2-12.0 [facility] Determination of erythrocyte mean corpuscular volume (MCV)Ordered By: Lisa Fuentes on 04-05-2023 MCV (RBC) [Entitic vol] 95.0 fL 81-99 [facility] Hematocrit Auto (Bld) [Volum e fraction]Ordered By: Lisa Fuentes on 04-05-2023 Hematocrit (Bld) [Volume fraction] 35.9 % 37-47 [facility] Laboratory - Chemistry and C hemistry - challengeOrdered By: Lisa Fuentes on 04-05-2023 ALP [Catalytic activity/Vol] 89 U/L 45-117 [facility] ALT [Catalytic activity/Vol] 14 U/L 13-56 [facility] CO2 [Moles/Vol] 26.0 mmol/L 21.0-32.0 [facility] Cobalamin (Vitamin B12) [Mass/Vol] 500 pg/mL 211-911 [facility] Globulin (S) [Mass/Vol] 3.3 g/dL 2.2-4.2 [facility] Urea nitrogen/Creatinine [Mass ratio] 32.1 mg/mg 10-20 [facility] Laboratory - Hematology and Cell countsOrdered By: Lisa Fuentes on 04-05-2023 Erythrocyte distribution width (RBC) [Entitic vol] 43.3 fL 35.1-43.9 [facility] Erythrocyte distribution width (RBC) [Ratio] 12.5 % 11.6-14.6 [facility] MCH (RBC) [Entitic mass] 30.4 pg 27.0-32.0 [facility] MCHC Auto (RBC) [Mass/Vol]Or dered By: Lisa Fuentes on 04-05-2023 MCHC (RBC) [Mass/Vol] 32.0 g/dL 32-36 [facility] No Panel InformationOrdered By: Lisa Fuentes on 04-05-2023 Estimated GFR (MDRD) Amer 87 mL/min >60 [facility] Comment on above: GFR Calc Estimated GFR (MDRD) Non-Af Amer 72 mL/min >60 [facility] Comment on above: Non- GFR Calc Thyroid Stimulating Hormone (TSH) 1.75 uIU/mL 0.358-3.74 [facility] Platelets bldOrdered By: Williams Fuentes on 04-05-2023 Platelets (Bld) [#/Vol] 250 10*3/uL 150-450 [facility] Serum or plasma albumin jim urement (mass/volume)Ordered By: Lisa Fuentes on 04-05-2023 Albumin [Mass/Vol] 3.2 g/dL 3.2-5.0 [facility] Serum or plasma albumin/glob ulin mass ratioOrdered By: Lisa Fuentes on 04-05-2023 Albumin/Globulin [Mass ratio] 1.0 {ratio} 0.9-2.4 [facility] Serum or plasma calcium jim urement (mass/volume)Ordered By: Lisa Fuentes on 04-05-2023 Calcium [Mass/Vol] 8.6 mg/dL 8.5-10.1 [facility] Serum or plasma cholesterol in HDL measurement (mass/volume)Ordered By: Lisa Fuentes on 04-05-2023 Cholesterol in HDL [Mass/Vol] 64 mg/dL >40 [facility] Comment on above: The drugs N-Acetylcy steine and Metamizole may falsely depress this assay. Reference Range HDL <40 mg/dL Low HDL Cholesterol HDL >or= 60 mg/dL High HDL Cholesterol Serum or plasma cholesterol in VLDL measurement (mass/volume)Ordered By: Lisa Fuentes on 04-05-2023 Cholesterol in VLDL [Mass/Vol] 12 mg/dL 5-40 [facility] Serum or plasma creatinine m easurement (mass/volume)Ordered By: Lisa Fuentes on 04-05-2023 Creatinine [Mass/Vol] 0.81 mg/dL 0.55-1.02 [facility] Comment on above: The validity of the calculated GFR & GFRAA in patients over 70 years has not been determined. Clinical correlation is essential. Serum or plasma low density lipoprotein (LDL) cholesterol measurement (mass/volume)Ordered By: Lisa Fuentes on 04-05-2023 Cholesterol in LDL [Mass/Vol] 122 mg/dL 0-130 [facility] Serum or plasma urea nitroge n measurement (mass/volume)Ordered By: Lisa Fuentes on 04-05-2023 Urea nitrogen [Mass/Vol] 26 mg/dL - [facility] Thin prep Papanicolaou smear with manual screeningOrdered By: Lisa Fuentes on 04-05-2023 Thin prep Papanicolaou smear with manual screening 14 U/L 15-37 [facility] Thin prep Papanicolaou smear with manual screening 5 5-15 [facility] 36on 01-06-2023 36 VAMSHI 11-24-22 NOV 05-25-2023 11-02-22 CBC,BMP/Creat 0,78 labs are in Care Everywhere [facility] 36 Pt requesting jayden trinh Last seen 11/24/22, OC fu 05/25/22 Pharmacy confirmed [facility] 36on 11-30-2022 36 VAMSHI-11/29 oc LIPID-07/30 has active order [facility] 36 Patient's insurance is requiring them to switch from Praluent to Repatha due to formulary change. If appropriate, please send script to [facility] and we will reach out to the pt to inform her of the change. Canceled Praluent script and pended Repatha for review. Thank you! [facility] 36on 11-26-2022 36 Last OV with OC 11-2408-03-22 Lipids /LFTs not done needs recheck in 3-4 months per OC order put in Epic [facility] ECG 12 lead - CLINIC PERFORM EDon 11-24-2022 Sinus Bradycardia WITHIN NORMAL LIMITS [facility] Office Visiton 11-24-2022 Follow-up visit [id number] Ciro Yanez 1940 F Date Provider Department Center 11/24/2022 [id number] None Family History Problem Relation Age of Onset Mental illness Mother Cancer Sister Diabetes Father Family Status - Relation Status Age at Mother Sister Father Level of Service:63128 NM OFFICE/OUTPATIENT ESTABLISHED MOD MDM 30-39 MIN Reason for Visit and Comments: Atrial Fibrillation [80] - PAF Hypertension [728784] Hyperlipidemia [182] Sleep Apnea [348] Cardiac Valve Problem [1334] - AV stenosis Normal [facility] Progress Noteon 11-24-2022 Progress Note [facility] Heart & Vascul [facility] [place] [facility]/Electrophysio logy Follow Up Clinic Note Chief Complaint: Chief Complaint Patient presents with Atrial Fibrillation PAF Hypertension Hyperlipidemia Sleep Apnea Cardiac Valve Problem AV stenosis History of Present Illness: Ileana Yanez is a 82 y.o. female with HTN [...] In Feb 2021 she was taken to [facility] for an episode of diaphoresis and fatigue [...] other than as noted in the HPI. (more content not included)... Normal [employer] Highlight [facility] Heart TransthoracicOrdere d By: Reinaldo Malone on 09-08-2022 Ao Root Index 1.44 cm/m2 [facility] h Work Phone: Aortic Arch 2.2 cm [facility] Health Work Phone: Aortic Root 2.4 cm [facility] Work Phone: Ascending Aorta 2.8 cm [facility] Work Phone: Ascending Aorta Index 1.68 cm/m2 [facility] Work Phone: AV Area by Peak Velocity 0.8 cm2 [facility] Work Phone: AV Area by Planimetry 1.1 cm2 [facility] Work Phone: AV Area by VTI 0.9 cm2 [facility] Work Phone: AV Mean Gradient 38 mmHg [facility] Work Phone: AV Mean Velocity 3.0 m/s [facility] Work Phone: AV Peak Gradient 57 mmHg [facility] Work Phone: AV Peak Velocity 3.8 m/s [facility] Work Phone: AV Velocity Ratio 0.26 [facility] e[facility] Work Phone: AV VTI 98.8 cm [facility] Health Work Phone: ENID/BSA 0.66 cm2/m2 [facility] Health Work Phone: ENID/BSA Peak Velocity 0.5 cm2/m2 [facility] Work Phone: ENID/BSA VTI 0.5 cm2/m2 [facility] Highlight Work Phone: E/E' Lateral 13.33 [facility] Highlight Work Phone: E/E' Ratio (Averaged) 14.67 [facility] Work Phone: E/E' Septal 16.00 [facility] Highlight Work Phone: EF BP 71 % 55 - 100 % [facility] Highlight Work Phone: Fractional Shortening 2D 32 % 28 - 44 % [facility] Highlight Work Phone: Interpretation and review of laboratory results Abnormal [facility] Highlight Work Phone: IVSd 1.3 cm Abnormal 0.6 - 0.9 cm [facility] Highlight Work Phone: [phone] LA Diameter 2.9 cm [facility] Highlight Work Phone: [phone] LA Size Index 1.74 cm/m2 [facility] Work Phone: LA Volume 2C 55 mL Abnormal 22 - 52 mL [facility] Highlight Work Phone: LA Volume 4C 47 mL 22 - 52 mL [facility] Highlight Work Phone: [phone] LA Volume A/L 58 mL [facility] Work Phone: [phone] LA Volume Index 2C 33 mL/m2 16 - 34 mL/m2 [facility] Highlight Work Phone: [phone] LA Volume Index 4C 28 mL/m2 16 - 34 mL/m2 [facility] Highlight Work Phone: [phone] LA Volume Index A/L 35 mL/m2 16 - 34 mL/m2 [facility] Highlight Work Phone: [phone] LA/AO Root Ratio 1.21 [facility] Work Phone: LV E' Lateral Velocity 6 cm/s [facility] Work Phone: LV E' Septal Velocity 5 cm/s [facility] Highlight Work Phone: LV EDV A2C 51 mL [facility] Highlight Work Phone: [phone] LV EDV A4C 74 mL [facility] Work Phone: LV EDV BP 62 mL 56 - 104 mL [facility] Work Phone: LV EDV Index A2C 31 mL/m2 [facility] Work Phone: LV EDV Index A4C 44 mL/m2 [facility] Work Phone: LV EDV Index BP 37 mL/m2 [facility] Work Phone: LV Ejection Fraction A2C 68 % [facility] Work Phone: LV Ejection Fraction A4C 73 % [facility] Work Phone: LV ESV A2C 16 mL [facility] Work Phone: LV ESV A4C 20 mL [facility] Work Phone: LV ESV BP 18 mL Abnormal 19 - 49 mL [facility] Work Phone: LV ESV Index A2C 10 mL/m2 [facility] Work Phone: LV ESV Index A4C 12 mL/m2 [facility] Work Phone: LV ESV Index BP 11 mL/m2 [facility] Work Phone: LV Mass 2D 122.0 g 67 - 162 g [facility] Work Phone: LV Mass 2D Index 73.0 g/m2 43 - 95 g/m2 [facility] Work Phone: LV RWT Ratio 0.59 [facility] Work Phone: LVIDd 3.4 cm Abnormal 3.9 - 5.3 cm [facility] Work Phone: LVIDd Index 2.04 cm/m2 [facility] Work Phone: LVIDs 2.3 cm [facility] Work Phone: LVIDs Index 1.38 cm/m2 [facility] Work Phone: LVOT Area 3.1 cm2 [facility] Work Phone: LVOT Cardiac Output 14.0 liter/mi nut e [facility] Work Phone: LVOT Diameter 2.0 cm [facility] Work Phone: LVOT Mean Gradient 3 mmHg [facility] Work Phone: LVOT Peak Gradient 4 mmHg [facility] Work Phone: LVOT Peak Velocity 1.0 m/s [facility] Work Phone: LVOT Stroke Volume Index 54.7 mL/m2 [facility] Work Phone: LVOT SV 91.4 ml [facility] Health Work Phone: LVOT VTI 29.1 cm [facility] Highlight Work Phone: LVOT:AV VTI Index 0.29 [facility] ealth Work Phone: LVPWd 1.0 cm Abnormal 0.6 - 0.9 cm [facility] Highlight Work Phone: MV A Velocity 1.13 m/s [facility] Work Phone: MV E Velocity 0.80 m/s [facility] Work Phone: MV E Wave Deceleration Time 267.2 ms [facility] Highlight Work Phone: MV E/A 0.71 [facility] Highlight Work Phone: RV Basal Dimension 3.5 cm [facility] Work Phone: RV Mid Dimension 2.6 cm [facility] Work Phone: Sinotubular Junction 2.1 cm [facility] Health Work Phone: TAPSE 2.7 cm 1.7 cm [facility] Work Phone: TR Max Velocity 3.01 m/s [facility]a lt Work Phone: TR Peak Gradient 36 mmHg [facility] Work Phone: [facility] Work Phone: [phone] US Heart Transthoracicon Left Ventricle: Left ventricle size is normal. Mildly increased wall thickness. Moderate basal septal thickening. Normal left ventricular systolic function. EF by 2D Simpsons Biplane is 71%. Normal wall motion. Right Ventricle: Right ventricle size is normal. Normal systolic function. Aortic Valve: Trileaflet. Moderately thickened cusps. Moderately calcified cusps. Moderately severe stenosis of the aortic valve. AV mean gradient is 38 mmHg. AV peak gradient is 57 mmHg. AV area by continuity VTI is 0.9 cm2. Left Atrium: Left atrium is mildly dilated. Left Ventricle Left ventricle size is normal. Mildly increased wall thickness. Moderate basal septal thickening. Normal left ventricular systolic function. EF by 2D Simpsons Biplane is 71%. Normal wall motion. Right Ventricle Right ventricle size is normal. Normal systolic function. Left Atrium Left atrium is mildly dilated. Right Atrium Right atrium size is normal. IVC/SVC IVC diameter is normal and decreases greater than 50% during inspiration; therefore the estimated right atrial pressure is normal (~3 mmHg). Mitral Valve Valve structure is normal. Mild annular calcification. Trace regurgitation. No stenosis noted. Tricuspid Valve Valve structure is normal. Trace regurgitation. Aortic Valve Trileaflet. Moderately thickened cusps. Moderately calcified cusps. No regurgitation. Moderately severe stenosis of the aortic valve. AV mean gradient is 38 mmHg. AV peak gradient is 57 mmHg. AV area by continuity VTI is 0.9 cm2. Pulmonic Valve The pulmonic valve was not well visualized. Valve structure is normal. Trace regurgitation. Ascending Aorta Normal sized sinuses of Valsalva and ascending aorta. Pericardium No pericardial effusion. Septum No interatrial shunt visualized on color Doppler. Study Details Image quality: adequate. Heart rate: 59 bpm. Blood pressure: 172/72 mmHg. The underlying ECG rhythm was sinus rhythm. Technical qualifiers: Technically difficult due to respiratory artifact. No contrast was given. CV CPACS Basophil percentageOrdered B y: OUT DOCTOR on 08-03-2022 Bilirubin [Mass/Vol] 0.40 mg/dL 0.20-1.00 [facility] Comment on above: For patients on eltr ombopag therapy, use of Dimension Curtis TBIL is not recommended. Cholesterol [Mass/Vol] 299 mg/dL <200 [facility] Comment on above: <200 mg/dL Desirable 200-240 mg/dL Borderline >240 mg/dL High Risk Protein [Mass/Vol] 6.7 g/dL 6.4-8.2 [facility] Triglyceride [Mass/Vol] 48 mg/dL <199 [facility] Comment on above: The drugs N-Acetylcy steine and Metamizole may falsely depress this assay.Serum Triglycerides Reference Interval Normal <150 mg/dL Borderline high 150 - 199 mg/dL High 200 - 499 mg/dL Very High > or = 500 mg/dL WBC (Bld) [#/Vol] 3.0 10*3/uL 4.4-11.0 [facility] Basophil percentageOrdered B y: Jef Olivares on 08-03-2022 Chloride [Moles/Vol] 98 mmol/L 98-107 [facility] Glucose [Mass/Vol] 86 mg/dL 74-106 [facility] Potassium [Moles/Vol] 4.0 mmol/L 3.5-5.1 [facility] Sodium [Moles/Vol] 129 mmol/L 136-145 [facility] Blood erythrocytes count (nu mber/volume)Ordered By: OUT DOCTOR on 08-03-2022 RBC (Bld) [#/Vol] 3.79 10*6/uL 4.2-5.4 [facility] Blood hemoglobin measurement (mass/volume)Ordered By: OUT DOCTOR on 08-03-2022 Hemoglobin (Bld) [Mass/Vol] 12.1 g/dL 12.0-15.0 [facility] Blood platelet mean volumeOr dered By: OUT DOCTOR on 08-03-2022 Platelet mean volume (Bld) [Entitic vol] 8.8 fL 6.2-12.0 [facility] Determination of erythrocyte mean corpuscular volume (MCV)Ordered By: OUT DOCTOR on 08-03-2022 MCV (RBC) [Entitic vol] 96.3 fL 81-99 [facility] Direct bilirubinOrdered By: OUT DOCTOR on 08-03-2022 Bilirubin.direct [Mass/Vol] 0.10 mg/dL 0.00-0.30 [facility] Hematocrit Auto (Bld) [Volum e fraction]Ordered By: OUT DOCTOR on 08-03-2022 Hematocrit (Bld) [Volume fraction] 36.5 % 37-47 [facility] Laboratory - Chemistry and C hemistry - challengeOrdered By: OUT DOCTOR on 08-03-2022 ALP [Catalytic activity/Vol] 83 U/L 45-117 [facility] ALT [Catalytic activity/Vol] 17 U/L 13-56 [facility] Globulin (S) [Mass/Vol] 3.5 g/dL 2.2-4.2 [facility] Laboratory - Chemistry and C hemistry - challengeOrdered By: Jef Olivares on 08-03-2022 CO2 [Moles/Vol] 26.0 mmol/L 21.0-32.0 [facility] Urea nitrogen/Creatinine [Mass ratio] 17.8 mg/mg 10-20 [facility] Laboratory - Hematology and Cell countsOrdered By: OUT DOCTOR on 08-03-2022 Erythrocyte distribution width (RBC) [Entitic vol] 43.3 fL 35.1-43.9 [facility] Erythrocyte distribution width (RBC) [Ratio] 12.4 % 11.6-14.6 [facility] MCH (RBC) [Entitic mass] 31.9 pg 27.0-32.0 [facility] MCHC Auto (RBC) [Mass/Vol]Or dered By: OUT DOCTOR on 08-03-2022 MCHC (RBC) [Mass/Vol] 33.2 g/dL 32-36 [facility] No Panel InformationOrdered By: Jef Olivares on 08-03-2022 Estimated GFR (MDRD) Amer 90 mL/min >60 [facility] Comment on above: GFR Calc Estimated GFR (MDRD) Non-Af Amer 75 mL/min >60 [facility] Comment on above: Non- GFR Calc Platelets bldOrdered By: OUT DOCTOR on 08-03-2022 Platelets (Bld) [#/Vol] 263 10*3/uL 150-450 [facility] Serum or plasma albumin jim urement (mass/volume)Ordered By: OUT DOCTOR on 08-03-2022 Albumin [Mass/Vol] 3.2 g/dL 3.2-5.0 [facility] Serum or plasma calcium jim urement (mass/volume)Ordered By: Jef Olivares on 08-03-2022 Calcium [Mass/Vol] 9.0 mg/dL 8.5-10.1 [facility] Serum or plasma cholesterol in HDL measurement (mass/volume)Ordered By: OUT DOCTOR on 08-03-2022 Cholesterol in HDL [Mass/Vol] 67 mg/dL >40 [facility] Comment on above: The drugs N-Acetylcy steine and Metamizole may falsely depress this assay. Reference Range HDL <40 mg/dL Low HDL Cholesterol HDL >or= 60 mg/dL High HDL Cholesterol Serum or plasma cholesterol in VLDL measurement (mass/volume)Ordered By: OUT DOCTOR on 08-03-2022 Cholesterol in VLDL [Mass/Vol] 10 mg/dL 5-40 [facility] Serum or plasma creatinine m easurement (mass/volume)Ordered By: Jef Olivares on 08-03-2022 Creatinine [Mass/Vol] 0.78 mg/dL 0.55-1.02 [facility] Comment on above: The validity of the calculated GFR & GFRAA in patients over 70 years has not been determined. Clinical correlation is essential. Serum or plasma low density lipoprotein (LDL) cholesterol measurement (mass/volume)Ordered By: OUT DOCTOR on 08-03-2022 Cholesterol in LDL [Mass/Vol] 222 mg/dL 0-130 [facility] Serum or plasma urea nitroge n measurement (mass/volume)Ordered By: Jef Olivares on 08-03-2022 Urea nitrogen [Mass/Vol] 14 mg/dL 7-18 [facility] Thin prep Papanicolaou smear with manual screeningOrdered By: OUT DOCTOR on 08-03-2022 Thin prep Papanicolaou smear with manual screening 18 U/L 15-37 [facility] Thin prep Papanicolaou smear with manual screeningOrdered By: Jef Olivares on 08-03-2022 Thin prep Papanicolaou smear with manual screening 5 5-15 [facility] ECG 12 lead - CLINIC PERFORM EDon 07-28-2022 Sinus Rhythm WITHIN NORMAL LIMITS [facility] Basophil percentageOrdered B y: Dr. Fuentes on 07-03-2022 Chloride [Moles/Vol] 97 mmol/L 98-107 [facility] Glucose [Mass/Vol] 93 mg/dL 74-106 [facility] Potassium [Moles/Vol] 3.9 mmol/L 3.5-5.1 [facility] Sodium [Moles/Vol] 131 mmol/L 136-145 [facility] Laboratory - Chemistry and C hemistry - challengeOrdered By: Dr. Fuentes on 07-03-2022 CO2 [Moles/Vol] 26.0 mmol/L 21.0-32.0 [facility] Urea nitrogen/Creatinine [Mass ratio] 22.3 mg/mg 10-20 [facility] No Panel InformationOrdered By: Dr. Fuentes on 07-03-2022 Estimated GFR (MDRD) Amer 101 mL/min >60 [facility] Comment on above: GFR Calc Estimated GFR (MDRD) Non-Af Amer 83 mL/min >60 [facility] Comment on above: Non- GFR Calc Serum or plasma calcium jim urement (mass/volume)Ordered By: Dr. Fuentes on 07-03-2022 Calcium [Mass/Vol] 9.3 mg/dL 8.5-10.1 [facility] Serum or plasma creatinine m easurement (mass/volume)Ordered By: Dr. Fuentes on 07-03-2022 Creatinine [Mass/Vol] 0.72 mg/dL 0.55-1.02 [facility] Comment on above: The validity of the calculated GFR & GFRAA in patients over 70 years has not been determined. Clinical correlation is essential. Serum or plasma urea nitroge n measurement (mass/volume)Ordered By: Dr. Fuentes on 07-03-2022 Urea nitrogen [Mass/Vol] 16 mg/dL 7-18 [facility] Thin prep Papanicolaou smear with manual screeningOrdered By: Dr. Fuentes on 07-03-2022 Thin prep Papanicolaou smear with manual screening 8 5-15 [facility] Basophil percentageOrdered B y: Dr. Fuentes on 06-12-2022 Chloride [Moles/Vol] 97 mmol/L 98-107 [facility] Glucose [Mass/Vol] 93 mg/dL 74-106 [facility] Potassium [Moles/Vol] 4.4 mmol/L 3.5-5.1 [facility] Sodium [Moles/Vol] 131 mmol/L 136-145 [facility] Laboratory - Chemistry and C hemistry - challengeOrdered By: Dr. Fuentes on 06-12-2022 CO2 [Moles/Vol] 28.0 mmol/L 21.0-32.0 [facility] Urea nitrogen/Creatinine [Mass ratio] 23.1 mg/mg 10-20 [facility] No Panel InformationOrdered By: Dr. Fuentes on 06-12-2022 Estimated GFR (MDRD) Amer 104 mL/min >60 [facility] Comment on above: GFR Calc Estimated GFR (MDRD) Non-Af Amer 86 mL/min >60 [facility] Comment on above: Non- GFR Calc Serum or plasma calcium jim urement (mass/volume)Ordered By: Dr. Fuentes on 06-12-2022 Calcium [Mass/Vol] 8.7 mg/dL 8.5-10.1 [facility] Serum or plasma creatinine m easurement (mass/volume)Ordered By: Dr. Fuentes on 06-12-2022 Creatinine [Mass/Vol] 0.69 mg/dL 0.55-1.02 [facility] Comment on above: The validity of the calculated GFR & GFRAA in patients over 70 years has not been determined. Clinical correlation is essential. Serum or plasma urea nitroge n measurement (mass/volume)Ordered By: Dr. Fuentes on 06-12-2022 Urea nitrogen [Mass/Vol] 16 mg/dL 7-18 [facility] Thin prep Papanicolaou smear with manual screeningOrdered By: Dr. Fuentes on 06-12-2022 Thin prep Papanicolaou smear with manual screening 6 5-15 [facility] Basophil percentageOrdered B y: Dr. Fuentes on 05-27-2022 Chloride [Moles/Vol] 89 mmol/L 98-107 [facility] Glucose [Mass/Vol] 90 mg/dL 74-106 [facility] Potassium [Moles/Vol] 4.4 mmol/L 3.5-5.1 [facility] Sodium [Moles/Vol] 124 mmol/L 136-145 [facility] Laboratory - Chemistry and C hemistry - challengeOrdered By: Dr. Fuentes on 05-27-2022 CO2 [Moles/Vol] 25.0 mmol/L 21.0-32.0 [facility] Urea nitrogen/Creatinine [Mass ratio] 22.4 mg/mg 10-20 [facility] No Panel InformationOrdered By: Dr. Fuentes on 05-27-2022 Estimated GFR (MDRD) Amer 88 mL/min >60 [facility] Comment on above: GFR Calc Estimated GFR (MDRD) Non-Af Amer 73 mL/min >60 [facility] Comment on above: Non- GFR Calc Serum or plasma calcium jim urement (mass/volume)Ordered By: Dr. Fuentes on 05-27-2022 Calcium [Mass/Vol] 9.4 mg/dL 8.5-10.1 [facility] Serum or plasma creatinine m easurement (mass/volume)Ordered By: Dr. Fuentes on 05-27-2022 Creatinine [Mass/Vol] 0.80 mg/dL 0.55-1.02 [facility] Comment on above: The validity of the calculated GFR & GFRAA in patients over 70 years has not been determined. Clinical correlation is essential. Serum or plasma urea nitroge n measurement (mass/volume)Ordered By: Dr. Fuentes on 05-27-2022 Urea nitrogen [Mass/Vol] 18 mg/dL 7-18 [facility] Thin prep Papanicolaou smear with manual screeningOrdered By: Dr. Fuentes on 05-27-2022 Thin prep Papanicolaou smear with manual screening 10 5-15 [facility] Absolute lymphocyte countOrd ered By: Dr. Fuentes on 05-18-2022 Lymphocytes Auto (Unsp spec) [#/Vol] 1.28 10*3/uL 0.83-4.51 [facility] Basophil percentageOrdered B y: Dr. Fuentes on 05-18-2022 Basophils/100 WBC (Bld) 0.5 % 0-1 [facility] Chloride [Moles/Vol] 91 mmol/L 98-107 [facility] Eosinophils/100 WBC (Bld) 0.3 % 0-5 [facility] Glucose [Mass/Vol] 96 mg/dL 74-106 [facility] Neutrophils (Bld) [#/Vol] 2.0 10*3/uL 2.0-7.7 [facility] Neutrophils/100 WBC (Bld) 51.8 % 47-70 [facility] Potassium [Moles/Vol] 4.1 mmol/L 3.5-5.1 [facility] Sodium [Moles/Vol] 125 mmol/L 136-145 [facility] WBC (Bld) [#/Vol] 3.8 10*3/uL 4.4-11.0 [facility] Blood erythrocytes count (nu mber/volume)Ordered By: Dr. Fuentes on 05-18-2022 RBC (Bld) [#/Vol] 4.16 10*6/uL 4.2-5.4 [facility] Blood hemoglobin measurement (mass/volume)Ordered By: Dr. Fuentes on 05-18-2022 Hemoglobin (Bld) [Mass/Vol] 13.6 g/dL 12.0-15.0 [facility] Blood lymphocytes/100 leukoc ytesOrdered By: Dr. Fuentes on 05-18-2022 Lymphocytes/100 WBC (Bld) 33.5 % 19-41 [facility] Blood monocytes/100 leukocyt esOrdered By: Dr. Fuentes on 05-18-2022 Monocytes/100 WBC (Bld) 11.8 % 0-10 [facility] Blood platelet mean volumeOr dered By: Dr. Fuentes on 05-18-2022 Platelet mean volume (Bld) [Entitic vol] 9.4 fL 6.2-12.0 [facility] Determination of erythrocyte mean corpuscular volume (MCV)Ordered By: Dr. Fuentes on 05-18-2022 MCV (RBC) [Entitic vol] 91.6 fL 81-99 [facility] Hematocrit Auto (Bld) [Volum e fraction]Ordered By: Dr. Fuentes on 05-18-2022 Hematocrit (Bld) [Volume fraction] 38.1 % 37-47 [facility] Laboratory - Chemistry and C hemistry - challengeOrdered By: Dr. Fuentes on 05-18-2022 CO2 [Moles/Vol] 22.0 mmol/L 21.0-32.0 [facility] Urea nitrogen/Creatinine [Mass ratio] 12.4 mg/mg 10-20 [facility] Laboratory - Hematology and Cell countsOrdered By: Dr. Fuentes on 05-18-2022 Erythrocyte distribution width (RBC) [Entitic vol] 40.5 fL 35.1-43.9 [facility] Erythrocyte distribution width (RBC) [Ratio] 11.9 % 11.6-14.6 [facility] Immature granulocytes/100 WBC (Bld) 2.100 % 0.0-0.9 [facility] Comment on above: IG% - Immature Granu locytes (promyelocytes, myelocytes and metamyelocytes) > 1% indicates that a LEFT SHIFT is Present. MCH (RBC) [Entitic mass] 32.7 pg 27.0-32.0 [facility] Nucleated RBC/100 WBC (Bld) [Ratio] 0 % 0-5 [facility] MCHC Auto (RBC) [Mass/Vol]Or dered By: Dr. Fuentes on 05-18-2022 MCHC (RBC) [Mass/Vol] 35.7 g/dL 32-36 [facility] No Panel InformationOrdered By: Dr. Fuentes on 05-18-2022 Estimated GFR (MDRD) Amer 99 mL/min >60 [facility] Comment on above: GFR Calc Estimated GFR (MDRD) Non-Af Amer 82 mL/min >60 [facility] Comment on above: Non- GFR Calc Platelets bldOrdered By: Dr. Fuentes on 05-18-2022 Platelets (Bld) [#/Vol] 246 10*3/uL 150-450 [facility] Serum or plasma C reactive p rotein measurement (mass/volume)Ordered By: Dr. Fuentes on 05-18-2022 CRP [Mass/Vol] mg/L 0.0-3.0 [facility] Comment on above: C-Reactive Protein ( CRP) provides useful information for thediagnosis, therapy and monitoring of inflammatory processesand associated diseases. For the evaluation of Relative Riskfor Cardiovascular Disease, a High Sensitivity CRP (HSCRP)should be ordered. Serum or plasma calcium jim urement (mass/volume)Ordered By: Dr. Fuentes on 05-18-2022 Calcium [Mass/Vol] 9.3 mg/dL 8.5-10.1 [facility] Serum or plasma creatinine m easurement (mass/volume)Ordered By: Dr. Fuentes on 05-18-2022 Creatinine [Mass/Vol] 0.73 mg/dL 0.55-1.02 [facility] Comment on above: The validity of the calculated GFR & GFRAA in patients over 70 years has not been determined. Clinical correlation is essential. Serum or plasma urea nitroge n measurement (mass/volume)Ordered By: Dr. Fuentes on 05-18-2022 Urea nitrogen [Mass/Vol] 9 mg/dL 11-24 [facility] Thin prep Papanicolaou smear with manual screeningOrdered By: Dr. Fuentes on 05-18-2022 Thin prep Papanicolaou smear with manual screening 12 09-21 [facility] Laboratory - CoagulationOrde red By: Dr. Fuentes on 02-27-2022 INR Coag (Bld) [Relative time] 1.5 {INR} [facility] Comment on above: Critical Value > 4.0 Whole blood prothrombin time Ordered By: Dr. Fuentes on 02-27-2022 PT Coag (Bld) [Time] 18.5 s 11.7-14.9 [facility] Laboratory - CoagulationOrde red By: Dr. Fuentes on 02-24-2022 INR Coag (Bld) [Relative time] 2.4 {INR} [facility] Comment on above: Critical Value > 4.0 Whole blood prothrombin time Ordered By: Dr. Fuentes on 02-24-2022 PT Coag (Bld) [Time] 28.3 s 11.7-14.9 [facility] Laboratory - CoagulationOrde red By: Dwain Roberson on 02-13-2022 INR Coag (Bld) [Relative time] 1.7 {INR} [facility] Comment on above: Critical Value > 4.0 Whole blood prothrombin time Ordered By: Dwain Roberson on 02-13-2022 PT Coag (Bld) [Time] 20.9 s 11.7-14.9 [facility] Laboratory - CoagulationOrde red By: [facility] on 02-11-2022 INR Coag (Bld) [Relative time] 1.2 {INR} [facility] Comment on above: Critical Value > 4.0 Whole blood prothrombin time Ordered By: [facility] on 02-11-2022 PT Coag (Bld) [Time] 14.8 s 11.7-14.9 [facility] Absolute lymphocyte counton 02-06-2022 Lymphocytes Auto (Unsp spec) [#/Vol] 0.63 10*3/uL 0.83-4.51 [facility] Work Phone: Basophil percentageon 2021 Basophils/100 WBC (Bld) 0.2 % 0-1 [facility] Work Phone: Bilirubin [Mass/Vol] 0.60 mg/dL 0.20-1.00 [facility] Work Phone: Comment on above: For patients on eltr ombopag therapy, use of Dimension Curtis TBIL is not recommended. Chloride [Moles/Vol] 90 mmol/L 98-107 [facility] Work Phone: Eosinophils/100 WBC (Bld) 0.0 % 0-5 [facility] Work Phone: Glucose [Mass/Vol] 99 mg/dL 74-106 [facility] Work Phone: Neutrophils (Bld) [#/Vol] 3.7 10*3/uL 2.0-7.7 [facility] Work Phone: Neutrophils/100 WBC (Bld) 76.9 % 47-70 [facility] Work Phone: Potassium [Moles/Vol] 4.3 mmol/L 3.5-5.1 [facility] Work Phone: Comment on above: Moderate Hemolysis, Result may be falsely increased. Protein [Mass/Vol] 7.9 g/dL 6.4-8.2 [facility] Work Phone: Sodium [Moles/Vol] 129 mmol/L 136-145 [facility] Work Phone: WBC (Bld) [#/Vol] 4.8 10*3/uL 4.4-11.0 [facility] Work Phone: Blood erythrocytes count (nu mber/volume)on 02-06-2022 RBC (Bld) [#/Vol] 4.43 10*6/uL 4.2-5.4 [facility] Work Phone: [phone] Blood hemoglobin measurement (mass/volume)on 02-06-2022 Hemoglobin (Bld) [Mass/Vol] 14.1 g/dL 12.0-15.0 [facility] Work Phone: [phone] Blood lymphocytes/100 leukoc yteson 02-06-2022 Lymphocytes/100 WBC (Bld) 13.0 % 19-41 [facility] Work Phone: [phone] Blood monocytes/100 leukocyt eson 02-06-2022 Monocytes/100 WBC (Bld) 9.7 % 0-10 [facility] Work Phone: [phone] Blood platelet mean volumeon 02-06-2022 Platelet mean volume (Bld) [Entitic vol] 8.3 fL 6.2-12.0 [facility] Work Phone: Determination of erythrocyte mean corpuscular volume (MCV)on 02-06-2022 MCV (RBC) [Entitic vol] 92.3 fL 81-99 [facility] Work Phone: Hematocrit Auto (Bld) [Volum e fraction]on 02-06-2022 Hematocrit (Bld) [Volume fraction] 40.9 % 37-47 [facility] Work Phone: [phone] INR in Blood by Coagulation assayon 02-06-2022 INR Coag (Bld) [Relative time] 4.2 {INR} [facility] Work Phone: Laboratory - Chemistry and C hemistry - challengeon 02-06-2022 ALP [Catalytic activity/Vol] 92 U/L 45-117 [facility] Work Phone: ALT [Catalytic activity/Vol] 28 U/L 13-56 [facility] Work Phone: CO2 [Moles/Vol] 29.0 mmol/L 21.0-32.0 [facility] Work Phone: [phone] Globulin (S) [Mass/Vol] 4.2 g/dL 2.2-4.2 [facility] Work Phone: [phone] Urea nitrogen/Creatinine [Mass ratio] 23.9 mg/mg 10-20 [facility] Work Phone: [phone] Laboratory - Coagulationon 0 02-06-2022 PT Coag (PPP) [Time] 40.2 s 11.7-14.9 [facility] Work Phone: [phone] Laboratory - Hematology and Cell countson 02-06-2022 Erythrocyte distribution width (RBC) [Entitic vol] 41.5 fL 35.1-43.9 [facility] Work Phone: [phone] Erythrocyte distribution width (RBC) [Ratio] 12.1 % 11.6-14.6 [facility] Work Phone: [phone] Immature granulocytes/100 WBC (Bld) 0.200 % 0.0-0.9 [facility] Work Phone: [phone] Comment on above: IG% - Immature Granu locytes (promyelocytes, myelocytes and metamyelocytes) > 1% indicates that a LEFT SHIFT is Present. MCH (RBC) [Entitic mass] 31.8 pg 27.0-32.0 [facility] Work Phone: [phone] Nucleated RBC/100 WBC (Bld) [Ratio] 0 % 0-5 [facility] Work Phone: [phone] MCHC Auto (RBC) [Mass/Vol]on 02-06-2022 MCHC (RBC) [Mass/Vol] 34.5 g/dL 32-36 [facility] Work Phone: [phone] Panel Informationon 02-06 Estimated Creatinine Clearance Calc 37.12 ml/min [facility] Work Phone: [phone] Estimated GFR (MDRD) Amer 101 mL/min >60 [facility] Work Phone: [phone] Comment on above: GFR Calc Estimated GFR (MDRD) Non-Af Amer 84 mL/min >60 [facility] Work Phone: Comment on above: Non- GFR Calc Troponin I High Sensitivity 9 pg/mL 3.0-54.0 [facility] Work Phone: Comment on above: Please Note: New Claritza t Units and Gender Specific Reference Ranges. For more information see Policy Stat Procedure Curtis High Sensitivity Troponin (TNIH) and attachments. Platelets bldon 02-06-2022 Platelets (Bld) [#/Vol] 275 10*3/uL 150-450 [facility] Work Phone: Serum or plasma albumin jim urement (mass/volume)on 02-06-2022 Albumin [Mass/Vol] 3.7 g/dL 3.2-5.0 [facility] Work Phone: Serum or plasma albumin/glob ulin mass ratioon 02-06-2022 Albumin/Globulin [Mass ratio] 0.9 {ratio} 0.9-2.4 [facility] Work Phone: Serum or plasma calcium jim urement (mass/volume)on 02-06-2022 Calcium [Mass/Vol] 9.4 mg/dL 8.5-10.1 [facility] Work Phone: Serum or plasma creatinine m easurement (mass/volume)on 02-06-2022 Creatinine [Mass/Vol] 0.71 mg/dL 0.55-1.02 [facility] Work Phone: Comment on above: The validity of the calculated GFR & GFRAA in patients over 70 years has not been determined. Clinical correlation is essential. Serum or plasma urea nitroge n measurement (mass/volume)on 02-06-2022 Urea nitrogen [Mass/Vol] 17 mg/dL 7-18 [facility] Work Phone: Thin prep Papanicolaou smear with manual screeningon 02-06-2022 Thin prep Papanicolaou smear with manual screening 35 U/L 15-37 [facility] Work Phone: Comment on above: Moderate Hemolysis, Result may be falsely increased. Thin prep Papanicolaou smear with manual screening 10 5-15 [facility] Work Phone: INR in Blood by Coagulation assayon 09-22-2021 INR Coag (Bld) [Relative time] 1.4 {INR} [facility] Work Phone: Laboratory - Coagulationon 0 09-22-2021 PT Coag (PPP) [Time] 16.5 s 11.7-14.9 [facility] Work Phone: Echo 2D Doppler Coloron 03-10 TRANSTHORACIC ECHOCARDIOGRAM PATIENT: Ileana Yanez STUDY DATE: 03/28/2021 : 1940 AGE: 81 HT/WT: 160 cm (63 64.4 kg in) (141.7 lb) GENDER: F BP: 140 / 68 LOCATION: [facility] PATIENT Outpatient [facility] STATUS: *ORDERING PHYSICIAN: * Chas, *FELLOW: * Reina Hartman *READING PHYSICIAN: * Gaetano *RIVERBOAT MASTER: * Kristen Boggs RDCS, MD AE INDICATIONS: Murmur unpecified (R011). Syncope (R55). CONCLUSIONS SUMMARY: 1. Left ventricle: Systolic function is normal by the biplane method of disks. The estimated ejection fraction is 63%. There are no regional wall motion abnormalities. Left ventricular diastolic function parameters are normal. 2. Right ventricle: The cavity size is normal. Systolic function is normal. Right ventricular systolic pressure is within the normal range. 3. Aortic valve: Trileaflet; moderately thickened, severely calcified leaflets. 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 Severe based on ENID but moderate based on other criteria. The peak systolic velocity is 3.6 m/sec. The mean systolic gradient is 33 mm Hg. ( SVI 45) The peak systolic gradient is 52 mm Hg. Dimensionless index: 0.29. The valve area by the velocity-time integral method is 0.8 cm^2. ( LVOT diameter 1.9 cm) STUDY DATA: Complete transthoracic echocardiogram. Procedure: Image quality was adequate. M-mode, complete 2D, complete spectral Doppler, and color flow Doppler images were acquired and archived for permanent storage and are available for subsequent review. Study status: Routine. Patient status: Outpatient. ECG RHYTHM: NSR FINDINGS LEFT VENTRICLE: The cavity size is normal. Wall thickness is normal. Systolic function is normal by the biplane method of disks. The estimated ejection fraction is 63%. There are no regional wall motion abnormalities. Left ventricular diastolic function parameters are normal. RIGHT VENTRICLE: The cavity size is normal. Systolic function is normal. Right ventricular systolic pressure is within the normal range. VENTRICULAR SEPTUM: There is no evidence of a ventricular septal defect. LEFT ATRIUM: The atrium is normal in size. RIGHT ATRIUM: The atrium is normal in size. ATRIAL SEPTUM: Color Doppler shows no shunt. MITRAL VALVE: Mildly calcified annulus. Moderately thickened leaflets. Doppler: There is no evidence for stenosis. There is trivial, less than 1+ regurgitation. AORTIC VALVE: Trileaflet; moderately thickened, severely calcified leaflets. Doppler: There is moderate-severe stenosis. Severe based on ENID but moderate based on other criteria. There is no regurgitation. Dimensionless index: 0.29. The valve area by the velocity-time integral method is 0.8 cm^2. ( LVOT diameter 1.9 cm) The valve area index by the velocity-time integral method is 0.5 cm^2/m^2. The mean systolic gradient is 33 mm Hg. ( SVI 45) The peak systolic gradient is 52 mm Hg. The peak systolic velocity is 3.6 m/sec. TRICUSPID VALVE: Structurally normal valve. Doppler: There is trivial, less than 1+ regurgitation. PULMONIC VALVE: Structurally normal valve. Doppler: There is trivial, less than 1+ regurgitation. AORTA: The aorta is normal. PULMONARY ARTERY: Main pulmonary artery: Normal. PERICARDIUM: There is no pericardial effusion. SYSTEMIC VEINS: Poorly visualized. Measurements Value Reference Aortic root ID 2.7 cm <3.9 Left ventricle Value Reference LV ejection fraction, 2-p 63 % 54 - 74 LV ID/bsa, ED, MM 2.4 cm/m^2 2.3 - 3.1 LV ID/bsa, ES, MM 1.3 cm/m^2 1.3 - 2.1 LV PW/LV ID ratio, ED, MM 0.22 --------- LVOT Value Reference LVOT ID, A-P 1.9 cm --------- Aortic valve Value Reference Aortic valve peak velocity, S 3.6 m/sec --------- Aortic valve mean velocity, S 2.8 m/sec --------- Aortic mean gradient, S 33 mm Hg --------- Aortic peak gradient, S 52 mm Hg --------- DI 0.29 --------- (more content not included)... [facility] Gaetano Peterson MD - 03/28/2021 TRANSTHORACIC ECHOCARDIOGRAM PATIENT: Ileana Yanez STUDY DATE: 03/28/2021 : 1940 AGE: 81 HT/WT: 160 cm (63 64.4 kg in) (141.7 lb) GENDER: F BP: 140 / 68 LOCATION: [facility] PATIENT Outpatient [facility] STATUS: *ORDERING PHYSICIAN: * Chas, *FELLOW: * Reina Hartman *READING PHYSICIAN: Ashley Salter *RIVERBOAT MASTER: Kristen Montemayor RDCS, MD AE INDICATIONS: Murmur unpecified (R011). Syncope (R55). CONCLUSIONS SUMMARY: 1. Left ventricle: Systolic function is normal by the biplane method of disks. The estimated ejection fraction is 63%. There are no regional wall motion abnormalities. Left ventricular diastolic function parameters are normal. 2. Right ventricle: The cavity size is normal. Systolic function is normal. Right ventricular systolic pressure is within the normal range. 3. Aortic valve: Trileaflet; moderately thickened, severely calcified leaflets. 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 Severe based on ENID but moderate based on other criteria. The peak systolic velocity is 3.6 m/sec. The mean systolic gradient is 33 mm Hg. ( SVI 45) The peak systolic gradient is 52 mm Hg. Dimensionless index: 0.29. The valve area by the velocity-time integral method is 0.8 cm^2. ( LVOT diameter 1.9 cm) STUDY DATA: Complete transthoracic echocardiogram. Procedure: Image quality was adequate. M-mode, complete 2D, complete spectral Doppler, and color flow Doppler images were acquired and archived for permanent storage and are available for subsequent review. Study status: Routine. Patient status: Outpatient. ECG RHYTHM: NSR FINDINGS LEFT VENTRICLE: The cavity size is normal. Wall thickness is normal. Systolic function is normal by the biplane method of disks. The estimated ejection fraction is 63%. There are no regional wall motion abnormalities. Left ventricular diastolic function parameters are normal. RIGHT VENTRICLE: The cavity size is normal. Systolic function is normal. Right ventricular systolic pressure is within the normal range. VENTRICULAR SEPTUM: There is no evidence of a ventricular septal defect. LEFT ATRIUM: The atrium is normal in size. RIGHT ATRIUM: The atrium is normal in size. ATRIAL SEPTUM: Color Doppler shows no shunt. MITRAL VALVE: Mildly calcified annulus. Moderately thickened leaflets. Doppler: There is no evidence for stenosis. There is trivial, less than 1+ regurgitation. AORTIC VALVE: Trileaflet; moderately thickened, severely calcified leaflets. Doppler: There is moderate-severe stenosis. Severe based on ENID but moderate based on other criteria. There is no regurgitation. Dimensionless index: 0.29. The valve area by the velocity-time integral method is 0.8 cm^2. ( LVOT diameter 1.9 cm) The valve area index by the velocity-time integral method is 0.5 cm^2/m^2. The mean systolic gradient is 33 mm Hg. ( SVI 45) The peak systolic gradient is 52 mm Hg. The peak systolic velocity is 3.6 m/sec. TRICUSPID VALVE: Structurally normal valve. Doppler: There is trivial, less than 1+ regurgitation. PULMONIC VALVE: Structurally normal valve. Doppler: There is trivial, less than 1+ regurgitation. AORTA: The aorta is normal. PULMONARY ARTERY: Main pulmonary artery: Normal. PERICARDIUM: There is no pericardial effusion. SYSTEMIC VEINS: Poorly visualized. Measurements Value Reference Aortic root ID 2.7 cm <3.9 Left ventricle Value Reference LV ejection fraction, 2-p 63 % 54 - 74 LV ID/bsa, ED, MM 2.4 cm/m^2 2.3 - 3.1 LV ID/bsa, ES, MM 1.3 cm/m^2 1.3 - 2.1 LV PW/LV ID ratio, ED, MM 0.22 --------- LVOT Value Reference LVOT ID, A-P 1.9 cm --------- Aortic valve Value Reference Aortic valve peak velocity, S 3.6 m/sec --------- Aortic valve mean velocity, S 2.8 m/sec --------- Aortic mean gradient, S 33 mm Hg --------- Aortic peak gradient, S 52 mm Hg --------- DI 0.29 --------- Aortic valve area, VTI 0.8 cm^2 --------- Aortic valve area/bsa, VTI 0.5 cm^2/m^2 --------- Mitral valve Value Reference Mitral E/A ratio, peak 0.6 --------- Tricuspid valve Value Reference Tricuspid peak RV-RA gradient 28 mm Hg --------- Right ventricle Value Reference RV ID, minor axis, ED, A4C base 2.7 cm 2.5 - 4.1 RV ID, minor axis, ED, A4C mid (L) 1.8 cm 1.9 - 3.5 RV pressure, S, DP 31 mm Hg --------- Legend: (L) and (H) reinaldo values outside specified reference range. Electroni (more content not included)... [employer] Work Phone: Echo 2D Doppler ColorOrdered By: Gaetano Peterson on 03-28-2021 [facility] Work Phone: Echo Complete w/wo Contrasto n 03-28-2021 Echo Complete w/wo Contrast Patient Name: ILEANA YANEZ Ultrasound ACCESSION EXAM DATE/TIME PROCEDURE ORDERING PROVIDER [id number] 03/28/2021 13:58 EST Echo Complete w/[facility] Reason For Exam (Echo Complete w/wo Contrast) near syncope with cardiac murmer Report TRANSTHORACIC ECHOCARDIOGRAM PATIENT: Ileana Yanez STUDY DATE: 03/28/2021 : 1940 AGE: 81 HT/WT: 160 cm (63 64.4 kg in) (141.7 lb) GENDER: F BP: 140 / 68 LOCATION: [facility] PATIENT Outpatient [facility] STATUS: *ORDERING PHYSICIAN: * Chas, *FELLOW: * Reina Hartman *READING PHYSICIAN: * Gaetano *RIVERBOAT MASTER: * Kristen Boggs RDCS, MD AE INDICATIONS: Murmur unpecified (R011). Syncope (R55). CONCLUSIONS SUMMARY: 1. Left ventricle: Systolic function is normal by the biplane method of disks. The estimated ejection fraction is 63%. There are no regional wall motion abnormalities. Left ventricular diastolic function parameters are normal. 2. Right ventricle: The cavity size is normal. Systolic function is normal. Right ventricular systolic pressure is within the normal range. 3. Aortic valve: Trileaflet; moderately thickened, severely calcified leaflets. 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 Severe based on ENID but moderate based on other criteria. The peak systolic velocity is 3.6 m/sec. The mean systolic gradient is 33 mm Hg. ( SVI 45) The peak systolic gradient is 52 mm Hg. Dimensionless index: 0.29. The valve area by the velocity-time integral method is 0.8 cm^2. ( LVOT diameter 1.9 cm) STUDY DATA: Complete transthoracic echocardiogram. Procedure: Image quality was adequate. M-mode, complete 2D, complete spectral Doppler, and color flow Doppler images were acquired and archived for permanent storage and are available for subsequent review. Study status: Routine. Patient status: Outpatient. ECG RHYTHM: NSR Ultrasound Report FINDINGS LEFT VENTRICLE: The cavity size is normal. Wall thickness is normal. Systolic function is normal by the biplane method of disks. The estimated ejection fraction is 63%. There are no regional wall motion abnormalities. Left ventricular diastolic function parameters are normal. RIGHT VENTRICLE: The cavity size is normal. Systolic function is normal. Right ventricular systolic pressure is within the normal range. VENTRICULAR SEPTUM: There is no evidence of a ventricular septal defect. LEFT ATRIUM: The atrium is normal in size. RIGHT ATRIUM: The atrium is normal in size. ATRIAL SEPTUM: Color Doppler shows no shunt. MITRAL VALVE: Mildly calcified annulus. Moderately thickened leaflets. Doppler: There is no evidence for stenosis. There is trivial, less than 1+ regurgitation. AORTIC VALVE: Trileaflet; moderately thickened, severely calcified leaflets. Doppler: There is moderate-severe stenosis. Severe based on ENID but moderate based on other criteria. There is no regurgitation. Dimensionless index: 0.29. The valve area by the velocity-time integral method is 0.8 cm^2. ( LVOT diameter 1.9 cm) The valve area index by the velocity-time integral method is 0.5 cm^2/m^2. The mean systolic gradient is 33 mm Hg. ( SVI 45) The peak systolic gradient is 52 mm Hg. The peak systolic velocity is 3.6 m/sec. TRICUSPID VALVE: Structurally normal valve. Doppler: There is trivial, less than 1+ regurgitation. PULMONIC VALVE: Structurally normal valve. Doppler: There is trivial, less than 1+ regurgitation. AORTA: The aorta is normal. PULMONARY ARTERY: Main pulmonary artery: Normal. PERICARDIUM: There is no pericardial effusion. SYSTEMIC VEINS: Poorly visualized. Measurements Value Reference Aortic root ID 2.7 cm <3.9 Left ventricle Value Reference LV ejection fraction, 2-p 63 % 54 - 74 LV ID/bsa, ED, MM 2.4 cm/m^2 2.3 - 3.1 LV ID/bsa, ES, MM 1.3 cm/m^2 1.3 - 2.1 LV PW/LV ID ratio, ED, MM 0.22 --------- LVOT Value Reference LVOT ID, A-P 1.9 cm --------- Aortic valve Value Reference Aortic valve peak velocity, S 3.6 m/sec --------- Aortic valve mean velocity, S 2.8 m/sec --------- Aortic mean gradient, S 33 mm Hg --------- Aortic peak gradient, S 52 mm Hg --------- DI 0.29 --------- Aortic valve area, VTI 0.8 cm^2 --------- Aortic valve area/bsa, VTI 0.5 cm^2/m^2 --------- Mitral valve Value Reference Mitral E/A ratio, peak 0.6 --------- Ultrasound Report Tricuspid valve Value Reference Tricuspid peak RV-RA gradient 28 mm Hg --------- (more content not included)... Normal [facility] Highlight [facility] CNOVon 11-04-2017 CNOV Office Visit (ENDMED) BEAUDO MARY ([id number]) 1940 [facility] Time Provider Department11/04/17 9:45 AM PREETI OLIVEROS During your visit today, we recorded the following information about you: Pulse Blood pressure Weight Height 60/minute 135/66 79.8 kg 1.585 Lin Oliveros MD 11/04/2017 11:30 AM SignedCONSULTING PHYSICIAN:SelfMy final recommendations will be communicated back to the requesting physicianby way of shared Medical record or a letter via [place] mailSubjective:Ileana Yanez is a 77 year old female here to establish care for hirsutismHistory in brief, she has had hirsutism since pubertyHer main concern today is that facial hair on upper lip, chin and cheeks andYulissa describes this as dark coarse hairReports that recently family members and friends are commenting that she has abeardStates that previously, she was plucking 45 mins on a daily basisCurrent treatment: she is currently undergoing electrolysis extensively- 44sessionLast session was yesterdayShe had her PCP check androgen levelsDHEA-S: 51Testosterone- 24Sex hormone binding globulin -121No acnePatient had 2 pregnanciesNo trouble conceivingShe had a hysterectomy in early 40s, unsure if the ovaries were left behind+family history of type 2 diabetesNo personal history of GDMShe also has hyperlipidemiaLDL-[id number] [id number] OF SYSTEMS:GENERAL:Fever - NoChanges in weight - NoNEUROLOGICAL:Numbness, tingling or sensation of pins and needles - NoHeadaches-NoHEAD, EYES, EARS, NOSE, AND THROAT:Changes in hearing - NoChanges in vision - NoCARDIOVASCULAR:Chest pain or pressure - NoPalpitations - NoRESPIRATORY:Cough - NoWheezing - NoShortness of breath - NoGASTROINTESTINAL:Abdom inal discomfort - NoNausea - NoVomiting - NoEXTREMITY:Edema (swelling) - NoClaudication-NoMUSCULO SKELETAL:Muscle pain or ache - NoArthralgia-NoSkin:Rash - NoPruritus-NoENDOCRINE:D iabetes - NoThyroid disorder - NoPSYCHOLOGICAL:Depressi on - NoALLERGIES:ALLERGIESAll ergen Reactions- Brianna Inhibitors Intolerance- Adhesive Tape (Laurel*- Fungus [Other] BRINGS ON ASTHMA ATTACK- Mold BRINGS ON ASTHMA ATTACK- Sulfa (Sulfonamide * Rash, Itching- Tetanus Toxoid Adso* SwellingMEDICATIONS:Curr ent Outpatient Prescriptions on File Prior to Visit:losartan (COZAAR) 100 mg tablet once daily.amLODIPine (NORVASC) 10 mg tablet Take 5 mg by mouth once daily.fluticasone (FLONASE) 50 mcg/actuation nasal spray Use 1 Comstock in each nostrilas needed.flecainide (TAMBOCOR) 50 mg tablet Take 50 mg by mouth twice daily. 50mgs twicedailywarfarin (COUMADIN) 7.5 mg tablet Take 7.5 mg by mouth once daily. Every Wedhydrochlorothiazide 12.5 mg tablet Take 25 mg by mouth once daily.metoprolol tartrate (LOPRESSOR) 12.5 mg tab Take 6.25 mg by mouth twice daily.potassium chloride (KLOR-CON 10) 10 mEq tablet Take 1 tablet by mouth oncedaily.No current facility-administered medications on file prior to visit.PAST MEDICAL HISTORY:PAST MEDICAL HISTORYDiagnosis Date- A-fib (HCC)- Asthma allergy triggered- Cervical vertebra fusion may 1999- Chronic renal insufficiency partial left nephrectomy- DVT (deep venous thrombosis) ([facility]) on coumadin- Dyslipidemia controll with diet- History of hip replacement, total left hip- HTN (hypertension)- Nasal bone fracture 02/2013- Peripheral vascular disease (HCC)- PMH - PAST MEDICAL HISTORY OF blood clots Left leg after partial L nephrectomy in 2004- PMH - PAST MEDICAL HISTORY OF asthma- PMH - PAST MEDICAL HISTORY OF stomach ulcerPAST SURGICAL HISTORY:PAST SURGICAL HISTORYProcedure Laterality Date- PAST SURGICAL HISTORY OF 1998 cervical fusion- PAST SURGICAL HISTORY OF 2004 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- PAST SURGICAL HISTORY OF 1966 - PAST SURGICAL HISTORY OF 1978 Hysterectomy- PAST SURGICAL HISTORY OF Left left hand/wrist benign tumor removed per patient- REMOVE CATARACT, INSERT LENS,EX 01/22/2015 OD- THAFAMILY HISTORY:FAMILY HISTORYProblem Relation Age of Onset- Alzheimer's Disease Mother in late - Diabetes Father in late - No Ocular Disease OtherSOCIAL HISTORY:Social History Marital status: Spouse name: Years of education: Number of children:Social History Main Topics Smoking status: Never Smoker Smokeless tobacco: Never Used Alcohol use: No Drug use: NoPHYSICAL EXAM:BP 135/66 (BP Site: Left Arm, BP Position: Sitting, BP Cuff Size: Large Adult) Pulse 60 Ht 158.5 cm (5' 2.4") Wt 79.8 kg (176 lb) SpO2 97% BMI31.78 kg/m?Last 3 Encounter Wt Readings: Date: Wt: 11/04/2017 79.8 kg (176 lb) 12/24/2014 90.7 kg (200 lb) 09/18/2013 99.1 kg (218 lb 7.6 oz)General: Alert and oriented x3, no acute distressEyes: Anicteric sclera. Pupils are equally round. Extraocular movements areintact.Mucous membranes moist, no erythemaNeck supple, no cervical lymphadenopathyThyroid: normal size, normal texture, no palpable nodulesLungs: Breathing unlabored, clear to auscultation. No wheezing, rhonchi, ralesHeart regular rate and rhythm, no murmerMusculoskeletal: Muscular strength intact, No joint swelling, deformity, ortendernessNeuro: Gait normal. Sensation grossly intact. Normal DTR's at patellaAbdomen:Normal abdominal sounds, non tender to palpation, no massesExtremities: without edema, good peripheral pulsesSkin: no rashes/ erythema, no hirsutism notedLAB:TSHDate Value Ref Range Iriruo75/04/2014 1.040 0.400 - 5.500 uU/mL Final No results found for: HKBPB5DEIGAMERYN/PLAN:1) Hirsutism2) Metabolic syndrome3) Hyperlipidemia4) family history of diabetesThis has been an issue since pubertyNo signs of virilizationAndrogen levels are normalNo hirsutism noted on exam since she had electrolysis yesterdayStart Aldactone 100 mg dailyWe discussed MOA, benefits and adverse effectsStop potassium supplementsUpdate a potassium level in 7-10 daysCheck A1c and fasting insulin levelThen will consider adding meforminShe will also benefit from starting a statinI will notify the patient once the labs become availableFollow up in 4-6 monthsPreeti Oliveros MD11/04/17enrique Oliveros MD 11/04/2017 10:25 AM SignedGet blood test fastingStart Aldactone 100 mg dailyGet a potassium level drawn 7-10 days after starting this medicationFollow up in 4-6 monthsReferring Provider: SELF [[id number]]Allergies As of Date: 11/04/2017 Noted Allergy ReactionACE INHIBITORS 08/22/2004 5 - IntoleranceADHESIVE TAPE (ROSINS) 04/25/2004FUNGUS [Other] 07/04/2004 Comments: BRINGS ON ASTHMA ATTACKMOLD 07/04/2004 Comments: BRINGS ON ASTHMA ATTACKSULFA (SULFONAMIDE ANTIBIOTICS) 11/23/2003 2 - Rash 9 - ItchingTETANUS TOXOID ADSORBED 08/22/2004 7 - SwellingDate Reviewed: 11/04/2017Reviewed by: Preeti Oliveros - Fully AssessedReason for Visit: Consult [173] Cmt: Hormone IssuesPrimary Visit Diagnosis:Hirsutism [L68.0] Other Visit Diagnoses:Metabolic syndrome [E88.81] Family history of diabetes mellitus [Z83.3] Pure hypercholesterolemia [E78.00]Order(s):INSULIN ASSAY BLOOD [SQINSULN] Order #: [id number] FUTURE HGB A1C [ARIOH8V] Order #: [id number] FUTURE POTASSIUM BLD [SQK1] Order #: [id number] FUTURE spironolactone (ALDACTONE) 100 mg tabletTake 1 tablet by mouth once daily.Disp: 30 tabletRfl: 0Prescriptions as of 11/04/2017 Sig: LOSARTAN 100 MG TABLET once daily. AMLODIPINE 10 MG TABLET Take 5 mg by mouth once daily* FLUTICASONE 50 MCG/ACTUATION * Use 1 Comstock in each nostril a* FLECAINIDE 50 MG TABLET Take 50 mg by mouth twice zane* WARFARIN 7.5 MG TABLET Take 7.5 mg by mouth once zane* * HYDROCHLOROTHIAZIDE 12.5 MG T* Take 25 mg by mouth once lisa* SPIRONOLACTONE 100 MG TABLET Take 1 tablet by mouth once d* METOPROLOL 12.5 MG TAB Take 6.25 mg by mouth twice d*Medication notes this encounter POTASSIUM CHLORIDE ER 10 MEQ TABLET,EXTENDED RELEASE >> Sarahi Stokes Ma 11/04/2017 9:45 AM >> SARAHI STOKES MA Nov 04, 2017 9:45 AM Not currently takingProblem List As Of Date 11/04/2017 Noted Resolved [facility] [D41.00, D41.20] INVALID FOR* ASA CLASS II [1001] INVALID FOR* VENOUS THROMBOSIS NOS [I74.9] INVALID FOR* POSTPHLEBITIC SYND W/O COMPLICATION [I87.009] INVALID FOR* HYPERTENSION NOS [I10] INVALID FOR* OSTEOARTHROS NOS-L/LEG [M17.10] INVALID FOR* OSTEOARTHROS NOS-PELVIS [M16.9] INVALID FOR* LUMBOSACRAL SPONDYLOSIS [M47.817] INVALID FOR* Palpitation [R00.2] INVALID FOR*09/19/2013 Arthritis of knee [M17.10] INVALID FOR* Senile nuclear cataract [H25.10] INVALID FOR* Dermatochalasis, bilateral [H02.833, H02.836] INVALID FOR* Angular blepharoconjunctivitis [H10.529] INVALID FOR* Cataract, nuclear sclerotic senile [H25.10] INVALID FOR* Pure hypercholesterolemia [E78.00] INVALID FOR* Metabolic syndrome [E88.81] INVALID FOR* Hirsutism [L68.0] INVALID FOR* Other instructions from your clinician: Get blood test fasting Start Aldactone 100 mg daily Get a potassium level drawn 7-10 days after starting this medication Follow up in 4-6 monthsPrescriptions ordered this encounter Disp Refills Start End SPIRONOLACTONE 100 MG TABLET 90 t* 1 11/04/2017 11/04/2017 Route: ORAL Sig: Take 1 tablet by mouth once daily. SPIRONOLACTONE 100 MG TABLET 30 t* 0 11/04/2017 Route: ORAL Sig: Take 1 tablet by mouth once daily.Medications Discontinued During This Encounter potassium chloride (KLOR-CON 10) 10 * 30 t* 3 09/19/2013 11/04/2017 Class: Print RX Route: ORAL Sig: Take 1 tablet by mouth once daily. Disc: Reason for discontinue is not on file. spironolactone (ALDACTONE) 100 mg ta* 90 t* 1 11/04/2017 11/04/2017 Route: ORAL Sig: Take 1 tablet by mouth once daily. Disc: Reason for discontinue is not on file. Status:Closed by PREETI OLIVEROS DO on 11/04/17 [facility] PROGRESSon 11-04-2017 PROGRESS HNO ID: [id number]: Preeti Camarenaervice: (none)Author Type: PhysicianType: Progress NotesFiled: 11/04/2017 11:30 AMNote Text:CONSULTING PHYSICIAN:SelfMy final recommendations will be communicated back to the requestingphysician by way of shared Medical record or a letter via [place] mailSubjective:Ileana Yanez is a 77 year old female here to establish care forhirsutismHistory in brief, she has had hirsutism since pubertyHer main concern today is that facial hair on upper lip, chin and cheeksand neckShe describes this as dark coarse hairReports that recently family members and friends are commenting that shehas a beardStates that previously, she was plucking 45 mins on a daily basisCurrent treatment: she is currently undergoing electrolysis extensively-44 sessionLast session was yesterdayShe had her PCP check androgen levelsDHEA-S: 51Testosterone- 24Sex hormone binding globulin -121No acnePatient had 2 pregnanciesNo trouble conceivingShe had a hysterectomy in early 40s, unsure if the ovaries were leftbehind+family history of type 2 diabetesNo personal history of GDMShe also has hyperlipidemiaLDL-228Cho p-256Ctsq-97XRIMMR OF SYSTEMS:GENERAL:Fever - NoChanges in weight - NoNEUROLOGICAL:Numbness, tingling or sensation of pins and needles - NoHeadaches-NoHEAD, EYES, EARS, NOSE, AND THROAT:Changes in hearing - NoChanges in vision - NoCARDIOVASCULAR:Chest pain or pressure - NoPalpitations - NoRESPIRATORY:Cough - NoWheezing - NoShortness of breath - NoGASTROINTESTINAL:Abdom inal discomfort - NoNausea - NoVomiting - NoEXTREMITY:Edema (swelling) - NoClaudication-NoMUSCULO SKELETAL:Muscle pain or ache - NoArthralgia-NoSkin:Rash - NoPruritus-NoENDOCRINE:D iabetes - NoThyroid disorder - NoPSYCHOLOGICAL:Depressi on - NoALLERGIES:ALLERGIESAll ergen Reactions- Brianna Inhibitors Intolerance- Adhesive Tape (Laurel*- Fungus [Other] BRINGS ON ASTHMA ATTACK- Mold BRINGS ON ASTHMA ATTACK- Sulfa (Sulfonamide * Rash, Itching- Tetanus Toxoid Adso* SwellingMEDICATIONS:Curr ent Outpatient Prescriptions on File Prior to Visit:losartan (COZAAR) 100 mg tablet once daily.amLODIPine (NORVASC) 10 mg tablet Take 5 mg by mouth once daily.fluticasone (FLONASE) 50 mcg/actuation nasal spray Use 1 Comstock in eachnostril as needed.flecainide (TAMBOCOR) 50 mg tablet Take 50 mg by mouth twice daily. 50mgstwice dailywarfarin (COUMADIN) 7.5 mg tablet Take 7.5 mg by mouth once daily. EveryWed and Wedhydrochlorothiazide 12.5 mg tablet Take 25 mg by mouth once daily.metoprolol tartrate (LOPRESSOR) 12.5 mg tab Take 6.25 mg by mouth twicedaily.potassium chloride (KLOR-CON 10) 10 mEq tablet Take 1 tablet by mouth oncedaily.No current facility-administered medications on file prior to visit.PAST MEDICAL HISTORY:PAST MEDICAL HISTORYDiagnosis Date- A-fib (HCC)- Asthma allergy triggered- Cervical vertebra fusion may 1999- Chronic renal insufficiency partial left nephrectomy- DVT (deep venous thrombosis) ([facility]) on coumadin- Dyslipidemia controll with diet- History of hip replacement, total left hip- HTN (hypertension)- Nasal bone fracture 02/2013- Peripheral vascular disease (HCC)- PMH - PAST MEDICAL HISTORY OF blood clots Left leg after partial L nephrectomy in 2004- PMH - PAST MEDICAL HISTORY OF asthma- PMH - PAST MEDICAL HISTORY OF stomach ulcerPAST SURGICAL HISTORY:PAST SURGICAL HISTORYProcedure Laterality Date- PAST SURGICAL HISTORY OF 1998 cervical fusion- PAST SURGICAL HISTORY OF 2004 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- PAST SURGICAL HISTORY OF 1966 - PAST SURGICAL HISTORY OF 1978 Hysterectomy- PAST SURGICAL HISTORY OF Left left hand/wrist benign tumor removed per patient- REMOVE CATARACT, INSERT LENS,EX 01/22/2015 OD- THAFAMILY HISTORY:FAMILY HISTORYProblem Relation Age of Onset- Alzheimer's Disease Mother in late - Diabetes Father in late - No Ocular Disease OtherSOCIAL HISTORY:Social History Marital status: Spouse name: Years of education: Number of children:Social History Main Topics Smoking status: Never Smoker Smokeless tobacco: Never Used Alcohol use: No Drug use: NoPHYSICAL EXAM:BP 135/66 (BP Site: Left Arm, BP Position: Sitting, BP Cuff Size: LargeAdult) Pulse 60 Ht 158.5 cm (5' 2.4") Wt 79.8 kg (176 lb) GfU139% BMI 31.78 kg/m?Last 3 Encounter Wt Readings: Date: Wt: 11/04/2017 79.8 kg (176 lb) 12/24/2014 90.7 kg (200 lb) 09/18/2013 99.1 kg (218 lb 7.6 oz)General: Alert and oriented x3, no acute distressEyes: Anicteric sclera. Pupils are equally round. Extraocular movementsare intact.Mucous membranes moist, no erythemaNeck supple, no cervical lymphadenopathyThyroid: normal size, normal texture, no palpable nodulesLungs: Breathing unlabored, clear to auscultation. No wheezing, rhonchi,ralesHeart regular rate and rhythm, no murmerMusculoskeletal: Muscular strength intact, No joint swelling, deformity,or tendernessNeuro: Gait normal. Sensation grossly intact. Normal DTR's at patellaAbdomen:Normal abdominal sounds, non tender to palpation, no massesExtremities: without edema, good peripheral pulsesSkin: no rashes/ erythema, no hirsutism notedLAB:TSHDate Value Ref Range Iuujvm53/04/2014 1.040 0.400 - 5.500 uU/mL Final No results found for: GWZTV1LFUDEKZVQC/PLAN:1) Hirsutism2) Metabolic syndrome3) Hyperlipidemia4) family history of diabetesThis has been an issue since pubertyNo signs of virilizationAndrogen levels are normalNo hirsutism noted on exam since she had electrolysis yesterdayStart Aldactone 100 mg dailyWe discussed MOA, benefits and adverse effectsStop potassium supplementsUpdate a potassium level in 7-10 daysCheck A1c and fasting insulin levelThen will consider adding meforminShe will also benefit from starting a statinI will notify the patient once the labs become availableFollow up in 4-6 monthsPreeti Oliveros MD11/04/17 Normal [facility] Echo Complete w/wo Contrasto n 05-25-2017 Echo Complete w/wo Contrast Patient Name: ILEANA YANEZ Ultrasound Exam Date/Time 05/25/2017 15:32:32 EST Exam Echo Complete w/wo Contrast Ordering Physician MD CHAS, JOHN Accession Number [id number] Reason For Exam Aortic stenosis Report TRANSTHORACIC ECHOCARDIOGRAM PATIENT: Ileana Yanez STUDY DATE: 05/25/2017 : 1940 AGE: 77 HT/WT: 160 cm (63 87.5 kg (192.6 in) lb) GENDER: F BP: 146 / 78 LOCATION: [facility] STATUS: *ORDERING PHYSICIAN: * Tom Doherty *READING PHYSICIAN: * Linwood Rosado MD *RIVERBOAT MASTER: * Seema Fenton --- --- INDICATIONS: Aortic stenosis. --- --- CONCLUSIONS SUMMARY: 1. Left ventricle: There is mild concentric hypertrophy. Systolic function is normal by the biplane method of disks. The estimated ejection fraction is 59%. Left ventricular diastolic function parameters are normal for the patient's age. 2. Aortic valve: Trileaflet; mildly calcified leaflets. There is no stenosis. There is no significant regurgitation. --- --- STUDY DATA: Complete transthoracic echocardiogram. Procedure: Image quality was adequate. M-mode, complete 2D, complete spectral Doppler, and color flow Doppler images were acquired and archived for permanent storage and are available for subsequent review. Study status: Routine. Patient status: Outpatient. --- --- FINDINGS LEFT VENTRICLE: Average LV Global Longitudinal Strain is -18 The cavity size is normal. Wall thickness is mildly increased. There is mild concentric hypertrophy. Systolic function is normal by the biplane method of disks. The estimated ejection fraction is 59%. There are no regional wall motion abnormalities. There is an increased relative contribution of atrial contraction to ventricular filling. Left ventricular diastolic function parameters are normal for the patient's age. RIGHT VENTRICLE: The cavity size is normal. Systolic function is normal. VENTRICULAR SEPTUM: There is no evidence of a ventricular septal defect. LEFT ATRIUM: The atrium is normal in size. RIGHT ATRIUM: The atrium is normal in size. ATRIAL SEPTUM: The interatrial septum is normal. Doppler shows no evidence of shunt. MITRAL VALVE: Mildly calcified annulus. Mildly thickened leaflets. Doppler: There is no evidence for stenosis. There is trivial, less than 1+ regurgitation. Peak gradient (D): 3 mm Hg. AORTIC VALVE: Trileaflet; mildly calcified leaflets. Doppler: There is no stenosis. There is no significant regurgitation. Dimensionless index: 0.51. Valve area (VTI): 1.1 cm2. Indexed valve area (VTI): 0.5 cm2/m2. Mean gradient (S): 11 mm Hg. Peak gradient (S): 18 mm Hg. Peak velocity (S): 2.1 m/sec. TRICUSPID VALVE: Structurally normal valve. Leaflet separation is normal. Doppler: Transvalvular velocity is within the normal range. There is no evidence for stenosis. There is trivial, less than 1+ regurgitation. PULMONIC VALVE: Not well visualized. Structurally normal valve. Cusp separation is normal. Doppler: Transvalvular velocity is within the normal range. There is trivial, less than 1+ regurgitation. AORTA: Aortic root: The aortic root is normal in size. Ascending aorta: The ascending aorta is normal in size. PERICARDIUM: The amount of pericardial fluid appears to be at the upper limits of normal. SYSTEMIC VEINS: Inferior vena cava: Not visualized. --- --- Measurements Left ventricle Value 09/11/2015 Reference Longitudinal strain, 2D 18.42 % -------- - LV ID, ED 4.6 cm 4.4 3.9 - 5.3 LV ID, ES 3.2 cm 2.5 -------- - LV PW thickness, ED (H) 1.2 cm 1.1 0.6 - 0.9 LV end-diastolic volume, 1-p A4C 72 ml 91 56 - 104 LV end-systolic volume, 1-p A4C 28 ml 29 19 - 49 LV end-diastolic volume, 2-p 71 ml 87 56 - 104 LV end-systolic volume, 2-p 29 ml 25 19 - 49 LV ejection fraction, 2-p 59 % 68 >=55 LV E/e', lateral 8.1 -------- - LV E/e', medial 9.4 -------- - LV E/e', average 8.7 -------- - Ventricular septum Value 09/11/2015 Reference IVS thickness, ED (H) 1.1 cm 1.0 0.6 - 0.9 LVOT Value 09/11/2015 Reference LVOT ID, A-P 1.7 cm 1.8 -------- - LVOT mean velocity, S 0.8 m/sec -------- - LVOT VTI, S 28.2 cm -------- - LVOT peak gradient, S 4 mm Hg -------- - Stroke volume (SV), LVOT DP 60 ml 65 -------- - Stroke index (SV/bsa), LVOT DP 30 ml/m2 30 --------- Aortic valve Value 09/11/2015 Reference Aortic annulus diameter, ED 1.6 cm -------- - Aortic valve peak velocity, S 2.1 m/sec -------- - Aortic valve mean velocity, S 1.6 m/sec -------- - Aortic valve VTI, S 55.2 cm -------- - Aortic mean gradient, S 11 mm Hg 9 -------- - Aortic peak gradient, S 18 mm Hg 16 -------- - DI 0.51 -------- - Aortic valve area, VTI 1.1 cm2 1.4 --------- Aortic valve area/bsa, VTI 0.5 cm2/m2 0.7 --------- Aorta Value 09/11/2015 Reference Aortic root ID, ED (sinus) 2.6 cm <4.1 Left atrium Value 09/11/2015 Reference LA area, ES, A2C 19 cm2 --------- LA volume/bsa, ES, 2-p 27 ml/m2 --------- Mitral valve Value 09/11/2015 Reference Mitral E-wave peak velocity 0.8 m/sec 0 -------- - Mitral A-wave peak velocity 1 m/sec 1.1 -------- - Mitral deceleration time 260 ms 163 -------- - Mitral peak gradient, D 3 mm Hg -------- - Mitral E/A ratio, peak 0.8 1.0 -------- - Tricuspid valve Value 09/11/2015 Reference Tricuspid regurg peak velocity 2.4 m/sec 2.8 -------- - Tricuspid peak RV-RA gradient 23 mm Hg 32 -------- - Right atrium Value 09/11/2015 Reference RA area, ES, A4C 16 cm2 10 - 18 Right ventricle Value 09/11/2015 Reference RV ID, minor axis, ED, A4C base 3.5 cm 2.4 - 4.2 RV ID, minor axis, ED, A4C mid 2.8 cm 2.0 - 3.5 TAPSE 2.3 cm -------- - Legend: (L) and (H) reinaldo values outside specified reference range. Electronically signed by Linwood Rosado MD 05/25/2017 15:48 Final Dictated: 05/25/2017 3:49 pm Dictating Physician: LINWOOD ROSADO Signed Date and Time: 05/25/2017 3:48 pm Signed by: LINWOOD ROSADO [facility] Carotid Duplex Ultrasound Completeon 05-25-2017 VL Carotid Duplex Ultrasound Complete Patient Name: ILEANA YANEZ Ultrasound Exam Date/Time 05/25/2017 14:15:42 EST Exam VL Carotid Duplex Ultrasound Complete Ordering Physician MD CHAS, [facility] Accession Number [id number] CPT4 Codes 30694 () Reason For Exam Carotid stenosis Report [facility] --- --- Carotid Duplex Report Patient Name: Ileana Yanez : 1940 Study Date: 05/25/2017 (77yrs) Age: 77 Account: [id number] Gender: F Loc: BP: Ordering: Tom Doherty Technologist: Ordering Physician: Tom Doherty Environmental Services Director: Kelsea Owens RDMS Diya Interpreting Physician: Sonja Keys --- --- Location: [facility] --- --- INDICATIONS: Carotid stenosis. --- --- CONCLUSIONS 1. Bilateral internal carotid arteries with no hemodynamically significant stenosis --- --- IMPRESSIONS: - Less than 50% stenosis by velocity criteria involving the right internal carotid artery. - Less than 50% stenosis by velocity criteria involving the left internal carotid artery. - The right vertebral artery is patent with normal antegrade flow. - The left vertebral artery is patent with normal antegrade flow. - Velocities may be elevated due to what appears to be tortuosity of the vessels. --- --- HISTORY: Transient ischemic attack. Risk factors: Hypertension. Dyslipidemia. --- --- STUDY DATA: Complete carotid duplex study. Right hand dominant. Birthdate: Patient birthdate: 1940. Age: Patient is 77 yr old. Sex: Gender: female. Ethnicity: Ethnicity: white. Height: Height: 0 cm. Weight: Weight: 0 kg. Doppler flow study including spectral analysis, color and coreas scale imaging. Patient status: Outpatient. Procedure: A vascular evaluation was performed. The images were obtained using a [employer] Aplio vascular ultrasound machine. This was a 1 yr follow-up study. --- --- Arterial flow: + +-------- --+---------+--------+-- +--------- --- --+ !Location !V sys !V ed !Stenosis!Plaque !Flow analysis ! + +-------- --+---------+--------+-- +--------- --- --+ !Right ICA - !72.5 cm/s !12.3 cm/s!< 50% ! !------ ------ --! !proximal ! ! ! ! ! ! + +-------- --+---------+--------+-- +--------- --- --+ !Right ICA - !67.9 cm/s !17.7 cm/s!< 50% ! !------ ------ --! !mid ! ! ! ! ! ! + +-------- --+---------+--------+-- +--------- --- --+ !Right ICA - !141.2 cm/s!35.6 cm/s!50-69% ! !------ ------ --! !distal ! ! ! ! ! ! + +-------- --+---------+--------+-- +--------- --- --+ !Right CCA - !91.6 cm/s !17.9 cm/s!--------! ------! --! !proximal ! ! ! ! ! ! + +-------- --+---------+--------+-- +--------- --- --+ !Right CCA - !91.6 cm/s !27.9 cm/s!--------! ------! --! !mid ! ! ! ! ! ! + +-------- --+---------+--------+-- +--------- --- --+ !Right ECA !70.7 cm/s !11.9 cm/s!--------!Homogenous , ! --! ! ! ! ! !smooth, and ! ! ! ! ! ! !calcified ! ! + +-------- --+---------+--------+-- +--------- --- --+ !Right !45.8 cm/s !13.9 cm/s!--------! ------!Antegrade flow! !vertebral ! ! ! ! ! ! + +-------- --+---------+--------+-- +--------- --- --+ !Left ICA - !82.6 cm/s !27.9 cm/s!< 50% !Homogenous and ! --! !proximal ! ! ! !smooth ! ! + +-------- --+---------+--------+-- +--------- --- --+ !Left ICA - mid!80.6 cm/s !28.9 cm/s!< 50% ! !------ ------ --! + +-------- --+---------+--------+-- +--------- --- --+ !Left ICA - !74.6 cm/s !25.9 cm/s!< 50% ! !------ ------ --! !distal ! ! ! ! ! ! + +-------- --+---------+--------+-- +--------- --- --+ !Left CCA - !94.5 cm/s !26.9 cm/s!--------! ------! --! !proximal ! ! ! ! ! ! + +-------- --+---------+--------+-- +--------- --- --+ !Left CCA - mid!104.5 cm/s!25.9 cm/s!--------! ------! --! + +-------- --+---------+--------+-- +--------- --- --+ !Left ECA !104.5 cm/s!20.9 cm/s!--------! ------! --! + +-------- --+---------+--------+-- +--------- --- --+ !Left vertebral!40.8 cm/s !20.9 cm/s!--------! ------!Antegrade flow! + +-------- --+---------+--------+-- +--------- --- --+ Velocity ratios: + +------- -----+ +------ -----+ + ! !Right, V sys!Right, V ed!Left, V sys!Left, V ed! + +------- -----+ +------ -----+ + !Max ICA/Mid CCA!1.54 !1.28 !0.79 !1.12 ! + +------- -----+ +------ -----+ + Brachial pressures: +---------+-----+----+-- -+ ! !Right!Left!Max! +---------+-----+----+-- -+ !Systolic !127 !123 !127! +---------+-----+----+-- -+ !Diastolic!72 !63 !---! +---------+-----+----+-- -+ Electronically signed by: Sonja Keys [id number] Final Dictated: 05/25/2017 7:12 pm Dictating Physician: SONJA KEYS Signed Date and Time: 05/25/2017 7:11 pm Signed by: SONJA KEYS [facility] Vital Signs Date Time Vital Sign Value Performing Clinician Faci lity 08-03-2023 09:59-0400 Body height 162.6 cm John Doherty MD Work Phone: [facility] 08-03-2023 09:59-0400 Body mass index (BMI) [Ratio] 25.23 kg/m2 John Doherty MD Work Phone: [facility] 08-03-2023 09:59-0400 Body weight 66.68 kg John Doherty MD Work Phone: [facility] 07-07-2023 10:47-0500 Body height 162.6 cm Camacho Melendez MD Work Phone: [facility] 07-07-2023 10:47-0500 Body mass index (BMI) [Ratio] 25.23 kg/m2 Camacho Melendez MD Work Phone: [employer] [facility] 07-07-2023 10:47-0500 Body weight 66.68 kg Camacho Melendez MD Work Phone: [facility] 06-15-2023 09:49-0500 Body height 162.6 cm John Doherty MD Work Phone: [employer] [facility] 06-15-2023 09:49-0500 Body mass index (BMI) [Ratio] 25.23 kg/m2 John Doherty MD Work Phone: [facility] 06-15-2023 09:49-0500 Body weight 66.68 kg John Doherty MD Work Phone: [facility] 06-15-2023 09:49-0500 Diastolic blood pressure 70 mm[Hg] John Doherty MD Work Phone: [facility] 06-15-2023 09:49-0500 Heart rate 60 /min John Doherty MD Work Phone: [facility] 06-15-2023 09:49-0500 SaO2% (BldA) [Mass fraction] 97 % John Doherty MD Work Phone: [facility] 06-15-2023 09:49-0500 Systolic blood pressure 136 mm[Hg] John Doherty MD Work Phone: [facility] 11-24-2022 09:02-0400 Body mass index (BMI) [Ratio] 24.37 kg/m2 John Doherty MD Work Phone: [facility] 11-24-2022 09:02-0400 Body weight 64.41 kg John Doherty MD Work Phone: [facility] 11-24-2022 09:02-0400 Diastolic blood pressure 80 mm[Hg] John Doherty MD Work Phone: [facility] 11-24-2022 09:02-0400 Heart rate 56 /min John Doherty MD Work Phone: [facility] 11-24-2022 09:02-0400 SaO2% (BldA) [Mass fraction] 97 % John Doherty MD Work Phone: [facility] 11-24-2022 09:02-0400 Systolic blood pressure 160 mm[Hg] John Doherty MD Work Phone: [facility] 09-08-2022 10:19-0400 Body height 162.6 cm John Doherty MD Work Phone: [facility] 09-08-2022 10:19-0400 Body mass index (BMI) [Ratio] 23.69 kg/m2 John Doherty MD Work Phone: [facility] 09-08-2022 10:19-0400 Body weight 62.6 kg John Doherty MD Work Phone: [facility] 07-28-2022 13:16-0400 Body height 162.6 cm John Doherty MD Work Phone: [facility] 07-28-2022 13:16-0400 Body mass index (BMI) [Ratio] 23.69 kg/m2 John Doherty MD Work Phone: [facility] 07-28-2022 13:16-0400 Body weight 62.6 kg John Doherty MD Work Phone: [facility] 07-28-2022 13:16-0400 Diastolic blood pressure 76 mm[Hg] John Doherty MD Work Phone: [facility] 07-28-2022 13:16-0400 Heart rate 63 /min John Doherty MD Work Phone: [facility] 07-28-2022 13:16-0400 SaO2% (BldA) [Mass fraction] 98 % John Doherty MD Work Phone: [facility] 07-28-2022 13:16-0400 Systolic blood pressure 130 mm[Hg] John Doherty MD Work Phone: [facility] 02-06-2022 16:17-0400 Diastolic blood pressure 60 mm[Hg] Dr. Dwain Roberson Work Phone: [facility] Work Phone: 02-06-2022 16:17-0400 Heart rate 66 /min Dr. Dwain Roberson Work Phone: [facility] Work Phone: 02-06-2022 16:17-0400 Respiratory rate 15 /min Dr. Dwain Roberson Work Phone: [facility] Work Phone: 02-06-2022 16:17-0400 Systolic blood pressure 161 mm[Hg] Dr. Dwain Roberson Work Phone: [facility] Work Phone: 02-06-2022 12:57-0400 Body height 160.[address] Dwain Roberson Work Phone: [facility] Work Phone: 02-06-2022 12:57-0400 Body mass index (BMI) [Ratio] 24.7 kg/m2 Dr. Dwain Roberson Work Phone: [facility] Work Phone: 02-06-2022 12:57-0400 Body temperature 97.4 [degF] Dr. Dwain Roberson Work Phone: [facility] Work Phone: 02-06-2022 12:57-0400 Body weight 63.[address] Dwain Roberson Work Phone: [facility] Work Phone: 02-06-2022 12:57-0400 SaO2% (BldA) [Mass fraction] 97 % Dr. Dwain Roberson Work Phone: [facility] Work Phone: Encounters Encounter Date Encounter Type Care Provider Facility Start: 03-05-2025 ambulatory Marcio Garcia ty:[facility] Start: 09-18-2024 End: 09-18-[address] Lisa Fuentes MD [facility] Work Phone: Start: 09-18-2024 End: 09-18-2024 Departed Referred Marcio Pires MD [facility] Start: 09-18-2024 End: 09-18-2024 ambulatory Lisa lisa Facility:[facility] Start: 07-20-2024 End: 07-20-[address] Lisa Fuentes MD [facility] Work Phone: Start: 07-20-2024 End: 07-20-2024 Departed Referred Marcio Pires MD -[facility] Start: 07-20-2024 End: 07-20-2024 ambulatory Marcio SIDDIQUI Facility:[facility] Start: 06-30-20[facility] Start: 06-30-2024 Registered Referred Marcio Pires MD -[facility] Start: 03-24-2024 End: 03-24-2024 ambulatory Marcio SIDDIQUI Facility:[facility] Start: 11-08-2023 End: 11-08-2023 Telephone encounter John Doherty MD Work Phone: [facility] Cardiology Comment on above: Med Management Start: 11-06-2023 End: 11-08-2023 Refill Berenicevaishali Cardoza PEDIATRIC RN - ACADEMIC SERVICES COORDINATOR Work Phone: [facility]iology Comment on above: Paroxysmal atrial fi brillation (HCC) Start: 11-04-2023 End: 11-04-2023 Refill Neena Hernandez PEDIATRIC RN - ACADEMIC SERVICES COORDINATOR Work Phone: [facility] Start: 09-20-2023 Telephone encounter Jef munoz MD Work Phone: [facility] Clinical Communication Comment on above: Cancelled Appointmen t Start: 08-06-2023 Telephone encounter John singh MD Work Phone: [facility] Cardiology Comment on above: Advice Only Start: 08-03-2023 End: 08-03-2023 Subsequent hospital visit by physician John Doherty MD Work Phone: [facility] Non-Invasive Cardiology Comment on above: Paroxysmal atrial fi brillation (HCC); Nonrheumatic aortic valve stenosis; Obstructive sleep apnea syndrome; TIA (transient ischemic attack); Primary hypertension Start: 08-03-2023 End: 08-03-2023 ambulatory JOHN DOHERTY [facility] Start: 07-09-2023 End: 07-09-2023 ambulatory [facility] Work Phone: Start: 07-09-2023 End: 07-09-2023 Departed Ref[place] [facility] [place]: Start: 07-07-2023 End: 07-07-2023 Office outpatient new 30 minutes Camacho Melendez MD Work Phone: [facility] Orthopedics and Sports Medicine Comment on above: Primary osteoarthrit is of both knees Start: 07-07-2023 End: 07-07-2023 ambulatory IZZY HOLGUIN [facility] Start: 07-07-2023 End: 07-07-2023 Subsequent hospital visit by physician Izzy Holguin PA-C Work Phone: [facility] X-ray Comment on above: Chronic pain of both knees Start: 07-01-2023 Orders Only Izzy Garcia Work Phone: [facility] Orthopedic Surg Comment on above: Chronic pain of both knees (Primary Dx) Start: 06-15-2023 End: 06-15-2023 Office outpatient visit 25 minutes John Doherty MD Work Phone: [facility] Cardiology Comment on above: Paroxysmal atrial fi brillation (HCC) (Primary Dx); Nonrheumatic aortic valve stenosis; Obstructive sleep apnea syndrome; TIA (transient ischemic attack); Primary hypertension; Mixed hyperlipidemia; Syncope and collapse Start: 06-15-2023 End: 06-15-2023 ambulatory JOHN DOHERTY [facility] Start: 05-13-2023 Refill Neena Daly PRN - ACADEMIC SERVICES COORDINATOR Work Phone: [facility] Start: 04-15-2023 Refill John amaya MD Work Phone: [facility] Start: 04-09-2023 End: 04-09-2023 ambulatory [facility] Work Phone: Start: 04-09-2023 End: 04-09-2023 Departed Referred [facility] [place] Phone: Start: 04-05-2023 End: 04-05-2023 ambulatory [facility] Work Phone: Start: 04-05-2023 End: 04-05-2023 Departed Referred [facility] Work Phone: Start: 01-06-2023 Refill John amaya MD Work Phone: [facility] Start: 11-30-2022 Refill Neena O'Shell A PRN - ACADEMIC SERVICES COORDINATOR Work Phone: [facility] Start: 11-26-2022 Refill Neena O'Shell A PRN - ACADEMIC SERVICES COORDINATOR Work Phone: [facility] Cardiology Comment on above: Pure hypercholestero lemia Start: 11-24-2022 End: 11-24-2022 Office outpatient visit 25 minutes John Doherty MD Work Phone: [facility] Cardiology Comment on above: Paroxysmal atrial fi brillation (CMS/HCC) (HCC) (Primary Dx); Nonrheumatic aortic valve stenosis; Mixed hyperlipidemia; Obstructive sleep apnea syndrome; TIA (transient ischemic attack); Primary hypertension Start: 11-24-2022 End: 11-24-2022 ambulatory JOHN DOHERTY [facility] Start: 11-05-2022 Refill John amaya MD Work Phone: [facility] Cardiology Comment on above: Paroxysmal atrial fi brillation (CMS/HCC) (HCC) Start: 09-10-2022 Telephone encounter John singh MD Work Phone: [facility] Cardiology Comment on above: Results Start: 09-08-2022 End: 09-08-2022 Subsequent hospital visit by physician John Doherty MD Work Phone: [facility] Non-Invasive Cardiology Comment on above: Paroxysmal atrial fi brillation (CMS/HCC) (HCC); Nonrheumatic aortic valve stenosis; Mixed hyperlipidemia Start: 08-11-2022 End: 08-11-[address] Dwain Roberson Work Phone: [facility] Start: 08-06-2022 Telephone encounter Nanette Shaheen [facility] Cardiology Start: 08-04-2022 Telephone encounter John singh MD Work Phone: [facility] Cardiology Comment on above: Med Management (PCSK 9) Start: 08-03-2022 End: 08-03-[address] Dwain Roberson Work Phone: [facility] Work Phone: Start: 08-03-2022 End: 08-03-[address] Dwain Roberson Work Phone: [facility] Start: 07-28-2022 End: 07-28-2022 Office outpatient visit 25 minutes John Doherty MD Work Phone: [facility]iology Comment on above: Paroxysmal atrial fi brillation (CMS/HCC) (HCC) (Primary Dx); Nonrheumatic aortic valve stenosis; Mixed hyperlipidemia Start: 07-23-2022 End: 07-23-[address] Dwain Roberson Work Phone: [facility] Work Phone: Start: 07-23-2022 End: 07-23-[address] Dwain Roberson Work Phone: [facility] Start: 07-20-2022 Refill John amaya MD Work Phone: [facility] Start: 07-03-2022 End: 07-03-[address] Dwain Roberson Work Phone: [facility] Start: 07-03-[address] Dwain Roberson Work Phone: [facility] Start: 06-15-2022 End: 06-15-[address] Dwain Roberson Work Phone: [facility] Start: 06-12-2022 End: 06-12-[address] Dwain Roberson Work Phone: [facility] Work Phone: Start: 06-12-2022 End: 06-12-[address] Dwain Roberson Work Phone: [facility] Start: 05-27-2022 End: 05-27-[address] Dwain Roberson Work Phone: [facility] Start: 05-27-2022 Registered Referred [facility] [place] [place] Start: 05-18-2022 End: 05-18-2022 ambulatory [facility] Work Phone: Start: 05-18-2022 End: 05-18-2022 Departed Referred [facility] Start: 05-18-2022 Registered Referred [facility] [place] [place] Start: 02-27-2022 End: 02-27-2022 Departed Referred [facility] Start: 02-27-[address] Dwain Roberson Work Phone: [facility] Start: 02-24-2022 End: 02-24-[address] Dwain Roberson Work Phone: [facility] Work Phone: Start: 02-24-2022 End: 02-24-[address] Dwain Roberson Work Phone: [facility] Start: 02-24-[address] Dwain Roberson Work Phone: [facility] Start: 02-13-2022 End: 02-13-2022 ambulatory [facility] Work Phone: Start: 02-13-2022 End: 02-13-2022 Departed Referred [facility] Start: 02-13-[address] Dwain Roberson Work Phone: [facility] Start: 02-11-2022 End: 02-11-[address] Dwain Roberson Work Phone: [facility] Work Phone: Start: 02-11-2022 End: 02-11-[address] Dwain Roberson Work Phone: [facility] Start: 02-06-2022 End: 02-06-2022 Emergency department patient visit Dr. Dwain Roberson Work Phone: [facility] Start: 01-15-2022 End: 01-15-[address] Dwain Roberson Work Phone: [facility] Radiology Start: 09-22-2021 End: 09-22-2021 Patient encounter procedure [facility] Start: 03-28-2021 End: 03-28-2021 Subsequent hospital visit by physician John Doherty MD Work Phone: [facility] Comment on above: Near syncope; Cardiac murmur; Paroxysmal atrial fibrillation (HCC); Cerebral artery occlusion with cerebral infarction (HCC) Start: 11-04-2017 End: 11-04-2017 Ambulatory PREETI OLIVEROS [facility] Start: 05-25-2017 Ambulatory John Doherty [facility] Procedures Date Procedure Procedure Detail Performing Clinician Start: 07-20-[address] Halle Fuentes MD Start: 07-20-2024 Urnls dip stick/tabl et reagent auto microscopy Dr. Lisa Fuentes MD Start: 06-30-[address] Lisa Fuentes MD Start: 08-03-2023 Echo tthrc r-t 2d w/wom-mode compl spec&colr d John Doherty MD Work Phone: Start: 06-15-2023 Ecg routine ecg w/le ast 12 lds w/i&r John Doherty MD Work Phone: Start: 11-24-2022 Ecg routine ecg w/le ast 12 lds w/i&r John Doherty MD Work Phone: Start: 09-08-2022 Echo tthrc r-t 2d w/wom-mode compl spec&colr d John Doherty MD Work Phone: Start: 08-03-2022 Lipid 1996 panel - S terrance or Plasma John Doherty MD Work Phone: Start: 07-28-2022 Ecg routine ecg w/le ast 12 lds w/i&r John Doherty MD Work Phone: Start: 07-23-2022 MRI of joint of lowe r extremity Dr. Dwain Roberson Work Phone: Start: 06-15-2022 Plain x-ray of wrist Dr Oracio Roberson Work Phone: Start: 02-06-2022 Plain chest X-ray Dr. Arnav Roberson Work Phone: Start: 02-06-2022 CT of head without contrast Dr. Dwain Roberson Work Phone: Start: 02-06-2022 Plain x-ray of pelvi s and lower extremity Dr. Dwain Roberson Work Phone: Start: 02-06-2022 Radiologic examinati on of knee Dr. Dwain Roberson Work Phone: Start: 01-15-2022 Radiography of thora cic spine Dr. Dwain Roberson Work Phone: Start: 01-15-2022 X-ray of cervical spine Dr. Dwain Roberson Work Phone: Start: 01-15-2022 X-ray of lumbosacral spine Dr. Dwain Roberson Work Phone: Start: 03-28-2021 Echo tthrc r-t 2d w/wom-mode compl spec&colr d John Doherty MD Work Phone: Plan of Treatment Date Care Activity Detail Author Start: 08-04-2027 Lipid panel Lipid Panel [facility] Start: 01-09-2024 Influenza vaccination [facility] Start: 12-14-2023 End: 12-14-2023 Patient encounter procedure 12/14/2023 9:15 AM EDT Office Visit [facility] [address] [place] [address] John Doherty MD [address] [place], [place] [id number] [facility] Start: 11-24-2023 End: 06-15-2025 US Heart Transthoracic Transthoracic echocardiogram (TTE) complete with contrast, bubble, strain, and 3D PRN CV Echocardiography Routine Paroxysmal atrial fibrillation (CMS/HCC) (HCC) Nonrheumatic aortic valve stenosis Obstructive sleep apnea syndrome TIA (transient ischemic attack) Primary hypertension Expected: 11/24/2023 (Approximate), Expires: 06/15/2025 [facility] Work Phone: Comment on above: Expected: 11/24/2023 (Approximate), Expi res: 06/15/2025 Start: 11-18-2023 End: 11-18-2023 Patient encounter procedure 11/18/2023 11:00 AM EDT Appointment [facility] Non-Invasive Cardiology [address] [place] [address] John Doherty MD [address] [place], [place] [id number] [facility] Non-Invasive Cardiology Start: 10-26-2023 End: 10-26-2023 Patient encounter procedure [facility] Start: 08-03-2023 End: 08-03-2023 Patient encounter procedure 08/03/2023 10:00 AM EDT Appointment [facility] Non-Invasive Cardiology [address] [place] [id number] John Doherty MD [address] [place] [address] [facility] Non-Invasive Cardiology Start: 07-07-2023 End: 07-07-2023 Patient encounter procedure 07/07/2023 11:00 AM EST Office Visit [facility] Orthopedics [facility] Sports Medicine [address] [place] [address] [address] [place] [phone] Camacho Melendez MD [address] [place] [address] [facility] Start: 07-01-2023 End: 07-01-2024 XR Knee - bilateral 2 Views XR knee 1-2 views bilateral Imaging Routine Chronic pain of both knees Expected: 07/01/2023, Expires: 07/01/2024 [facility] Work Phone: Comment on above: Expected: 07/01/2023, Expires: Start: 07-01-2023 End: 07-01-2024 XR knees anteroposterior standing bilateral XR knees anteroposterior standing bilateral Imaging Routine Chronic pain of both knees Expected: 07/01/2023, Expires: 07/01/2024 [facility] Comment on above: Expected: 07/01/2023, Expires: Start: 05-25-2023 End: 05-25-2023 Patient encounter procedure 05/25/2023 9:15 AM EST Office Visit [facility] Card[facility] [address] [place] [phone] John Doherty MD [address] [place] [address] [facility] Start: 02-26-2023 End: 11-27-2023 Hepatic function 2000 panel - Serum or Plasma Hepatic function panel Lab Routine Pure hypercholesterolemia Expected: 02/26/2023 (Approximate), Expires: 11/27/2023 [facility] Comment on above: Expected: 02/26/2023 (Approximate), Expi res: 11/27/2023 Start: 02-26-2023 End: 11-27-2023 Lipid 1996 panel - Serum or Plasma Lipid panel Lab Routine Pure hypercholesterolemia Expected: 02/26/2023 (Approximate), Expires: 11/27/2023 [facility] Work Phone: Comment on above: Expected: 02/26/2023 (Approximate), Expi res: 11/27/2023 Start: 02-24-2023 DTaP/Tdap/Td Vaccines (2 - Td or Tdap) DTaP/Tdap/Td Vaccines (2 - Td or Tdap) [facility] Start: 01-08-2023 COVID-19 Vaccine ( season) COVID-19 Vaccine ( season) [facility] Start: 01-08-2023 Influenza vaccination [facility] Start: 11-24-2022 End: 11-24-2022 Patient encounter procedure [facility] Start: 09-08-2022 End: 09-08-2022 Patient encounter procedure 09/08/2022 Appointment Cardiology [facility] Non-Invasive Cardiology Start: 07-28-2022 End: 07-29-2023 CBC panel - Blood by Automated count CBC Lab Routine Paroxysmal atrial fibrillation (CMS/HCC) (HCC) Nonrheumatic aortic valve stenosis Mixed hyperlipidemia Expected: 07/28/2022 (Approximate), Expires: 07/29/2023 [facility] Comment on above: Expected: 07/28/2022 (Approximate), Expi res: 07/29/2023 Start: 07-28-2022 End: 07-29-2023 Comprehensive metabolic 1998 panel - Serum or Plasma Comprehensive metabolic panel Lab Routine Paroxysmal atrial fibrillation (CMS/HCC) (HCC) Nonrheumatic aortic valve stenosis Mixed hyperlipidemia Expected: 07/28/2022 (Approximate), Expires: 07/29/2023 [facility] Comment on above: Expected: 07/28/2022 (Approximate), Expi res: 07/29/2023 Start: 07-28-2022 End: 07-29-2023 Lipid 1996 panel - Serum or Plasma Lipid panel Lab Routine Paroxysmal atrial fibrillation (CMS/HCC) (HCC) Nonrheumatic aortic valve stenosis Mixed hyperlipidemia Expected: 07/28/2022 (Approximate), Expires: 07/29/2023 [facility] Work Phone: Comment on above: Expected: 07/28/2022 (Approximate), Expi res: 07/29/2023 Start: 07-28-2022 End: 07-28-2024 US Heart Transthoracic Transthoracic echocardiogram (TTE) complete with contrast, bubble, strain, and 3D PRN CV Echocardiography Routine Paroxysmal atrial fibrillation (CMS/HCC) (HCC) Nonrheumatic aortic valve stenosis Mixed hyperlipidemia Expected: 07/28/2022 (Approximate), Expires: 07/28/2024 [facility] Comment on above: Expected: 07/28/2022 (Approximate), Expi res: 07/28/2024 Start: 07-28-2022 End: 07-28-2022 Patient encounter procedure 07/28/2022 Office Visit Cardiology John Doherty MD [facility] [place] [address] [facility] Start: 02-23-2022 Creatinine measurement Creatinine monitoring [facility] Start: 02-23-2022 Potassium monitoring Potassium monitoring [facility] Start: 01-08-2022 Influenza vaccination Influenza Vaccine (#1) [facility] Start: 12-12-2021 COVID-19 Vaccine (4 - Booster for Pfizer series) COVID-19 Vaccine (4 - Booster for Pfizer series) [facility] Start: 12-12-2021 COVID-19 Vaccine (4 - Pfizer series) COVID-19 Vaccine (4 - Pfizer series) [facility] Start: 05-06-2021 End: 05-06-2021 Patient encounter procedure 05/06/2021 Office Visit Cardiology John Doherty MD [address] [place] [address] [facility] Start: 06-11-2020 COVID-19 Vaccine (2 - Pfizer 3-dose booster series) COVID-19 Vaccine (2 - Pfizer 3-dose booster series) [facility] Start: 10-27-2018 Annual Wellness Visit (AWV) Annual Wellness Visit (AWV) [facility] Start: 2006 Pneumococcal 65+ years Vaccine (1 of 1 - PPSV23) Pneumococcal 65+ years Vaccine (1 of 1 - PPSV23) [facility] Start: 10-12-2003 Pneumococcal Vaccine: 65+ Years (2 - PCV) Pneumococcal Vaccine: 65+ Years (2 - PCV) [facility] Start: 2001 RSV Immunization aged 60 or older (1 - 1-dose 60+ series) RSV Immunization aged 60 or older (1 - 1-dose 60+ series) [facility] Start: 1996 Screening for osteoporosis DEXA (modify frequency per FRAX score) [facility] Start: 1991 Shingles Vaccine (1 of 2) Shingles Vaccine (1 of 2) [facility] Start: 1991 Zoster Vaccines (1 of 2) Zoster Vaccines (1 of 2) [facility] Start: 1959 Diabetes mellitus screening Diabetes Screening [facility] Start: 1953 Depression Screening Depression Screening [facility] Start: 1947 Pneumococcal Vaccine: 65+ Years (1 - PCV) Pneumococcal Vaccine: 65+ Years (1 - PCV) [facility] Start: 1947 Pneumococcal Vaccine: 65+ Years (1 of 2 - PCV) Pneumococcal Vaccine: 65+ Years (1 of 2 - PCV) [facility] Start: 1940 Hepatitis B Vaccines (1 of 3 - 3-dose series) Hepatitis B Vaccines (1 of 3 - 3-dose series) [facility] Start: 1940 Lipid panel Lipid Panel [facility] Start: 1940 Medicare Annual Wellness (AWV) Medicare Annual Wellness (AWV) [employer] [facility] Start: 1940 Screening for osteoporosis Bone Density Scan [employer] [facility] End: 03-28-2021 Mobile Cardiac Telemetry Mobile Cardiac Telemetry Cardiac Services Routine Near syncope Cardiac murmur Paroxysmal atrial fibrillation (HCC) Cerebral artery occlusion with cerebral infarction (HCC) 1 Occurrences starting 03/28/2021 until 03/28/2021 [employer] Work Phone: Comment on above: 1 Occurrences starting 03/28/2021 until 03/28/2021 Patient Education Causes of Sync ope Bruises (Contusions) [facility] Work Phone: Patient referral [facility] Work Phone: End: 07-07-2023 XR Knee - bilateral 2 Views [facility] Work Phone: Comment on above: Once for 1 Occurrences starting 07/07/19 until 07/07/2023 End: 07-07-2023 XR knees anteroposterior standing bilateral [facility] Comment on above: Once for 1 Occurrences starting 07/07/19 until 07/07/2023 Immunizations Immunization Date Immunization Notes Care Provider [facility] 02-14-2021 influenza, injectable,quadrivalen t, preservative free, pediatric [facility] 02-14-2021 influenza virus vaccine, unspecified formulation John Doherty MD Work Phone: [employer] 06-11-2020 Pfizer SARS-CoV-2 Vaccination John Doherty MD Work Phone: [employer] [facility] 05-21-2020 Pfizer SARS-CoV-2 Vaccination John Doherty MD Work Phone: [employer] [facility] Payers Date Payer Category Payer Unknown [id number] 2024 Self-pay [id number] 2021 Private Health Insurance [facility] [id number] 2021-Present [address] [place] [address] Commercial [id number] 2014 Private Health Insurance [id number] 2001 Medicare 2001 Medicare [id number] Unknown [id number] Unknown [id number] Unknown [id number] Unknown [id number] Unknown [id number] Unknown [id number] Social History Date Type Detail Facility Start: 02-18-2016 End: 10-08-2023 Tobacco smoking status NHIS Never smoked tobacco [employer] Phone: Start: 02-18-2016 Tobacco use and exposure Smokeless tobacco non-user [employer] Phone: Start: 12-11-2020 End: 07-28-2022 Alcohol intake Current non-drinker of alcohol (finding) [employer] Work Phone: Start: 1940 Sex Assigned At Not on file [employer] Work Phone: Start: 02-22-2021 End: 08-11-2022 Tobacco smoking status FLIS Unknown if ever smoked [facility] Start: 09-02-2020 [facility] Start: 1940 Sex Assigned At Female [facility] Start: 07-18-2022 End: 11-24-2022 Exposure to SARS-CoV-2 (event) Not sure [facility] Start: 07-28-2022 End: 07-07-2023 History of Social function [facility] Start: 07-28-2022 End: 07-07-2023 Tobacco use panel [facility] Start: 08-10-2024 Sex Female (finding) [facility] Clinical Notes 02-06-2022 to 11-08-2023 Addendum Note - KAUSHAL Baca CNP - 11/08/2023 3:10 PM EDTAddendum Note - KAUSHAL Baca CNP - 11/08/2023 3:10 PM EDTAddendum Note - KAUSHAL Baca CNP - 11/08/2023 3:10 PM EDT Note Date & Type Note Facility 11-08-2023 Note Addended by: NEENA HERNANDEZ on: 11/08/2023 03:10 PM Modules accepted: Orders [facility] 11-08-2023 Note Addended by: NEENA HERNANDEZ on: 11/08/2023 03:10 PM Modules accepted: Orders [facility] 11-08-2023 Note Addended by: NEENA HERNANDEZ on: 11/08/2023 03:10 PM Modules accepted: Orders [facility] 11-08-2023 Telephone encounter Note Flecainide removed from med list [facility] 11-08-2023 Miscellaneous Notes Addended by: NEENA HERNANDEZ on: 11/08/2023 03:10 PM Modules accepted: Orders Flecainide removed from med list Dr Doherty reviewed and asked for Flecainide to be discontinued Shannan, can you call to see if she is still taking? This might have been discontinued since on hospice now documented in this encounter [facility] 11-08-[address] Doherty reviewed and asked for Flecainide to be discontinued [facility] 11-08-2023 Telephone encounter Note Called the [facility] patient had a CVA and is in Hospice Care [facility] 11-08-2023 Miscellaneous Notes Called the [facility] patient had a CVA and is in Hospice Care We have made several attempts to contact the patient to schedule refill delivery for Eliquis. We have left a total of 5 messages between 10/12 and today. At this time we will not make any further attempts to contact the patient. [facility] can be reached at . Thank you! documented in this encounter [facility] 11-08-2023 Telephone encounter Note We have made several attempts to contact the patient to schedule refill delivery for Eliquis. We have left a total of 5 messages between 10/12 and today. At this time we will not make any further attempts to contact the patient. [facility] can be reached at . Thank you! [facility] 11-08-2023 Telephone encounter Note Shannan, can you call to see if she is still taking? This might have been discontinued since on hospice now [facility] 11-04-2023 Note Addended by: TOM JENSEN on: 11/04/2023 06:27 PM Modules accepted: Orders [facility] Phone: 11-04-2023 Note Addended by: TOM JENSEN on: 11/04/2023 06:27 PM Modules accepted: Orders [facility] Phone: 11-04-2023 Note Addended by: TOM JENSEN on: 11/04/2023 06:27 PM Modules accepted: Orders [facility] 11-04-2023 Miscellaneous Notes Addended by: TOM DOHERTY on: 11/04/2023 06:27 PM Modules accepted: Orders I will dc the medication. She does not need it. VAMSHI-07/03 OC LIPID-07/30 documented in this encounter [facility] 11-04-2023 Telephone encounter Note I will dc the medication. She does not need it. [facility] 11-04-2023 Telephone encounter Note VAMSHI-07/03 OC LIPID-07/30 [facility] 09-28-2023 Telephone encounter Note Patient called in today and r/s appt. 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 [facility] 09-28-2023 Miscellaneous Notes Patient called in today and r/s appt. 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 I called and spoke to patient. She would like me to call her next week to r/s. She has a lot going on right now. Name of caller: Ileana Contact phone number: [phone] Relationship to Patient: patient Provider: Dr. Panda Practice: [facility] Chief Complaint/Reason for Call: The patient states she lives in an assistance living facility and she had another health issues over the weekend and cannot leave the facility. Therefore, she needs to cancel her appointment on 09-21-2023 at 1:[address] Panda. The patient states she will call back to reschedule her appointment. If you have any questions, please call the patient. Note: The patient would not say what other issues she was having. Best time of day caller can be reached: anytime Patient advised that office/PCP has 24-48 business hours to return their call: Yes documented in this encounter [facility] 09-20-2023 Telephone encounter Note I called and spoke to patient. She would like me to call her next week to r/s. She has a lot going on right now. [facility] 09-20-2023 Miscellaneous Notes I called and spoke to patient. She would like me to call her next week to r/s. She has a lot going on right now. Name of caller: Ileana Contact phone number: [phone] Relationship to Patient: patient Provider: Dr. Panda Practice: [facility] Chief Complaint/Reason for Call: The patient states she lives in an assistance living facility and she had another health issues over the weekend and cannot leave the facility. Therefore, she needs to cancel her appointment on 09-21-2023 at 1:[address] Panda. The patient states she will call back to reschedule her appointment. If you have any questions, please call the patient. Note: The patient would not say what other issues she was having. Best time of day caller can be reached: anytime Patient advised that office/PCP has 24-48 business hours to return their call: Yes documented in this encounter [facility] 09-20-2023 Telephone encounter Note Name of caller: Ileana Contact phone number: [phone] Relationship to Patient: patient Provider: Dr. Panda Practice: [facility] Chief Complaint/Reason for Call: The patient states she lives in an assistance living facility and she had another health issues over the weekend and cannot leave the facility. Therefore, she needs to cancel her appointment on 09-21-2023 at 1:[address] Panda. The patient states she will call back to reschedule her appointment. If you have any questions, please call the patient. Note: The patient would not say what other issues she was having. Best time of day caller can be reached: anytime Patient advised that office/PCP has 24-48 business hours to return their call: Yes [facility] 08-20-2023 Telephone encounter Note Patient called wondering how far out we are scheduling in the valve clinic as she has to set up transportation. I told her 09/14/23 and she will call back to schedule. [facility] 08-20-2023 Miscellaneous Notes Patient called wondering how far out we are scheduling in the valve clinic as she has to set up transportation. I told her 09/14/23 and she will call back to schedule. Called patient and explained that TAVR is thru the groin area but first she will meet with the valve team and discuss options address given and she will meet with Valve team but is hesitant to have Aortic Valve replaced RC to pt, pt has questions, where would the valve repair surgical site be (area of the body) pt is concerned that she has abdominal scar tissue from previous surgeries. I spoke to the patient this afternoon after reviewing the echo images. Her aortic valve stenosis is clearly in the severe range now. She is minimally symptomatic if at all. She has some fatigue with exertion, but denies chest pain, dyspnea, dizziness, or syncope. She is however fairly inactive. All in all, I told her that the likelihood of having a cardiac issue during her knee replacement is on the high side. I told her I would cancel that procedure. I also told her that I would like her to see our valve clinic to assess the need for TAVR. She is unsure whether she wants to proceed. We discussed the implications of doing nothing. She promised that she would think about it over the weekend and call me back next week. Pt lvm again this morning requesting results of echo Notified patient that Dr Doherty will call her Pt lvm requesting results of echo doen 08/03/23 Notified patient that I will call with Dr Doherty response ,she is very apprehensive about knee surgery at her age Pt lvm returning your sandro Rt TKA will potentially be scheduled by Dr Melendez end of September patient asking about Echo results Pt requesting results of echo results, pending knee sx documented in this encounter [facility] 08-20-2023 Telephone encounter Note Called patient and explained that TAVR is thru the groin area but first she will meet with the valve team and discuss options address given and she will meet with Valve team but is hesitant to have Aortic Valve replaced [facility] 08-20-2023 Telephone encounter Note RC to pt, pt has questions, where would the valve repair surgical site be (area of the body) pt is concerned that she has abdominal scar tissue from previous surgeries. [facility] 08-13-2023 Telephone encounter Note I spoke to the patient this afternoon after reviewing the echo images. Her aortic valve stenosis is clearly in the severe range now. She is minimally symptomatic if at all. She has some fatigue with exertion, but denies chest pain, dyspnea, dizziness, or syncope. She is however fairly inactive. All in all, I told her that the likelihood of having a cardiac issue during her knee replacement is on the high side. I told her I would cancel that procedure. I also told her that I would like her to see our valve clinic to assess the need for TAVR. She is unsure whether she wants to proceed. We discussed the implications of doing nothing. She promised that she would think about it over the weekend and call me back next week. [facility] Work Phone: 08-13-2023 Miscellaneous Notes I spoke to the patient this afternoon after reviewing the echo images. Her aortic valve stenosis is clearly in the severe range now. She is minimally symptomatic if at all. She has some fatigue with exertion, but denies chest pain, dyspnea, dizziness, or syncope. She is however fairly inactive. All in all, I told her that the likelihood of having a cardiac issue during her knee replacement is on the high side. I told her I would cancel that procedure. I also told her that I would like her to see our valve clinic to assess the need for TAVR. She is unsure whether she wants to proceed. We discussed the implications of doing nothing. She promised that she would think about it over the weekend and call me back next week. Pt lvm again this morning requesting results of echo Notified patient that Dr Doherty will call her Pt lvm requesting results of echo doen 08/03/23 Notified patient that I will call with Dr Doherty response ,she is very apprehensive about knee surgery at her age Pt lvm returning your sandro Rt TKA will potentially be scheduled by Dr Melendez end of September patient asking about Echo results Pt requesting results of echo results, pending knee sx documented in this encounter [facility] 08-13-2023 Telephone encounter Note Pt lvm again this morning requesting results of echo [facility] 08-10-2023 Telephone encounter Note Notified patient that Dr Doherty will call her [facility] 08-10-2023 Telephone encounter Note Pt lvm requesting results of echo doen 08/03/23 [facility] 08-06-2023 Telephone encounter Note Notified patient that I will call with Dr Dhoerty response ,she is very apprehensive about knee surgery at her age [facility] 08-06-2023 Telephone encounter Note Pt lvm returning your sandro [facility] 08-06-2023 Telephone encounter Note Rt TKA will potentially be scheduled by Dr Melendez end of September patient asking about Echo results [facility] 08-06-2023 Telephone encounter Note Pt requesting results of echo results, pending knee sx [facility] 07-07-2023 History of Presen t illness Narrative Images from the original note were not included. 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 female who presents for evaluation of the bilateral knee. Right worse Symptoms began gradually several years ago. She describes the symptoms as aching. The pain is anterior. Symptoms improve with rest, medication: Stoughton used but not effective. The symptoms are [...] ,Not diabetic, Hx of Left MERY at [facility] about 15 years ago. Previous Surgery: No [...] Cancer Sister Diabetes Father Allergies Allergen Reactions Brianna Inhibitors Other Tetanus Toxoids Swelling Sulfa Antibiotics Itching and Rash Objective: Ht 5' 4" (1.626 m) Wt 147 lb (66.7 kg) [...] INSTRUCTIONS Procedure: Right Total Knee Arthroplasty - [address]21 Time: 1 hour(s) Diagnosis: 1. Primary osteoarthritis of both knees Blood: Not anticipated to be given Important Labs to Obtain: Routine PAT protocol Anesthesia: Spinal and ambIT Adductor Pump DVT Prophylaxis: ASA Return to Office: No Repeat Xrays: Bennett CT Anticipated Discharge To: Half-Way Facility Implants: [place] Triathlon with Bennett, with patellar resurfacing Equipment: [employer] leg carmona, CarboJet, regular table Other: TXA, No Buffy, Daya The patient is not a candidate for same day joint replacement. Electronically signed by Camacho Melendez M.D. 07/07/2023 at 11:24 AM. documented in this encounter [facility] 06-15-2023 History of Presen t illness Narrative [facility] [place] Cardiology/Electrophysiology Follow Up Clinic Note Chief Complaint: Chief Complaint Patient presents with Atrial Fibrillation PAF Hyperlipidemia Hypertension Sleep Apnea Cardiac Valve Problem AV stenosis Syncope Hypotensive events Transient Ischemic Attack History of Present Illness: Ileana Yanez is a 83 y.o. female with HTN [...] In Feb 2021 she was taken to [facility] for an episode of diaphoresis and fatigue [...] in her knees, for which she takes Stoughton. She walks with a walker. 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 5. Bilateral Bruits. Results of the U/S from May 2017 are noted above. This is more likely related to her aortic stenosis murmur. 6. HL Her cholesterol in 2016 was [...] surgery. I encouraged her to see Dr. Melendez to discuss possible surgical options. Past Medical [...] Blood pressure 136/70, pulse 60, height 5' 4" (1.626 m), weight 147 lb (66.7 kg), [...] Value Date TRIG 48 08/03/2022 Radiology: Reviewed John Doherty MD DATE of SERVICE: 06/15/2023 documented in this encounter [facility] 05-13-2023 Telephone encounter Note VAM[facility]I 11-24-22 05-25-23 04-05-23 Lipid/LFT in CE under OHIP [facility] 05-13-2023 Miscellaneous Notes [facility] 11-24-22 05-25-23 04-05-23 Lipid/LFT in CE under OHIP documented in this encounter [facility] 04-15-2023 Telephone encounter Note [facility] 11-24-22 05-25-23 11-02-22 CBC CMP/creat 0.78 in CE [facility] 04-15-2023 Miscellaneous Notes [facility] 11-24-22 05-25-23 11-02-22 CBC CMP/creat 0.78 in CE Last seen 11/24/22, next appt 05/25/23 documented in this encounter [facility] 04-15-2023 Telephone encounter Note Last seen 11/24/22, next appt 05/25/23 [facility] 01-06-2023 Telephone encounter Note [facility] 11-24-22 05-25-2023 11-02-22 CBC,BMP/Creat 0,78 labs are in Care Everywhere [facility] 01-06-2023 Miscellaneous Notes [facility] 11-24-22 05-25-2023 11-02-22 CBC,BMP/Creat 0,78 labs are in Care Everywhere Pt requesting eliquis Last seen 11/24/22, OC fu 05/25/22 Pharmacy confirmed documented in this encounter [facility] 01-06-2023 Telephone encounter Note Pt requesting eliquis Last seen 11/24/22, OC fu 05/25/22 Pharmacy confirmed [facility] 11-30-2022 Telephone encounter Note VAMSHI-23 oc LIPID-3/23 has active order [facility] 11-30-2022 Miscellaneous Notes VAMSHI-7/23 oc LIPID-323 has active order Patient's insurance is requiring them to switch from Praluent to Repatha due to formulary change. If appropriate, please send script to [facility] and we will reach out to the pt to inform her of the change. Canceled Praluent script and pended Repatha for review. Thank you! documented in this encounter [facility] 11-30-2022 Telephone encounter Note Patient's insurance is requiring them to switch from Praluent to Repatha due to formulary change. If appropriate, please send script to [facility] and we will reach out to the pt to inform her of the change. Canceled Praluent script and pended Repatha for review. Thank you! [facility] 11-26-2022 Telephone encounter Note Last OV with OC 7-18-23 3-27-23 Lipids /LFTs not done needs recheck in 3-4 months per OC order put in Epic [facility] 11-26-2022 Miscellaneous Notes Last OV with OC 7-18-23 3-27-23 Lipids /LFTs not done needs recheck in 3-4 months per OC order put in Epic documented in this encounter [facility] 11-24-2022 History of Presen t illness Narrative [facility] [place] Cardiology/Electrophysiology Follow Up Clinic Note Chief Complaint: Chief Complaint Patient presents with Atrial Fibrillation PAF Hypertension Hyperlipidemia Sleep Apnea Cardiac Valve Problem AV stenosis History of Present Illness: Ileana Yanez is a 82 y.o. female with HTN [...] In Feb 2021 she was taken to [facility] for an episode of diaphoresis and fatigue [...] Value Date TRIG 48 08/03/2022 Radiology: Reviewed John Doherty MD DATE of SERVICE: 11/24/2022 documented in this encounter [facility] 11-05-2022 Telephone encounter Note CBC And BMP resulted 11/02/2022 acceptable (found in the Care Everywhere encounter Dr. Lisa Fuentes 11/02/2022) [facility] 11-05-2022 Miscellaneous Notes CBC And BMP resulted 11/02/2022 acceptable (found in the Care Everywhere encounter Dr. Lisa Fuentes 11/02/2022) Pt requesting flecainide Last seen 07/28/22, OC fu 11/24/22. Pharmacy confirmed documented in this encounter [facility] 11-05-2022 Telephone encounter Note Pt requesting flecainide Last seen 07/28/22, OC fu 11/24/22. Pharmacy confirmed [facility] 09-11-2022 Telephone encounter Note Notified patient that Dr Doherty reviewed Echo and said AoV little bit more sclerotic ,does not need intervention at this time [facility] 09-11-2022 Miscellaneous Notes Notified patient that Dr Doherty reviewed Echo and said AoV little bit more sclerotic ,does not need intervention at this time Pt requesting a call with results of ECHO done 09/08/22 OC fu 11/24/22 documented in this encounter [facility] 09-10-2022 Telephone encounter Note Pt requesting a call with results of ECHO done 09/08/22 OC fu 11/24/22 [facility] 08-06-2022 Telephone encounter Note PILY Yanez is a 82 year old Female who was referred to [facility] for clinical management services for Praluent 75 MG/ML. Diagnosis Mixed hyperlipidemia E78.2 OBJECTIVE Medications: Albuterol Sulfate HFA 108 (90 Base) MCG/ACT AERS IN AmLODIPine Besylate 5 MG TABS PO Eliquis 5 MG TABS PO Flecainide Acetate 50 MG TABS PO HydroCHLOROthiazide 12.5 MG CAPS PO Praluent 75 MG/ML SOPN SC Spironolactone 50 MG TABS PO Allergies: Sulfa (Sulfonamide Antibiotics) BRIANNA Inhibitors Tetanus Vaccines and Toxoid Medical History [...] Time Spent: 10 minutes Nanette Jamison PharmD [facility] 08-06-2022 Miscellaneous Notes SUBJECTIVE Ileana Yanez is a 82 year old Female who was referred to [facility] for clinical management services for Praluent 75 MG/ML. Diagnosis Mixed hyperlipidemia E78.2 OBJECTIVE Medications: Albuterol Sulfate HFA 108 (90 Base) MCG/ACT AERS IN AmLODIPine Besylate 5 MG TABS PO Eliquis 5 MG TABS PO Flecainide Acetate 50 MG TABS PO HydroCHLOROthiazide 12.5 MG CAPS PO Praluent 75 MG/ML SOPN SC Spironolactone 50 MG TABS PO Allergies: Sulfa (Sulfonamide Antibiotics) BRIANNA Inhibitors Tetanus Vaccines and Toxoid Medical History [...] Time Spent: 10 minutes Nanette Jamison PharmD [facility] documented in this encounter [facility] 08-05-2022 Telephone encounter Note Thank you let us know if you need prescription sent [facility] 08-05-2022 Miscellaneous Notes Thank you let us know if you [...] is agreeable to this plan also will SHSP to give best becerra for Repatha or Praluent documented in this encounter [facility] 08-05-2022 Telephone encounter Note Praluent is preferred through the pt's insurance plan. PA submitted and approved through 08/05/2023. Pt is also eligible for a copay card that will bring the cost of the medication down to $35 per month. We will reach out to the patient to discuss filling. Thank you! [facility] 08-04-[address] Doherty reviewed Lipids done 08-03-22 LDL 222 and would like to start patient on a PCSK9 ,patient is agreeable to this plan also will SHSP to give best becerra for Repatha or Praluent [facility] 07-28-2022 History of Presen t illness Narrative [facility] [place] Cardiology/Electrophysiology Follow Up Clinic Note Chief Complaint: Chief Complaint Patient presents with Atrial Fibrillation PAF Hyperlipidemia Hypertension Sleep Apnea Not using C-PAP Cardiac Valve Problem Syncope History of Present Illness: Ileana Yanez is a 82 y.o. female with HTN [...] In Feb 2021 she was taken to [facility] for an episode of diaphoresis and fatigue [...] An EKG today shows normal sinus rhythm. Her echo in Mar 2021 shows a normal LVEF and moderate to severe with a mean gradient of 33 (ENID 0.8). The event monitor showed no AFib, but [...] has progressed from mild to moderately severe. I will order another echo. Today we spoke about the fact that if she needs hip surgery, we may need to address the valve before that. 3. Episode of low BP/Bradycardia in Feb 2021. Not sure what that was, but it sounded like a vagal event. The echo and EM are OK. In Jan 2022 she had another syncopal event in the middle of the night that sounds hypotensive. I have asked her again to check her blood pressures and heart rates at home. If this recurs, we may need to consider a loop recorder. 4. Hypertension: Her BP is well controlled today. She does not check it at home. I have asked her to do so. She did ask me whether she needed all of these medications. Her PCP has prescribed Aldactone at 100 mg daily. We may need to reconsider that. 5. Bilateral Bruits. Results of the U/S [...] she complained of some muscle aches. In the past we spoke about Praluent and Repatha, but she was reluctant due to cost. Today she agreed to getting the lipids rechecked as I told her that they may be playing a role in the progression of her aortic valve disease. She may be willing to take a statin or a PCSK9 inhibitor. 7. Hyponatremia: She was told by the MD in the assisted living facility that she was hyponatremic and she should take salt supplements. I discouraged her from doing this because of her history of hypertension. I will get some blood work. 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 Physical Examination: Vitals: Blood pressure 130/76, pulse 63, height 5' 4" (1.626 m), weight 138 lb (62.6 kg), SpO2 98 %. Constitutional: Appears well kept and looks [...] 02/26/2021 GLU 95 01/08/2022 GLU 92 07/04/2021 Radiology: Reviewed John Doherty MD DATE of SERVICE: 07/28/2022 documented in this encounter [facility] 07-20-2022 Miscellaneous Notes Last OV with OC 11-2-22 next OV 07-28-22 Last BMP 9-1-22 creat 0.70 documented in this encounter [facility] 07-20-2022 Telephone encounter Note Last OV with OC 11-2-22 next OV 3-23 Last BMP 9-1-22 creat 0.70 [facility] 02-06-2022 Hospital Discharg e instructions Additional Instructions Your INR today is 4.2. Is recommended that you hold your Coumadin dose Wednesday and Wednesday and have it rechecked on Wednesday morning. No fractures were identified but you will most likely be sore due to bruising which is exacerbated by your Coumadin use. [facility] Work Phone: Evaluation note Diagnosis Near syncope Syncope and collapse Cardiac murmur Undiagnosed cardiac murmurs Paroxysmal atrial fibrillation (HCC) Atrial fibrillation Cerebral artery occlusion with cerebral infarction (HCC) Unspecified cerebral artery occlusion with cerebral infarction documented in this encounter [facility] Work Phone: Evaluation noteNo assessment information available [facility] Work Phone: Evaluation note* Diagnosis Onset Date Resolution Status Ganglion cyst of volar aspect of right wrist acute [facility] Work Phone: Evaluation note* Diagnosis Onset Date Resolution Status Ganglion cyst of volar aspect of right wrist acute Ganglion cyst of volar aspect of right wrist acute [facility] Work Phone: Evaluation note* Diagnosis Paroxysmal atrial fibrillation (CMS/HCC) (HCC) Atrial fibrillation Nonrheumatic aortic valve stenosis Mixed hyperlipidemia documented in this encounter [facility] [employer] note* Diagnosis Paroxysmal atrial fibrillation (CMS/HCC) (HCC) Atrial fibrillation documented in this encounter [facility] [employer] note* Diagnosis Paroxysmal atrial fibrillation (CMS/HCC) (HCC)- Primary Atrial fibrillation Nonrheumatic aortic valve stenosis Mixed hyperlipidemia Obstructive sleep apnea syndrome Obstructive sleep apnea (adult) (pediatric) TIA (transient ischemic attack) Unspecified transient cerebral ischemia Primary hypertension Unspecified essential hypertension documented in this encounter [facility] [employer] note* Diagnosis Pure hypercholesterolemia documented in this encounter [facility] [employer] note* Diagnosis Paroxysmal atrial fibrillation (HCC)- Primary Atrial fibrillation Nonrheumatic aortic valve stenosis Obstructive sleep apnea syndrome Obstructive sleep apnea (adult) (pediatric) TIA (transient ischemic attack) Unspecified transient cerebral ischemia Primary hypertension Unspecified essential hypertension Mixed hyperlipidemia Syncope and collapse documented in this encounter [facility] [employer] note* Diagnosis Chronic pain of both knees- Primary documented in this encounter [facility] [employer] note* Diagnosis Primary osteoarthritis of both knees documented in this encounter [facility] note* Diagnosis Chronic pain of both knees documented in this encounter [facility] note* Diagnosis Paroxysmal atrial fibrillation (HCC) Atrial fibrillation Nonrheumatic aortic valve stenosis Obstructive sleep apnea syndrome Obstructive sleep apnea (adult) (pediatric) TIA (transient ischemic attack) Unspecified transient cerebral ischemia Primary hypertension Unspecified essential hypertension [facility] Diagnosis Paroxysmal atrial fibrillation (HCC) Atrial fibrillation documented in this encounter [facility] note* Diagnosis Paroxysmal atrial fibrillation (CMS/HCC) (HCC)- Primary Atrial fibrillation Nonrheumatic aortic valve stenosis Mixed hyperlipidemia documented in this encounter [facility] for referral (narrative)No reason for referral information availableWEast [facility] Work Phone: Summary Purpose Family History No Family History Records Found Relationship Condition Age at Onset Recorded Date/T alyson Not Specified Alzheimer's dementia Unknown Relationship Condition Age at Onset Recorded Date/T alyson mother Alzheimer's dementia Unknown father Diabetes mellitus Unknown Advance Directives No Advanced Directives Records FoundDocuments on File Type Date Recorded 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 anation ACP-Advance Directive ACP-Power of Trim Crew Supervisor Advance Directive Response Recorded Date/ Time Living Will Yes February 22 9:50pm Power of Trim Crew Supervisor Yes February 22, 2021 9:50pm Advance Directive Response Recorded Date/ Time Name of Medical Power of Trim Crew Supervisor Latrice February 06, 2022 2:34pm Living Will Yes February 06, 2022 2:34pm Power of Trim Crew Supervisor Yes January 2:34pm Advance Directive Response Recorded Date/ Time Name of Medical Power of Trim Crew Supervisor Latrice February 06, 2022 1:34pm Living Will Yes February 06, 2022 1:34pm Power of Trim Crew Supervisor Yes January 1:34pm Advance Directive Response Recorded Date/ Time Living Will Yes February 06, 2022 1:34pm Power of Trim Crew Supervisor Yes January 1:34pm Name of Medical Power of Trim Crew Supervisor Latrice February 06, 2022 1:34pm Advance Directive Response Recorded Date/ Time Living Will Yes February 06, 2022 1:34pm Power of Trim Crew Supervisor Yes January 1:34pm Advance Directive Response Recorded Date/ Time Living Will Yes February 06, 2022 2:34pm Power of Trim Crew Supervisor Yes January 2:34pm Reason for Referral Specialty Diagnoses / Procedures Referred By Contac t Referred To Contact Cardiology Diagnoses Near syncope Cardiac murmur Paroxysmal atrial fibrillation (HCC) Cerebral artery occlusion with cerebral infarction (HCC) Procedures Echo 2D Doppler Color John Doherty MD [address] [place] [address] [place] [address] Referral ID Status Reason Start Date Expiration Date Visits Re quested Visits Authorized [id number] Closed 02/26/2021 08/24/2021 1 1 Specialty Diagnoses / Procedures Referred By Contact Referred To Contact Cardiac Electrophysiology Diagnoses Near syncope Cardiac murmur Paroxysmal atrial fibrillation (HCC) Cerebral artery occlusion with cerebral infarction (HCC) Procedures Mobile Cardiac Telemetry John Doherty MD [address] [place] [address] Referral ID Status Reason Start Date Expiration Date Visits Re quested Visits Authorized [id number] Closed 02/26/2021 02/26/2022 1 1 Specialty Diagnoses / Procedures Referred By Contac t Referred To Contact Cardiology Diagnoses Paroxysmal atrial fibrillation (CMS/HCC) (HCC) Nonrheumatic aortic valve stenosis Mixed hyperlipidemia Procedures Transthoracic echocardiogram (TTE) complete with contrast, bubble, strain, and 3D PRN NM ECHO TTHRC R-T 2D W/WOM-MODE COMPL SPEC&COLR D NM TTE W OR WO FOL WCVIRIDIANA VASQUES Ottorino, MD [address] [place] [address] Referral ID Status Reason Start Date Expiration Date V isits Requested Visits Authorized [id number] Closed Perform Procedure 07/28/2022 01/24/2023 1 1 Specialty Diagnoses / Procedures Referred By Contac t Referred To Contact Cardiology Diagnoses Paroxysmal atrial fibrillation (HCC) Nonrheumatic aortic valve stenosis Obstructive sleep apnea syndrome TIA (transient ischemic attack) Primary hypertension Procedures Transthoracic echocardiogram (TTE) complete with contrast, bubble, strain, and 3D PRN NM ECHO TTHRC R-T 2D W/WOM-MODE COMPL SPEC&COLR D NM TTE W OR WO FOL WCONVIRIDIANA Ottorino, MD [address] [place] [address] Referral ID Status Reason Start Date Expiration Date V isits Requested Visits Authorized [id number] Pending Review 06/15/2023 06/14/2024 1 1 Specialty Diagnoses / Procedures Referred By Contac t Referred To Contact Cardiology Diagnoses Paroxysmal atrial fibrillation (HCC) Nonrheumatic aortic valve stenosis Obstructive sleep apnea syndrome TIA (transient ischemic attack) Primary hypertension Procedures Transthoracic echocardiogram (TTE) complete with contrast, bubble, strain, and 3D PRN NM ECHO TTHRC R-T 2D W/WOM-MODE COMPL SPEC&COLR D NM TTE W OR WO VIRIDIANA TOLENTINO Ottorino, MD [address] [place] [address] [facility] [address] [place] [address] Referral ID Status Reason Start Date Expiration Date Visits Re quested Visits Authorized [id number] Closed 06/15/2023 06/14/2024 1 1 Referral ID Status Reason Start Date Expiration Date Visits Requested Visits Authorized [id number] Pending Review Perform Procedure 07/28/2022 01/24/2023 1 1 Chief Complaint and Reason for Visit Chief Complaint XRAY fall w/continued pain Chief Complaint XRAY fall w/continued pain USP LAB WORK Chief Complaint XRAY fall w/continued pain USP LAB WORK USP LABWORK USP LABWORK Chief Complaint fall w/continued rubi n USP LAB WORK LABWORK USP LABWORK USP LABWORK Chief Complaint USP LAB WOR K LABWORK USP LABWORK USP LABWORK USP LABWORK Chief Complaint USP LABWORK USP LAB WORK LABWORK RIGHT WRIST RM 3 XRAY Reason for Visit Ganglion cyst of vol ar aspect of right wrist Chief Complaint USP LABWORK USP LAB WORK LABWORK RIGHT WRIST RM 3 XRAY USP LABWORK RIGHT WRIST CYST Reason for Visit Ganglion cyst of vol ar aspect of right wrist Chief Complaint USP LABWORK USP LAB WORK LABWORK RIGHT WRIST RM 3 XRAY USP LABWORK RIGHT WRIST CYST LABWORK RIGHT WRIST Reason for Visit Ganglion cyst of vol ar aspect of right wrist Ganglion cyst of volar aspect of right wrist Chief Complaint USP LABWORK Chief Complaint USP LABWORK USP LABWORK LABWORK Chief Complaint USP LABWORK USP LABWORK Chief Complaint Admit Date LABWORK June 30, 2024 5:00am USP LAB WORK July 20, 2024 4 :00am Chief Complaint Admit Date LABWORK June 30, 2024 5:00am USP LAB WORK July 20, 2024 4 :00am LABWORK September 18, 2024 5:00a m Additional Source Comments INFORMATION SOURCE (unrecogn ized section and content) DATE CREATED AUTHOR 11/01/2017 [facility] DATE CREATED AUTHOR AUTHOR'S ORGANIZ ATION 11/02/2017 [facility] DATE CREATED AUTHOR AUTHOR'S ORGANIZ ATION 11/04/2017 [facility] DATE CREATED AUTHOR AUTHOR'S ORGANIZ ATION 04/01/2021 [facility] DATE CREATED AUTHOR AUTHOR'S ORGANIZ ATION 11/08/2023 [facility] DATE CREATED AUTHOR AUTHOR'S ORGANIZ ATION 03/14/2025 [facility] Care Teams (unrecognized sec tion and content) Cnc Service Engineer Relationship Specialty Start Date End Date Dwain Roberson DO [address] [place] [id number] PCP - General 09/11/15 Team Status: Active Member Role Status Dates Dr. Dwain Roberson , DO Family Provider Active Dr. Dwain Roberson DO Primary Care Provider Active Team Status: Inactive Member Role Status Dates Dr. Dwain Roberson DO Primary Care Provider Active [facility] Attending Provider Acti ve Team Status: Inactive Member Role Status Dates Dr. Dwain Roberson , DO Primary Care Provider Active Dwain Roberson DO Attending Provider Active Team Status: Inactive Member Role Status Dates Dr. Dwain Roberson , DO Primary Care Provider Active Dr. Lisa Fuentes MD Attending Provider Active Team Status: Active Member Role Status Dates Dr. Dwain Roberson , DO Primary Care Provider Active Dr. Lisa Fuentes MD Attending Provider Active Team Status: Inactive Member Role Status Dates Dr. Dwain Roberson , DO Primary Care Provider, Referr ing Provider Active John Grier MD Attending Provider Active Team Status: Inactive Member Role Status Dates Dr. Dwain Roberson , DO Primary Care Provider Active Dr. Bhavin Mcqueen MD Attending Provider Active Team Status: Active Member Role Status Dates Dr. Dwain Roberson , DO Family Provider Active Dr. Lisa Fuentes MD Primary Care Provider Active Team Status: Inactive Member Role Status Dates Dr. Dwain Roberson , DO Primary Care Provider Active Dr. Lisa SIDDIQUI MD Attending Provider Active Team Status: Inactive Member Role Status Dates John Grier MD Attending Provider, Referring Prov ider Active Dr. Lisa Fuentes MD Primary Care Provider Active Team Status: Active Member Role Status Dates Dr. Dwain Roberson , DO Primary Care Provider Active Dr. Lisa SIDDIQUI MD Attending Provider Active Cnc Service Engineer Relationship Specialty Start Date End Date RonaldgradycassyLisa [address] [place] [address] PCP - General Geriatric Medicine 07/28/22 Cnc Service Engineer Relationship Specialty Start Date End Date Gina Lisa[address] [place] [address] PCP - General Geriatric Medicine 07/28/22 Team Status: Inactive Member Role Status Dates Dr. Lisa Fuentes MD Primary Care Provider, Referring Provider Active John Grier MD Attending Provider Active Team Status: Inactive Member Role Status Dates Dr. Lisa Fuentes MD Primary Care Provider Active Jef SIDDIQUI Attending Provider Active Cnc Service Engineer Relationship Specialty Start Date End Date Ronaldgradycassy [address] [facility] [place] [address] PCP - General Geriatric Medicine 07/28/22 Cnc Service Engineer Relationship Specialty Start Date End Date Ronaldgradycassy Lisa [address] [facility] [place] [address] PCP - General Geriatric Medicine 07/28/22 Cnc Service Engineer Relationship Specialty Start Date End Date Gina Lisa [address] [place] [address] PCP - General Geriatric Medicine 07/28/22 Cnc Service Engineer Relationship Specialty Start Date End Date Lisa Fuentes [address] [place] [address] PCP - General Geriatric Medicine 07/28/22 Cnc Service Engineer Relationship Specialty Start Date End Date Lisa Fuentes [address] [place] [address] PCP - General Geriatric Medicine 07/28/22 Cnc Service Engineer Relationship Specialty Start Date End Date Lisa Fuentes [address] [place] [place] [address] PCP - General Geriatric Medicine 07/28/22 Cnc Service Engineer Relationship Specialty Start Date End Date Gina Lisa [address] [place] [address] PCP - General Geriatric Medicine 07/28/22 Team Status: Inactive Member Role Status Dates Dr. Lisa Fuentes MD Primary Care Provider Active Dr. Lisa SIDDIQUI MD Attending Provider Active Cnc Service Engineer Relationship Specialty Start Date End Date Lisa Fuentes [address] [place] [address] PCP - General Geriatric Medicine 07/28/22 Cnc Service Engineer Relationship Specialty Start Date End Date Lisa Fuentes [address] [place] [address] PCP - General Geriatric Medicine 07/28/22 Cnc Service Engineer Relationship Specialty Start Date End Date RonaldgradyLisa daly [address] [place] [address] PCP - General Geriatric Medicine 07/28/22 Cnc Service Engineer Relationship Specialty Start Date End Date RonaldgradyLisa daly [address] [place] [address] PCP - General Geriatric Medicine 07/28/22 Cnc Service Engineer Relationship Specialty Start Date End Date Ronaldlisa Lsia [address] [place] [address] PCP - General Geriatric Medicine 07/28/22 Cnc Service Engineer Relationship Specialty Start Date End Date Ronaldlisa Lisa [address] [place] [address] PCP - General Geriatric Medicine 07/28/22 Cnc Service Engineer Relationship Specialty Start Date End Date Dwain Roberson, [place] [phone] PCP - General 10/08/18 Cnc Service Engineer Relationship Specialty Start Date End Date Gina Lisa [address] [place] [place], [place] [id number] PCP - General Geriatric Medicine 07/28/22 Team Status: Active Member Role Status Dates Dr. Lisa Fuentes MD Primary Care Provider Active Start: June 30, 2024 Marcio Lexis SIDDIQUI MD Attending Provider Active S tart: June 30, 2024 Team Status: Inactive Member Role Status Dates Dr. Lisa Fuentes MD Primary Care Provider Active Start: July 20, 2024 End: July 20, 2024 Marcio SIDDIQUI MD Attending Provider Active S tart: July 20, 2024 End: July 20, 2024 Marcio SIDDIQUI MD Referring Provider Active S tart: July 20, 2024 End: July 20, 2024 Team Status: Inactive Member Role Status Dates Dr. Lisa Fuentes MD Primary Care Provider Active Start: September 18, 2024 End: September 18, 2024 Marcio SIDDIQUI MD Attending Provider Active S tart: September 18, 2024 End: September 18, 2024 Goals (unrecognized section and content) Goals may be documented in a n alternate sectionGoals may be documented in an alternate sectionGoals may be documented in an alternate sectionGoals may be documented in an alternate sectionGoals may be documented in an alternate sectionGoals may be documented in an alternate sectionGoals may be documented in an alternate sectionGoals may be documented in an alternate sectionGoals may be documented in an alternate sectionGoals may be documented in an alternate sectionGoals may be documented in an alternate sectionGoals may be documented in an alternate sectionGoals may be documented in an alternate sectionGoals may be documented in an alternate section Reason for Visit (unrecogniz ed section and content) Reason Onset Date Comments Med Management 08/04/2022 PCSK9 Specialty Diagnoses / Procedures Referred By Esther t Referred To Contact Diagnoses Paroxysmal atrial fibrillation (HCC) Procedures NM ECHO TTHRC R-T 2D W/WOM-MODE COMPL SPEC&COLR D [facility] Non-Invasive Cardiology [address] [place] [phone] Referral ID Status Reason Start Date Expiration Date Visits Re quested Visits Authorized [id number] 1 1 Reason Onset Date Comments Results [...] Transient Ischemic Attack Reason Comments 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 Specialty Diagnoses / Procedures Referred By Esther trammell Referred To Contact Cardiology Diagnoses Paroxysmal atrial fibrillation (HCC) Nonrheumatic aortic valve stenosis Obstructive sleep apnea syndrome TIA (transient ischemic attack) Primary hypertension Procedures Transthoracic echocardiogram (TTE) complete with contrast, bubble, strain, and 3D PRN NM ECHO TTHRC R-T 2D W/WOM-MODE COMPL SPEC&COLR D NM TTE W OR WO FOL WCON,DOPPLER John Doherty MD [address] [facility] [address] [place] [address] [facility] [address] [place] [address] Referral ID Status Reason Start Date Expiration Date Visits Re quested Visits Authorized [id number] Closed 06/15/2023 06/14/2024 1 1 Reason Onset Date Comments Advice Only 08/06/2023 Reason Onset Date Comments Cancelled Appointment 09/20/2023 Reason Onset Date Comments Med Management 11/08/2023 Reason Onset Date Comments Med Refill 07/20/2022 Reason Comments Atrial Fibrillation PAF Hyperlipidemia Hypertension Sleep Apnea Not using C-PAP Cardiac Valve Problem Syncope FOR RECORDS PERTAINING TO PATIENTS WHO ARE [...] BE BASED ON THE PRIMARY CLINICAL RECORDS. [employer] [facility]. provides no warranty or guarantee of the accuracy or completeness of information in this document.
[2025-04-02 08:15] LABS: Hematocrit 34.1 % (37-47); Hemoglobin 11.3 g/dL (12.0-15.0); Mean Corp Hgb Conc 33.1 g/dL (32-36); Mean Corpuscular Volume 93.4 fL (81-99); Mean Platelet Vol. 9.6 fl (6.2-12.0); Platelet Count 198 K/mm3 (150-450); RBC Distribution Width CV 13.3 % (11.6-14.6); RBC Distribution Width SD 46.1 fl (35.1-43.9); Red Blood Count 3.65 M/mm3 (4.2-5.4); White Blood Count 5.8 K/mm3 (4.4-11.0)
[2025-04-02 08:26] LABS: AST(SGOT) 46 U/L (<=31); Alanine Aminotransfer ALT/SGPT 49 U/L (<=34); Albumin, Serum 3.4 g/dL (3.4-4.8); Alkaline Phosphatase 76 U/L (35-104); Anion Gap 11 (5-15); BUN 33 mg/dL (4-19); BUN/Creat Ratio 38.4 RATIO (10-20); Calcium,Total 8.5 mg/dL (7.6-11.0); Carbon Dioxide 24.9 mmol/L (21.0-32.0); Chloride 98 mmol/L (98-108); Globulin 2.9 g/dL (2.2-4.2); Glucose 94 mg/dL (70-99); Potassium 3.7 mmol/L (3.3-5.1)
== END ==
LOC: OLS.ACH 05:00
PROVIDERS: PCP Internal Medicine; Visit Provider Internal Medicine
DX: Z86.73 Personal history of transient ischemic attack (TIA), and cerebral infarction without residual deficits (principal)
CPT/HCPCS: 36415; 80053; 85027

== ENCOUNTER → 2025-04-30 05:00 | Outpatient (REF) | payer SELFPAY ==
--- OUTSIDE RECORDS SUMMARY | 2025-04-30 04:26 | XMS RPT_ITS | CCD ---
Author Organization [facility] Inform ion Partnership [facility] Care Team Providers Care Transmission Design Engineer Name Role Phone John Doherty Unavailable Unavailable PROVIDER, OLEGARIO Unavailable Unavailable Dwain Roberson Unavailable Unavailable PREETI OLIVEROS Unavailable Unavailable Dwain Roberson DO Primary Care Provider Dr. Dwain Roberson Primary Care Provider Dr. Bhavin Mcqueen Attending Provider Dr. Dwain Roberson Primary Care Provider Dr. Bhavin Mcqueen Attending Provider Dr. Dwain Roberson Primary Care Provider Karol, Dr. Dwain Pinedo Referring Provider MD John Grier Attending Provider [phone] Bhavin [...] Unavailable Karol DO Dwain Primary Care Provider Dr. Arnav Fuentes MDyothi Primary Care Provider Unava jonah Pires MD, [...] Propensity to adverse reactions (disorder) 04-25-20 04 [facility] (20 sources) Angiotensin Converting Enzyme (Brianna) Inhibitors; Translations: [BRIANNA INHIBITORS] Propensity to adverse reactions to drug (disorder) 08-23-19 05 Other [facility] (1 source) mold extract; Translations: [MOLD] Drug Allergy 07-04-19 05 [facility] (16 sources) Sulfonamides (Antibiotic); Translations: [SULFA (SULFONAMIDE ANTIBIOTICS)] Propensity to adverse reactions to drug (disorder) 11-23-19 04 AOF, Hives, difficulty breathing [facility] Comment on above: CERTAIN FILLERS IN MEDS, UNSURE OF WHAT EXACT MEDS (1 source) OTHER; Translations: [OTHER] Propensity to adverse reactions (disorder) 07-04-19 05 [facility] (1 source) TETANUS TOXOID ADSORBED; Translations: [TETANUS TOXOID ADSORBED] Propensity to adverse reactions to drug (disorder) 08-23-19 05 AOF [facility] (20 sources) Sulfonamides (Antibiotic) Propensity to adverse reactions to drug 11-23-19 04 Itching, Rash [facility] Work Phone: (20 sources) Tetanus vaccine Propensity to adverse reactions to drug 08-23-19 05 Swelling [facility] Work Phone: (14 sources) Adhesive Tape; Translations: [adhesive tape] Allergy to substance 02-07-20 22 Rash [facility] (13 sources) carvedilol Drug Allergy 02-07-20 22 Shortness of breath [facility] Comment on above: CERTAIN FILLERS IN MEDS, UNSURE OF WHAT EXACT MEDS (13 sources) celecoxib Drug Allergy 02-07-20 22 Shortness of breath [facility] Comment on above: CERTAIN FILLERS IN MEDS, UNSURE OF WHAT EXACT MEDS (13 sources) cloNIDine Drug Allergy 02-07-20 22 Shortness of breath [facility] Comment on above: CERTAIN FILLERS IN MEDS, UNSURE OF WHAT EXACT MEDS (13 sources) Enalaprilat Drug Allergy 02-07-20 22 Shortness of breath [facility] Comment on above: CERTAIN FILLERS IN MEDS, UNSURE OF WHAT EXACT MEDS (13 sources) Erythromycin Drug Allergy 02-07-20 22 DIFFICULTY BREATHING [facility] Comment on above: CERTAIN FILLERS IN MEDS, UNSURE OF WHAT EXACT MEDS (13 sources) hydroCHLOROthiazide Drug Allergy 02-07-20 22 Shortness of breath [facility] Comment on above: CERTAIN FILLERS IN MEDS, UNSURE OF WHAT EXACT MEDS (13 sources) Lisinopril Drug Allergy 02-07-20 22 Shortness of breath [facility] Comment on above: CERTAIN FILLERS IN MEDS, UNSURE OF WHAT EXACT MEDS (13 sources) Losartan Drug Allergy 02-07-20 22 Shortness of breath [facility] Comment on above: CERTAIN FILLERS IN MEDS, UNSURE OF WHAT EXACT MEDS (13 sources) Metoprolol Drug Allergy 02-07-20 22 Shortness of breath [facility] Comment on above: CERTAIN FILLERS IN MEDS, UNSURE OF WHAT EXACT MEDS (13 sources) rofecoxib Drug Allergy 02-07-20 22 Shortness of breath [facility] Comment on above: CERTAIN FILLERS IN MEDS, UNSURE OF WHAT EXACT MEDS (13 sources) rosuvastatin Drug Allergy 02-07-20 22 Shortness of breath [facility] Comment on above: CERTAIN FILLERS IN MEDS, UNSURE OF WHAT EXACT MEDS (13 sources) Simvastatin Drug Allergy 02-07-20 22 Shortness of breath [facility] Comment on above: CERTAIN FILLERS IN MEDS, UNSURE OF WHAT EXACT MEDS (13 sources) Sulfamethoxazole Drug Allergy 02-07-20 22 Shortness of breath [facility] Comment on above: CERTAIN FILLERS IN MEDS, UNSURE OF WHAT EXACT MEDS (13 sources) Warfarin Drug Allergy 02-07-20 22 Shortness of breath [facility] Comment on above: CERTAIN FILLERS IN MEDS, UNSURE OF WHAT EXACT MEDS (1 source) carvedilol Drug Allergy 10-13-19 24 [facility] (1 source) celecoxib Drug Allergy 10-13-19 24 [facility] (1 source) cloNIDine Drug Allergy 10-13-19 24 [facility] (1 source) Enalaprilat Drug Allergy 10-13-19 24 [facility] (1 source) Erythromycin Drug Allergy 10-13-19 24 [facility] (1 source) hydroCHLOROthiazide Drug Allergy 10-13-19 24 [facility] (1 source) Lisinopril Drug Allergy 10-13-19 24 [facility] (1 source) Losartan Drug Allergy 10-13-19 24 [facility] (1 source) Metoprolol Drug Allergy 10-13-19 24 [facility] (1 source) rofecoxib Drug Allergy 10-13-19 24 [facility] (1 source) rosuvastatin Drug Allergy 10-13-19 24 [facility] (1 source) Simvastatin Drug Allergy 10-13-19 24 [facility] (1 source) Sulfamethoxazole Drug Allergy 10-13-19 24 [facility] (1 source) Warfarin Drug Allergy 10-13-19 24 [facility] Medications Current Medications Medication Drug Class(es) [...] 4 HOURS NEEDED September 01, 2020 11:00pm [id number] 200 actuat albuterol 0.09 mg/actuat metered dose [...] six hours as needed for pain HYDROcodone-acetaminophen (Marion) 5-325 MG tablet 1 tablet every 6 [...] width (RBC) [Ratio] 13.3 % Normal 11.6-14.6 [facility] Comment on above: Order Comment: . Performed By: #### L 500.4050, L501.8100, L100.0500 #### [facility] [address] [place], [address] Hematocrit (Bld) [Volume fraction] 34.4 % Low 37-47 [facility] Comment on above: Order Comment: . Performed By: #### L 500.4050, L501.8100, L100.0500 #### [facility] [address] [place], [address] Hemoglobin (Bld) [Mass/Vol] 10.9 g/dL Low 12.0-15.0 [facility] Comment on above: Order Comment: . Performed By: #### L 500.4050, L501.8100, L100.0500 #### [facility] [address] [place], [address] MCH (RBC) [Entitic mass] 30.0 pg Normal 27.0-32.0 [facility] Comment on above: Order Comment: .1 Performed By: #### L 500.4050, L501.8100, L100.0500 #### [facility] [address] [place], [address] MCHC (RBC) [Mass/Vol] 31.7 g/dL Low 32-36 [facility] Comment on above: Order Comment: 208.1 Performed By: #### L 500.4050, L501.8100, L100.0500 #### [facility] [address] [place], [address] MCV (RBC) [Entitic vol] 94.8 fL Normal 81-99 [facility] Comment on above: Order Comment: 208.1 Performed By: #### L 500.4050, L501.8100, L100.0500 #### [facility] [address] [place], [address] Platelet mean volume (Bld) [Entitic vol] 9.0 fL Normal 6.2-12.0 [facility] Comment on above: Order Comment: 208.1 Performed By: #### L 500.4050, L501.8100, L100.0500 #### [facility] [address] [place], [address] Platelets (Bld) [#/Vol] 233 10*3/uL Normal 150-450 [facility] Comment on above: Order Comment: 208.1 Performed By: #### L 500.4050, L501.8100, L100.0500 #### [facility] [address] [place], [address] RBC (Bld) [#/Vol] 3.63 10*6/uL Low 4.2-5.4 [facility] Comment on above: Order Comment: 208.1 Performed By: #### L 500.4050, L501.8100, L100.0500 #### [facility] [address] [place], [address] RDW SD 45.8 fl High 35.1-43.9 [facility] Comment on above: Order Comment: 208.1 Performed By: #### L 500.4050, L501.8100, L100.0500 #### [facility] [address] [place], [address] WBC (Bld) [#/Vol] 3.6 10*3/uL Low 4.4-11.0 [facility] Comment on above: Order Comment: 208.1 Performed By: #### L 500.4050, L501.8100, L100.0500 #### [facility] [address] [place], [address] Comprehensive Metabolic Prof ilon 03-05-2025 Albumin [Mass/Vol] 3.6 g/dL Normal 3.4-4.8 [facility] Comment on above: Order Comment: 208.1 Performed By: #### L 500.4050, L501.8100, L100.0500 #### [facility] [address] [place], [address] Albumin/Globulin [Mass ratio] 1.2 {ratio} Normal 0.9-2.4 [facility] Comment on above: Order Comment: 208.1 Performed By: #### L 500.4050, L501.8100, L100.0500 #### [facility] [address] [place], [address] ALK PHOS 75 U/L Normal 35-104 [facility] Comment on above: Order Comment: 208.1 Performed By: #### L 500.4050, L501.8100, L100.0500 #### [facility] [address] [place], [address] ALT [Catalytic activity/Vol] 6 U/L Normal <=34 [facility] Comment on above: Order Comment: 208.1 Performed By: #### L 500.4050, L501.8100, L100.0500 #### [facility] [address] [place], [address] AST [Catalytic activity/Vol] 16 U/L Normal <=31 [facility] Comment on above: Order Comment: 208.1 Performed By: #### L 500.4050, L501.8100, L100.0500 #### [facility] [address] [place], [address] Bilirubin [Mass/Vol] 0.18 mg/dL Normal 0.00-1.30 [facility] Comment on above: Order Comment: 208.1 Performed By: #### L 500.4050, L501.8100, L100.0500 #### [facility] [address] [place], [address] BUN/CRE 40.2 RATIO High 10-20 [facility] Comment on above: Order Comment: 208.1 Performed By: #### L 500.4050, L501.8100, L100.0500 #### [facility] [address] [place], [address] Calcium [Mass/Vol] 9.1 mg/dL Normal 7.6-11.0 [facility] Comment on above: Order Comment: 208.1 Performed By: #### L 500.4050, L501.8100, L100.0500 #### [facility] [address] [place], [address] Chloride [Moles/Vol] 102 mmol/L Normal 98-108 [facility] Comment on above: Order Comment: 208.1 Performed By: #### L 500.4050, L501.8100, L100.0500 #### [facility] [address] [place], [address] CO2 [Moles/Vol] 28.8 mmol/L Normal 21.0-32.0 [facility] Comment on above: Order Comment: 208.1 Performed By: #### L 500.4050, L501.8100, L100.0500 #### [facility] [address] [place], [address] Creatinine [Mass/Vol] 0.60 mg/dL Low 0.70-1.20 [facility] Comment on above: Order Comment: 208.1 Performed By: #### L 500.4050, L501.8100, L100.0500 #### [facility] [address] [place], [address] GAP 9 Normal 5-15 [facility] Comment on above: Order Comment: 208.1 Performed By: #### L 500.4050, L501.8100, L100.0500 #### [facility] [address] [place], [address] GFR/1.73 sq M.predicted among non-blacks MDRD (S/P/Bld) [Vol rate/Area] 89 mL/min/{1.73_m2} Normal >60 [facility] Comment on above: Order Comment: .1 Result Comment: mL/m in/1.73m2 CKD-EPI Creatinine Equation (2020) Performed By: #### L 500.4050, L501.8100, L100.0500 #### [facility] [address] [place], [address] Globulin (S) [Mass/Vol] 3.1 g/dL Normal 2.2-4.2 [facility] Comment on above: Order Comment: 208.1 Performed By: #### L 500.4050, L501.8100, L100.0500 #### [facility] [address] [place], [address] Glucose [Mass/Vol] 80 mg/dL Normal 70-99 [facility] Comment on above: Order Comment: 208.1 Performed By: #### L 500.4050, L501.8100, L100.0500 #### [facility] [address] [place], [address] Potassium [Moles/Vol] 4.0 mmol/L Normal 3.3-5.1 [facility] Comment on above: Order Comment: 208.1 Performed By: #### L 500.4050, L501.8100, L100.0500 #### [facility] [address] [place], [address] Sodium [Moles/Vol] 140 mmol/L Normal 133-145 [facility] Comment on above: Order Comment: 208.1 Performed By: #### L 500.4050, L501.8100, L100.0500 #### [facility] [address] [place], [address] T PROT 6.7 g/dL Normal 5.9-8.4 [facility] Comment on above: Order Comment: 208.1 Performed By: #### L 500.4050, L501.8100, L100.0500 #### [facility] [address] [place], [address] Urea nitrogen [Mass/Vol] 24 mg/dL High 4-19 [facility] Comment on above: Order Comment: 208.1 Performed By: #### L 500.4050, L501.8100, L100.0500 #### [facility] [address] [place], [address] Valproic Acid (Depakene) Lev froilan 03-05-2025 VALPROIC ACID 43 ug/mL Low 50-100 [facility] Comment on above: Order Comment: 208.1 Result Comment: Valp roic Acid concentrations >100 ug/mL are potentially toxic. Performed By: #### L 500.4050, L501.8100, L100.0500 #### [facility] [address] [place], [address] Anion gap in Serum or Plasma Ordered By: Marcio Pires on 09-18-2024 Anion gap [Moles/Vol] 9 mmol/L 5-15 [facility] BUN/creatinine ratioOrdered By: Marcio Pires on 09-18-2024 Urea nitrogen/Creatinine [Mass ratio] 34.6 mg/mg High 10-20 [facility] Bilirubin, totalOrdered By: Marcio Pires on 09-18-2024 Bilirubin [Mass/Vol] 0.20 mg/dL 0.00-1.30 [facility] CBC-Complete Blood Cnt No Di ffon 09-18-2024 Erythrocyte distribution width (RBC) [Ratio] 13.2 % Normal 11.6-14.6 [facility] Comment on above: Order Comment: 208.1 Performed By: #### L 500.4050, L501.8100, L100.0500 #### [facility] [address] [place], [address] Hematocrit (Bld) [Volume fraction] 30.3 % Low 37-47 [facility] Comment on above: Order Comment: 208.1 Performed By: #### L 500.4050, L501.8100, L100.0500 #### [facility] [address] [place], [address] Hemoglobin (Bld) [Mass/Vol] 9.7 g/dL Low 12.0-15.0 [facility] Comment on above: Order Comment: 208.1 Performed By: #### L 500.4050, L501.8100, L100.0500 #### [facility] [address] [place], [address] MCH (RBC) [Entitic mass] 31.1 pg Normal 27.0-32.0 [facility] Comment on above: Order Comment: 208.1 Performed By: #### L 500.4050, L501.8100, L100.0500 #### [facility] [address] [place], [address] MCHC (RBC) [Mass/Vol] 32.0 g/dL Normal 32-36 [facility] Comment on above: Order Comment: 208.1 Performed By: #### L 500.4050, L501.8100, L100.0500 #### [facility] [address] [place], [address] MCV (RBC) [Entitic vol] 97.1 fL Normal 81-99 [facility] Comment on above: Order Comment: 208.1 Performed By: #### L 500.4050, L501.8100, L100.0500 #### [facility] [address] [place], [address] Platelet mean volume (Bld) [Entitic vol] 9.6 fL Normal 6.2-12.0 [facility] Comment on above: Order Comment: 208.1 Performed By: #### L 500.4050, L501.8100, L100.0500 #### [facility] [address] [place], [address] Platelets (Bld) [#/Vol] 208 10*3/uL Normal 150-450 [facility] Comment on above: Order Comment: 208.1 Performed By: #### L 500.4050, L501.8100, L100.0500 #### [facility] [address] [place], [address] RBC (Bld) [#/Vol] 3.12 10*6/uL Low 4.2-5.4 [facility] Comment on above: Order Comment: 208.1 Performed By: #### L 500.4050, L501.8100, L100.0500 #### [facility] [address] [place], [address] RDW SD 47.2 fl High 35.1-43.9 [facility] Comment on above: Order Comment: 208.1 Performed By: #### L 500.4050, L501.8100, L100.0500 #### [facility] [address] [place], [address] WBC (Bld) [#/Vol] 3.5 10*3/uL Low 4.4-11.0 [facility] Comment on above: Order Comment: 208.1 Performed By: #### L 500.4050, L501.8100, L100.0500 #### [facility] [address] [place], [address] Carbon dioxide, total [Moles /volume] in Central venous bloodOrdered By: Marcio Pires on 09-18-2024 CO2 [Moles/Vol] 29.1 mmol/L 21.0-32.0 [facility] Chloride assayOrdered By: Craig on 09-18-2024 Chloride [Moles/Vol] 104 mmol/L 98-108 [facility] Comprehensive Metabolic Prof ilon 09-18-2024 Albumin [Mass/Vol] 3.2 g/dL Low 3.4-4.8 [facility] Comment on above: Order Comment: 208.1 Performed By: #### L 500.4050, L501.8100, L100.0500 #### [facility] [address] [place], [address] Albumin/Globulin [Mass ratio] 1.2 {ratio} Normal 0.9-2.4 [facility] Comment on above: Order Comment: 208.1 Performed By: #### L 500.4050, L501.8100, L100.0500 #### [facility] [address] [place], [address] ALK PHOS 53 U/L Normal 35-104 [facility] Comment on above: Order Comment: 208.1 Performed By: #### L 500.4050, L501.8100, L100.0500 #### [facility] [address] [place], [address] ALT [Catalytic activity/Vol] 5 U/L Normal <=34 [facility] Comment on above: Order Comment: 208.1 Performed By: #### L 500.4050, L501.8100, L100.0500 #### [facility] [address] [place], [address] AST [Catalytic activity/Vol] 15 U/L Normal <=31 [facility] Comment on above: Order Comment: 208.1 Performed By: #### L 500.4050, L501.8100, L100.0500 #### [facility] [address] [place], [address] Bilirubin [Mass/Vol] 0.20 mg/dL Normal 0.00-1.30 [facility] Comment on above: Order Comment: 208.1 Performed By: #### L 500.4050, L501.8100, L100.0500 #### [facility] [address] [place], [address] BUN/CRE 34.6 RATIO High 10-20 [facility] Comment on above: Order Comment: 208.1 Performed By: #### L 500.4050, L501.8100, L100.0500 #### [facility] [address] [place], [address] Calcium [Mass/Vol] 8.9 mg/dL Normal 7.6-11.0 [facility] Comment on above: Order Comment: 208.1 Performed By: #### L 500.4050, L501.8100, L100.0500 #### [facility] [address] [place], [address] Chloride [Moles/Vol] 104 mmol/L Normal 98-108 [facility] Comment on above: Order Comment: 208.1 Performed By: #### L 500.4050, L501.8100, L100.0500 #### [facility] [address] [place], [address] CO2 [Moles/Vol] 29.1 mmol/L Normal 21.0-32.0 [facility] Comment on above: Order Comment: 208.1 Performed By: #### L 500.4050, L501.8100, L100.0500 #### [facility] [address] [place], [address] Creatinine [Mass/Vol] 0.58 mg/dL Low 0.70-1.20 [facility] Comment on above: Order Comment: . Performed By: #### L 500.4050, L501.8100, L100.0500 #### [facility] [address] [place], [address] GAP 9 Normal 5-15 [facility] Comment on above: Order Comment: . Performed By: #### L 500.4050, L501.8100, L100.0500 #### [facility] [address] [place], [address] GFR/1.73 sq M.predicted among non-blacks MDRD (S/P/Bld) [Vol rate/Area] 90 mL/min/{1.73_m2} Normal >60 [facility] Comment on above: Order Comment: . Result Comment: mL/m in/1.73m2 CKD-EPI Creatinine Equation (2020) Performed By: #### L 500.4050, L501.8100, L100.0500 #### [facility] [address] [place], [address] Globulin (S) [Mass/Vol] 2.7 g/dL Normal 2.2-4.2 [facility] Comment on above: Order Comment: . Performed By: #### L 500.4050, L501.8100, L100.0500 #### [facility] [address] [place], [address] Glucose [Mass/Vol] 83 mg/dL Normal 70-99 [facility] Comment on above: Order Comment: . Performed By: #### L 500.4050, L501.8100, L100.0500 #### [facility] [address] [place], [address] Potassium [Moles/Vol] 3.8 mmol/L Normal 3.3-5.1 [facility] Comment on above: Order Comment: 208.1 Performed By: #### L 500.4050, L501.8100, L100.0500 #### [facility] [address] [place], [address] Sodium [Moles/Vol] 143 mmol/L Normal 133-145 [facility] Comment on above: Order Comment: 208.1 Performed By: #### L 500.4050, L501.8100, L100.0500 #### [facility] [address] [place], [address] T PROT 5.9 g/dL Normal 5.9-8.4 [facility] Comment on above: Order Comment: 208.1 Performed By: #### L 500.4050, L501.8100, L100.0500 #### [facility] [address] [place], [address] Urea nitrogen [Mass/Vol] 20 mg/dL High 4-19 [facility] Comment on above: Order Comment: 208.1 Performed By: #### L 500.4050, L501.8100, L100.0500 #### [facility] [address] [place], [address] Erythrocyte distribution wid th ratioOrdered By: Marcio Pires on 09-18-2024 Erythrocyte distribution width (RBC) [Ratio] 13.2 % 11.6-14.6 [facility] Erythrocyte distribution wid th standard deviationOrdered By: Marcio Pires on 09-18-2024 Erythrocyte distribution width (RBC) [Ratio] 47.2 fl High 35.1-43.9 [facility] Glomerular filtration rate ( GFR) estimation/1.73 sq m using serum, plasma, or whole bOrdered By: Marcio Pires on 09-18-2024 GFR/1.73 sq M.predicted among non-blacks MDRD (S/P/Bld) [Vol rate/Area] 90 mL/min/{1.73_m2} >60 [facility] Comment on above: mL/min/1.73m2 CKD-EP I Creatinine Equation (2020) Hematocrit Auto (Bld) [Volum e fraction]Ordered By: Marcio Pires on 09-18-2024 Hematocrit (Bld) [Volume fraction] 30.3 % Low 37-47 [facility] Hemoglobin measurementOrdere d By: Marcio Pires on 09-18-2024 Hemoglobin (Bld) [Mass/Vol] 9.7 g/dL Low 12.0-15.0 [facility] - Chemistry and C hemistry - challengeOrdered By: Marcio Pires on 09-18-2024 AST [Catalytic activity/Vol] 15 U/L <32 [facility] MCV (mean corpuscular volume ) determinationOrdered By: Marcio Pires on 09-18-2024 MCV (RBC) [Entitic vol] 97.1 fL 81-99 [facility] Mean corpuscular hemoglobin (MCH) determinationOrdered By: Marcio Pires on 09-18-2024 MCH (RBC) [Entitic mass] 31.1 pg 27.0-32.0 [facility] Mean corpuscular hemoglobin concentration (MCHC) determinationOrdered By: Marcio Pires on 09-18-2024 MCHC (RBC) [Mass/Vol] 32.0 g/dL 32-36 [facility] Mean platelet volume determi nationOrdered By: Marcio Pires on 09-18-2024 Platelet mean volume (Bld) [Entitic vol] 9.6 fL 6.2-12.0 [facility] Platelet countOrdered By: Craig on 09-18-2024 Platelets (Bld) [#/Vol] 208 10*3/uL 150-450 [facility] Potassium measurement (mass/ volume)Ordered By: Marcio Pires on 09-18-2024 Potassium (Unsp spec) [Mass/Vol] 3.8 mmol/L 3.3-5.1 [facility] RBC Auto (Bld) [#/Vol]Ordere d By: Marcio Pires on 09-18-2024 RBC (Bld) [#/Vol] 3.12 10*6/uL Low 4.2-5.4 [facility] Serum creatinine measurement (mass/volume)Ordered By: Marcio Pires on 09-18-2024 Creatinine [Mass/Vol] 0.58 mg/dL Low 0.70-1.20 [facility] Serum globulin measurementOr dered By: Marcio Pires on 09-18-2024 Globulin (S) [Mass/Vol] 2.7 g/dL 2.2-4.2 [facility] Serum glucose measurement (m ass/volume)Ordered By: Marcio Pires on 09-18-2024 Glucose [Mass/Vol] 83 mg/dL 70-99 [facility] Serum or plasma alanine harrison otransferase (ALT) measurementOrdered By: Marcio Pires on 09-18-2024 ALT [Catalytic activity/Vol] 5 U/L <35 [facility] Serum or plasma albumin jim urement (mass/volume)Ordered By: Marcio Pires on 09-18-2024 Albumin [Mass/Vol] 3.2 g/dL Low 3.4-4.8 [facility] Serum or plasma albumin/glob ulin mass ratioOrdered By: Marcio Pires on 09-18-2024 Albumin/Globulin [Mass ratio] 1.2 {ratio} 0.9-2.4 [facility] Serum or plasma alkaline haven sphatase measurementOrdered By: Marcio Pires on 09-18-2024 ALP [Catalytic activity/Vol] 53 U/L 35-104 [facility] Serum or plasma calcium jim urement (mass/volume)Ordered By: Marcio Pires on 09-18-2024 Calcium [Mass/Vol] 8.9 mg/dL 7.6-11.0 [facility] Serum or plasma urea nitroge n measurement (mass/volume)Ordered By: Marcio Pires on 09-18-2024 Urea nitrogen [Mass/Vol] 20 mg/dL High 4-19 [facility] Serum or plasma valproate me asurement (mass/volume)Ordered By: Marcio Pires on 09-18-2024 Valproate [Mass/Vol] 42 ug/mL Low 50-[address] [facility] Comment on above: Valproic Acid concen trations >100 ug/mL are potentially toxic. Sodium levelOrdered By: Marcio Pires on 09-18-2024 Sodium [Moles/Vol] 143 mmol/L 133-145 [facility] Total proteinOrdered By: Ana Luisa Pires on 09-18-2024 Protein [Mass/Vol] 5.9 g/dL 5.9-8.4 [facility] Valproic Acid (Depakene) Lev froilan 09-18-2024 VALPROIC ACID 42 ug/mL Low 50-100 [facility] Comment on above: Order Comment: 208.1 Result Comment: Valp roic Acid concentrations >100 ug/mL are potentially toxic. Performed By: #### L 500.4050, L501.8100, L100.0500 #### [facility] [address] [place], [address] White blood cell (WBC) count Ordered By: Marcio Pires on 09-18-2024 WBC (Bld) [#/Vol] 3.5 10*3/uL Low 4.4-11.0 [facility] Urine Cultureon 07-21-2024 [facility] Mixed Gram Positive Organisms [place] Count 11,000-25,000 [facility] Mixed contaminants. Submit a new specimen if indicated. Normal [facility] Comment on above: Performed By: #### L 500.4050, L501.8100, L100.0500 #### [facility] [address] [place], [address] Ammoniaon 07-20-2024 Ammonia (P) [Moles/Vol] 38.4 umol/L Normal 11-51 [facility] Comment on above: Order Comment: 208.1 Performed By: #### L 500.4050, L501.8100, L100.0500 #### [facility] [address] [place], [address] Anion gap in Serum or Plasma Ordered By: Marcio Pires on 07-20-2024 Anion gap [Moles/Vol] 11 mmol/L 5-15 [facility] BUN/creatinine ratioOrdered By: Marcio Pires on 07-20-2024 Urea nitrogen/Creatinine [Mass ratio] 33.7 mg/mg High 10-20 [facility] Bilirubin Test strip Ql (U)O rdered By: Marcio Pires on 07-20-2024 Bilirubin Ql (U) Negative Negative [facility] Bilirubin, totalOrdered By: Marcio Pires on 07-20-2024 Bilirubin [Mass/Vol] 0.17 mg/dL 0.00-1.30 [facility] CBC-Complete Blood Cnt No Di ffon 07-20-2024 Erythrocyte distribution width (RBC) [Ratio] 12.5 % Normal 11.6-14.6 [facility] Comment on above: Order Comment: 208.1 Performed By: #### L 400.0001, L503.5510, M100.2200, L500.4050, L100.0500 #### [facility] [address] [place], [address] Hematocrit (Bld) [Volume fraction] 33.5 % Low 37-47 [facility] Comment on above: Order Comment: 208.1 Performed By: #### L 400.0001, L503.5510, M100.2200, L500.4050, L100.0500 #### [facility] [address] [place], [address] Hemoglobin (Bld) [Mass/Vol] 10.8 g/dL Low 12.0-15.0 [facility] Comment on above: Order Comment: 208.1 Performed By: #### L 400.0001, L503.5510, M100.2200, L500.4050, L100.0500 #### [facility] [address] [place], [address] MCH (RBC) [Entitic mass] 30.6 pg Normal 27.0-32.0 [facility] Comment on above: Order Comment: 208.1 Performed By: #### L 400.0001, L503.5510, M100.2200, L500.4050, L100.0500 #### [facility] [address] [place], [address] MCHC (RBC) [Mass/Vol] 32.2 g/dL Normal 32-36 [facility] Comment on above: Order Comment: 208.1 Performed By: #### L 400.0001, L503.5510, M100.2200, L500.4050, L100.0500 #### [facility] [address] [place], [address] MCV (RBC) [Entitic vol] 94.9 fL Normal 81-99 [facility] Comment on above: Order Comment: .1 Performed By: #### L 400.0001, L503.5510, M100.2200, L500.4050, L100.0500 #### [facility] [address] [place], [address] Platelet mean volume (Bld) [Entitic vol] 9.2 fL Normal 6.2-12.0 [facility] Comment on above: Order Comment: .1 Performed By: #### L 400.0001, L503.5510, M100.2200, L500.4050, L100.0500 #### [facility] [address] [place], [address] Platelets (Bld) [#/Vol] 182 10*3/uL Normal 150-450 [facility] Comment on above: Order Comment: 208.1 Performed By: #### L 400.0001, L503.5510, M100.2200, L500.4050, L100.0500 #### [facility] [address] [place], [address] RBC (Bld) [#/Vol] 3.53 10*6/uL Low 4.2-5.4 [facility] Comment on above: Order Comment: 208.1 Performed By: #### L 400.0001, L503.5510, M100.2200, L500.4050, L100.0500 #### [facility] [address] [place], [address] RDW SD 43.4 fl Normal 35.1-43.9 [facility] Comment on above: Order Comment: 208.1 Performed By: #### L 400.0001, L503.5510, M100.2200, L500.4050, L100.0500 #### [facility] [address] [place], [address] WBC (Bld) [#/Vol] 3.1 10*3/uL Low 4.4-11.0 [facility] Comment on above: Order Comment: 208.1 Performed By: #### L 400.0001, L503.5510, M100.2200, L500.4050, L100.0500 #### [facility] [address] [place], [address] Carbon dioxide, total [Moles /volume] in Central venous bloodOrdered By: Marcio Pires on 07-20-2024 CO2 [Moles/Vol] 27.2 mmol/L 21.0-32.0 [facility] Chloride assayOrdered By: Craig on 07-20-2024 Chloride [Moles/Vol] 102 mmol/L 98-108 [facility] Comprehensive Metabolic Prof ilon 07-20-2024 Albumin [Mass/Vol] 3.3 g/dL Low 3.4-4.8 [facility] Comment on above: Order Comment: 208.1 Performed By: #### L 400.0001, L503.5510, M100.2200, L500.4050, L100.0500 #### [facility] [address] [place], [address] Albumin/Globulin [Mass ratio] 1.1 {ratio} Normal 0.9-2.4 [facility] Comment on above: Order Comment: 208.1 Performed By: #### L 400.0001, L503.5510, M100.2200, L500.4050, L100.0500 #### [facility] [address] [place], [address] ALK PHOS 60 U/L Normal 35-104 [facility] Comment on above: Order Comment: 208.1 Performed By: #### L 400.0001, L503.5510, M100.2200, L500.4050, L100.0500 #### [facility] [address] [place], [address] ALT [Catalytic activity/Vol] 8 U/L Normal <=34 [facility] Comment on above: Order Comment: 208.1 Performed By: #### L 400.0001, L503.5510, M100.2200, L500.4050, L100.0500 #### [facility] [address] [place], [address] AST [Catalytic activity/Vol] 20 U/L Normal <=31 [facility] Comment on above: Order Comment: 208.1 Performed By: #### L 400.0001, L503.5510, M100.2200, L500.4050, L100.0500 #### [facility] [address] [place], [address] Bilirubin [Mass/Vol] 0.17 mg/dL Normal 0.00-1.30 [facility] Comment on above: Order Comment: 208.1 Performed By: #### L 400.0001, L503.5510, M100.2200, L500.4050, L100.0500 #### [facility] [address] [place], [address] BUN/CRE 33.7 RATIO High 10-20 [facility] Comment on above: Order Comment: 208.1 Performed By: #### L 400.0001, L503.5510, M100.2200, L500.4050, L100.0500 #### [facility] [address] [place], [address] Calcium [Mass/Vol] 8.9 mg/dL Normal 7.6-11.0 [facility] Comment on above: Order Comment: 208.1 Performed By: #### L 400.0001, L503.5510, M100.2200, L500.4050, L100.0500 #### [facility] [address] [place], [address] Chloride [Moles/Vol] 102 mmol/L Normal 98-108 [facility] Comment on above: Order Comment: 208.1 Performed By: #### L 400.0001, L503.5510, M100.2200, L500.4050, L100.0500 #### [facility] [address] [place], [address] CO2 [Moles/Vol] 27.2 mmol/L Normal 21.0-32.0 [facility] Comment on above: Order Comment: 208.1 Performed By: #### L 400.0001, L503.5510, M100.2200, L500.4050, L100.0500 #### [facility] [address] [place], [address] Creatinine [Mass/Vol] 0.52 mg/dL Low 0.70-1.20 [facility] Comment on above: Order Comment: 208.1 Performed By: #### L 400.0001, L503.5510, M100.2200, L500.4050, L100.0500 #### [facility] [address] [place], [address] GAP 11 Normal 5-15 [facility] Comment on above: Order Comment: 208.1 Performed By: #### L 400.0001, L503.5510, M100.2200, L500.4050, L100.0500 #### [facility] [address] [place], [address] GFR/1.73 sq M.predicted among non-blacks MDRD (S/P/Bld) [Vol rate/Area] 92 mL/min/{1.73_m2} Normal >60 [facility] Comment on above: Order Comment: 208.1 Result Comment: mL/m in/1.73m2 CKD-EPI Creatinine Equation (2020) Performed By: #### L 400.0001, L503.5510, M100.2200, L500.4050, L100.0500 #### [facility] [address] [place], [address] Globulin (S) [Mass/Vol] 2.9 g/dL Normal 2.2-4.2 [facility] Comment on above: Order Comment: .1 Performed By: #### L 400.0001, L503.5510, M100.2200, L500.4050, L100.0500 #### [facility] [address] [place], [address] Glucose [Mass/Vol] 80 mg/dL Normal 70-99 [facility] Comment on above: Order Comment: 208.1 Performed By: #### L 400.0001, L503.5510, M100.2200, L500.4050, L100.0500 #### [facility] [address] [place], [address] Potassium [Moles/Vol] 3.7 mmol/L Normal 3.3-5.1 [facility] Comment on above: Order Comment: 208.1 Performed By: #### L 400.0001, L503.5510, M100.2200, L500.4050, L100.0500 #### [facility] [address] [place], [address] Sodium [Moles/Vol] 140 mmol/L Normal 133-145 [facility] Comment on above: Order Comment: 208.1 Performed By: #### L 400.0001, L503.5510, M100.2200, L500.4050, L100.0500 #### [facility] [address] [place], [address] T PROT 6.2 g/dL Normal 5.9-8.4 [facility] Comment on above: Order Comment: 208.1 Performed By: #### L 400.0001, L503.5510, M100.2200, L500.4050, L100.0500 #### [facility] [address] [place], [address] Urea nitrogen [Mass/Vol] 18 mg/dL Normal 4-19 [facility] Comment on above: Order Comment: 208.1 Performed By: #### L 400.0001, L503.5510, M100.2200, L500.4050, L100.0500 #### [facility] [address] [place], [address] Epithelial cells.renal LM.HP F (Urine sed) [#/Area]Ordered By: Marcio Pires on 07-20-2024 Urine Renal Epithelial Cells 5-10 SEEN /hpf 0-5 [facility] Epithelial cells.squamous LM Ql (Urine sed)Ordered By: Marcio Pires on 07-20-2024 Epithelial cells.squamous LM.HPF (Urine sed) [#/Area] 0 /[HPF] 5-10 [facility] Erythrocyte distribution wid th (RBC) [Ratio]Ordered By: Marcio Pires on 07-20-2024 Erythrocyte distribution width (RBC) [Entitic vol] 43.4 fL 35.1-43.9 [facility] Erythrocyte distribution wid th ratioOrdered By: Marcioalcides Pires on 07-20-2024 Erythrocyte distribution width (RBC) [Ratio] 12.5 % 11.6-14.6 [facility] Erythrocyte distribution wid th standard deviationOrdered By: Marcio Pires on 07-20-2024 Erythrocyte distribution width (RBC) [Ratio] 43.4 fl 35.1-43.9 [facility] GFR/1.73 sq M.predicted lamar g non-blacks MDRD (S/P/Bld) [Vol rate/Area]Ordered By: Marcio Pires on 07-20-2024 Estimated GFR (MDRD) Non-Af Amer 92 >60 [facility] Comment on above: mL/min/1.73m2 CKD-EP I Creatinine Equation (2020) Glomerular filtration rate ( GFR) estimation/1.73 sq m using serum, plasma, or whole bOrdered By: Marcio Pires on 07-20-2024 GFR/1.73 sq M.predicted among non-blacks MDRD (S/P/Bld) [Vol rate/Area] 92 mL/min/{1.73_m2} >60 [facility] Comment on above: mL/min/1.73m2 CKD-EP I Creatinine Equation (2020) Glucose Ql (U)Ordered By: Craig on 07-20-2024 Urine Glucose (UA) Normal mg/dl Normal [facility] Hematocrit Auto (Bld) [Volum e fraction]Ordered By: Marcio Pires on 07-20-2024 Hematocrit (Bld) [Volume fraction] 33.5 % Low 37-47 [facility] Hemoglobin measurementOrdere d By: Marcio Pires on 07-20-2024 Hemoglobin (Bld) [Mass/Vol] 10.8 g/dL Low 12.0-15.0 [facility] Ketones Test strip Ql (U)Ord ered By: Marcio Pires on 07-20-2024 Ketones Ql (U) Negative Negative [facility] - Chemistry and C hemistry - challengeOrdered By: Marcio Pires on 07-20-2024 AST [Catalytic activity/Vol] 20 U/L <32 [facility] MCV (mean corpuscular volume ) determinationOrdered By: Marcio Pires on 07-20-2024 MCV (RBC) [Entitic vol] 94.9 fL 81-99 [facility] Mean corpuscular hemoglobin (MCH) determinationOrdered By: Marcio Pires on 07-20-2024 MCH (RBC) [Entitic mass] 30.6 pg 27.0-32.0 [facility] Mean corpuscular hemoglobin concentration (MCHC) determinationOrdered By: Marcio Pires on 07-20-2024 MCHC (RBC) [Mass/Vol] 32.2 g/dL 32-36 [facility] Mean platelet volume determi nationOrdered By: Marcio Pires on 07-20-2024 Platelet mean volume (Bld) [Entitic vol] 9.2 fL 6.2-12.0 [facility] Microscopic analysis of urin e for red blood cells (RBC)Ordered By: Marcio Pires on 07-20-2024 Microscopic analysis of urine for red blood cells (RBC) 0 SEEN /hpf 0-5 [facility] Urine RBC 0 SEEN /hpf 0-5 [facility] Mucus LM Ql (Urine sed)Order ed By: Marcio Pires on 07-20-2024 Mucus Ql (Urine sed) 0 SEEN /hpf [facility] Nitrite Test strip Ql (U)Ord ered By: Marcio Pires on 07-20-2024 Nitrite Ql (U) Negative Negative [facility] Platelet countOrdered By: Craig on 07-20-2024 Platelets (Bld) [#/Vol] 182 10*3/uL 150-450 [facility] Potassium (Unsp spec) [Mass/ Vol]Ordered By: Marcio Pires on 07-20-2024 Potassium [Moles/Vol] 3.7 mmol/L 3.3-5.1 [facility] Potassium measurement (mass/ volume)Ordered By: Marcio Pires on 07-20-2024 Potassium (Unsp spec) [Mass/Vol] 3.7 mmol/L 3.3-5.1 [facility] Protein Test strip Ql (U)Ord ered By: Marcio Pires on 07-20-2024 Protein Ql (U) 30 mg/dl High Negative [facility] RBC Auto (Bld) [#/Vol]Ordere d By: Marcio Pires on 07-20-2024 RBC (Bld) [#/Vol] 3.53 10*6/uL Low 4.2-5.4 [facility] Serum creatinine measurement (mass/volume)Ordered By: Marcio Pires on 07-20-2024 Creatinine [Mass/Vol] 0.52 mg/dL Low 0.70-1.20 [facility] Serum globulin measurementOr dered By: Marcio Pires on 07-20-2024 Globulin (S) [Mass/Vol] 2.9 g/dL 2.2-4.2 [facility] Serum glucose measurement (m ass/volume)Ordered By: Marcio Pires on 07-20-2024 Glucose [Mass/Vol] 80 mg/dL 70-99 [facility] Serum or plasma alanine harrison otransferase (ALT) measurementOrdered By: Marcio Pires on 07-20-2024 ALT [Catalytic activity/Vol] 8 U/L <35 [facility] Serum or plasma albumin jim urement (mass/volume)Ordered By: Marcio Pires on 07-20-2024 Albumin [Mass/Vol] 3.3 g/dL Low 3.4-4.8 [facility] Serum or plasma albumin/glob ulin mass ratioOrdered By: Marcio Pires on 07-20-2024 Albumin/Globulin [Mass ratio] 1.1 {ratio} 0.9-2.4 [facility] Serum or plasma alkaline haven sphatase measurementOrdered By: Marcio Pires on 07-20-2024 ALP [Catalytic activity/Vol] 60 U/L 35-104 [facility] Serum or plasma calcium jim urement (mass/volume)Ordered By: Marcio Pires on 07-20-2024 Calcium [Mass/Vol] 8.9 mg/dL 7.6-11.0 [facility] Serum or plasma urea nitroge n measurement (mass/volume)Ordered By: Marcio Pires on 07-20-2024 Urea nitrogen [Mass/Vol] 18 mg/dL 4-19 [facility] Sodium levelOrdered By: Marcio Pires on 07-20-2024 Sodium [Moles/Vol] 140 mmol/L 133-145 [facility] Squamous epithelial cells de tection in urine sediment by light microscopyOrdered By: Marcio Pires on 07-20-2024 Epithelial cells.squamous LM Ql (Urine sed) 0-5 SEEN /hpf 5-10 [facility] Total proteinOrdered By: Ana Luisa Pires on 07-20-2024 Protein [Mass/Vol] 6.2 g/dL 5.9-8.4 [facility] Transitional cells LM Ql (Ur ine sed)Ordered By: Marcio Pires on 07-20-2024 Urine Transitional Epithelial Cells 0 SEEN /hpf 0-5 [facility] Transitional cells detection in urine sediment by light microscopyOrdered By: Marcio Pires on 07-20-2024 Transitional cells LM Ql (Urine sed) 0 SEEN /hpf 0-5 [facility] Urinalysis, Completeon 07-20 EPI,RENAL 5-10 SEEN Normal 0-5 [facility] Comment on above: Order Comment: CLEAN CATCH Performed By: #### L 400.0001, L503.5510, M100.2200, L500.4050, L100.0500 #### [facility] [address] [place], [address] EPI,SQUAMOUS 0-5 SEEN Normal 5-10 [facility] Comment on above: Order Comment: CLEAN CATCH Performed By: #### L 400.0001, L503.5510, M100.2200, L500.4050, L100.0500 #### [facility] [address] [place], [address] EPI,TRANSITION 0 SEEN Normal 0-[address] [place] [address] Comment on above: Order Comment: CLEAN CATCH Performed By: #### L 400.0001, L503.5510, M100.2200, L500.4050, L100.0500 #### [facility] [address] [place], [address] WBC 5-10 SEEN Normal 0-5 [facility] Comment on above: Order Comment: CLEAN CATCH Performed By: #### L 400.0001, L503.5510, M100.2200, L500.4050, L100.0500 #### [facility] [address] [place], [address] RBC 0 SEEN Normal 0-5 [facility] Comment on above: Order Comment: CLEAN CATCH Performed By: #### L 400.0001, L503.5510, M100.2200, L500.4050, L100.0500 #### [facility] [address] [place], [address] BACTERIA 0 SEEN Normal None Seen [facility] Comment on above: Order Comment: CLEAN CATCH Performed By: #### L 400.0001, L503.5510, M100.2200, L500.4050, L100.0500 #### [facility] [address] [place], [address] Mucus Ql (Urine sed) 0 SEEN Normal [facility] Comment on above: Order Comment: CLEAN CATCH Performed By: #### L 400.0001, L503.5510, M100.2200, L500.4050, L100.0500 #### [facility] [address] [place], [address] Urine blood detectionOrdered By: Marcio Pires on 07-20-2024 Urine Occult Blood 10 /ul High Negative [facility] Urine clarityOrdered By: Ana Luisa Pires on 07-20-2024 Clarity (U) Sl. Cloudy Clear [facility] Urine color determinationOrd ered By: Marcio Pires on 07-20-2024 Color (U) Yellow Yellow [facility] Urine cultureOrdered By: Ana Luisa Pires on 07-20-2024 Bacteria identified Cx Nom (U) Positive Abnormal [facility] Urine glucose detectionOrder ed By: Marcio Pires on 07-20-2024 Glucose Ql (U) Normal mg/dl Normal [facility] Urine leukocyte esterase det ection by dipstickOrdered By: Marcio Pires on 07-20-2024 Leukocyte esterase Test strip Ql (U) 500 /ul High Negative [facility] Urine pHOrdered By: Marcio duncan on 07-20-2024 pH (U) 6.0 [pH] 5.0 - 8.0 [facility] Urine sediment bacteria coun t by microscopy (number/high power field)Ordered By: Marcio Pires on 07-20-2024 Bacteria LM.HPF (Urine sed) [#/Area] 0 /[HPF] None Seen [facility] Urine sediment renal epithel ial cell count by microscopy (number/high power field)Ordered By: Marcio Pires on 07-20-2024 Epithelial cells.renal LM.HPF (Urine sed) [#/Area] 5 /[HPF] 0-5 [facility] Urine specific gravity measu rementOrdered By: Marcio Pires on 07-20-2024 Specific gravity (U) [Rel density] 1.015 1.002-1.030 [facility] Urine urobilinogen measureme ntOrdered By: Marcio Pires on 07-20-2024 Urobilinogen Ql (U) Normal mg/dl Normal [facility] Urobilinogen Ql (U)Ordered B y: Marcio Pires on 07-20-2024 Urine Urobilinogen Normal mg/dl Normal [facility] Venous blood ammonia measure mentOrdered By: Marcio Pires on 07-20-2024 Ammonia (P) [Moles/Vol] 38.4 umol/L 11-51 [facility] White blood cell (WBC) count Ordered By: Marcio Pires on 07-20-2024 WBC (Bld) [#/Vol] 3.1 10*3/uL Low 4.4-11.0 [facility] White blood cell countOrdere d By: Marcio Pires on 07-20-2024 Urine WBC 5-10 SEEN /hpf 0-5 [facility] White blood cell count 5-10 SEEN /hpf 0-5 [facility] Valproate levelOrdered By: Khris Pires on 06-30-2024 Valproic Acid (Depakene) Level 46 ug/mL Low 50-100 [facility] Valproic Acid (Depakene) Lev froilan 06-30-2024 VALPROIC ACID 46 ug/mL Low 50-100 [facility] Comment on above: Order Comment: 208-1 Performed By: #### L 501.8147 #### [facility] [place], [address] CBC-Complete Blood Cnt No Di kayon 03-24-2024 Erythrocyte distribution width (RBC) [Ratio] 13.0 % Normal 11.6-14.6 [facility] Comment on above: Order Comment: Performed By: #### L 501.8100, L500.4050, L100.0500 #### [facility] [address] [place], [address] Hematocrit (Bld) [Volume fraction] 33.8 % Low 37-47 [facility] Comment on above: Order Comment: Performed By: #### L 501.8100, L500.4050, L100.0500 #### [facility] [address] [place], [address] Hemoglobin (Bld) [Mass/Vol] 10.9 g/dL Low 12.0-15.0 [facility] Comment on above: Order Comment: Performed By: #### L 501.8100, L500.4050, L100.0500 #### [facility] [address] [place], [address] MCH (RBC) [Entitic mass] 29.9 pg Normal 27.0-32.0 [facility] Comment on above: Order Comment: Performed By: #### L 501.8100, L500.4050, L100.0500 #### [facility] Laboratory [address] [place], [address] MCHC (RBC) [Mass/Vol] 32.2 g/dL Normal 32-36 [facility] Comment on above: Order Comment: Performed By: #### L 501.8100, L500.4050, L100.0500 #### [facility] [address] [place], [address] MCV (RBC) [Entitic vol] 92.6 fL Normal 81-99 [facility] Comment on above: Order Comment: Performed By: #### L 501.8100, L500.4050, L100.0500 #### [facility] [address] [place], [address] Platelet mean volume (Bld) [Entitic vol] 8.9 fL Normal 6.2-12.0 [facility] Comment on above: Order Comment: - Performed By: #### L 501.8100, L500.4050, L100.0500 #### [facility] [address] [place], [address] Platelets (Bld) [#/Vol] 224 10*3/uL Normal 150-450 [facility] Comment on above: Order Comment: - Performed By: #### L 501.8100, L500.4050, L100.0500 #### [facility] [address] [place], [address] RBC (Bld) [#/Vol] 3.65 10*6/uL Low 4.2-5.4 [facility] Comment on above: Order Comment: - Performed By: #### L 501.8100, L500.4050, L100.0500 #### [facility] [address] [place], [address] RDW SD 44.0 fl High 35.1-43.9 [facility] Comment on above: Order Comment: - Performed By: #### L 501.8100, L500.4050, L100.0500 #### [facility] [address] [place], [address] WBC (Bld) [#/Vol] 5.1 10*3/uL Normal 4.4-11.0 [facility] Comment on above: Order Comment: - Performed By: #### L 501.8100, L500.4050, L100.0500 #### [facility] [address] [place], [address] Comprehensive Metabolic Prof ilon 03-24-2024 Albumin [Mass/Vol] 3.0 g/dL Low 3.2-5.0 [facility] Comment on above: Order Comment: - Performed By: #### L 501.8100, L500.4050, L100.0500 #### [facility] [address] [place], [address] Albumin/Globulin [Mass ratio] 0.9 {ratio} Normal 0.9-2.4 [facility] Comment on above: Order Comment: - Performed By: #### L 501.8100, L500.4050, L100.0500 #### [facility] [address] [place], [address] ALK P 76 U/L Normal 45-117 [facility] Comment on above: Order Comment: - Performed By: #### L 501.8100, L500.4050, L100.0500 #### [facility] [address] [place], [address] ALT [Catalytic activity/Vol] 17 U/L Normal 13-56 [facility] Comment on above: Order Comment: - Performed By: #### L 501.8100, L500.4050, L100.0500 #### [facility] [address] [place], [address] AST [Catalytic activity/Vol] 12 U/L Low 15-37 [facility] Comment on above: Order Comment: - Performed By: #### L 501.8100, L500.4050, L100.0500 #### [facility] [address] [place], [address] Bilirubin [Mass/Vol] 0.20 mg/dL Normal 0.20-1.00 [facility] Comment on above: Order Comment: Result Comment: For patients on eltrombopag therapy, use of Dimension Meyers Chuck TBIL is not recommended. Performed By: #### L 501.8100, L500.4050, L100.0500 #### [facility] [address] [place], [address] BUN/CRE 43.6 RATIO High 10-20 [facility] Comment on above: Order Comment: 211- Performed By: #### L 501.8100, L500.4050, L100.0500 #### [facility] [address] [place], [address] CA,Total 8.7 mg/dL Normal 8.5-10.1 [facility] Comment on above: Order Comment: - Performed By: #### L 501.8100, L500.4050, L100.0500 #### [facility] [address] [place], [address] Chloride [Moles/Vol] 107 mmol/L Normal 98-107 [facility] Comment on above: Order Comment: - Performed By: #### L 501.8100, L500.4050, L100.0500 #### [facility] [address] [place], [address] CO2 [Moles/Vol] 31.0 mmol/L Normal 21.0-32.0 [facility] Comment on above: Order Comment: - Performed By: #### L 501.8100, L500.4050, L100.0500 #### [facility] [address] [place], [address] Creatinine [Mass/Vol] 0.55 mg/dL Normal 0.55-1.02 [facility] Comment on above: Order Comment: Result Comment: The validity of the calculated GFR GFRAA in patients over 70 years has not been determined. Clinical correlation is essential. Performed By: #### L 501.8100, L500.4050, L100.0500 #### [facility] [address] [place], [address] EST GFR - AA 136 mL/min Normal >60 [facility] Comment on above: Order Comment: Result Comment: Afri can Belarusian GFR Calc Performed By: #### L 501.8100, L500.4050, L100.0500 #### [facility] [address] [place], [address] GAP 3 Low 5-15 [facility] Comment on above: Order Comment: Performed By: #### L 501.8100, L500.4050, L100.0500 #### [facility] [address] [place], [address] GFR/1.73 sq M.predicted among non-blacks MDRD (S/P/Bld) [Vol rate/Area] 112 mL/min/{1.73_m2} Normal >60 [facility] Comment on above: Order Comment: Result Comment: Non- GFR Calc Performed By: #### L 501.8100, L500.4050, L100.0500 #### [facility] [address] [place], [address] Globulin (S) [Mass/Vol] 3.5 g/dL Normal 2.2-4.2 [facility] Comment on above: Order Comment: Performed By: #### L 501.8100, L500.4050, L100.0500 #### [facility] [address] [place], [address] Glucose [Mass/Vol] 87 mg/dL Normal 74-106 [facility] Comment on above: Order Comment: Performed By: #### L 501.8100, L500.4050, L100.0500 #### [facility] [address] [place], [address] Potassium [Moles/Vol] 3.8 mmol/L Normal 3.5-5.1 [facility] Comment on above: Order Comment: 211-1 Performed By: #### L 501.8100, L500.4050, L100.0500 #### [facility] [address] [place], [address] Sodium [Moles/Vol] 141 mmol/L Normal 136-145 [facility] Comment on above: Order Comment: 211-1 Performed By: #### L 501.8100, L500.4050, L100.0500 #### [facility] [address] [place], [address] T PROT 6.5 g/dL Normal 6.4-8.2 [facility] Comment on above: Order Comment: 211-1 Performed By: #### L 501.8100, L500.4050, L100.0500 #### [facility] [address] [place], [address] Urea nitrogen [Mass/Vol] 24 mg/dL High 7-18 [facility] Comment on above: Order Comment: 211-1 Performed By: #### L 501.8100, L500.4050, L100.0500 #### [facility] [address] [place], [address] Valproic Acid (Depakene) Lev froilan 03-24-2024 VALPROIC ACID 33 ug/mL Low 50-100 [facility] Comment on above: Order Comment: 211-1 Performed By: #### L 501.8100, L500.4050, L100.0500 #### [facility] [address] [place], [address] 36on 11-08-2023 36 Flecainide removed f rom med list [facility] 36 Dr Doherty review ed and asked for Flecainide to be discontinued [facility] 36 Called the [facility] patient had a CVA and is in Hospice Care [facility] 36 We have made several attempts to contact the patient to schedule refill delivery for Eliquis. We have left a total of 5 messages between 10/12 and today. At this time we will not make any further attempts to contact the patient. [facility] can be reached at . Thank you! [facility] 36 Shannan, can you call to see if she is still taking? This might have been discontinued since on hospice now [address] 11-04-2023 36 I will dc the medication. She does not need it. [facility] 36 VAMSHI-07/03 OC LIPID-07/[address] 10-26-2023 36 Received call from khris Pollard, pt w/ recent CVA, treated at [facility], records in [place]. Pt discharged to SNF under hospice care. Heart Valve Clinic appts cancelled. OV w/ Dr. Doherty in December cancelled. Dr. Doherty staff updated with pt status. [address] 09-28-2023 36 Patient called in to day and r/s appt. 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 [address] 09-20-2023 36 I called and spoke t o patient. She would like me to call her next week to r/s. She has a lot going on right now. [place] [address] Name of caller: Priya correa Contact phone number: [phone] Relationship to Patient: patient Provider: Dr. Panda Practice: [facility] Chief Complaint/Reason for Call: The patient states [...] business hours to return their call: Yes [address] 08-20-2023 36 Patient called puneet herrera how far out we are scheduling in the valve clinic as she has to set up transportation. I told her 09/14/23 and she will call back to schedule. [facility] 36 Called patient and explained that TAVR is thru the groin area but first she will meet with the valve team and discuss options address given and she will meet with Valve team but is hesitant to have Aortic Valve replaced [facility] 36 RC to pt, pt has questions, where would the valve repair surgical site be (area of the body) pt is concerned that she has abdominal scar tissue from previous surgeries. [place] [address]on 08-13-2023 36 I spoke to the patie nt this afternoon after reviewing the echo [...] weekend and call me back next week. [facility] 36 Pt lvm again this morning requesting results of echo [place] [phone] 08-10-2023 36 Notified patient mery t Dr Doherty will call her [facility] 36 Pt lvm requesting results of echo doen 08/03/23 [place] [id number] 08-06-2023 36 Notified patient mery t I will call with Dr Doherty response ,she is very apprehensive about knee surgery at her age [facility] 36 Pt lvm returning you r sandro [facility] 36 Rt TKA will potentia lly be scheduled by Dr Melendez end of September patient asking about Echo results [facility] 36 Pt requesting result s of echo results, pending knee sx [facility] Heart TransthoracicOrdere d By: Taylor Petersen on 08-03-2023 Aortic Sinus Valsalva 2.6 cm [facility] Work Phone: [phone] Aortic Sinus Valsalva Index 1.51 cm/m2 [facility] Work Phone: [phone] Ascending Aorta 2.7 [facility] Work Phone: [phone] Ascending Aorta Index 1.57 cm/m2 [facility] Work Phone: [phone] AV Area by Peak Velocity 0.8 cm2 [facility] Work Phone: [phone] AV Area by VTI 0.8 cm2 [facility] Work Phone: [phone] AV Mean Gradient 41 mmHg [facility] Work Phone: [phone] AV Mean Velocity 3.1 m/s [facility] Work Phone: [phone] AV Peak Gradient 62 mmHg [facility] Work Phone: [phone] AV Peak Velocity 3.9 m/s [facility] Work Phone: [phone] AV Velocity Ratio 0.26 [facility] Work Phone: [phone] AV VTI 115.4 cm [facility] Work Phone: [phone] ENID/BSA Peak Velocity 0.5 cm2/m2 [facility] Work Phone: ENID/BSA VTI 0.5 cm2/m2 [facility] Work Phone: [phone] E/E' Lateral 14.50 [facility] Work Phone: E/E' Ratio (Averaged) 15.95 [facility] Work Phone: E/E' Septal 17.40 [facility] Work Phone: [phone] EF BP 74 % 55 - 100 % [facility] Work Phone: [phone] Fractional Shortening 2D 40 % 28 - 44 % [facility] Work Phone: [phone] Interpretation and review of laboratory results Abnormal [facility] Work Phone: [phone] IVSd 1.1 cm Abnormal 0.6 - 0.9 cm [facility] Work Phone: [phone] LA Diameter 3.6 cm [facility] Work Phone: LA Size Index 2.09 cm/m2 [facility] Work Phone: LA Volume 2C 44 mL 22 - 52 mL [facility] Work Phone: LA Volume 4C 40 mL 22 - 52 mL [facility] Work Phone: LA Volume A/L 44 mL [facility] Work Phone: LA Volume Index 2C 26 mL/m2 16 - 34 mL/m2 [facility] Work Phone: LA Volume Index 4C 23 mL/m2 16 - 34 mL/m2 [facility] Work Phone: LA Volume Index A/L 26 mL/m2 16 - 34 mL/m2 [facility] Work Phone: LV E' Lateral Velocity 6 cm/s [facility] Work Phone: LV E' Septal Velocity 5 cm/s [facility] Work Phone: LV EDV A2C 54 mL [facility] Work Phone: LV EDV A4C 59 mL [facility] Work Phone: LV EDV BP 58 mL 56 - 104 mL [facility] Work Phone: LV EDV Index A2C 31 mL/m2 [facility] Work Phone: LV EDV Index A4C 34 mL/m2 [facility] Work Phone: LV EDV Index BP 34 mL/m2 [facility] Work Phone: LV Ejection Fraction A2C 73 % [facility] Work Phone: LV Ejection Fraction A4C 77 % [facility] Work Phone: LV ESV A2C 15 mL [facility] Work Phone: LV ESV A4C 13 mL [facility] Work Phone: LV ESV BP 15 mL Abnormal 19 - 49 mL [facility] Work Phone: LV ESV Index A2C 9 mL/m2 [facility] Work Phone: LV ESV Index A4C 8 mL/m2 [facility] Work Phone: LV ESV Index BP 9 mL/m2 [facility] Work Phone: LV Mass 2D 157.1 g 67 - 162 g [facility] Work Phone: LV Mass 2D Index 91.3 g/m2 43 - 95 g/m2 [facility] Work Phone: LV RWT Ratio 0.52 [facility] Work Phone: LVIDd 4.2 cm 3.9 - 5.3 cm [facility] Work Phone: LVIDd Index 2.44 cm/m2 [facility] [employer] Work Phone: LVIDs 2.5 cm [facility] Work Phone: LVIDs Index 1.45 cm/m2 [facility] Work Phone: LVOT Area 3.1 cm2 [facility] [employer] Work Phone: LVOT Cardiac Output 5.4 liter/mi nut e [facility] [employer] Work Phone: LVOT Diameter 2.0 cm [facility] Work Phone: LVOT Mean Gradient 2 mmHg [facility] [employer] Work Phone: LVOT Peak Gradient 4 mmHg [facility] Work Phone: LVOT Peak Velocity 1.0 m/s [facility] Work Phone: LVOT Stroke Volume Index 52.9 mL/m2 [facility] Work Phone: LVOT SV 91.1 ml [facility] Work Phone: LVOT VTI 29.0 cm [facility] Work Phone: LVOT:AV VTI Index 0.25 [facility] Work Phone: LVPWd 1.1 cm Abnormal 0.6 - 0.9 cm [facility] Work Phone: MV A Velocity 1.28 m/s [facility] Work Phone: MV Area by PHT 1.6 cm2 [facility] Work Phone: MV Area by VTI 2.4 cm2 [facility] Work Phone: MV E Velocity 0.87 m/s [facility] Work Phone: MV E Wave Deceleration Time 323.6 ms [facility] Work Phone: MV E/A 0.68 [facility] Work Phone: MV Max Velocity 1.4 m/s [facility] Work Phone: MV Mean Gradient 2 mmHg [facility] Work Phone: MV Mean Velocity 0.7 m/s [facility] Work Phone: MV Peak Gradient 7 mmHg [facility] Work Phone: MV PHT 136.4 ms [facility] Work Phone: MV VTI 37.7 cm [facility] Work Phone: MV:LVOT VTI Index 1.30 [facility] Work Phone: RV Mid Dimension 3.1 cm [facility] Work Phone: Sinotubular Junction 2.4 cm [facility] Work Phone: TR Max Velocity 2.58 m/s [facility] Work Phone: TR Peak Gradient 27 mmHg [facility] Work Phone: [facility] Work Phone: US Heart Transthoracicon Left [...] Auto (Unsp spec) [#/Vol] 1.28 10*3/uL 0.83-4.51 [facility] Automated lymphocyte count a s percentage of total leukocytesOrdered By: Lisa Fuentes on 07-09-2023 Lymphocytes/100 WBC Auto (Unsp spec) 15.4 % 19-41 [facility] Basophil percentageOrdered B y: Lisa Fuentes on 07-09-2023 Basophils/100 WBC (Bld) 0.1 % 0-1 [facility] Chloride [Moles/Vol] 101 mmol/L 98-107 [facility] Eosinophils/100 WBC (Bld) 0.0 % 0-5 [facility] Glucose [Mass/Vol] 81 mg/dL 74-106 [facility] Hemoglobin (Bld) [Mass/Vol] 13.3 g/dL 12.0-15.0 [facility] Monocytes/100 WBC (Bld) 8.0 % 0-10 [facility] Neutrophils (Bld) [#/Vol] 6.3 10*3/uL 2.0-7.7 [facility] Neutrophils/100 WBC (Bld) 76.0 % 47-70 [facility] Potassium [Moles/Vol] 3.9 mmol/L 3.5-5.1 [facility] Sodium [Moles/Vol] 133 mmol/L 136-145 [facility] WBC (Bld) [#/Vol] 8.3 10*3/uL 4.4-11.0 [facility] Determination of erythrocyte mean corpuscular volume (MCV)Ordered By: Lisa Fuentes on 07-09-2023 MCV (RBC) [Entitic vol] 93.5 fL 81-99 [facility] Erythrocyte distribution wid th ratioOrdered By: Lisa Fuentes on 07-09-2023 Erythrocyte distribution width (RBC) [Ratio] 12.6 % 11.6-14.6 [facility] Erythrocyte distribution wid th standard deviationOrdered By: Lisa Fuentes on 07-09-2023 Erythrocyte distribution width (RBC) [Entitic vol] 43.1 fL 35.1-43.9 [facility] Hematocrit Auto (Bld) [Volum e fraction]Ordered By: Lisa Fuentes on 07-09-2023 Hematocrit (Bld) [Volume fraction] 40.1 % 37-47 [facility] Immature granulocytes/100 WB C Auto (Bld)Ordered By: Lisa Fuentes on 07-09-2023 Immature granulocytes/100 WBC (Bld) 0.500 % 0.0-0.9 [facility] Comment on above: IG% - Immature Granu locytes (promyelocytes, myelocytes and metamyelocytes) > 1% indicates that a LEFT SHIFT is Present. Laboratory - Chemistry and C hemistry - challengeOrdered By: Lisa Fuentes on 07-09-2023 CO2 [Moles/Vol] 27.0 mmol/L 21.0-32.0 [facility] Magnesium [Mass/Vol] 1.9 mg/dL 1.6-2.6 [facility] Urea nitrogen/Creatinine [Mass ratio] 28.8 mg/mg 10-20 [facility] Laboratory - Hematology and Cell countsOrdered By: Lisa Fuentes on 07-09-2023 MCH (RBC) [Entitic mass] 31.0 pg 27.0-32.0 [facility] MCHC (RBC) [Mass/Vol] 33.2 g/dL 32-36 [facility] Nucleated RBC/100 WBC (Bld) [Ratio] 0 % 0-5 [facility] Platelet mean volume (Bld) [Entitic vol] 9.0 fL 6.2-12.0 [facility] Platelets (Bld) [#/Vol] 282 10*3/uL 150-450 [facility] No Panel InformationOrdered By: Lisa Fuentes on 07-09-2023 Estimated GFR (MDRD) Amer 80 mL/min >60 [facility] Comment on above: GFR Calc Estimated GFR (MDRD) Non-Af Amer 66 mL/min >60 [facility] Comment on above: Non- GFR Calc RBC Auto (Bld) [#/Vol]Ordere d By: Lisa Fuentes on 07-09-2023 RBC (Bld) [#/Vol] 4.29 10*6/uL 4.2-5.4 [facility] Serum or plasma calcium jim urement (mass/volume)Ordered By: Lisa Fuentes on 07-09-2023 Calcium [Mass/Vol] 9.6 mg/dL 8.5-10.1 [facility] Serum or plasma creatinine m easurement (mass/volume)Ordered By: Lisa Fuentes on 07-09-2023 Creatinine [Mass/Vol] 0.87 mg/dL 0.55-1.02 [facility] Comment on above: The validity of the calculated GFR & GFRAA in patients over 70 years has not been determined. Clinical correlation is essential. Serum or plasma urea nitroge n measurement (mass/volume)Ordered By: Lisa Fuentes on 07-09-2023 Urea nitrogen [Mass/Vol] 25 mg/dL 7-18 [facility] Thin prep Papanicolaou smear with manual screeningOrdered By: Lisa Fuentes on 07-09-2023 Thin prep Papanicolaou smear with manual screening 5 5-15 [facility] Office Visiton 07-07-2023 Follow-up visit [id number] Ciro Yanez es 1940 F Date Provider Department Center 07/07/2023 [id number] CORCOR[facility] None Family History Problem Relation Age of Onset Mental illness Mother Cancer Sister Diabetes Father Family Status - Relation Status Age at Mother Sister Father Level of Service:93581 DC OFFICE/OUTPATIENT NEW LOW MDM 30 MINUTES 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 female who presents for evaluation of the bilateral knee. Right worse Symptoms began gradually several years ago. She describes the symptoms as aching. The pain is anterior. Symptoms improve with rest, medication: Marion used but not effective. The symptoms are [...] AFIB and hx of blood clot to E Dr Salazar ,Not diabetic, Hx of Left MERY at [facility] about 15 years ago. Previous [...] shows evidenc (more content not included)... Normal [facility] ECG 12 lead - CLINIC PERFORM EDon 06-15-2023 Sinus Rhythm NORMAL ECG [facility] Office Visiton 06-15-2023 Follow-up visit [id number] Ciro Yanez 1940 F Date Provider Department Center 06/15/2023 [id number] DOHERTY [facility] None Family History Problem Relation Age of Onset Mental illness Mother Cancer Sister Diabetes Father Family Status - Relation Status Age at Mother Sister Father Level of Service:63897 DC OFFICE/OUTPATIENT ESTABLISHED MOD MDM 30 MIN Reason for Visit and Comments: Atrial Fibrillation [80] - PAF Hyperlipidemia [182] Hypertension [139425] Sleep Apnea [348] Cardiac Valve Problem [1334] - AV stenosis Syncope [506] - Hypotensive events Transient Ischemic Attack [599885] Normal [facility] Progress Noteon 06-15-2023 Progress Note [facility] Heart & Vascul [facility] [place] Cardiology/Electrophysio logy Follow Up Clinic Note Chief [...] in her knees, for which she takes [place]. She walks with a walker. 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 5. Bilateral Bruits. [...] illness Mothe (more content not included)... Normal [place] [id number] 36 VAMSHI 11-24-22 05-25-23 04-05-23 Lipid/LFT in CE under OHIP Normal [facility] 36on 04-15-2023 36 VAMSHI 11-24-22 05-25-23 11-02-22 CBC CMP/creat 0.78 in CE Normal [facility] 36 Last seen 11/24/22, next appt 05/25/23 [facility] 36on 04-09-2023 37 VAMSHI with OC 11-24-22 NOV 05-25-23 11-05-22 bmp/creat 0.78 in CE [facility] Basophil percentageOrdered B y: Lisa Fuentes on 04-09-2023 Chloride [Moles/Vol] 100 mmol/L 98-107 [facility] Glucose [Mass/Vol] 79 mg/dL 74-106 [facility] Potassium [Moles/Vol] 4.1 mmol/L 3.5-5.1 [facility] Sodium [Moles/Vol] 134 mmol/L 136-145 [facility] Laboratory - Chemistry and C hemistry - challengeOrdered By: Lisa Fuentes on 04-09-2023 CO2 [Moles/Vol] 29.0 mmol/L 21.0-32.0 [facility] Urea nitrogen/Creatinine [Mass ratio] 20.6 mg/mg 10- [facility] No Panel InformationOrdered By: Lisa Fuentes on 04-09-2023 Estimated GFR (MDRD) Amer 85 mL/min >60 [facility] Comment on above: GFR Calc Estimated GFR (MDRD) Non-Af Amer 71 mL/min >60 [facility] Comment on above: Non- GFR Calc Serum or plasma calcium jim urement (mass/volume)Ordered By: Lisa Fuentes on 04-09-2023 Calcium [Mass/Vol] 9.0 mg/dL 8.5-10.1 [facility] Serum or plasma creatinine m easurement (mass/volume)Ordered By: Lisa Fuentes on 04-09-2023 Creatinine [Mass/Vol] 0.82 mg/dL 0.55-1.02 [facility] Comment on above: The validity of the calculated GFR & GFRAA in patients over 70 years has not been determined. Clinical correlation is essential. Serum or plasma urea nitroge n measurement (mass/volume)Ordered By: Lisa Fuentes on 04-09-2023 Urea nitrogen [Mass/Vol] 17 mg/dL 11-24 [facility] Thin prep Papanicolaou smear with manual screeningOrdered By: Lisa Fuentes on 04-09-2023 Thin prep Papanicolaou smear with manual screening 5 5-15 [facility] Basophil percentageOrdered B y: Lisa Fuentes on 04-05-2023 Bilirubin [Mass/Vol] 0.30 mg/dL 0.20-1.00 [facility] Comment on above: For patients on eltr ombopag therapy, use of Dimension Meyers Chuck TBIL is not recommended. Chloride [Moles/Vol] 101 mmol/L 98-107 [facility] Cholesterol [Mass/Vol] 198 mg/dL <200 [facility] Comment on above: <200 mg/dL Desirable 200-240 mg/dL Borderline >240 mg/dL High Risk Glucose [Mass/Vol] 83 mg/dL 74-106 [facility] Potassium [Moles/Vol] 4.3 mmol/L 3.5-5.1 [facility] Protein [Mass/Vol] 6.5 g/dL 6.4-8.2 [facility] Sodium [Moles/Vol] 132 mmol/L 136-145 [facility] Triglyceride [Mass/Vol] 58 mg/dL <199 [facility] Comment on above: The drugs N-Acetylcy steine and Metamizole may falsely depress this assay.Serum Triglycerides Reference Interval Normal <150 mg/dL Borderline high 150 - 199 mg/dL High 200 - 499 mg/dL Very High > or = 500 mg/dL WBC (Bld) [#/Vol] 3.6 10*3/uL 4.4-11.0 [facility] Blood erythrocytes count (nu mber/volume)Ordered By: Lisa Fuentes on 04-05-2023 RBC (Bld) [#/Vol] 3.78 10*6/uL 4.2-5.4 [facility] Blood hemoglobin measurement (mass/volume)Ordered By: Lisa Fuentes on 04-05-2023 Hemoglobin (Bld) [Mass/Vol] 11.5 g/dL 12.0-15.0 [facility] Blood platelet mean volumeOr dered By: Lisa Fuentes on 04-05-2023 Platelet mean volume (Bld) [Entitic vol] 9.0 fL 6.2-12.0 [facility] Determination of erythrocyte mean corpuscular volume (MCV)Ordered By: Lisa Fuentes on 04-05-2023 MCV (RBC) [Entitic vol] 95.0 fL 81-99 [facility] Hematocrit Auto (Bld) [Volum e fraction]Ordered By: Lisa Fuentes on 04-05-2023 Hematocrit (Bld) [Volume fraction] 35.9 % 37-47 [facility] Laboratory - Chemistry and C hemistry - challengeOrdered By: Lisacorey Fuentes on 04-05-2023 ALP [Catalytic activity/Vol] 89 U/L 45-117 [facility] ALT [Catalytic activity/Vol] 14 U/L 13-56 [facility] CO2 [Moles/Vol] 26.0 mmol/L 21.0-32.0 [facility] Cobalamin (Vitamin B12) [Mass/Vol] 500 pg/mL 211-911 [facility] Globulin (S) [Mass/Vol] 3.3 g/dL 2.2-4.2 [facility] Urea nitrogen/Creatinine [Mass ratio] 32.1 mg/mg 10-20 [facility] Laboratory - Hematology and Cell countsOrdered By: Lisa Fuentes on 04-05-2023 Erythrocyte distribution width (RBC) [Entitic vol] 43.3 fL 35.1-43.9 [facility] Erythrocyte distribution width (RBC) [Ratio] 12.5 % 11.6-14.6 [facility] MCH (RBC) [Entitic mass] 30.4 pg 27.0-32.0 [facility] MCHC Auto (RBC) [Mass/Vol]Or dered By: Lisa Fuentes on 04-05-2023 MCHC (RBC) [Mass/Vol] 32.0 g/dL 32-36 [facility] No Panel InformationOrdered By: Lisa Fuentes on 04-05-2023 Estimated GFR (MDRD) Amer 87 mL/min >60 [facility] Comment on above: GFR Calc Estimated GFR (MDRD) Non-Af Amer 72 mL/min >60 [facility] Comment on above: Non- GFR Calc Thyroid Stimulating Hormone (TSH) 1.75 uIU/mL 0.358-3.74 [facility] Platelets bldOrdered By: Williams Fuentes on 04-05-2023 Platelets (Bld) [#/Vol] 250 10*3/uL 150-450 [facility] Serum or plasma albumin jim urement (mass/volume)Ordered By: Lisa Fuentes on 04-05-2023 Albumin [Mass/Vol] 3.2 g/dL 3.2-5.0 [facility] Serum or plasma albumin/glob ulin mass ratioOrdered By: Lisacorey Fuentes on 04-05-2023 Albumin/Globulin [Mass ratio] 1.0 {ratio} 0.9-2.4 [facility] Serum or plasma calcium jim urement (mass/volume)Ordered By: Lisa Fuentes on 04-05-2023 Calcium [Mass/Vol] 8.6 mg/dL 8.5-10.1 [facility] Serum or plasma cholesterol in HDL measurement (mass/volume)Ordered By: Lisa Fuentes on 04-05-2023 Cholesterol in HDL [Mass/Vol] 64 mg/dL >40 [facility] Comment on above: The drugs N-Acetylcy steine and Metamizole may falsely depress this assay. Reference Range HDL <40 mg/dL Low HDL Cholesterol HDL >or= 60 mg/dL High HDL Cholesterol Serum or plasma cholesterol in VLDL measurement (mass/volume)Ordered By: Lisa Fuentes on 04-05-2023 Cholesterol in VLDL [Mass/Vol] 12 mg/dL 5-40 [facility] Serum or plasma creatinine m easurement (mass/volume)Ordered By: Lisa Fuentes on 04-05-2023 Creatinine [Mass/Vol] 0.81 mg/dL 0.55-1.02 [facility] Comment on above: The validity of the calculated GFR & GFRAA in patients over 70 years has not been determined. Clinical correlation is essential. Serum or plasma low density lipoprotein (LDL) cholesterol measurement (mass/volume)Ordered By: Lisa Fuentes on 04-05-2023 Cholesterol in LDL [Mass/Vol] 122 mg/dL 0-130 [facility] Serum or plasma urea nitroge n measurement (mass/volume)Ordered By: Lisa Fuentes on 04-05-2023 Urea nitrogen [Mass/Vol] 26 mg/dL 11-24 [facility] Thin prep Papanicolaou smear with manual screeningOrdered By: Lisa Fuentes on 04-05-2023 Thin prep Papanicolaou smear with manual screening 14 U/L 15-37 [facility] Thin prep Papanicolaou smear with manual screening 5 5-15 [facility] 36on 01-06-2023 37 VAMSHI 11-24-22 NOV 05-25-2023 11-02-22 CBC,BMP/Creat 0,78 labs are in Care Everywhere [facility] 36 Pt requesting jayden trinh Last seen 11/24/22, OC fu 05/25/22 Pharmacy confirmed [facility] 36on 11-30-2022 36 VAMSHI-11/29 oc LIPID-07/30 has active order [facility] 36 Patient's insurance is requiring them to switch from Praluent to Repatha due to formulary change. If appropriate, please send script to [facility] and we will reach out to the pt to inform her of the change. Canceled Praluent script and pended Repatha for review. Thank you! [facility] 36on 11-26-2022 36 Last OV with OC 11-2408-03-22 Lipids /LFTs not done needs recheck in 3-4 months per OC order put in Epic [facility] ECG 12 lead - CLINIC PERFORM EDon 11-24-2022 Sinus Bradycardia WITHIN NORMAL LIMITS [facility] Office Visiton 11-24-2022 Follow-up visit [id number] Ciro Yanez 1940 F Date Provider Department Center 11/24/2022 [facility] None Family History Problem Relation Age of Onset Mental illness Mother Cancer Sister Diabetes Father Family Status - Relation Status Age at Mother Sister Father Level of Service:26697 DC OFFICE/OUTPATIENT ESTABLISHED MOD MDM 30-39 MIN Reason for Visit and Comments: Atrial Fibrillation [80] - PAF Hypertension [820870] Hyperlipidemia [182] Sleep Apnea [348] Cardiac Valve Problem [1334] - AV stenosis Normal [facility] Progress Noteon 11-24-2022 Progress Note [facility] Heart & Vascul ar [place] Cardiology/Electrophysio logy Follow Up Clinic Note Chief [...] the HPI. (more content not included)... Normal [facility] [employer] [facility] Heart TransthoracicOrdere d By: Reinaldo Malone on 09-08-2022 Ao Root Index 1.44 cm/m2 [facility] Work Phone: Aortic Arch 2.2 cm [facility] Work Phone: Aortic Root 2.4 cm [facility] Work Phone: Ascending Aorta 2.8 cm [facility] Work Phone: Ascending Aorta Index 1.68 cm/m2 [facility] Work Phone: AV Area by Peak Velocity 0.8 cm2 [facility] Work Phone: AV Area by Planimetry 1.1 cm2 [facility] Work Phone: AV Area by VTI 0.9 cm2 [facility] Work Phone: AV Mean Gradient 38 mmHg [facility] Work Phone: AV Mean Velocity 3.0 m/s [facility] Work Phone: AV Peak Gradient 57 mmHg [facility] Work Phone: AV Peak Velocity 3.8 m/s [facility] Work Phone: AV Velocity Ratio 0.26 [facility] Work Phone: AV VTI 98.8 cm [facility] Work Phone: ENID/BSA 0.66 cm2/m2 [facility] Work Phone: ENID/BSA Peak Velocity 0.5 cm2/m2 [facility] Work Phone: ENID/BSA VTI 0.5 cm2/m2 [facility] Work Phone: E/E' Lateral 13.33 [facility] [employer] Work Phone: E/E' Ratio (Averaged) 14.67 [facility] Work Phone: E/E' Septal 16.00 [facility] [employer] Work Phone: EF BP 71 % 55 - 100 % [facility] [employer] Work Phone: Fractional Shortening 2D 32 % 28 - 44 % [facility] [employer] Work Phone: Interpretation and review of laboratory results Abnormal [facility] [employer] Work Phone: IVSd 1.3 cm Abnormal 0.6 - 0.9 cm [facility] [employer] Work Phone: LA Diameter 2.9 cm [facility] [employer] Work Phone: LA Size Index 1.74 cm/m2 [facility] [employer] Work Phone: LA Volume 2C 55 mL Abnormal 22 - 52 mL [facility] [employer] Work Phone: LA Volume 4C 47 mL 22 - 52 mL [facility] [employer] Work Phone: LA Volume A/L 58 mL [facility] Work Phone: LA Volume Index 2C 33 mL/m2 16 - 34 mL/m2 [facility] [employer] Work Phone: LA Volume Index 4C 28 mL/m2 16 - 34 mL/m2 [facility] Work Phone: LA Volume Index A/L 35 mL/m2 16 - 34 mL/m2 [facility] [employer] Work Phone: LA/AO Root Ratio 1.21 [facility] Work Phone: LV E' Lateral Velocity 6 cm/s [facility] Work Phone: LV E' Septal Velocity 5 cm/s [facility] [employer] Work Phone: LV EDV A2C 51 mL [facility] [employer] Work Phone: LV EDV A4C 74 mL [facility] [employer] Work Phone: LV EDV BP 62 mL 56 - 104 mL [facility] Work Phone: LV EDV Index A2C 31 mL/m2 [facility] Work Phone: LV EDV Index A4C 44 mL/m2 [facility] Work Phone: LV EDV Index BP 37 mL/m2 [facility] Work Phone: LV Ejection Fraction A2C 68 % [facility] Work Phone: LV Ejection Fraction A4C 73 % [facility] Work Phone: LV ESV A2C 16 mL [facility] Work Phone: LV ESV A4C 20 mL [facility] Work Phone: LV ESV BP 18 mL Abnormal 19 - 49 mL [facility] Work Phone: LV ESV Index A2C 10 mL/m2 [facility] Work Phone: LV ESV Index A4C 12 mL/m2 [facility] Work Phone: LV ESV Index BP 11 mL/m2 [facility] Work Phone: LV Mass 2D 122.0 g 67 - 162 g [facility] Work Phone: LV Mass 2D Index 73.0 g/m2 43 - 95 g/m2 [facility] Health Work Phone: LV RWT Ratio 0.59 [facility] Health Work Phone: LVIDd 3.4 cm Abnormal 3.9 - 5.3 cm [facility] Work Phone: LVIDd Index 2.04 cm/m2 [facility] Work Phone: LVIDs 2.3 cm [facility] Work Phone: LVIDs Index 1.38 cm/m2 [facility] Work Phone: LVOT Area 3.1 cm2 [facility] Work Phone: LVOT Cardiac Output 14.0 liter/mi nut e [facility] Work Phone: LVOT Diameter 2.0 cm [facility] Work Phone: LVOT Mean Gradient 3 mmHg [facility] [employer] Work Phone: LVOT Peak Gradient 4 mmHg [facility] [employer] Work Phone: LVOT Peak Velocity 1.0 m/s [facility] [employer] Work Phone: LVOT Stroke Volume Index 54.7 mL/m2 [facility] [employer] Work Phone: LVOT SV 91.4 ml [facility] [employer] Work Phone: LVOT VTI 29.1 cm [facility] [employer] Work Phone: LVOT:AV VTI Index 0.29 [facility] Work Phone: LVPWd 1.0 cm Abnormal 0.6 - 0.9 cm [facility] [employer] Work Phone: MV A Velocity 1.13 m/s [facility] Work Phone: [phone] MV E Velocity 0.80 m/s [facility] Work Phone: MV E Wave Deceleration Time 267.2 ms [facility] [employer] Work Phone: MV E/A 0.71 [facility] [employer] Work Phone: RV Basal Dimension 3.5 cm [facility] Work Phone: RV Mid Dimension 2.6 cm [facility] Work Phone: Sinotubular Junction 2.1 cm [facility] Work Phone: TAPSE 2.7 cm 1.7 cm [facility] Work Phone: TR Max Velocity 3.01 m/s [facility] Work Phone: TR Peak Gradient 36 mmHg [facility] Work Phone: [facility] Work Phone: Heart Transthoracicon Left Ventricle: Left ventricle size [...] on 08-03-2022 Bilirubin [Mass/Vol] 0.40 mg/dL 0.20-1.00 [facility] Comment on above: For patients on eltr ombopag therapy, use of Dimension Meyers Chuck TBIL is not recommended. Cholesterol [Mass/Vol] 299 mg/dL <200 [facility] Comment on above: <200 mg/dL Desirable 200-240 mg/dL Borderline >240 mg/dL High Risk Protein [Mass/Vol] 6.7 g/dL 6.4-8.2 [facility] Triglyceride [Mass/Vol] 48 mg/dL <199 [facility] Comment on above: The drugs N-Acetylcy steine and Metamizole may falsely depress this assay.Serum Triglycerides Reference Interval Normal <150 mg/dL Borderline high 150 - 199 mg/dL High 200 - 499 mg/dL Very High > or = 500 mg/dL WBC (Bld) [#/Vol] 3.0 10*3/uL 4.4-11.0 [facility] Basophil percentageOrdered B y: Jef Olivares on 08-03-2022 Chloride [Moles/Vol] 98 mmol/L 98-107 [facility] Glucose [Mass/Vol] 86 mg/dL 74-106 [facility] Potassium [Moles/Vol] 4.0 mmol/L 3.5-5.1 [facility] Sodium [Moles/Vol] 129 mmol/L 136-145 [facility] Blood erythrocytes count (nu mber/volume)Ordered By: OUT DOCTOR on 08-03-2022 RBC (Bld) [#/Vol] 3.79 10*6/uL 4.2-5.4 [facility] Blood hemoglobin measurement (mass/volume)Ordered By: OUT DOCTOR on 08-03-2022 Hemoglobin (Bld) [Mass/Vol] 12.1 g/dL 12.0-15.0 [facility] Blood platelet mean volumeOr dered By: OUT DOCTOR on 08-03-2022 Platelet mean volume (Bld) [Entitic vol] 8.8 fL 6.2-12.0 [facility] Determination of erythrocyte mean corpuscular volume (MCV)Ordered By: OUT DOCTOR on 08-03-2022 MCV (RBC) [Entitic vol] 96.3 fL 81-99 [facility] Direct bilirubinOrdered By: OUT DOCTOR on 08-03-2022 Bilirubin.direct [Mass/Vol] 0.10 mg/dL 0.00-0.30 [facility] Hematocrit Auto (Bld) [Volum e fraction]Ordered By: OUT DOCTOR on 08-03-2022 Hematocrit (Bld) [Volume fraction] 36.5 % 37-47 [facility] Laboratory - Chemistry and C hemistry - challengeOrdered By: OUT DOCTOR on 08-03-2022 ALP [Catalytic activity/Vol] 83 U/L 45-117 [facility] ALT [Catalytic activity/Vol] 17 U/L 13-56 [facility] Globulin (S) [Mass/Vol] 3.5 g/dL 2.2-4.2 [facility] Laboratory - Chemistry and C hemistry - challengeOrdered By: Jef Olivares on 08-03-2022 CO2 [Moles/Vol] 26.0 mmol/L 21.0-32.0 [facility] Urea nitrogen/Creatinine [Mass ratio] 17.8 mg/mg 10-20 [facility] Laboratory - Hematology and Cell countsOrdered By: OUT DOCTOR on 08-03-2022 Erythrocyte distribution width (RBC) [Entitic vol] 43.3 fL 35.1-43.9 [facility] Erythrocyte distribution width (RBC) [Ratio] 12.4 % 11.6-14.6 [facility] MCH (RBC) [Entitic mass] 31.9 pg 27.0-32.0 [facility] MCHC Auto (RBC) [Mass/Vol]Or dered By: OUT DOCTOR on 08-03-2022 MCHC (RBC) [Mass/Vol] 33.2 g/dL 32-36 [facility] No Panel InformationOrdered By: Jef Olivares on 08-03-2022 Estimated GFR (MDRD) Amer 90 mL/min >60 [facility] Comment on above: GFR Calc Estimated GFR (MDRD) Non-Af Amer 75 mL/min >60 [facility] Comment on above: Non- GFR Calc Platelets bldOrdered By: OUT DOCTOR on 08-03-2022 Platelets (Bld) [#/Vol] 263 10*3/uL 150-450 [facility] Serum or plasma albumin jim urement (mass/volume)Ordered By: OUT DOCTOR on 08-03-2022 Albumin [Mass/Vol] 3.2 g/dL 3.2-5.0 [facility] Serum or plasma calcium jim urement (mass/volume)Ordered By: Jef Olivares on 08-03-2022 Calcium [Mass/Vol] 9.0 mg/dL 8.5-10.1 [facility] Serum or plasma cholesterol in HDL measurement (mass/volume)Ordered By: OUT DOCTOR on 08-03-2022 Cholesterol in HDL [Mass/Vol] 67 mg/dL >40 [facility] Comment on above: The drugs N-Acetylcy steine and Metamizole may falsely depress this assay. Reference Range HDL <40 mg/dL Low HDL Cholesterol HDL >or= 60 mg/dL High HDL Cholesterol Serum or plasma cholesterol in VLDL measurement (mass/volume)Ordered By: OUT DOCTOR on 08-03-2022 Cholesterol in VLDL [Mass/Vol] 10 mg/dL 5-40 [facility] Serum or plasma creatinine m easurement (mass/volume)Ordered By: Jef Olivares on 08-03-2022 Creatinine [Mass/Vol] 0.78 mg/dL 0.55-1.02 [facility] Comment on above: The validity of the calculated GFR & GFRAA in patients over 70 years has not been determined. Clinical correlation is essential. Serum or plasma low density lipoprotein (LDL) cholesterol measurement (mass/volume)Ordered By: OUT DOCTOR on 08-03-2022 Cholesterol in LDL [Mass/Vol] 222 mg/dL 0-130 [facility] Serum or plasma urea nitroge n measurement (mass/volume)Ordered By: Jef Olivares on 08-03-2022 Urea nitrogen [Mass/Vol] 14 mg/dL 7-18 [facility] Thin prep Papanicolaou smear with manual screeningOrdered By: OUT DOCTOR on 08-03-2022 Thin prep Papanicolaou smear with manual screening 18 U/L 15-37 [facility] Thin prep Papanicolaou smear with manual screeningOrdered By: Jef Olivares on 08-03-2022 Thin prep Papanicolaou smear with manual screening 5 5-15 [facility] ECG 12 lead - CLINIC PERFORM EDon 07-28-2022 Sinus Rhythm WITHIN NORMAL LIMITS [facility] Basophil percentageOrdered B y: Dr. Fuentes on 07-03-2022 Chloride [Moles/Vol] 97 mmol/L 98-107 [facility] Glucose [Mass/Vol] 93 mg/dL 74-106 [facility] Potassium [Moles/Vol] 3.9 mmol/L 3.5-5.1 [facility] Sodium [Moles/Vol] 131 mmol/L 136-145 [facility] Laboratory - Chemistry and C hemistry - challengeOrdered By: Dr. Fuentes on 07-03-2022 CO2 [Moles/Vol] 26.0 mmol/L 21.0-32.0 [facility] Urea nitrogen/Creatinine [Mass ratio] 22.3 mg/mg 10-20 [facility] No Panel InformationOrdered By: Dr. Fuentes on 07-03-2022 Estimated GFR (MDRD) Amer 101 mL/min >60 [facility] Comment on above: GFR Calc Estimated GFR (MDRD) Non-Af Amer 83 mL/min >60 [facility] Comment on above: Non- GFR Calc Serum or plasma calcium jim urement (mass/volume)Ordered By: Dr. Fuentes on 07-03-2022 Calcium [Mass/Vol] 9.3 mg/dL 8.5-10.1 [facility] Serum or plasma creatinine m easurement (mass/volume)Ordered By: Dr. Fuentes on 07-03-2022 Creatinine [Mass/Vol] 0.72 mg/dL 0.55-1.02 [facility] Comment on above: The validity of the calculated GFR & GFRAA in patients over 70 years has not been determined. Clinical correlation is essential. Serum or plasma urea nitroge n measurement (mass/volume)Ordered By: Dr. Fuentes on 07-03-2022 Urea nitrogen [Mass/Vol] 16 mg/dL 7-18 [facility] Thin prep Papanicolaou smear with manual screeningOrdered By: Dr. Fuentes on 07-03-2022 Thin prep Papanicolaou smear with manual screening 8 5-15 [facility] Basophil percentageOrdered B y: Dr. Fuentes on 06-12-2022 Chloride [Moles/Vol] 97 mmol/L 98-107 [facility] Glucose [Mass/Vol] 93 mg/dL 74-106 [facility] Potassium [Moles/Vol] 4.4 mmol/L 3.5-5.1 [facility] Sodium [Moles/Vol] 131 mmol/L 136-145 [facility] Laboratory - Chemistry and C hemistry - challengeOrdered By: Dr. Fuentes on 06-12-2022 CO2 [Moles/Vol] 28.0 mmol/L 21.0-32.0 [facility] Urea nitrogen/Creatinine [Mass ratio] 23.1 mg/mg 10-20 [facility] No Panel InformationOrdered By: Dr. Fuentes on 06-12-2022 Estimated GFR (MDRD) Amer 104 mL/min >60 [facility] Comment on above: GFR Calc Estimated GFR (MDRD) Non-Af Amer 86 mL/min >60 [facility] Comment on above: Non- GFR Calc Serum or plasma calcium jim urement (mass/volume)Ordered By: Dr. Fuentes on 06-12-2022 Calcium [Mass/Vol] 8.7 mg/dL 8.5-10.1 [facility] Serum or plasma creatinine m easurement (mass/volume)Ordered By: Dr. Fuentes on 06-12-2022 Creatinine [Mass/Vol] 0.69 mg/dL 0.55-1.02 [facility] Comment on above: The validity of the calculated GFR & GFRAA in patients over 70 years has not been determined. Clinical correlation is essential. Serum or plasma urea nitroge n measurement (mass/volume)Ordered By: Dr. Fuentes on 06-12-2022 Urea nitrogen [Mass/Vol] 16 mg/dL 7-18 [facility] Thin prep Papanicolaou smear with manual screeningOrdered By: Dr. Fuentes on 06-12-2022 Thin prep Papanicolaou smear with manual screening 6 5-15 [facility] Basophil percentageOrdered B y: Dr. Fuentes on 05-27-2022 Chloride [Moles/Vol] 89 mmol/L 98-107 [facility] Glucose [Mass/Vol] 90 mg/dL 74-106 [facility] Potassium [Moles/Vol] 4.4 mmol/L 3.5-5.1 [facility] Sodium [Moles/Vol] 124 mmol/L 136-145 [facility] Laboratory - Chemistry and C hemistry - challengeOrdered By: Dr. Fuentes on 05-27-2022 CO2 [Moles/Vol] 25.0 mmol/L 21.0-32.0 [facility] Urea nitrogen/Creatinine [Mass ratio] 22.4 mg/mg 10-20 [facility] No Panel InformationOrdered By: Dr. Fuentes on 05-27-2022 Estimated GFR (MDRD) Amer 88 mL/min >60 [facility] Comment on above: GFR Calc Estimated GFR (MDRD) Non-Af Amer 73 mL/min >60 [facility] Comment on above: Non- GFR Calc Serum or plasma calcium jim urement (mass/volume)Ordered By: Dr. Fuentes on 05-27-2022 Calcium [Mass/Vol] 9.4 mg/dL 8.5-10.1 [facility] Serum or plasma creatinine m easurement (mass/volume)Ordered By: Dr. Fuentes on 05-27-2022 Creatinine [Mass/Vol] 0.80 mg/dL 0.55-1.02 [facility] Comment on above: The validity of the calculated GFR & GFRAA in patients over 70 years has not been determined. Clinical correlation is essential. Serum or plasma urea nitroge n measurement (mass/volume)Ordered By: Dr. Fuentes on 05-27-2022 Urea nitrogen [Mass/Vol] 18 mg/dL -18 [facility] Thin prep Papanicolaou smear with manual screeningOrdered By: Dr. Fuentes on 05-27-2022 Thin prep Papanicolaou smear with manual screening 10 5-15 [facility] Absolute lymphocyte countOrd ered By: Dr. Fuentes on 05-18-2022 Lymphocytes Auto (Unsp spec) [#/Vol] 1.28 10*3/uL 0.83-4.51 [facility] Basophil percentageOrdered B y: Dr. Fuentes on 05-18-2022 Basophils/100 WBC (Bld) 0.5 % 0-1 [facility] Chloride [Moles/Vol] 91 mmol/L 98-107 [facility] Eosinophils/100 WBC (Bld) 0.3 % 0-5 [facility] Glucose [Mass/Vol] 96 mg/dL 74-106 [facility] Neutrophils (Bld) [#/Vol] 2.0 10*3/uL 2.0-7.7 [facility] Neutrophils/100 WBC (Bld) 51.8 % 47-70 [facility] Potassium [Moles/Vol] 4.1 mmol/L 3.5-5.1 [facility] Sodium [Moles/Vol] 125 mmol/L 136-145 [facility] WBC (Bld) [#/Vol] 3.8 10*3/uL 4.4-11.0 [facility] Blood erythrocytes count (nu mber/volume)Ordered By: Dr. Fuentes on 05-18-2022 RBC (Bld) [#/Vol] 4.16 10*6/uL 4.2-5.4 [facility] Blood hemoglobin measurement (mass/volume)Ordered By: Dr. Fuentes on 05-18-2022 Hemoglobin (Bld) [Mass/Vol] 13.6 g/dL 12.0-15.0 [facility] Blood lymphocytes/100 leukoc ytesOrdered By: Dr. Fuentes on 05-18-2022 Lymphocytes/100 WBC (Bld) 33.5 % 19-41 [facility] Blood monocytes/100 leukocyt esOrdered By: Dr. Fuentes on 05-18-2022 Monocytes/100 WBC (Bld) 11.8 % 0-10 [facility] Blood platelet mean volumeOr dered By: Dr. Fuentes on 05-18-2022 Platelet mean volume (Bld) [Entitic vol] 9.4 fL 6.2-12.0 [facility] Determination of erythrocyte mean corpuscular volume (MCV)Ordered By: Dr. Fuentes on 05-18-2022 MCV (RBC) [Entitic vol] 91.6 fL 81-99 [facility] Hematocrit Auto (Bld) [Volum e fraction]Ordered By: Dr. Fuentes on 05-18-2022 Hematocrit (Bld) [Volume fraction] 38.1 % 37-47 [facility] Laboratory - Chemistry and C hemistry - challengeOrdered By: Dr. Fuentes on 05-18-2022 CO2 [Moles/Vol] 22.0 mmol/L 21.0-32.0 [facility] Urea nitrogen/Creatinine [Mass ratio] 12.4 mg/mg 10-20 [facility] Laboratory - Hematology and Cell countsOrdered By: Dr. Fuentes on 05-18-2022 Erythrocyte distribution width (RBC) [Entitic vol] 40.5 fL 35.1-43.9 [facility] Erythrocyte distribution width (RBC) [Ratio] 11.9 % 11.6-14.6 [facility] Immature granulocytes/100 WBC (Bld) 2.100 % 0.0-0.9 [facility] Comment on above: IG% - Immature Granu locytes (promyelocytes, myelocytes and metamyelocytes) > 1% indicates that a LEFT SHIFT is Present. MCH (RBC) [Entitic mass] 32.7 pg 27.0-32.0 [facility] Nucleated RBC/100 WBC (Bld) [Ratio] 0 % 0-5 [facility] MCHC Auto (RBC) [Mass/Vol]Or dered By: Dr. Fuentes on 05-18-2022 MCHC (RBC) [Mass/Vol] 35.7 g/dL 32-36 [facility] No Panel InformationOrdered By: Dr. Fuentes on 05-18-2022 Estimated GFR (MDRD) Amer 99 mL/min >60 [facility] Comment on above: GFR Calc Estimated GFR (MDRD) Non-Af Amer 82 mL/min >60 [facility] Comment on above: Non- GFR Calc Platelets bldOrdered By: Dr. Fuentes on 05-18-2022 Platelets (Bld) [#/Vol] 246 10*3/uL 150-450 [facility] Serum or plasma C reactive p rotein measurement (mass/volume)Ordered By: Dr. Fuentes on 05-18-2022 CRP [Mass/Vol] mg/L 0.0-3.0 [facility] Comment on above: C-Reactive Protein ( CRP) provides useful information for thediagnosis, therapy and monitoring of inflammatory processesand associated diseases. For the evaluation of Relative Riskfor Cardiovascular Disease, a High Sensitivity CRP (HSCRP)should be ordered. Serum or plasma calcium jim urement (mass/volume)Ordered By: Dr. Fuentes on 05-18-2022 Calcium [Mass/Vol] 9.3 mg/dL 8.5-10.1 [facility] Serum or plasma creatinine m easurement (mass/volume)Ordered By: Dr. Fuenets on 05-18-2022 Creatinine [Mass/Vol] 0.73 mg/dL 0.55-1.02 [facility] Comment on above: The validity of the calculated GFR & GFRAA in patients over 70 years has not been determined. Clinical correlation is essential. Serum or plasma urea nitroge n measurement (mass/volume)Ordered By: Dr. Fuentes on 05-18-2022 Urea nitrogen [Mass/Vol] 9 mg/dL 11-24 [facility] Thin prep Papanicolaou smear with manual screeningOrdered By: Dr. Fuentes on 05-18-2022 Thin prep Papanicolaou smear with manual screening 12 09-21 [facility] Laboratory - CoagulationOrde red By: Dr. Fuentes on 02-27-2022 INR Coag (Bld) [Relative time] 1.5 {INR} [facility] Comment on above: Critical Value > 4.0 Whole blood prothrombin time Ordered By: Dr. Fuentes on 02-27-2022 PT Coag (Bld) [Time] 18.5 s 11.7-14.9 [facility] Laboratory - CoagulationOrde red By: Dr. Fuentes on 02-24-2022 INR Coag (Bld) [Relative time] 2.4 {INR} [facility] Comment on above: Critical Value > 4.0 Whole blood prothrombin time Ordered By: Dr. Fuentes on 02-24-2022 PT Coag (Bld) [Time] 28.3 s 11.7-14.9 [facility] Laboratory - CoagulationOrde red By: Dwain Roberson on 02-13-2022 INR Coag (Bld) [Relative time] 1.7 {INR} [facility] Comment on above: Critical Value > 4.0 Whole blood prothrombin time Ordered By: Dwain Roberson on 02-13-2022 PT Coag (Bld) [Time] 20.9 s 11.7-14.9 [facility] Laboratory - CoagulationOrde red By: [facility] on 02-11-2022 INR Coag (Bld) [Relative time] 1.2 {INR} [facility] Comment on above: Critical Value > 4.0 Whole blood prothrombin time Ordered By: [facility] on 02-11-2022 PT Coag (Bld) [Time] 14.8 s 11.7-14.9 [facility] Absolute lymphocyte counton 02-06-2022 Lymphocytes Auto (Unsp spec) [#/Vol] 0.63 10*3/uL 0.83-4.51 [facility] Work Phone: Basophil percentageon 2021 Basophils/100 WBC (Bld) 0.2 % 0-1 [facility] Work Phone: Bilirubin [Mass/Vol] 0.60 mg/dL 0.20-1.00 [facility] Work Phone: Comment on above: For patients on eltr ombopag therapy, use of Dimension [employer] [employer] TBIL is not recommended. Chloride [Moles/Vol] 90 mmol/L 98-107 [facility] Work Phone: Eosinophils/100 WBC (Bld) 0.0 % 0-5 [facility] Work Phone: Glucose [Mass/Vol] 99 mg/dL 74-106 [facility] Work Phone: Neutrophils (Bld) [#/Vol] 3.7 10*3/uL 2.0-7.7 [facility] Work Phone: Neutrophils/100 WBC (Bld) 76.9 % 47-70 [facility] Work Phone: Potassium [Moles/Vol] 4.3 mmol/L 3.5-5.1 [facility] Work Phone: Comment on above: Moderate Hemolysis, Result may be falsely increased. Protein [Mass/Vol] 7.9 g/dL 6.4-8.2 [facility] Work Phone: Sodium [Moles/Vol] 129 mmol/L 136-145 [facility] Work Phone: WBC (Bld) [#/Vol] 4.8 10*3/uL 4.4-11.0 [facility] Work Phone: Blood erythrocytes count (nu mber/volume)on 02-06-2022 RBC (Bld) [#/Vol] 4.43 10*6/uL 4.2-5.4 [facility] Work Phone: Blood hemoglobin measurement (mass/volume)on 02-06-2022 Hemoglobin (Bld) [Mass/Vol] 14.1 g/dL 12.0-15.0 [facility] Work Phone: Blood lymphocytes/100 leukoc yteson 02-06-2022 Lymphocytes/100 WBC (Bld) 13.0 % 19-41 [facility] Work Phone: Blood monocytes/100 leukocyt eson 02-06-2022 Monocytes/100 WBC (Bld) 9.7 % 0-10 [facility] Work Phone: Blood platelet mean volumeon 02-06-2022 Platelet mean volume (Bld) [Entitic vol] 8.3 fL 6.2-12.0 [facility] Work Phone: Determination of erythrocyte mean corpuscular volume (MCV)on 02-06-2022 MCV (RBC) [Entitic vol] 92.3 fL 81-99 [facility] Work Phone: Hematocrit Auto (Bld) [Volum e fraction]on 02-06-2022 Hematocrit (Bld) [Volume fraction] 40.9 % 37-47 [facility] Work Phone: INR in Blood by Coagulation assayon 02-06-2022 INR Coag (Bld) [Relative time] 4.2 {INR} [facility] Work Phone: Laboratory - Chemistry and C hemistry - challengeon 02-06-2022 ALP [Catalytic activity/Vol] 92 U/L 45-117 [facility] Work Phone: ALT [Catalytic activity/Vol] 28 U/L 13-56 [facility] Work Phone: CO2 [Moles/Vol] 29.0 mmol/L 21.0-32.0 [facility] Work Phone: Globulin (S) [Mass/Vol] 4.2 g/dL 2.2-4.2 [facility] Work Phone: [phone] Urea nitrogen/Creatinine [Mass ratio] 23.9 mg/mg 10-20 [facility] Work Phone: [phone] Laboratory - Coagulationon 0 02-06-2022 PT Coag (PPP) [Time] 40.2 s 11.7-14.9 [facility] Work Phone: [phone] Laboratory - Hematology and Cell countson 02-06-2022 Erythrocyte distribution width (RBC) [Entitic vol] 41.5 fL 35.1-43.9 [facility] Work Phone: [phone] Erythrocyte distribution width (RBC) [Ratio] 12.1 % 11.6-14.6 [facility] Work Phone: [phone] Immature granulocytes/100 WBC (Bld) 0.200 % 0.0-0.9 [facility] Work Phone: [phone] Comment on above: IG% - Immature Granu locytes (promyelocytes, myelocytes and metamyelocytes) > 1% indicates that a LEFT SHIFT is Present. MCH (RBC) [Entitic mass] 31.8 pg 27.0-32.0 [facility] Work Phone: [phone] Nucleated RBC/100 WBC (Bld) [Ratio] 0 % 0-5 [facility] Work Phone: [phone] MCHC Auto (RBC) [Mass/Vol]on 02-06-2022 MCHC (RBC) [Mass/Vol] 34.5 g/dL 32-36 [facility] Work Phone: No Panel Informationon 02-06 Estimated Creatinine Clearance Calc 37.12 ml/min [facility] Work Phone: [phone] Estimated GFR (MDRD) Amer 101 mL/min >60 [facility] Work Phone: [phone] Comment on above: GFR Calc Estimated GFR (MDRD) Non-Af Amer 84 mL/min >60 [facility] Work Phone: [phone] Comment on above: Non- GFR Calc Troponin I High Sensitivity 9 pg/mL 3.0-54.0 [facility] Work Phone: Comment on above: Please Note: New Claritza t Units and Gender Specific Reference Ranges. For more information see Policy Stat Procedure [employer] Chuck High Sensitivity Troponin (TNIH) and attachments. Platelets bldon 02-06-2022 Platelets (Bld) [#/Vol] 275 10*3/uL 150-450 [facility] Work Phone: Serum or plasma albumin jim urement (mass/volume)on 02-06-2022 Albumin [Mass/Vol] 3.7 g/dL 3.2-5.0 [facility] Work Phone: Serum or plasma albumin/glob ulin mass ratioon 02-06-2022 Albumin/Globulin [Mass ratio] 0.9 {ratio} 0.9-2.4 [facility] Work Phone: Serum or plasma calcium jim urement (mass/volume)on 02-06-2022 Calcium [Mass/Vol] 9.4 mg/dL 8.5-10.1 [facility] Work Phone: Serum or plasma creatinine m easurement (mass/volume)on 02-06-2022 Creatinine [Mass/Vol] 0.71 mg/dL 0.55-1.02 [facility] Work Phone: Comment on above: The validity of the calculated GFR & GFRAA in patients over 70 years has not been determined. Clinical correlation is essential. Serum or plasma urea nitroge n measurement (mass/volume)on 02-06-2022 Urea nitrogen [Mass/Vol] 17 mg/dL 7-18 [facility] Work Phone: Thin prep Papanicolaou smear with manual screeningon 02-06-2022 Thin prep Papanicolaou smear with manual screening 35 U/L 15-37 [facility] Work Phone: Comment on above: Moderate Hemolysis, Result may be falsely increased. Thin prep Papanicolaou smear with manual screening 10 5-15 [facility] Work Phone: INR in Blood by Coagulation assayon 09-22-2021 INR Coag (Bld) [Relative time] 1.4 {INR} [facility] Work Phone: Laboratory - Coagulationon 0 09-22-2021 PT Coag (PPP) [Time] 16.5 s 11.7-14.9 [facility] Work Phone: Echo 2D Doppler Coloron 03-10 TRANSTHORACIC ECHOCARDIOGRAM PATIENT: Ileana Yanez STUDY DATE: 03/28/2021 : 1940 AGE: 81 HT/WT: 160 cm (63 64.4 kg in) (141.7 lb) GENDER: F BP: 140 / 68 LOCATION: [facility] PATIENT Outpatient [facility] STATUS: *ORDERING PHYSICIAN: * Chas, *FELLOW: * Reina Hartman *READING PHYSICIAN: * Gaetano *ECHOCARDIOGRAPHY TECH: * Kristen Boggs RDCS, MD AE INDICATIONS: [...] DI 0.29 --------- (more content not included)... [facility] CARDIOLOG[facility] Gaetano Peterson MD - 03/28/2021 TRANSTHORACIC ECHOCARDIOGRAM PATIENT: Ileana Yanez STUDY DATE: 03/28/2021 : 1940 AGE: 81 HT/WT: 160 cm (63 64.4 kg in) (141.7 lb) GENDER: F BP: 140 / 68 LOCATION: [facility] PATIENT Outpatient [facility] STATUS: *ORDERING PHYSICIAN: * Chas, *FELLOW: * Reina Hartman *READING PHYSICIAN: * Gaetano *ECHOCARDIOGRAPHY TECH: Kristen Montemayor RDCS, MD AE INDICATIONS: Murmur [...] reference range. Electroni (more content not included)... [employer] Work Phone: Echo 2D Doppler ColorOrdered By: Gaetano Peterson on 03-28-2021 [employer] Work Phone: Echo Complete w/wo Contrasto n 03-28-2021 Echo Complete w/wo Contrast Patient Name: ILEANA YANEZ Ultrasound ACCESSION EXAM DATE/TIME PROCEDURE ORDERING PROVIDER [id number] 03/28/2021 13:58 EST Echo Complete w/wo MD CHAS, JOHN Costa Reason For Exam (Echo Complete w/wo Contrast) near syncope with cardiac murmer Report TRANSTHORACIC ECHOCARDIOGRAM PATIENT: Ileana Yanez STUDY DATE: 03/28/2021 : 1940 AGE: 81 HT/WT: 160 cm (63 64.4 kg in) (141.7 lb) GENDER: F BP: 140 / 68 LOCATION: [facility] PATIENT Outpatient [facility] STATUS: *ORDERING PHYSICIAN: * Chas, *FELLOW: * Reina Hartman *READING PHYSICIAN: * Gaetano *ECHOCARDIOGRAPHY TECH: * Rose Jesus [facility], MD Kristen AE INDICATIONS: Murmur unpecified (R011). Syncope (R55). [...] Hg --------- (more content not included)... [facility] [facility] (ENDMED) KARLEEPKAddyDO MARY ([id number]) 1940 [facility] Time Provider Department11/04/17 9:45 AM PREETI OLIVEROS During your visit today, we recorded the following information about you: Pulse Blood pressure Weight Height 60/minute 135/66 79.8 kg 1.585 Lin Oliveros MD 11/04/2017 11:30 AM SignedCONSULTING PHYSICIAN:Thang final recommendations will be communicated back to [...] personal history of GDMShe also has hyperlipidemiaLDL-228Cho [id number] OF SYSTEMS:GENERAL:Fever - NoChanges in weight - [...] (FLONASE) 50 mcg/actuation nasal spray Use 1 Mercer in each nostrilas needed.flecainide (TAMBOCOR) 50 mg [...] visit.PAST MEDICAL HISTORY:PAST MEDICAL HISTORYDiagnosis Date- A-fib ([facility])- Asthma allergy triggered- Cervical vertebra fusion may 1999- Chronic renal insufficiency partial left nephrectomy- DVT (deep venous thrombosis) ([facility]) on coumadin- Dyslipidemia controll with diet- History of hip replacement, total left hip- HTN (hypertension)- Nasal bone fracture 02/2013- Peripheral vascular disease (HCC)- [facility] - PAST MEDICAL HISTORY OF blood clots Left leg after partial L nephrectomy in 2005- PMH - PAST MEDICAL HISTORY OF asthma- [...] Adult) Pulse 60 Ht 158.5 cm (5' 2.4) Wt 79.8 kg (176 lb) SpO2 97% [...] erythema, no hirsutism notedLAB:TSHDate Value Ref Range Hgdsxk8709/18/2013 1.040 0.400 - 5.500 uU/mL Final No results found for: [id number]/PLAN:1) Hirsutism2) Metabolic syndrome3) Hyperlipidemia4) family history of [...] hypercholesterolemia [E78.00]Order(s):INSULIN ASSAY BLOOD [SQINSULN] Order #: [id number] FUTURE HGB A1C [OFSSG2A] Order #: [id number] FUTURE POTASSIUM BLD [SQK1] Order #: [id number] FUTURE spironolactone (ALDACTONE) 100 mg tabletTake 1 tablet by mouth once daily.Disp: 30 tabletRfl: 0Prescriptions as of 11/04/2017 Sig: LOSARTAN 100 MG TABLET once daily. AMLODIPINE 10 MG TABLET Take 5 mg by mouth once daily* FLUTICASONE 50 MCG/ACTUATION * Use 1 Mercer in each nostril a* FLECAINIDE 50 MG [...] 11/04/2017 9:45 AM >> SARAHI STOKES MA Radha Nov 04, 2017 9:45 AM Not currently [...] Status:Closed by PREETI OLIVEROS DO on 11/04/17 Normal [facility] PROGRESSon 11-04-2017 PROGRESS HNO ID: [id number]: Preeti Camarenaervice: (none)Author Type: PhysicianType: Progress NotesFiled: 11/04/2017 11:30 AMNote Text:CONSULTING PHYSICIAN:MosheMy final recommendations will be communicated back to [...] personal history of GDMShe also has hyperlipidemiaLDL-228Cho [id number] OF SYSTEMS:GENERAL:Fever - NoChanges in weight - [...] (FLONASE) 50 mcg/actuation nasal spray Use 1 Mercer in eachnostril as needed.flecainide (TAMBOCOR) 50 mg [...] visit.PAST MEDICAL HISTORY:PAST MEDICAL HISTORYDiagnosis Date- A-fib ([facility])- Asthma allergy triggered- Cervical vertebra fusion may 1999- Chronic renal insufficiency partial left nephrectomy- DVT (deep venous thrombosis) ([facility]) on coumadin- Dyslipidemia controll with diet- History of hip replacement, total left hip- HTN (hypertension)- Nasal bone fracture 02/2013- Peripheral vascular disease (HCC)- [facility] - PAST MEDICAL HISTORY OF blood clots Left leg after partial L nephrectomy in 2005- PMH - PAST MEDICAL HISTORY OF asthma- [...] LargeAdult) Pulse 60 Ht 158.5 cm (5' 2.4) Wt 79.8 kg (176 lb) HzT257% BMI 31.78 kg/m?Last 3 Encounter Wt Readings: [...] erythema, no hirsutism notedLAB:TSHDate Value Ref Range Fmncwo9509/18/2013 1.040 0.400 - 5.500 uU/mL Final No results found for: [id number]/PLAN:1) Hirsutism2) Metabolic syndrome3) Hyperlipidemia4) family history of [...] up in 4-6 monthsPreeti Oliveros MD11/04/17 Normal [facility] Echo Complete w/wo Contrasto n 05-25-2017 Echo Complete w/wo Contrast Patient Name: ILEANA YANEZ Ultrasound Exam Date/Time 05/25/2017 15:32:32 EST Exam Echo Complete w/wo Contrast [facility]ing [facility] Accession Number [id number] Reason For Exam Aortic stenosis Report TRANSTHORACIC ECHOCARDIOGRAM PATIENT: Ileana Yanez STUDY DATE: 05/25/2017 : 1940 AGE: 77 HT/WT: 160 cm (63 87.5 kg (192.6 in) lb) GENDER: F BP: 146 / 78 LOCATION: [facility]IENT [facility] STATUS: *ORDERING PHYSICIAN: * Tom Doherty *READING PHYSICIAN: * Linwood Rosado MD *ECHOCARDIOGRAPHY TECH: * Seema Fentno --- --- INDICATIONS: Aortic stenosis. --- --- [...] 05/25/2017 3:48 pm Signed by: LINWOOD ROSADO [facility] Carotid Duplex Ultrasound Completeon 05-25-2017 VL Carotid Duplex Ultrasound Complete Patient Name: ILEANA YANEZ Ultrasound Exam Date/Time 05/25/2017 14:15:42 EST Exam VL Carotid Duplex Ultrasound Complete Ordering Physician MD CHAS, JOHN Accession Number [id number] CPT4 Codes 28419 () Reason For Exam Carotid stenosis Report [facility] --- --- Carotid Duplex Report Patient Name: Ileana Yanez : 1940 Study Date: 05/25/2017 (77yrs) Age: 77 Account: [id number] Gender: F Loc: BP: Ordering: Tom Doherty Technologist: Ordering Physician: Tom Doherty Insurance Claims Assistant: Kelsea Owens RDMS Diya Interpreting Physician: Sonja Keys --- --- Location: [facility] --- --- INDICATIONS: Carotid stenosis. --- --- [...] performed. The images were obtained using a [employer] vascular ultrasound machine. This was a 1 [...] +---------+-----+----+-- -+ Electronically signed by: Sonja Keys [id number] Final Dictated: 05/25/2017 7:12 pm Dictating Physician: SONJA KEYS Signed Date and Time: 05/25/2017 7:11 pm Signed by: SONJA KEYS [facility] Vital Signs Date Time Vital Sign Value Performing Clinician Brittney chau 08-03-2023 09:59-0400 Body height 162.6 cm John Doherty MD Work Phone: [employer] 08-03-2023 09:59-0400 Body mass index (BMI) [Ratio] 25.23 kg/m2 John Doherty MD Work Phone: [employer] 08-03-2023 09:59-0400 Body weight 66.68 kg John Doherty MD Work Phone: [employer] [facility] 07-07-2023 10:47-0500 Body height 162.6 cm Camacho Melendez MD Work Phone: [employer] 07-07-2023 10:47-0500 Body mass index (BMI) [Ratio] 25.23 kg/m2 Camacho Melendez MD Work Phone: [employer] 07-07-2023 10:47-0500 Body weight 66.68 kg Camacho Melendez MD Work Phone: [employer] 06-15-2023 09:49-0500 Body height 162.6 cm John Doherty MD Work Phone: [employer] 06-15-2023 09:49-0500 Body mass index (BMI) [Ratio] 25.23 kg/m2 John Doherty MD Work Phone: [employer] 06-15-2023 09:49-0500 Body weight 66.68 kg John Doherty MD Work Phone: [employer] 06-15-2023 09:49-0500 Diastolic blood pressure 70 mm[Hg] John Doherty MD Work Phone: [employer] 06-15-2023 09:49-0500 Heart rate 60 /min John Doherty MD Work Phone: [employer] 06-15-2023 09:49-0500 SaO2% (BldA) [Mass fraction] 97 % John Doherty MD Work Phone: [employer] 06-15-2023 09:49-0500 Systolic blood pressure 136 mm[Hg] John Doherty MD Work Phone: [facility] [employer] 11-24-2022 09:02-0400 Body mass index (BMI) [Ratio] 24.37 kg/m2 John Doherty MD Work Phone: [facility] [facility] 11-24-2022 09:02-0400 Body weight 64.41 kg John Doherty MD Work Phone: [facility] 11-24-2022 09:02-0400 Diastolic blood pressure 80 mm[Hg] John Doherty MD Work Phone: [facility] 11-24-2022 09:02-0400 Heart rate 56 /min John Doherty MD Work Phone: [employer] [facility] 11-24-2022 09:02-0400 SaO2% (BldA) [Mass fraction] 97 % John Doherty MD Work Phone: [employer] [facility] 11-24-2022 09:02-0400 Systolic blood pressure 160 mm[Hg] John Doherty MD Work Phone: [facility] 09-08-2022 10:19-0400 Body height 162.6 cm John Doherty MD Work Phone: [facility] 09-08-2022 10:19-0400 Body mass index (BMI) [Ratio] 23.69 kg/m2 John Doherty MD Work Phone: [facility] 09-08-2022 10:19-0400 Body weight 62.6 kg John Doherty MD Work Phone: [facility] 07-28-2022 13:16-0400 Body height 162.6 cm John Doherty MD Work Phone: [facility] 07-28-2022 13:16-0400 Body mass index (BMI) [Ratio] 23.69 kg/m2 John Doherty MD Work Phone: [facility] 07-28-2022 13:16-0400 Body weight 62.6 kg John Doherty MD Work Phone: [facility] 07-28-2022 13:16-0400 Diastolic blood pressure 76 mm[Hg] John Doherty MD Work Phone: [facility] 07-28-2022 13:16-0400 Heart rate 63 /min John Doherty MD Work Phone: [facility] 07-28-2022 13:16-0400 SaO2% (BldA) [Mass fraction] 98 % John Doherty MD Work Phone: [facility] 07-28-2022 13:16-0400 Systolic blood pressure 130 mm[Hg] John Doherty MD Work Phone: [facility] 02-06-2022 16:17-0400 Diastolic blood pressure 60 mm[Hg] Dr. Dwain Roberson Work Phone: [facility] Work Phone: 02-06-2022 16:17-0400 Heart rate 66 /min Dr. Dwain Roberson Work Phone: [facility] Work Phone: 02-06-2022 16:17-0400 Respiratory rate 15 /min Dr. Dwain Roberson Work Phone: [facility] Work Phone: 02-06-2022 16:17-0400 Systolic blood pressure 161 mm[Hg] Dr. Dwain Roberson Work Phone: [facility] Work Phone: 02-06-2022 12:57-0400 Body height 160.[address] Dwain Roberson Work Phone: [facility] Work Phone: 02-06-2022 12:57-0400 Body mass index (BMI) [Ratio] 24.7 kg/m2 Dr. Dwain Roberson Work Phone: [facility] Work Phone: 02-06-2022 12:57-0400 Body temperature 97.4 [degF] Dr. Dwain Roberson Work Phone: [facility] Work Phone: 02-06-2022 12:57-0400 Body weight 63.[address] Dwain Roberson Work Phone: [facility] Work Phone: 02-06-2022 12:57-0400 SaO2% (BldA) [Mass fraction] 97 % Dr. Dwain Roberson Work Phone: [facility] Work Phone: Encounters Encounter Date Encounter Type Care Provider Facility Start: 03-05-2025 ambulatory Marcio Garcia ty:[facility] Start: 09-18-2024 End: 09-18-[address] Lisa Fuentes MD [facility] Work Phone: Start: 09-18-2024 End: 09-18-2024 Departed Referred Marcio Pires MD -[facility] Start: 09-18-2024 End: 09-18-2024 ambulatory Lisa Fuentes Facility:[facility] Start: 07-20-2024 End: 07-20-[address] Lisa Fuentes MD [facility] Work Phone: Start: 07-20-2024 End: 07-20-2024 Departed Referred Marcio Pires MD -[facility] Start: 07-20-2024 End: 07-20-2024 ambulatory Marcio SIDDIQUI Facility:[facility] Start: 06-30-2024 ambulatory Lisa Fuentes Facility:[facility] Start: 06-30-2024 Registered Referred Marcio Pires MD -[facility] Start: 03-24-2024 End: 03-24-2024 ambulatory Marcio SIDDIQUI Facility:[facility] Start: 11-08-2023 End: 11-08-2023 Telephone encounter John Doherty MD Work Phone: [facility] Comment on above: Med Management Start: 11-06-2023 End: 11-08-2023 Refill Berenice Cardoza [employer] - MANAGER EDUCATION Work Phone: [facility] Comment on above: Paroxysmal atrial fi brillation (HCC) Start: 11-04-2023 End: 11-04-2023 Refill Neena Hernandez BISCUIT MAKER - MANAGER EDUCATION Work Phone: [facility] Start: 09-20-2023 Telephone encounter Jef munoz MD Work Phone: [facility] Clinical Communication Comment on above: Cancelled Appointmen t Start: 08-06-2023 Telephone encounter John singh MD Work Phone: [facility] Comment on above: Advice Only Start: 08-03-2023 End: 08-03-2023 Subsequent hospital visit by physician John Doherty MD Work Phone: [facility] Non-Invasive Cardiology Comment on above: Paroxysmal atrial fi brillation (HCC); Nonrheumatic aortic valve stenosis; Obstructive sleep apnea syndrome; TIA (transient ischemic attack); Primary hypertension Start: 08-03-2023 End: 08-03-2023 ambulatory [facility] Start: 07-09-2023 End: 07-09-2023 ambulatory [facility] Work Phone: Start: 07-09-2023 End: 07-09-2023 Departed Referred [facility] Work Phone: Start: 07-07-2023 End: 07-07-2023 Office outpatient new 30 minutes Camacho Melendez MD Work Phone: [facility] Comment on above: Primary osteoarthrit is of both knees Start: 07-07-2023 End: 07-07-2023 ambulatory IZZY HOLGUIN [facility] Start: 07-07-2023 End: 07-07-2023 Subsequent hospital visit by physician Izzy Holguin PA-C Work Phone: [facility] Comment on above: Chronic pain of both knees Start: 07-01-2023 Orders Only Izzy Garcia Work Phone: [facility] [facility] Comment on above: Chronic pain of both knees (Primary Dx) Start: 06-15-2023 End: 06-15-2023 Office outpatient visit 25 minutes John Doherty MD Work Phone: [facility] Comment on above: Paroxysmal atrial fi brillation (HCC) (Primary Dx); Nonrheumatic aortic valve stenosis; Obstructive sleep apnea syndrome; TIA (transient ischemic attack); Primary hypertension; Mixed hyperlipidemia; Syncope and collapse Start: 06-15-2023 End: 06-15-2023 ambulatory [facility] Start: 05-13-2023 Refill Neena Jo CNP Work Phone: [facility] Start: 04-15-2023 Refill John amaya MD Work Phone: [facility] Start: 04-09-2023 End: 04-09-2023 ambulatory [facility] Work Phone: Start: 04-09-2023 End: 04-09-2023 Departed Referred [facility] Work Phone: Start: 04-05-2023 End: 04-05-2023 ambulatory [facility] Work Phone: Start: 04-05-2023 End: 04-05-2023 Departed Referred [facility] Work Phone: Start: 01-06-2023 Refill John amaya MD Work Phone: [facility] Start: 11-30-2022 Refill Neena O'Shell A PRN - MANAGER EDUCATION Work Phone: [facility] Start: 11-26-2022 Refill Neena O'Shell A PRN - MANAGER EDUCATION Work Phone: [facility] Comment on above: Pure hypercholestero lemia Start: 11-24-2022 End: 11-24-2022 Office outpatient visit 25 minutes John Doherty MD Work Phone: [facility] Comment on above: Paroxysmal atrial fi brillation (CMS/HCC) (HCC) (Primary Dx); Nonrheumatic aortic valve stenosis; Mixed hyperlipidemia; Obstructive sleep apnea syndrome; TIA (transient ischemic attack); Primary hypertension Start: 11-24-2022 End: 11-24-2022 ambulatory JOHN DOHERTY [facility] Start: 11-05-2022 Refill John amaya MD Work Phone: [facility] Comment on above: Paroxysmal atrial fi brillation (CMS/HCC) (HCC) Start: 09-10-2022 Telephone encounter John singh MD Work Phone: [facility] Comment on above: Results Start: 09-08-2022 End: 09-08-2022 Subsequent hospital visit by physician John Doherty MD Work Phone: [facility] Non-Invasive Cardiology Comment on above: Paroxysmal atrial fi brillation (CMS/HCC) (HCC); Nonrheumatic aortic valve stenosis; Mixed hyperlipidemia Start: 08-11-2022 End: 08-11-[address] Dwain Roberson Work Phone: [facility] Start: 08-06-2022 Telephone encounter Nanette Jamison [facility] Start: 08-04-2022 Telephone encounter John singh MD Work Phone: [facility] Comment on above: Med Management (PCSK 9) Start: 08-03-2022 End: 08-03-[address] Dwain Roberson Work Phone: [facility] Work Phone: Start: 08-03-2022 End: 08-03-[address] Dwain Roberson Work Phone: [facility] Start: 07-28-2022 End: 07-28-2022 Office outpatient visit 25 minutes John Doherty MD Work Phone: [facility] Comment on above: Paroxysmal atrial fi brillation (CMS/HCC) (HCC) (Primary Dx); Nonrheumatic aortic valve stenosis; Mixed hyperlipidemia Start: 07-23-2022 End: 07-23-[address] Dwain Roberson Work Phone: [facility] Work Phone: Start: 07-23-2022 End: 07-23-[address] Dwain Roberson Work Phone: [facility] Start: 07-20-2022 Refill John amaya MD Work Phone: [facility] Start: 07-03-2022 End: 07-03-[address] Dwain Roberson Work Phone: [facility] Start: 07-03-[address] Dwain Roberson Work Phone: [facility] Start: 06-15-2022 End: 06-15-[address] Dwain Roberson Work Phone: [facility] Start: 06-12-2022 End: 06-12-[address] Dwain Roberson Work Phone: [facility] Work Phone: Start: 06-12-2022 End: 06-12-[address] Dwain Roberson Work Phone: [facility] Start: 05-27-2022 End: 05-27-[address] Dwain Roberson Work Phone: [facility] Start: 05-27-2022 Registered Referred [facility] Start: 05-18-2022 End: 05-18-2022 ambulatory [facility] Work Phone: Start: 05-18-2022 End: 05-18-2022 Departed Referred [facility] Start: 05-18-2022 Registered Referred [facility] Start: 02-27-2022 End: 02-27-2022 Departed Referred [facility] Start: 02-27-[address] Dwain oRberson Work Phone: [facility] Start: 02-24-2022 End: 02-24-[address] Dwain Roberson Work Phone: [facility] Work Phone: Start: 02-24-2022 End: 02-24-[address] Dwain Roberson Work Phone: [facility] Start: 02-24-[address] Dwain Roberson Work Phone: [facility] Start: 02-13-2022 End: 02-13-2022 ambulatory [facility] Work Phone: Start: 02-13-2022 End: 02-13-2022 Departed Referred [facility] Start: 02-13-[address] Dwain Roberson Work Phone: [facility] Start: 02-11-2022 End: 02-11-[address] Dwain Roberson Work Phone: [facility] Work Phone: Start: 02-11-2022 End: 02-11-[address] Dwain Roberson Work Phone: [facility] Start: 02-06-2022 End: 02-06-2022 Emergency department patient visit Dr. Dwain Roberson Work Phone: [facility] Start: 01-15-2022 End: 01-15-[address] Dwain Roberson Work Phone: [facility] Radiology Start: 09-22-2021 End: 09-22-2021 Patient encounter procedure [facility] Start: 03-28-2021 End: 03-28-2021 Subsequent hospital visit by physician John Doherty MD Work Phone: [facility] Comment on above: Near syncope; Cardiac murmur; Paroxysmal atrial fibrillation (HCC); Cerebral artery occlusion with cerebral infarction (HCC) Start: 11-04-2017 End: 11-04-2017 [facility] Start: 05-25-2017 Ambulatory John Doherty [facility] Procedures Date Procedure Procedure Detail [...] Start: 01-15-2022 X-ray of cervical spine Dr. Dwani Roberson Work Phone: Start: 01-15-2022 X-ray of lumbosacral spine Dr. Dwain Roberson Work Phone: Start: 03-28-2021 Echo tthrc r-t 2d w/wom-mode compl spec&colr d John Doherty MD Work Phone: Plan of Treatment Date Care Activity Detail Author Start: 08-04-2027 Lipid panel Lipid Panel [facility] Start: 01-09-2024 Influenza vaccination [facility] Start: 12-14-2023 End: 12-14-2023 Patient encounter procedure 12/14/2023 9:15 AM EDT Office Visit [facility] [address] [place] [address] [address] [place] [phone] John Doherty MD [facility] [place] [address] [facility] Start: 11-24-2023 End: 06-15-2025 Heart Transthoracic Transthoracic echocardiogram (TTE) complete with contrast, bubble, strain, and 3D PRN CV Echocardiography Routine Paroxysmal atrial fibrillation (CMS/HCC) (HCC) Nonrheumatic aortic valve stenosis Obstructive sleep apnea syndrome TIA (transient ischemic attack) Primary hypertension Expected: 11/24/2023 (Approximate), Expires: 06/15/2025 [facility] Work Phone: Comment on above: Expected: 11/24/2023 (Approximate), Expi res: 06/15/2025 Start: 11-18-2023 End: 11-18-2023 Patient encounter procedure 11/18/2023 11:00 AM EDT Appointment [facility] Non-Invasive Cardiology [address] [place] [phone] John Doherty MD [address] [place] [address] [facility] Non-Invasive Cardiology Start: 10-26-2023 End: 10-26-2023 Patient encounter procedure [facility] Start: 08-03-2023 End: 08-03-2023 Patient encounter procedure 08/03/2023 10:00 AM EDT Appointment [facility] Non-Invasive Cardiology [address] [place] [phone] John Doherty MD [address] [facility] [address] [place] [address] [facility] Non-Invasive Cardiology Start: 07-07-2023 End: 07-07-2023 Patient encounter procedure 07/07/2023 11:00 AM EST Office Visit [facility] [address] [place] [address] [address] [place] [address] Camacho Melendez MD [address] [place] [address] [address] [place] [address] [facility] Start: 07-01-2023 End: 07-01-2024 XR Knee - bilateral 2 Views XR knee 1-2 views bilateral Imaging Routine Chronic pain of both knees Expected: 07/01/2023, Expires: 07/01/2024 [facility] Work Phone: Comment on above: Expected: 07/01/2023, Expires: Start: 07-01-2023 End: 07-01-2024 XR knees anteroposterior standing bilateral XR knees anteroposterior standing bilateral Imaging Routine Chronic pain of both knees Expected: 07/01/2023, Expires: 07/01/2024 [facility] Comment on above: Expected: 07/01/2023, Expires: Start: 05-25-2023 End: 05-25-2023 Patient encounter procedure 05/25/2023 9:15 AM EST Office Visit [facility] [address] [facility] [address] [place] [phone] John Doherty MD [address] [facility] [address] [place] [address] [facility] Start: 02-26-2023 End: 11-27-2023 Hepatic function 2000 panel - Serum or Plasma Hepatic function panel Lab Routine Pure hypercholesterolemia Expected: 02/26/2023 (Approximate), Expires: 11/27/2023 [facility] Comment on above: Expected: 02/26/2023 (Approximate), Expi res: 11/27/2023 Start: 02-26-2023 End: 11-27-2023 Lipid 1996 panel - Serum or Plasma Lipid panel Lab Routine Pure hypercholesterolemia Expected: 02/26/2023 (Approximate), Expires: 11/27/2023 [facility] Work Phone: Comment on above: Expected: 02/26/2023 (Approximate), Expi res: 11/27/2023 Start: 02-24-2023 DTaP/Tdap/Td Vaccines (2 - Td or Tdap) DTaP/Tdap/Td Vaccines (2 - Td or Tdap) [facility] Start: 01-08-2023 COVID-19 Vaccine ( season) COVID-19 Vaccine ( season) [facility] Start: 01-08-2023 Influenza vaccination [facility] Start: 11-24-2022 End: 11-24-2022 Patient encounter procedure [facility] Start: 09-08-2022 End: 09-08-2022 Patient encounter procedure 09/08/2022 Appointment Cardiology [facility] Non-Invasive Cardiology Start: 07-28-2022 End: 07-29-2023 CBC panel - Blood by Automated count CBC Lab Routine Paroxysmal atrial fibrillation (CMS/HCC) (HCC) Nonrheumatic aortic valve stenosis Mixed hyperlipidemia Expected: 07/28/2022 (Approximate), Expires: 07/29/2023 [facility] Comment on above: Expected: 07/28/2022 (Approximate), Expi res: 07/29/2023 Start: 07-28-2022 End: 07-29-2023 Comprehensive metabolic 1998 panel - Serum or Plasma Comprehensive metabolic panel Lab Routine Paroxysmal atrial fibrillation (CMS/HCC) (HCC) Nonrheumatic aortic valve stenosis Mixed hyperlipidemia Expected: 07/28/2022 (Approximate), Expires: 07/29/2023 [facility] Comment on above: Expected: 07/28/2022 (Approximate), Expi res: 07/29/2023 Start: 07-28-2022 End: 07-29-2023 Lipid 1996 panel - Serum or Plasma Lipid panel Lab Routine Paroxysmal atrial fibrillation (CMS/HCC) (HCC) Nonrheumatic aortic valve stenosis Mixed hyperlipidemia Expected: 07/28/2022 (Approximate), Expires: 07/29/2023 [facility] Work Phone: Comment on above: Expected: 07/28/2022 (Approximate), Expi res: 07/29/2023 Start: 07-28-2022 End: 07-28-2024 US Heart Transthoracic Transthoracic echocardiogram (TTE) complete with contrast, bubble, strain, and 3D PRN CV Echocardiography Routine Paroxysmal atrial fibrillation (CMS/HCC) (HCC) Nonrheumatic aortic valve stenosis Mixed hyperlipidemia Expected: 07/28/2022 (Approximate), Expires: 07/28/2024 [facility] Comment on above: Expected: 07/28/2022 (Approximate), Expi res: 07/28/2024 Start: 07-28-2022 End: 07-28-2022 Patient encounter procedure 07/28/2022 Office Visit Cardiology John Doherty MD [facility] [place] [address] [facility] Start: 02-23-2022 Creatinine measurement Creatinine monitoring [facility] Start: 02-23-2022 Potassium monitoring Potassium monitoring [facility] Start: 01-08-2022 Influenza vaccination Influenza Vaccine (#1) [facility] Start: 12-12-2021 COVID-19 Vaccine (4 - Booster for Pfizer series) COVID-19 Vaccine (4 - Booster for Pfizer series) [facility] Start: 12-12-2021 COVID-19 Vaccine (4 - Pfizer series) COVID-19 Vaccine (4 - Pfizer series) [facility] Start: 05-06-2021 End: 05-06-2021 Patient encounter procedure 05/06/2021 Office Visit Cardiology John Doherty MD [address] [facility] [address] [place] [address] [facility] Start: 06-11-2020 COVID-19 Vaccine (2 - Pfizer 3-dose booster series) COVID-19 Vaccine (2 - Pfizer 3-dose booster series) [facility] Start: 10-27-2018 Annual Wellness Visit (AWV) Annual Wellness Visit (AWV) [facility] Start: 2006 Pneumococcal 65+ years Vaccine (1 of 1 - PPSV23) Pneumococcal 65+ years Vaccine (1 of 1 - PPSV23) [facility] Start: 10-12-2003 Pneumococcal Vaccine: 65+ Years (2 - PCV) Pneumococcal Vaccine: 65+ Years (2 - PCV) [facility] Start: 2001 RSV Immunization aged 60 or older (1 - 1-dose 60+ series) RSV Immunization aged 60 or older (1 - 1-dose 60+ series) [facility] Start: 1996 Screening for osteoporosis DEXA (modify frequency per FRAX score) [facility] Start: 1991 Shingles Vaccine (1 of 2) Shingles Vaccine (1 of 2) [facility] Start: 1991 Zoster Vaccines (1 of 2) Zoster Vaccines (1 of 2) [facility] Start: 1959 Diabetes mellitus screening Diabetes Screening [facility] Start: 1953 Depression Screening Depression Screening [facility] Start: 1947 Pneumococcal Vaccine: 65+ Years (1 - PCV) Pneumococcal Vaccine: 65+ Years (1 - PCV) [facility] Start: 1947 Pneumococcal Vaccine: 65+ Years (1 of 2 - PCV) Pneumococcal Vaccine: 65+ Years (1 of 2 - PCV) [facility] Start: 1941 Hepatitis B Vaccines (1 of 3 - 3-dose series) Hepatitis B Vaccines (1 of 3 - 3-dose series) [facility] Start: 1941 Lipid panel Lipid Panel [facility] Start: 1941 Medicare Annual Wellness (AWV) Medicare Annual Wellness (AWV) [facility] Start: 1941 Screening for osteoporosis Bone Density Scan [facility] End: 03-28-2021 Mobile Cardiac Telemetry Mobile Cardiac Telemetry Cardiac Services Routine Near syncope Cardiac murmur Paroxysmal atrial fibrillation (HCC) Cerebral artery occlusion with cerebral infarction (HCC) 1 Occurrences starting 03/28/2021 until 03/28/2021 [email or web address] Work Phone: Comment on above: 1 Occurrences starting 03/28/2021 until 03/28/2021 Patient Education Causes of Sync ope Bruises (Contusions) [facility] Work Phone: Patient referral [facility] Work Phone: End: 07-07-2023 XR Knee - bilateral 2 Views [facility] Work Phone: Comment on above: Once for 1 Occurrences starting 07/07/19 until 07/07/2023 End: 07-07-2023 XR knees anteroposterior standing bilateral [facility] Comment on above: Once for 1 Occurrences starting 07/07/19 until 07/07/2023 Immunizations Immunization Date Immunization Notes Care Provider [facility] 02-14-2021 influenza, injectable,quadrivalen t, preservative free, pediatric [facility] 02-14-2021 influenza virus vaccine, unspecified formulation John Doherty MD Work Phone: [facility] 06-11-2020 Pfizer SARS-CoV-2 Vaccination John Doherty MD Work Phone: [facility] [facility] 05-21-2020 Pfizer SARS-CoV-2 Vaccination John Doherty MD Work Phone: [facility] Payers Date Payer Category Payer Unknown [id number] 2024 Self-pay [id number] 2021 Private Health Insurance [facility] [id number] 2021-Present [address] [place] [address] Commercial [id number] 2014 Private Health Insurance [id number] 2001 Medicare 2001 Medicare [id number] Unknown [id number] Unknown [id number] Unknown [id number] Unknown [id number] Unknown [id number] Unknown [id number] Social History Date Type Detail Facility Start: 02-18-2016 End: 10-08-2023 Tobacco smoking status NHIS Never smoked tobacco [employer] Work Phone: Start: 02-18-2016 Tobacco use and exposure Smokeless tobacco non-user [employer] Work Phone: Start: 12-11-2020 End: 07-28-2022 Alcohol intake Current non-drinker of alcohol (finding) [employer] Work Phone: Start: 1940 Sex Assigned At Not on file [facility] [email or web address] Work Phone: Start: 02-22-2021 End: 08-11-2022 Tobacco smoking status NHIS Unknown if ever smoked [facility] Start: 09-02-2020 [facility] Start: 1940 Sex Assigned At Female [facility] Start: 07-18-2022 End: 11-24-2022 Exposure to SARS-CoV-2 (event) Not sure [facility] Start: 07-28-2022 End: 07-07-2023 History of Social function [facility] Start: 07-28-2022 End: 07-07-2023 Tobacco use panel [facility] Start: 08-10-2024 Sex Female (finding) [facility] Clinical Notes 02-06-2022 to 11-08-2023 Addendum Note - KAUSHAL Baca CNP - 11/08/2023 3:10 PM EDTAddendum Note - KAUSHAL Baca CNP - 11/08/2023 3:10 PM EDTAddendum Note - KAUSHAL Baca CNP - 11/08/2023 3:10 PM EDT Note Date & Type Note Facility 11-08-2023 Note Addended by: NEENA HERNANDEZ on: 11/08/2023 03:10 PM Modules accepted: Orders [facility] 11-08-2023 Note Addended by: NEENA HERNANDEZ on: 11/08/2023 03:10 PM Modules accepted: Orders [facility] 11-08-2023 Note Addended by: NEENA HERNANDEZ on: 11/08/2023 03:10 PM Modules accepted: Orders [facility] 11-08-2023 Telephone encounter Note Flecainide removed from med list [facility] 11-08-2023 Miscellaneous Notes Addended by: NEENA HERNANDEZ on: 11/08/2023 03:10 PM Modules accepted: Orders Flecainide removed from med list Dr Doherty reviewed and asked for Flecainide to be discontinued Shannan, can you call to see if she is still taking? This might have been discontinued since on hospice now documented in this encounter [facility] 11-08-[address] Doherty reviewed and asked for Flecainide to be discontinued [facility] 11-08-2023 Telephone encounter Note Called the [facility] patient had a CVA and is in Hospice Care [facility] 11-08-2023 Miscellaneous Notes Called the [facility] patient had a CVA and is in Hospice Care We have made several attempts to contact the patient to schedule refill delivery for Eliquis. We have left a total of 5 messages between 10/12 and today. At this time we will not make any further attempts to contact the patient. [facility] can be reached at . Thank you! documented in this encounter [facility] 11-08-2023 Telephone encounter Note We have made several attempts to contact the patient to schedule refill delivery for Eliquis. We have left a total of 5 messages between 6 and today. At this time we will not make any further attempts to contact the patient. [facility] can be reached at . Thank you! [facility] 11-08-2023 Telephone encounter Note Shannan, can you call to see if she is still taking? This might have been discontinued since on hospice now [facility] 11-04-2023 Note Addended by: TOM JENSEN on: 11/04/2023 06:27 PM Modules accepted: Orders [facility] Phone: 11-04-2023 Note Addended by: TOM JENSEN on: 11/04/2023 06:27 PM Modules accepted: Orders [facility] [employer] Phone: 11-04-2023 Note Addended by: TOM JENSEN on: 11/04/2023 06:27 PM Modules accepted: Orders [facility] 11-04-2023 Miscellaneous Notes Addended by: TOM DOHERTY on: 11/04/2023 06:27 PM Modules accepted: Orders I will dc the medication. She does not need it. VAMSHI-07/03 OC NOV-12/31 LIPID-07/30 documented in this encounter [facility] 11-04-2023 Telephone encounter Note I will dc the medication. She does not need it. [facility] 11-04-2023 Telephone encounter Note VAMSHI-07/03 OC LIPID-07/30 [facility] 09-28-2023 Telephone encounter Note Patient called in today and r/s appt. 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 [facility] 09-28-2023 Miscellaneous Notes Patient called in today and r/s appt. 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 I called and spoke to patient. She would like me to call her next week to r/s. She has a lot going on right now. Name of caller: Ileana Contact phone number: [phone] Relationship to Patient: patient Provider: Dr. Panda Practice: [facility] Chief Complaint/Reason for Call: The patient states [...] their call: Yes documented in this encounter [facility] 09-20-2023 Telephone encounter Note I called and spoke to patient. She would like me to call her next week to r/s. She has a lot going on right now. [facility] 09-20-2023 Miscellaneous Notes I called and spoke to patient. She would like me to call her next week to r/s. She has a lot going on right now. Name of caller: Ileana Contact phone number: [phone] Relationship to Patient: patient Provider: Dr. Panda Practice: [facility] Chief Complaint/Reason for Call: The patient states [...] their call: Yes documented in this encounter [facility] 09-20-2023 Telephone encounter Note Name of caller: Ileana Contact phone number: [phone] Relationship to Patient: patient Provider: Dr. Panda Practice: [facility] Chief Complaint/Reason for Call: The patient states [...] business hours to return their call: Yes [facility] 08-20-2023 Telephone encounter Note Patient called wondering how far out we are scheduling in the valve clinic as she has to set up transportation. I told her 09/14/23 and she will call back to schedule. [facility] 08-20-2023 Miscellaneous Notes Patient called wondering how [...] pending knee sx documented in this encounter [facility] 08-20-2023 Telephone encounter Note Called patient and explained that TAVR is thru the groin area but first she will meet with the valve team and discuss options address given and she will meet with Valve team but is hesitant to have Aortic Valve replaced T [facility] 08-20-2023 Telephone encounter Note RC to pt, pt has questions, where would the valve repair surgical site be (area of the body) pt is concerned that she has abdominal scar tissue from previous surgeries. [facility] 08-13-2023 Telephone encounter Note I spoke [...] weekend and call me back next week. [facility] Work Phone: 08-13-2023 Miscellaneous Notes I spoke [...] pending knee sx documented in this encounter [facility] 08-13-2023 Telephone encounter Note Pt lvm again this morning requesting results of echo [facility] 08-10-2023 Telephone encounter Note Notified patient that Dr Doherty will call her [facility] 08-10-2023 Telephone encounter Note Pt lvm requesting results of echo doen 08/03/23 [facility] 08-06-2023 Telephone encounter Note Notified patient that I will call with Dr Doherty response ,she is very apprehensive about knee surgery at her age [facility] 08-06-2023 Telephone encounter Note Pt lvm returning your sandro [facility] 08-06-2023 Telephone encounter Note Rt TKA will potentially be scheduled by Dr Melendez end of September patient asking about Echo results [facility] 08-06-2023 Telephone encounter Note Pt requesting results of echo results, pending knee sx [facility] 07-07-2023 History of Presen t illness Narrative Images from the original note were not included. [facility] [address] 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 female who presents for evaluation of the bilateral knee. Right worse Symptoms began gradually several years ago. She describes the symptoms as aching. The pain is anterior. Symptoms improve with rest, medication: Marion used but not effective. The symptoms are [...] AFIB and hx of blood clot to MIYA Salazar ,Not diabetic, Hx of Left MERY at [facility] about 15 years ago. Previous [...] INSTRUCTIONS Procedure: Right Total Knee [place]throplasty - [address]398 Time: 1 hour(s) Diagnosis: 1. Primary osteoarthritis of both knees Blood: Not anticipated to be given Important Labs to Obtain: Routine PAT protocol Anesthesia: Spinal and ambIT Adductor Pump DVT Prophylaxis: ASA Return to Office: No Repeat Xrays: Bennett CT Anticipated Discharge To: Residential Facility Implants: [facility] Triathlon with Bennett, with patellar resurfacing Equipment: [employer] leg carmona, CarboJet, regular table Other: TXA, No Baer, OpSite The patient is not a candidate for same day joint replacement. Electronically signed by Camacho Melendez M.D. 07/07/2023 at 11:24 AM. documented in this encounter [facility] 06-15-2023 History of Presen t illness Narrative [facility] [place] Cardiology/Electrophysiology Follow Up Clinic Note Chief Complaint: [...] in her knees, for which she takes Marion. She walks with a walker. 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 5. Bilateral Bruits. [...] of SERVICE: 06/15/2023 documented in this encounter [facility] 05-13-2023 Telephone encounter Note VAMSHI 11-24-22 05-25-23 04-05-23 Lipid/LFT in CE under OHIP [facility] 05-13-2023 Miscellaneous Notes [facility] 11-24-22 05-25-23 04-05-23 Lipid/LFT in CE under OHIP documented in this encounter [facility] 04-15-2023 Telephone encounter Note V[facility]I 11-24-22 05-25-23 11-02-22 CBC CMP/creat 0.78 in CE [facility] 04-15-2023 Miscellaneous Notes [facility] 11-24-22 05-25-23 11-02-22 CBC CMP/creat 0.78 in CE Last seen 11/24/22, next appt 05/25/23 documented in this encounter [facility] 04-15-2023 Telephone encounter Note Last seen 11/24/22, next appt 05/25/23 [facility] 01-06-2023 Telephone encounter Note V[facility]I 11-24-22 05-25-2023 11-02-22 CBC,BMP/Creat 0,78 labs are in Care Everywhere [facility] 01-06-2023 Miscellaneous Notes [facility] 11-24-22 NOV 05-25-2023 11-02-22 CBC,BMP/Creat 0,78 labs are in Care Everywhere Pt requesting eliquis Last seen 11/24/22, OC fu 05/25/22 Pharmacy confirmed documented in this encounter [facility] 01-06-2023 Telephone encounter Note Pt requesting eliquis Last seen 11/24/22, OC fu 05/25/22 Pharmacy confirmed [facility] 11-30-2022 Telephone encounter Note VAMSHI-11/29 oc LIPID has active order [facility] 11-30-2022 Miscellaneous Notes VAMSHI-11/29 oc LIPID-07/30 has active order Patient's insurance is requiring them to switch from Praluent to Repatha due to formulary change. If appropriate, please send script to [facility] and we will reach out to the pt to inform her of the change. Canceled Praluent script and pended Repatha for review. Thank you! documented in this encounter [facility] 11-30-2022 Telephone encounter Note Patient's insurance is requiring them to switch from Praluent to Repatha due to formulary change. If appropriate, please send script to [facility] and we will reach out to the pt to inform her of the change. Canceled Praluent script and pended Repatha for review. Thank you! [facility] 11-26-2022 Telephone encounter Note Last OV with OC 7-18-23 3-27-23 Lipids /LFTs not done needs recheck in 3-4 months per OC order put in Epic [facility] 11-26-2022 Miscellaneous Notes Last OV with OC 7-18-23 3-27-23 Lipids /LFTs not done needs recheck in 3-4 months per OC order put in Epic documented in this encounter [facility] 11-24-2022 History of Presen t illness Narrative [facility] [place] Cardiology/Electrophysiology Follow Up Clinic Note Chief Complaint: [...] of SERVICE: 11/24/2022 documented in this encounter [facility] 11-05-2022 Telephone encounter Note CBC And BMP resulted 11/02/2022 acceptable (found in the Care Everywhere encounter Dr. Lisa Fuentes 11/02/2022) [facility] 11-05-2022 Miscellaneous Notes CBC And BMP resulted 11/02/2022 acceptable (found in the Care Everywhere encounter Dr. Lisa Fuentes 11/02/2022) Pt requesting flecainide Last seen 07/28/22, OC fu 11/24/22. Pharmacy confirmed documented in this encounter [facility] 11-05-2022 Telephone encounter Note Pt requesting flecainide Last seen 07/28/22, OC fu 11/24/22. Pharmacy confirmed [facility] 09-11-2022 Telephone encounter Note Notified patient that Dr Doherty reviewed Echo and said AoV little bit more sclerotic ,does not need intervention at this time [facility] 09-11-2022 Miscellaneous Notes Notified patient that Dr Doherty reviewed Echo and said AoV little bit more sclerotic ,does not need intervention at this time Pt requesting a call with results of ECHO done 09/08/22 OC fu 11/24/22 documented in this encounter [facility] 09-10-2022 Telephone encounter Note Pt requesting a call with results of ECHO done 09/08/22 OC fu 11/24/22 [facility] 08-06-2022 Telephone encounter Note SUBJECTIVE Ileana Yanez is a 82 year old Female who was referred to [facility] for clinical management services for Praluent [...] Time Spent: 10 minutes Nanette Jamison PharmD [facility] 08-06-2022 Miscellaneous Notes SUBJECTIVE Ileana Yanez is a 82 year old Female who was referred to [facility] for clinical management services for Praluent [...] Time Spent: 10 minutes Nanette Jamison PharmD [facility] documented in this encounter [facility] 08-05-2022 Telephone encounter Note Thank you let us know if you need prescription sent [facility] 08-05-2022 Miscellaneous Notes Thank you let us [...] Repatha or Praluent documented in this encounter [facility] 08-05-2022 Telephone encounter Note Praluent is preferred through the pt's insurance plan. PA submitted and approved through 08/05/2023. Pt is also eligible for a copay card that will bring the cost of the medication down to $35 per month. We will reach out to the patient to discuss filling. Thank you! [facility] 08-04-[address] Doherty reviewed Lipids done 08-03-22 LDL 222 and would like to start patient on a PCSK9 ,patient is agreeable to this plan also will [facility] to give best becerra for Repatha or Praluent [facility] 07-28-2022 History of Presen t illness Narrative [facility] [place] Cardiology/Electrophysiology Follow Up Clinic Note Chief Complaint: [...] noted above. 6. HL Her cholesterol in 2017 was [...] Blood pressure 130/76, pulse 63, height 5' 4 (1.626 m), weight 138 lb (62.6 kg), [...] of SERVICE: 07/28/2022 documented in this encounter [facility] 07-20-2022 Miscellaneous Notes Last OV with OC 11-2-22 next OV 07-28-22 Last BMP 9 creat 0.70 documented in this encounter [facility] 07-20-2022 Telephone encounter Note Last OV with OC 11-2-22 next OV 07-28-22 Last BMP 9-1-22 creat 0.70 [facility] 02-06-2022 Hospital Discharg e instructions Additional Instructions Your INR today is 4.2. Is recommended that you hold your Coumadin dose Wednesday and Wednesday and have it rechecked on Wednesday morning. No fractures were identified but you will most likely be sore due to bruising which is exacerbated by your Coumadin use. [facility] Work Phone: Evaluation note Diagnosis Near syncope Syncope and collapse Cardiac murmur Undiagnosed cardiac murmurs Paroxysmal atrial fibrillation (HCC) Atrial fibrillation Cerebral artery occlusion with cerebral infarction (HCC) Unspecified cerebral artery occlusion with cerebral infarction documented in this encounter [facility] Work Phone: Evaluation noteNo assessment information available [facility] Work Phone: Evaluation note* Diagnosis Onset Date Resolution Status Ganglion cyst of volar aspect of right wrist acute [facility] Work Phone: Evaluation note* Diagnosis Onset Date Resolution Status Ganglion cyst of volar aspect of right wrist acute Ganglion cyst of volar aspect of right wrist acute [facility] Work Phone: Evaluation note* Diagnosis Paroxysmal atrial fibrillation (CMS/HCC) (HCC) Atrial fibrillation Nonrheumatic aortic valve stenosis Mixed hyperlipidemia documented in this encounter [facility] [employer] note* Diagnosis Paroxysmal atrial fibrillation (CMS/HCC) (HCC) Atrial fibrillation documented in this encounter [facility] [employer] note* Diagnosis Paroxysmal atrial fibrillation (CMS/HCC) (HCC)- Primary Atrial fibrillation Nonrheumatic aortic valve stenosis Mixed hyperlipidemia Obstructive sleep apnea syndrome Obstructive sleep apnea (adult) (pediatric) TIA (transient ischemic attack) Unspecified transient cerebral ischemia Primary hypertension Unspecified essential hypertension documented in this encounter [facility] [employer] note* Diagnosis Pure hypercholesterolemia documented in this encounter [facility] [employer] note* Diagnosis Paroxysmal atrial fibrillation (HCC)- Primary Atrial fibrillation Nonrheumatic aortic valve stenosis Obstructive sleep apnea syndrome Obstructive sleep apnea (adult) (pediatric) TIA (transient ischemic attack) Unspecified transient cerebral ischemia Primary hypertension Unspecified essential hypertension Mixed hyperlipidemia Syncope and collapse documented in this encounter [facility] [employer] note* Diagnosis Chronic pain of both knees- Primary documented in this encounter [facility] [employer] note* Diagnosis Primary osteoarthritis of both knees documented in this encounter [facility] [employer] note* Diagnosis Chronic pain of both knees documented in this encounter [facility] [employer] note* Diagnosis Paroxysmal atrial fibrillation (HCC) Atrial fibrillation Nonrheumatic aortic valve stenosis Obstructive sleep apnea syndrome Obstructive sleep apnea (adult) (pediatric) TIA (transient ischemic attack) Unspecified transient cerebral ischemia Primary hypertension Unspecified essential hypertension documented in this encounter [facility] [employer] [facility]* Diagnosis Paroxysmal atrial fibrillation (HCC) Atrial fibrillation [facility] Diagnosis Paroxysmal atrial fibrillation (CMS/HCC) (HCC)- Primary Atrial fibrillation Nonrheumatic aortic valve stenosis Mixed hyperlipidemia [facility] (narrative)No reason for referral information [facility] Work Phone: Summary Purpose Family History No Family History Records Found Relationship Condition Age at Onset Recorded Date/T alyson Not Specified Alzheimer's dementia Unknown Relationship Condition Age at Onset Recorded Date/T alyson mother Alzheimer's dementia Unknown father Diabetes mellitus Unknown Advance Directives No Advanced Directives Records FoundDocuments on File Type Date Recorded Patient Chief Nurse 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 Expl anation ACP-Advance Directive ACP-Power of Controls Design Engineer Advance Directive Response Recorded Date/ Time Living Will Yes February 22 9:50pm Power of Controls Design Engineer Yes February 22, 2021 9:50pm Advance Directive Response Recorded Date/ Time Name of Medical Power of Controls Design Engineer Latrice February 06, 2022 2:34pm Living Will Yes February 06, 2022 2:34pm Power of Controls Design Engineer Yes January 2:34pm Advance Directive Response Recorded Date/ Time Name of Medical Power of Controls Design Engineer Latrice February 06, 2022 1:34pm Living Will Yes February 06, 2022 1:34pm Power of Controls Design Engineer Yes January 1:34pm Advance Directive Response Recorded Date/ Time Living Will Yes February 06, 2022 1:34pm Power of Controls Design Engineer Yes January 1:34pm Name of Medical Power of Controls Design Engineer Latrice February 06, 2022 1:34pm Advance Directive Response Recorded Date/ Time Living Will Yes February 06, 2022 1:34pm Power of Controls Design Engineer Yes January 1:34pm Advance Directive Response Recorded Date/ Time Living Will Yes February 06, 2022 2:34pm Power of Controls Design Engineer Yes January 2:34pm Reason for Referral Specialty Diagnoses / Procedures Referred By Contac t Referred To Contact Cardiology Diagnoses Near syncope Cardiac murmur Paroxysmal atrial fibrillation (HCC) Cerebral artery occlusion with cerebral infarction (HCC) Procedures Echo 2D Doppler Color John Doherty MD [address] [place] [address] [address] [place] [address] Referral ID Status Reason Start Date Expiration Date Visits Re quested Visits Authorized [id number] Closed 02/26/2021 08/24/2021 1 1 Specialty Diagnoses / Procedures Referred By Contact Referred To Contact Cardiac Electrophysiology Diagnoses Near syncope Cardiac murmur Paroxysmal atrial fibrillation (HCC) Cerebral artery occlusion with cerebral infarction (HCC) Procedures Mobile Cardiac Telemetry John Doherty MD [address] [place] [address] [address] [place] [address] Referral ID Status Reason Start Date Expiration Date Visits Re quested Visits Authorized [id number] Closed 02/26/2021 02/26/2022 1 1 Specialty Diagnoses / Procedures Referred By Contac t Referred To Contact Cardiology Diagnoses Paroxysmal atrial fibrillation (CMS/HCC) (HCC) Nonrheumatic aortic valve stenosis Mixed hyperlipidemia Procedures Transthoracic echocardiogram (TTE) complete with contrast, bubble, strain, and 3D PRN DC ECHO TTHRC R-T 2D W/WOM-MODE COMPL SPEC&COLR D DC TTE W OR WO FOL VIRIDIANA ELDER Ottorino, MD [address] [place] [address] Referral ID Status Reason Start Date Expiration Date V isits Requested Visits Authorized [id number] Closed Perform Procedure 07/28/2022 01/24/2023 1 1 Specialty Diagnoses / Procedures Referred By Contac t Referred To Contact Cardiology Diagnoses Paroxysmal atrial fibrillation (HCC) Nonrheumatic aortic valve stenosis Obstructive sleep apnea syndrome TIA (transient ischemic attack) Primary hypertension Procedures Transthoracic echocardiogram (TTE) complete with contrast, bubble, strain, and 3D PRN DC ECHO TTHRC R-T 2D W/WOM-MODE COMPL SPEC&COLR D DC TTE W OR WO VIRIDIANA TOLENTINO Ottorino, MD [address] [place] [address] [address] [place] [address] Referral ID Status Reason Start Date Expiration Date V isits Requested Visits Authorized [id number] Pending Review 06/15/2023 06/14/2024 1 1 Specialty Diagnoses / Procedures Referred By Esther trammell Referred To Contact Cardiology Diagnoses Paroxysmal atrial fibrillation (HCC) Nonrheumatic aortic valve stenosis Obstructive sleep apnea syndrome TIA (transient ischemic attack) Primary hypertension Procedures Transthoracic echocardiogram (TTE) complete with contrast, bubble, strain, and 3D PRN DC ECHO TTHRC R-T 2D W/WOM-MODE COMPL SPEC&COLR D DC TTE W OR WO FOL WCON,DOPPLER John Doherty MD [address] [facility] [address] [place] [address] [facility] [address] [place] [address] Referral ID Status Reason Start Date Expiration Date Visits Re quested Visits Authorized [id number] Closed 06/15/2023 06/14/2024 1 1 Referral ID Status Reason Start Date Expiration Date Visits Requested Visits Authorized [id number] Pending Review Perform Procedure 07/28/2022 01/24/2023 1 1 Chief Complaint and Reason for Visit Chief Complaint XRAY fall w/continued pain Chief Complaint XRAY fall w/continued pain CORRECTION LAB WORK Chief Complaint XRAY fall w/continued pain CORRECTION LAB WORK CORRECTION LABWORK CORRECTION LABWORK Chief Complaint fall w/continued rubi n CORRECTION LAB WORK LABWORK CORRECTION LABWORK CORRECTION LABWORK Chief Complaint CORRECTION LAB WOR K LABWORK CORRECTION LABWORK CORRECTION LABWORK CORRECTION LABWORK Chief Complaint CORRECTION LABWORK CORRECTION LAB WORK LABWORK RIGHT WRIST RM 3 XRAY Reason for Visit Ganglion cyst of vol ar aspect of right wrist Chief Complaint CORRECTION LABWORK CORRECTION LAB WORK LABWORK RIGHT WRIST RM 3 XRAY CORRECTION LABWORK RIGHT WRIST CYST Reason for Visit Ganglion cyst of vol ar aspect of right wrist Chief Complaint CORRECTION LABWORK CORRECTION LAB WORK LABWORK RIGHT WRIST RM 3 XRAY CORRECTION LABWORK RIGHT WRIST CYST LABWORK RIGHT WRIST Reason for Visit Ganglion cyst of vol ar aspect of right wrist Ganglion cyst of volar aspect of right wrist Chief Complaint CORRECTION LABWORK Chief Complaint CORRECTION LABWORK CORRECTION LABWORK LABWORK Chief Complaint CORRECTION LABWORK CORRECTION LABWORK Chief Complaint Admit Date LABWORK June 30, 2024 5:00am CORRECTION LAB WORK July 20, 2024 4 :00am Chief Complaint Admit Date LABWORK June 30, 2024 5:00am CORRECTION LAB WORK July 20, 2024 4 :00am LABWORK September 18, 2024 5:00a m Additional Source Comments INFORMATION SOURCE (unrecogn ized section and content) DATE CREATED AUTHOR 11/01/2017 [facility] DATE CREATED AUTHOR AUTHOR'S ORGANIZ ATION 11/02/2017 [facility] DATE CREATED AUTHOR AUTHOR'S ORGANIZ ATION 11/04/2017 [facility] DATE CREATED AUTHOR AUTHOR'S ORGANIZ ATION 04/01/2021 [facility] DATE CREATED AUTHOR AUTHOR'S ORGANIZ ATION 11/08/2023 [facility] DATE CREATED AUTHOR AUTHOR'S ORGANIZ ATION [facility] Care Teams (unrecognized sec tion and content) Transmission Design Engineer Relationship Specialty Start Date End Date Dwain Roberson DO [address] [place] [id number] PCP - General 09/11/15 Team Status: Active Member Role Status Dates Dr. Dwain Roberson , DO Family Provider Active Dr. Dwain Roberson , DO Primary Care Provider Active Team Status: Inactive Member Role Status Dates Dr. Dwain Roberson DO Primary Care Provider Active [facility] Attending Provider Acti ve Team Status: Inactive Member Role Status Dates Dr. Dwain Roberson , DO Primary Care Provider Active Dwain Roberson DO Attending Provider Active Team Status: Inactive Member Role Status Dates Dr. Dwain Roberson DO Primary Care Provider Active Dr. Lisa Fuentes MD Attending Provider Active Team Status: Active Member Role Status Dates Dr. Dwain Roberson DO Primary Care Provider Active Dr. Lisa [...] Dr. Lisa SIDDIQUI MD Attending Provider Active Transmission Design Engineer Relationship Specialty Start Date End Date Gina Lisa [address] [place] [address] PCP - General Geriatric Medicine 07/28/22 Transmission Design Engineer Relationship Specialty Start Date End Date Gina Lisa [address] [place] [address] PCP - General Geriatric Medicine 07/28/22 Team Status: Inactive Member Role Status Dates Dr. Lisa Fuentes MD Primary Care Provider, Referring Provider Active John Grier MD Attending Provider Active Team Status: Inactive Member Role Status Dates Dr. Lisa Fuentes MD Primary Care Provider Active Jef SIDDIQUI Attending Provider Active Transmission Design Engineer Relationship Specialty Start Date End Date Gina Lisa [address] [place] [address] PCP - General Geriatric Medicine 07/28/22 Transmission Design Engineer Relationship Specialty Start Date End Date Gina Lisa [address] [place] [address] PCP - General Geriatric Medicine 07/28/22 Transmission Design Engineer Relationship Specialty Start Date End Date Ronaldgradyaddy Lisa [address] [place] [address] PCP - General Geriatric Medicine 07/28/22 Transmission Design Engineer Relationship Specialty Start Date End Date RonaldgradyLisa madera [address] [place] [address] PCP - General Geriatric Medicine 07/28/22 Transmission Design Engineer Relationship Specialty Start Date End Date Ronaldgradyaddy Lisa [address] [place] [address] PCP - General Geriatric Medicine 07/28/22 Transmission Design Engineer Relationship Specialty Start Date End Date Ronaldlisa Lisa [address] [place] [address] PCP - General Geriatric Medicine 07/28/22 Transmission Design Engineer Relationship Specialty Start Date End Date Ronaldgradyaddy Lisa [address] [place] [address] PCP - General Geriatric Medicine 07/28/22 Team Status: Inactive Member Role Status Dates Dr. Lisa Fuentes MD Primary Care Provider Active Dr. Lisa SIDDIQUI MD Attending Provider Active Transmission Design Engineer Relationship Specialty Start Date End Date Ronaldgradyaddy Lisa [address] [place] [address] PCP - General Geriatric Medicine 07/28/22 Transmission Design Engineer Relationship Specialty Start Date End Date Ronaldlisa Lisa [address] [place] [address] PCP - General Geriatric Medicine 07/28/22 Transmission Design Engineer Relationship Specialty Start Date End Date Lisa Fuentes [address] [place] [address] PCP - General Geriatric Medicine 07/28/22 Transmission Design Engineer Relationship Specialty Start Date End Date Lisa Fuentes [address] [place] [address] PCP - General Geriatric Medicine 07/28/22 Transmission Design Engineer Relationship Specialty Start Date End Date Lisa Fuentes [address] [place] [address] PCP - General Geriatric Medicine 07/28/22 Transmission Design Engineer Relationship Specialty Start Date End Date Lisa Fuentes [address] [place] [address] PCP - General Geriatric Medicine 07/28/22 Transmission Design Engineer Relationship Specialty Start Date End Date Dwain Roberson DO [address] [facility] [place] [id number] PCP - General 10/08/18 Transmission Design Engineer Relationship Specialty Start Date End Date Lisa Fuentes [address] [facility] [place] [address] PCP - General Geriatric Medicine 07/28/22 Team Status: Active Member Role Status Dates Dr. 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 Specialty Diagnoses / Procedures Referred By Esther t Referred To Contact Cardiology Diagnoses Paroxysmal atrial fibrillation (HCC) Nonrheumatic aortic valve stenosis Obstructive sleep apnea syndrome TIA (transient ischemic attack) Primary hypertension Procedures Transthoracic echocardiogram (TTE) complete with contrast, bubble, strain, and 3D PRN DC ECHO TTHRC R-T 2D W/WOM-MODE COMPL SPEC&COLR D DC TTE W OR WO FOL JAEL,John Storey MD [address] [facility] [address] [place] [address] [facility] [address] [place] [address] Referral ID Status Reason Start Date Expiration Date Visits Re quested Visits Authorized [id number] Closed 06/15/2023 06/14/2024 1 1 Reason Onset [...] BE BASED ON THE PRIMARY CLINICAL RECORDS. [facility]. provides no warranty or guarantee of the accuracy or completeness of information in this document.
[2025-04-30 08:28] LABS: AST(SGOT) 16 U/L (<=31); Alanine Aminotransfer ALT/SGPT 8 U/L (<=34); Albumin, Serum 3.5 g/dL (3.4-4.8); Alkaline Phosphatase 69 U/L (35-104); Bilirubin, Direct 0.10 mg/dL (0.00-0.30); Globulin 3.0 g/dL (2.2-4.2)
== END ==
LOC: OLS.ACH 05:00
PROVIDERS: PCP Internal Medicine; Visit Provider Internal Medicine
DX: Z86.19 Personal history of other infectious and parasitic diseases (principal)
CPT/HCPCS: 36415; 80076